=== PATIENT | male | born 1980 | race Caucasian/White ===

== ENCOUNTER 2016-10-13 19:46 | Inpatient (IN) | payer OTHER ==
[~2016-10-13] VITALS: Ht 182.9 cm; Wt 169.9 kg
[~2016-10-13 19:46] MED LIST: ACET1TAB40 PO; ASPI325T4 PO; COLC0.6T6 PO; DABI150C PO; DIGO125T PO; DILT240C79 PO; HYDR-3498 PO; HYDR-906 PO; IBUP800T25 PO; METF-405 PO; METO-448 PO; PANT40TA3 PO; TRAM50TA2 PO
[2016-10-13] MEDS ORDERED: INSULIN REGULAR 10 ML INJ SC ONE (22:30)
[2016-10-13 22:47] LABS: ADD SCAN DIFF NO
[2016-10-13 22:49] LABS: BASOPHILS % 0.5 % (0.0-2.0); EOSINOPHILS # 0.1 10^3/ul (0.0-0.5); EOSINOPHILS % 1.1 % (0.0-7.0); HEMATOCRIT 46.4 % (42.0-52.0); HEMOGLOBIN 15.9 g/dl (14.0-18.0); LYMPHOCYTES # 1.2 10^3/ul (0.8-2.9); MEAN CORPUSCULAR HEMOGLOBIN 28.6 pg (29.0-33.0); MEAN CORPUSCULAR HGB CONC 34.3 g/dl (32.0-37.0); MEAN CORPUSCULAR VOLUME 83.6 fl (82.0-101.0); MEAN PLATELET VOLUME 11.7 fl (7.4-10.4); MONOCYTE # 0.5 10^3/ul (0.3-0.9); MONOCYTES % 8.5 % (0.0-11.0); NEUTROPHIL # 3.8 10^3/ul (1.6-7.5); NEUTROPHILS % 68.5 % (39.0-77.0); PLATELET COUNT 200 10^3/UL (140-415); RED BLOOD COUNT 5.55 10^6/ul (4.70-6.10); RED CELL DISTRIBUTION WIDTH 14.6 % (11.5-14.5); WHITE BLOOD COUNT 5.5 10^3/ul (4.8-10.8)
[2016-10-13 23:04] LABS: INR 1.03; PROTIME 13.5 Sec (12.2-14.2); PT RATIO 1.1
[2016-10-13 23:07] LABS: ALANINE AMINOTRANSFERASE 80 IU/L (13-69); ALBUMIN 4.3 g/dl (3.3-4.9); ALBUMIN/GLOBULIN RATIO 1.16; ALKALINE PHOSPHATASE 215 IU/L (42-121); ANION GAP 13 (8-16); ASPARTATE AMINO TRANSFERASE 50 IU/L (15-46); BILIRUBIN,INDIRECT 0.8 mg/dl (0-1.1); BILIRUBIN,TOTAL 0.8 mg/dl (0.2-1.3); BLOOD UREA NITROGEN 9 mg/dl (7-20); CALCIUM 9.4 mg/dl (8.4-10.2); CARBON DIOXIDE 27 mmol/L (21-31); CHLORIDE 92 mmol/L (97-110); CREATININE 0.84 mg/dl (0.61-1.24); POTASSIUM 4.2 mmol/L (3.5-5.1); SODIUM 128 mmol/L (135-144)
--- NOTE | 2016-10-13 23:10 | RADRPT ---
PROCEDURE: XR Chest. CLINICAL INDICATION: chest pain TECHNIQUE: Single frontal view of the chest was obtained COMPARISON: 03/29/2016 FINDINGS: The heart and mediastinum are within normal limits. The lungs are clear. There is no pleural effusion or pneumothorax. RPTAT: AA IMPRESSION: No acute disease. .Ruel De La Fuente MD, MD Date Time Electronically viewed and signed by .Ruel De La Fuente MD, on 10/13/2016 23:10 .S/
[2016-10-13 23:15] LABS: B-TYPE NATRIURETIC PEPTIDE 39 PG/ML (0-125)
[2016-10-13 23:16] LABS: GLUCOSE 590 mg/dl (70-220)
[2016-10-13 23:20] LABS: TROPONIN-I < 0.012 ng/ml (0.00-0.12)
[2016-10-13] MEDS ORDERED: MTF1000T PO (23:27)
[2016-10-14] VITALS (9 sets, daily range): BP systolic 117–140; BP diastolic 58–69; PULSE 73–83; RESP 20–21; Ht 182.9 cm; Wt 169.9 kg
--- NOTE | 2016-10-14 01:45 | ERD ---
ER Documentation Chief Complaint Date/Time DATE: 10/14/16 TIME: 01:44 Chief Complaint sob/cp worsened last 2 days. hx chf dm HPI This a 36-year-old male comes in with shortness of breath dizziness, thirst, nausea for the past 2 days. Patient does have history of CHF and does not feel short of breath secondary to CHF. Denies any leg swelling. Denies any other no chest pain. No other current problems ROS All systems reviewed and are negative except as per history of present illness. Medications Home Meds Active Scripts Diltiazem Hcl* (Cardizem CD*) 240 Mg Cap.sr.24h, 60 MG PO QID for 30 Days, #90 CAP Prov:SHARON DEWITT MD 03/29/16 Pantoprazole* (Protonix*) 40 Mg Tablet.dr, 40 MG PO BID for 30 Days, TAB Prov:MEHUL KIRAN MD 03/09/16 Metoprolol Tartrate* (Lopressor*) 25 Mg Tab, 25 MG PO BID for 30 Days, TAB Prov:MEHUL KIRAN MD 03/09/16 Colchicine* (Colcrys*) 0.6 Mg Tablet, 0.6 MG PO DAILY for 28 Days, TAB Prov:MEHUL KIRAN MD 03/09/16 Reported Medications Metformin* (Glucophage*) 1,000 Mg Tablet, 1000 MG PO WITH BREAKFAST DINNE, #30 TAB 10/13/16 Dabigatran Etexilate Mesylate* (Pradaxa*) 150 Mg Capsule, 150 MG PO DAILY, CAP 03/29/16 Digoxin* (Digoxin*) 0.125 Mg Tab, 0.125 MG PO DAILY, #30 TAB 11/12/15 Discontinued Scripts Hydrocodone/Acetaminophen ([place] 5-325 Tablet) 1 Each Tablet, 1 TAB PO Q6H Y for PAIN, #7 TAB Prov:MOMO GAXIOLA NP 05/11/16 Ibuprofen* (Motrin*) 800 Mg Tab, 800 MG PO Q6, #15 TAB Prov:MOMO GAXIOLA NP 05/11/16 Acetaminophen with Codeine (Acetaminophen-Cod #3 Tablet) 1 Each Tablet, 1 TAB PO Q6H Y for PAIN, #14 TAB Prov:MIGEL PETTIT MD 04/14/16 Hydrocodone/Acetaminophen ([place] 5-325 Tablet) 1 Each Tablet, 1 TAB PO Q6H Y for PAIN for 7 Days, #7 TAB Prov:SHARON DEWITT MD 03/29/16 Tramadol HCl (Tramadol HCl) 50 Mg Tablet, 50 MG PO Q6, #15 TAB Prov:GARRY CAMPOS DO 03/16/16 Hydrocodone Bit-Acetaminophen (Hydrocodone Bit-APAP) 5-325MG Tablet, 1 TAB PO Q4H Y for PAIN for 28 Days, TAB Prov:MEHUL KIRAN MD 03/09/16 Metformin Hcl (Metformin Hcl ER) 500 Mg Tab.er.24, 500 MG PO DAILY, #30 TAB.SA Prov:MEHUL KIRAN MD 11/15/15 Aspirin (Coated Aspirin) 325 Mg Tablet, 325 MG PO DAILY, #30 TAB Prov:ELENO BRADFORD 10/04/15 Allergies Allergies: Coded Allergies: No Known Drug Allergies (Verified Allergy, Unknown, 10/13/16) PMhx/Soc History of Surgery: Yes (repair a fractured pelvis ) Anesthesia Reaction: No Hx Neurological Disorder: No Hx Respiratory Disorders: Yes (sleep apnea) Hx Cardiac Disorders: Yes (a fib and CHF ) Hx Psychiatric Problems: No Hx Miscellaneous Medical Probl: Yes (GERD, ULCERS, DM) Hx Alcohol Use: No Hx Substance Use: No Hx Tobacco Use: No Smoking Status: Never smoker Physical Exam Vitals Vital Signs Date Time Temp Pulse Resp B/P Pulse Ox O2 Delivery O2 Flow Rate FiO2 10/14/16 00:34 88 18 134/84 97 Nasal Cannula 2.0 10/13/16 19:48 97.9 99 32 131/85 90 Physical Exam Const: [] Head: Atraumatic Eyes: Normal Conjunctiva ENT: Normal External Ears, Nose and Mouth. Neck: Full range of motion..~ No meningismus. Resp: Clear to auscultation bilaterally Cardio: Regular rate and rhythm, no murmurs Abd: Soft, non tender, non distended. Normal bowel sounds Skin: No petechiae or rashes Back: No midline or flank tenderness Ext: No cyanosis, or edema Neur: Awake and alert Psych: Normal Mood and Affect Result Diagram: 10/13/162 10/13/162 Results 24 hrs Laboratory Tests Test 10/13/16 22:16 10/13/16 22:42 Bedside Glucose 581mg/dL White Blood Count 5.510^3/ul Red Blood Count 5.5510^6/ul Hemoglobin 15.9g/dl Hematocrit 46.4% Mean Corpuscular Volume 83.6fl Mean Corpuscular Hemoglobin 28.6pg Mean Corpuscular Hemoglobin Concent 34.3g/dl Red Cell Distribution Width 14.6% Platelet Count 03961^3/UL Mean Platelet Volume 11.7fl Neutrophils % 68.5% Lymphocytes % 21.0% Monocytes % 8.5% Eosinophils % 1.1% Basophils % 0.5% Nucleated Red Blood Cells % 0.0/100WBC Neutrophils # 3.810^3/ul Lymphocytes # 1.210^3/ul Monocytes # 0.510^3/ul Eosinophils # 0.110^3/ul Basophils # 0.010^3/ul Nucleated Red Blood Cells # 0.010^3/ul Prothrombin Time 13.5Sec Prothrombin Time Ratio 1.1 INR International Normalized Ratio 1.03 Activated Partial Thromboplast Time 28.0Sec Sodium Level 128mmol/L Potassium Level 4.2mmol/L Chloride Level 92mmol/L Carbon Dioxide Level 27mmol/L Anion Gap 13 Blood Urea Nitrogen 9mg/dl Creatinine 0.84mg/dl Glucose Level 590mg/dl Calcium Level 9.4mg/dl Total Bilirubin 0.8mg/dl Direct Bilirubin 0.00mg/dl Indirect Bilirubin 0.8mg/dl Aspartate Amino Transf (AST/SGOT) 50IU/L Alanine Aminotransferase (ALT/SGPT) 80IU/L Alkaline Phosphatase 215IU/L Troponin I < 0.012ng/ml B-Type Natriuretic Peptide 39PG/ML Total Protein 8.0g/dl Albumin 4.3g/dl Globulin 3.70g/dl Albumin/Globulin Ratio 1.16 Current Medications Medications (Trade) Dose Ordered Sig/Mera Route PRN Reason Start Time Stop Time Status Last Admin Dose Admin Insulin Human Regular (Novolin-R) 8 unit ONCE ONCE SC 10/13/16 22:30 10/13/16 22:31 DC 10/13/16 22:59 Procedures/MDM EKG: Rate/Rhythm: Normal Sinus Rhythm QRS, ST, T-waves: No changes consistent w/ acute ischemia Impression: No evidence of ischemia or arrhythmia Chest X-ray 1V Interpreted by me: Soft Tissue: No acute abnormalities Bones: No acute abnormalities Mediastinum/Cardiac Silhouette/Lungs: No acute abnormalities Medical decision: 36-year-old male as well as to be severe diabetes. He has no evidence of diabetic ketoacidosis. Patient will be admitted for further evaluation and management. Departure Diagnosis: Primary Impression: Shortness of breath Additional Impression: Hyperglycemia Condition: Serious MARIO KNIGHT October 14, 2016 01:45
[2016-10-14] MEDS ORDERED: GLUCAGON 1 MG INJ IM PRN (10:30)
[2016-10-14] MEDS ORDERED: GLUCOSE GEL 15 GRAM TUBE PO PRN ×2 (10:30)
[2016-10-14] MEDS ORDERED: DEXTROSE 50% 50 ML SYRINGE IV PRN ×2 (10:30)
[2016-10-14] MEDS ORDERED: GLUCOSE GEL 15 GRAM TUBE BUCCAL PRN (10:30)
[2016-10-14] MEDS ORDERED: SOD CHLORIDE 0.9% 1,000 ML IV SCH (10:30)
[2016-10-14] MEDS: SOD CHLORIDE 0.9% 1,000 ML IV SCH ×2 (11:00→11:50)
[2016-10-14] MEDS: INSULIN ASPART [NOVOLOG] 3 ML PEN SC SCH ×4 (11:51→20:48)
[2016-10-14] MEDS ORDERED: INSULIN GLARGINE [LANtus] 3 ML PEN SC SCH (12:30)
[2016-10-14] MEDS: DILTIAZEM 60 MG TAB PO SCH ×3 (12:32→20:49)
[2016-10-14] MEDS: DIGOXIN 0.125 MG TAB PO SCH (12:32)
[2016-10-14] MEDS: metFORMIN 500 MG TAB PO SCH (17:42)
[2016-10-14] MEDS: PANTOPRAZOLE (EC) 40 MG TAB PO SCH (17:42)
[2016-10-14] MEDS: morphine 2 MG INJ IV PRN ×2 (19:33→23:44)
[2016-10-14] MEDS: INSULIN DETEMIR [LEVEMIR] 3ML CART SC SCH (20:47)
[2016-10-14] MEDS: METOPROLOL 25 MG TAB PO SCH (20:48)
--- NOTE | 2016-10-14 20:58 | QN ---
Documentation Comment [id number] MEHLU KIRAN MD October 14, 2016 20:57
[2016-10-15] VITALS (10 sets, daily range): BP systolic 110–133; BP diastolic 50–80; PULSE 64–81; RESP 19–20
--- NOTE | 2016-10-15 02:43 | HP ---
DATE OF ADMISSION: 10/14/2016 HISTORY OF PRESENT ILLNESS: Lyndon Justin is 36-year-old male who has a history of GI bleed, gastrit is, esophagitis, hiatus hernia, history of EGD, history of AFib, history of diabetes mellitus, histo ry of osteoarthritis, gout, metabolic syndrome, obesity, dyslipidemia. As mentioned above, patient now presents to this hospital with blood pressure 134/84 in the ER. Patient comes in with shortness of breath, dizziness plus nausea for the past 2 days. Patient, in the ER, noted to have ALLERGY NE GATIVE. The patient's blood pressure 134/84, and patient's WBC 5.5, hematocrit 46.4, sodium 128, po tassium 4.2, glucose 590 and patient is being admitted for further management. Received insulin in the ER, and patient is admitted with diagnosis of short of breath, hyperglycemia. PAST MEDICAL HISTORY: AFib, GI bleed, esophagitis, gastritis, GERD, obesity, dyslipidemia, metaboli c syndrome, history of gout. ALLERGY HISTORY: NEGATIVE. FAMILY HISTORY: Noncontributory. SOCIAL HISTORY: Negative. MEDICATION HISTORY: Listed as, patient is on, currently, at home: 1. Colchicine. 2. Pradaxa 150 mg daily. 3. Digoxin 0.125 daily. 4. Cardizem. 5. Metformin. 6. Metoprolol. 7. Protonix. REVIEW OF SYSTEMS: HEENT: Unremarkable. RESPIRATORY: Unremarkable. CARDIOVASCULAR: Unremarkable. ABDOMEN: As mentioned above. No hematemesis or melena. EXTREMITIES: Unremarkable. PHYSICAL EXAMINATION: GENERAL: The patient is obese, overweight male, awake, alert. VITAL SIGNS: Pulse 73, blood pressure 117/58. HEAD: Atraumatic, normocephalic. Pupils equal, reactive to light. NECK: Large. LUNGS: Clear. CARDIOVASCULAR: S1, S2 normal. ABDOMEN: Soft, nontender. Bowel sounds present. No palpable mass or hepatosplenomegaly. No guard ing, rebound tenderness. EXTREMITIES: There is no cyanosis, clubbing or edema. CENTRAL NERVOUS SYSTEM: The patient is awake, alert with no focal deficit. LABORATORY DATA: Shows hematocrit 46.4, platelet count 200. The patient's sodium 120, potassium 4. 2. The patient had chest x-ray done, shows no active disease. IMPRESSION: 1. Diabetes mellitus, uncontrolled. 2. Type 2 diabetes mellitus. 3. Obesity. 4. Hyponatremia. 5. Clinical dehydration. 6. Obesity. 7. History of atrial fibrillation. 8. History of gastroesophageal reflux disease. 9. History of gastritis. 10. History of esophagitis. 11. History of gout. PLAN: The patient will have hemoglobin A1c. Continue home medications, gentle IV fluids, insulin s liding scale. Patient's home medications will be reviewed and continued. Laboratory data will be o btained. Dictated By: MEHUL KIRAN MD BS/ANNA Conf#: [id number] DID#: [id number]
[2016-10-15] MEDS: ACCU-CHEK XX SCH (02:48)
[2016-10-15] MEDS: PANTOPRAZOLE (EC) 40 MG TAB PO SCH ×2 (05:40→17:39)
[2016-10-15] MEDS: morphine 2 MG INJ IV PRN ×3 (05:40→20:24)
[2016-10-15] MEDS: SOD CHLORIDE 0.9% 1,000 ML IV SCH (07:18)
[2016-10-15 07:36] LABS: ADD SCAN DIFF NO
[2016-10-15 07:53] LABS: BASOPHILS % 0.7 % (0.0-2.0); EOSINOPHILS # 0.1 10^3/ul (0.0-0.5); EOSINOPHILS % 1.7 % (0.0-7.0); HEMATOCRIT 44.3 % (42.0-52.0); HEMOGLOBIN 14.6 g/dl (14.0-18.0); LYMPHOCYTES # 1.6 10^3/ul (0.8-2.9); LYMPHOCYTES % 26.7 % (15.0-51.0); MEAN CORPUSCULAR HEMOGLOBIN 28.3 pg (29.0-33.0); MEAN PLATELET VOLUME 11.6 fl (7.4-10.4); MONOCYTE # 0.5 10^3/ul (0.3-0.9); MONOCYTES % 8.9 % (0.0-11.0); NEUTROPHIL # 3.7 10^3/ul (1.6-7.5); NEUTROPHILS % 61.7 % (39.0-77.0); PLATELET COUNT 185 10^3/UL (140-415); RED BLOOD COUNT 5.15 10^6/ul (4.70-6.10)
[2016-10-15 08:11] LABS: ALBUMIN 3.4 g/dl (3.3-4.9); POTASSIUM 3.4 mmol/L (3.5-5.1)
[2016-10-15 08:13] LABS: CREATININE 0.73 mg/dl (0.61-1.24)
[2016-10-15 08:14] LABS: ALBUMIN/GLOBULIN RATIO 0.97; BILIRUBIN,INDIRECT 0.6 mg/dl (0-1.1); BILIRUBIN,TOTAL 0.6 mg/dl (0.2-1.3); TOTAL PROTEIN 6.9 g/dl (6.1-8.1)
[2016-10-15 08:15] LABS: CALCIUM 8.5 mg/dl (8.4-10.2)
[2016-10-15] MEDS: DILTIAZEM 60 MG TAB PO SCH ×4 (08:40→20:25)
[2016-10-15] MEDS: COLCHICINE 0.6 MG TAB PO SCH (08:40)
[2016-10-15] MEDS: METOPROLOL 25 MG TAB PO SCH ×2 (08:40→20:25)
[2016-10-15] MEDS: DABIGATRAN 150 MG CAP PO SCH (08:41)
[2016-10-15] MEDS: INSULIN DETEMIR [LEVEMIR] 3ML CART SC SCH ×2 (08:47→19:21)
[2016-10-15] MEDS: INSULIN ASPART [NOVOLOG] 3 ML PEN SC SCH ×7 (08:47→20:33)
[2016-10-15] MEDS: metFORMIN 500 MG TAB PO SCH ×2 (08:57→17:41)
[2016-10-15] MEDS: DIGOXIN 0.125 MG TAB PO SCH (12:14)
[2016-10-15] MEDS ORDERED: POTASSIUM CHLORIDE (SR) 10 MEQ TAB PO ONE (19:00)
--- NOTE | 2016-10-15 23:44 | PN ---
Date/Time of Note Date/Time of Note DATE: 10/15/16 TIME: 23:43 Assessment/Plan VTE Prophylaxis VTE Prophylaxis Intervention: other Lines/Catheters IV C[facility]ter Type (from [facility]): Peripheral IV Assessment/Plan Chief Complaint/Hosp Course IMPRESSION: 1. Diabetes mellitus, uncontrolled. 2. Type 2 diabetes mellitus. 3. Obesity. 4. Hyponatremia. 5. Clinical dehydration. 6. Obesity. 7. History of atrial fibrillation. 8. History of gastroesophageal reflux disease. 9. History of gastritis. 10. History of esophagitis. 11. History of gout. plan insulin Problems: Subjective 24 Hr Interval Summary Cardiovascular: no complaints Gastrointestinal: no complaints Exam/Review of Systems Vital Signs Vitals Vital Signs Date Time Temp Pulse Resp B/P Pulse Ox O2 Delivery O2 Flow Rate FiO2 10/15/16 20:07 Nasal Cannula 2.0 10/15/16 20:00 80 10/15/16 20:00 98.0 19 124/61 94 Intake and Output 10/14/16 10/14/16 10/15/16 15:00 23:00 07:00 Intake Total 1700 ml 900 ml Output Total 1300 ml 650 ml Balance 400 ml 250 ml Exam Neck: supple Respiratory: clear to auscultation Cardiovascular: regular rate and rhythm Results Result Diagram: 10/15/1620 10/15/1620 Results 24 hrs Laboratory Tests Test 10/15/16 02:33 10/15/16 06:20 10/15/16 08:35 10/15/16 11:58 Bedside Glucose 312 H 360 H 333 H White Blood Count 6.0 Red Blood Count 5.15 Hemoglobin 14.6 Hematocrit 44.3 Mean Corpuscular Volume 86.0 Mean Corpuscular Hemoglobin 28.3 L Mean Corpuscular Hemoglobin Concent 33.0 Red Cell Distribution Width 15.0 H Platelet Count 185 Mean Platelet Volume 11.6 H Neutrophils % 61.7 Lymphocytes % 26.7 Monocytes % 8.9 Eosinophils % 1.7 Basophils % 0.7 Nucleated Red Blood Cells % 0.0 Neutrophils # 3.7 Lymphocytes # 1.6 Monocytes # 0.5 Eosinophils # 0.1 Basophils # 0.0 Nucleated Red Blood Cells # 0.0 Sodium Level 134 L Potassium Level 3.4 L Chloride Level 93 L Carbon Dioxide Level 28 Anion Gap 16 Blood Urea Nitrogen 10 Creatinine 0.73 Glucose Level 321 #H Hemoglobin A1c 11.9 H Calcium Level 8.5 Total Bilirubin 0.6 Direct Bilirubin 0.00 Indirect Bilirubin 0.6 Aspartate Amino Transf (AST/SGOT) 54 H Alanine Aminotransferase (ALT/SGPT) 75 H Alkaline Phosphatase 128 H Total Protein 6.9 # Albumin 3.4 Globulin 3.50 H Albumin/Globulin Ratio 0.97 Test 10/15/16 17:04 10/15/16 19:08 10/15/16 20:29 Bedside Glucose 264 H 337 H 262 H Medications Medications Current Medications Diagnostic Test (Pha) (Accu-Chek) 1 ea 02 XX Last administered on 10/15/16 02: 48; Admin Dose 1 EA; Start 10/15/16 at 02:00 Miscellaneous Information 1 ea NOTE XX ; Start 10/14/16 at 10:30 Glucose (Glutose) 15 gm Q15M PRN PO DECREASED GLUCOSE; Start 10/14/16 at 10:30 Glucose (Glutose) 22.5 gm Q15M PRN PO DECREASED GLUCOSE; Start 10/14/16 at 10:30 Dextrose (D50w Syringe) 25 ml Q15M PRN IV DECREASED GLUCOSE; Start 10/14/16 at 10:30 Dextrose (D50w Syringe) 50 ml Q15M PRN IV DECREASED GLUCOSE; Start 10/14/16 at 10:30 Glucagon (Glucagen) 1 mg Q15M PRN IM DECREASED GLUCOSE; Start 10/14/16 at 10:30 Glucose (Glutose) 15 gm Q15M PRN BUCCAL DECREASED GLUCOSE; Start 10/14/16 at 10: 30 Colchicine (Colchicine) 0.6 mg DAILY PO Last administered on 10/15/16 08:40; Admin Dose 0.6 MG; Start 10/15/16 at 09:00 Dabigatran (PRADaxa) 150 mg DAILY PO Last administered on 10/15/16 08:41; Admin Dose 150 MG; Start 10/15/16 at 09:00 Digoxin (Digoxin) 0.125 mg DAILY@13 PO Last administered on 10/15/16 12:14; Admin Dose 0.125 MG; Start 10/14/16 at 13:00 Diltiazem HCl (Cardizem) 60 mg QID PO Last administered on 10/15/16 20:25; Admin Dose 60 MG; Start 10/14/16 at 13:00 Metoprolol Tartrate (Lopressor) 25 mg BID PO Last administered on 10/15/16 20: 25; Admin Dose 25 MG; Start 10/14/16 at 21:00 Pantoprazole 40 mg 40 mg BID@06,18 PO Last administered on 10/15/16 17:39; Admin Dose 40 MG; Start 10/14/16 at 18:00 Sodium Chloride (NS) 1,000 ml @ 50 mls/hr Q20H IV Last administered on 07:18; Admin Dose 50 MLS/HR; Start 10/14/16 at 11:00 Morphine Sulfate (morphine) 2 mg Q4H PRN IV PAIN Last administered on 20:24; Admin Dose 2 MG; Start 10/14/16 at 11:30 Insulin Detemir (Levemir) 15 unit BID@08,20 SC Last administered on 10/15/16 19:21; Admin Dose 15 UNIT; Start 10/15/16 at 20:00 MEHUL KIRAN MD October 15, 2016 23:44
[2016-10-16] VITALS (11 sets, daily range): BP systolic 109–143; BP diastolic 56–77; PULSE 61–77; RESP 19–20
[2016-10-16] MEDS: morphine 2 MG INJ IV PRN ×3 (00:11→20:04)
[2016-10-16] MEDS ORDERED: ZOLPIDEM 5 MG TAB PO PRN (00:30)
[2016-10-16] MEDS: ACCU-CHEK XX SCH (02:18)
[2016-10-16] MEDS: SOD CHLORIDE 0.9% 1,000 ML IV SCH ×2 (02:20→23:00)
[2016-10-16] MEDS: PANTOPRAZOLE (EC) 40 MG TAB PO SCH ×2 (06:06→17:27)
[2016-10-16] MEDS: METOPROLOL 25 MG TAB PO SCH ×2 (08:21→20:44)
[2016-10-16] MEDS: COLCHICINE 0.6 MG TAB PO SCH (08:21)
[2016-10-16] MEDS: DILTIAZEM 60 MG TAB PO SCH ×4 (08:21→20:44)
[2016-10-16] MEDS: DABIGATRAN 150 MG CAP PO SCH (08:21)
[2016-10-16] MEDS: metFORMIN 500 MG TAB PO SCH ×2 (08:21→17:28)
[2016-10-16] MEDS: INSULIN ASPART [NOVOLOG] 3 ML PEN SC SCH ×7 (08:28→20:48)
[2016-10-16] MEDS: INSULIN DETEMIR [LEVEMIR] 3ML CART SC SCH ×2 (08:28→19:56)
[2016-10-16 08:38] LABS: ADD SCAN DIFF NO
[2016-10-16 08:52] LABS: BASOPHIL # 0.1 10^3/ul (0.0-0.1); BASOPHILS % 0.9 % (0.0-2.0); EOSINOPHILS # 0.1 10^3/ul (0.0-0.5); EOSINOPHILS % 1.6 % (0.0-7.0); HEMATOCRIT 44.5 % (42.0-52.0); HEMOGLOBIN 14.8 g/dl (14.0-18.0); LYMPHOCYTES # 1.4 10^3/ul (0.8-2.9); LYMPHOCYTES % 23.6 % (15.0-51.0); MEAN CORPUSCULAR HEMOGLOBIN 28.6 pg (29.0-33.0); MEAN CORPUSCULAR HGB CONC 33.3 g/dl (32.0-37.0); MEAN CORPUSCULAR VOLUME 85.9 fl (82.0-101.0); MEAN PLATELET VOLUME 11.4 fl (7.4-10.4); MONOCYTE # 0.6 10^3/ul (0.3-0.9); MONOCYTES % 9.9 % (0.0-11.0); NEUTROPHIL # 3.7 10^3/ul (1.6-7.5); NEUTROPHILS % 63.7 % (39.0-77.0); PLATELET COUNT 181 10^3/UL (140-415); RED BLOOD COUNT 5.18 10^6/ul (4.70-6.10); WHITE BLOOD COUNT 5.7 10^3/ul (4.8-10.8)
[2016-10-16 09:22] LABS: ALBUMIN 3.4 g/dl (3.3-4.9)
[2016-10-16 09:23] LABS: POTASSIUM 3.7 mmol/L (3.5-5.1)
[2016-10-16 09:24] LABS: BILIRUBIN,INDIRECT 0.6 mg/dl (0-1.1); BILIRUBIN,TOTAL 0.6 mg/dl (0.2-1.3); CREATININE 0.69 mg/dl (0.61-1.24)
[2016-10-16 09:25] LABS: ALBUMIN/GLOBULIN RATIO 1.03; TOTAL PROTEIN 6.7 g/dl (6.1-8.1)
[2016-10-16 09:26] LABS: CALCIUM 8.2 mg/dl (8.4-10.2)
[2016-10-16] MEDS: DIGOXIN 0.125 MG TAB PO SCH (12:03)
--- NOTE | 2016-10-16 16:28 | PN ---
Date/Time of Note Date/Time of Note DATE: 10/16/16 TIME: 16:27 Assessment/Plan VTE Prophylaxis VTE Prophylaxis Intervention: other Lines/Catheters IV [facility] Type (from [facility] Peripheral IV Urinary Cath still in place: No Assessment/Plan Chief Complaint/Hosp Course IMPRESSION: 1. Diabetes mellitus, uncontrolled. 2. Type 2 diabetes mellitus. 3. Obesity. 4. Hyponatremia. 5. Clinical dehydration. 6. Obesity. 7. History of atrial fibrillation. 8. History of gastroesophageal reflux disease. 9. History of gastritis. 10. History of esophagitis. 11. History of gout. plan insulin PRE MEAL Problems: Subjective 24 Hr Interval Summary Cardiovascular: no complaints Gastrointestinal: no complaints Exam/Review of Systems Vital Signs Vitals Vital Signs Date Time Temp Pulse Resp B/P Pulse Ox O2 Delivery O2 Flow Rate FiO2 10/16/16 16:01 77 10/16/16 15:44 98.2 20 111/56 95 10/15/16 20:07 Nasal Cannula 2.0 Intake and Output 10/15/16 10/15/16 10/16/16 15:00 23:00 07:00 Intake Total 1700 ml 800 ml Output Total 1100 ml 950 ml Balance 600 ml -150 ml Exam Neck: supple Respiratory: clear to auscultation Cardiovascular: regular rate and rhythm Gastrointestinal: soft Musculoskeletal: nl extremities to inspection Extremities: normal pulses Results Result Diagram: 10/16/16 0741 10/16/16 0741 Results 24 hrs Laboratory Tests Test 10/15/16 17:04 10/15/16 19:08 10/15/16 20:29 10/16/16 02:17 Bedside Glucose 264 H 337 H 262 H 242 H Test 10/16/16 07:41 10/16/16 08:10 10/16/16 11:52 White Blood Count 5.7 Red Blood Count 5.18 Hemoglobin 14.8 Hematocrit 44.5 Mean Corpuscular Volume 85.9 Mean Corpuscular Hemoglobin 28.6 L Mean Corpuscular Hemoglobin Concent 33.3 Red Cell Distribution Width 15.0 H Platelet Count 181 Mean Platelet Volume 11.4 H Neutrophils % 63.7 Lymphocytes % 23.6 Monocytes % 9.9 Eosinophils % 1.6 Basophils % 0.9 Nucleated Red Blood Cells % 0.0 Neutrophils # 3.7 Lymphocytes # 1.4 Monocytes # 0.6 Eosinophils # 0.1 Basophils # 0.1 Nucleated Red Blood Cells # 0.0 Sodium Level 133 L Potassium Level 3.7 Chloride Level 96 L Carbon Dioxide Level 26 Anion Gap 15 Blood Urea Nitrogen 10 Creatinine 0.69 Glucose Level 315 H Calcium Level 8.2 L Total Bilirubin 0.6 Direct Bilirubin 0.00 Indirect Bilirubin 0.6 Aspartate Amino Transf (AST/SGOT) 64 H Alanine Aminotransferase (ALT/SGPT) 79 H Alkaline Phosphatase 117 Total Protein 6.7 Albumin 3.4 Globulin 3.30 H Albumin/Globulin Ratio 1.03 Bedside Glucose 304 H 277 H Medications Medications Current Medications Diagnostic Test (Pha) (Accu-Chek) 1 ea 02 XX Last administered on 10/16/16 02: 18; Admin Dose 1 EA; Start 10/15/16 at 02:00 Miscellaneous Information 1 ea NOTE XX ; Start 10/14/16 at 10:30 Glucose (Glutose) 15 gm Q15M PRN PO DECREASED GLUCOSE; Start 10/14/16 at 10:30 Glucose (Glutose) 22.5 gm Q15M PRN PO DECREASED GLUCOSE; Start 10/14/16 at 10:30 Dextrose (D50w Syringe) 25 ml Q15M PRN IV DECREASED GLUCOSE; Start 10/14/16 at 10:30 Dextrose (D50w Syringe) 50 ml Q15M PRN IV DECREASED GLUCOSE; Start 10/14/16 at 10:30 Glucagon (Glucagen) 1 mg Q15M PRN IM DECREASED GLUCOSE; Start 10/14/16 at 10:30 Glucose (Glutose) 15 gm Q15M PRN BUCCAL DECREASED GLUCOSE; Start 10/14/16 at 10: 30 Colchicine (Colchicine) 0.6 mg DAILY PO Last administered on 10/16/16 08:21; Admin Dose 0.6 MG; Start 10/15/16 at 09:00 Dabigatran (PRADaxa) 150 mg DAILY PO Last administered on 10/16/16 08:21; Admin Dose 150 MG; Start 10/15/16 at 09:00 Digoxin (Digoxin) 0.125 mg DAILY@13 PO Last administered on 10/16/16 12:03; Admin Dose 0.125 MG; Start 10/14/16 at 13:00 Diltiazem HCl (Cardizem) 60 mg QID PO Last administered on 10/16/16 12:04; Admin Dose 60 MG; Start 10/14/16 at 13:00 Metoprolol Tartrate (Lopressor) 25 mg BID PO Last administered on 10/16/16 08: 21; Admin Dose 25 MG; Start 10/14/16 at 21:00 Pantoprazole 40 mg 40 mg BID@06,18 PO Last administered on 10/16/16 06:06; Admin Dose 40 MG; Start 10/14/16 at 18:00 Sodium Chloride (NS) 1,000 ml @ 50 mls/hr Q20H IV Last administered on 02:20; Admin Dose 50 MLS/HR; Start 10/14/16 at 11:00 Morphine Sulfate (morphine) 2 mg Q4H PRN IV PAIN Last administered on 10:48; Admin Dose 2 MG; Start 10/14/16 at 11:30 Zolpidem Tartrate (Ambien) 5 mg HS PRN PO INSOMNIA Last administered on 02:19; Admin Dose 5 MG; Start 10/16/16 at 00:30 Insulin Detemir (Levemir) 20 unit BID@08,20 SC ; Start 10/16/16 at 20:00 MEHUL KIRAN MD October 16, 2016 16:27
[2016-10-17] VITALS (11 sets, daily range): BP systolic 110–138; BP diastolic 55–72; PULSE 47–72; RESP 15–20
[2016-10-17] MEDS: morphine 2 MG INJ IV PRN ×3 (01:54→16:51)
[2016-10-17] MEDS ORDERED: ACCU-CHEK XX SCH (02:00)
[2016-10-17] MEDS: ACCU-CHEK XX SCH (02:22)
[2016-10-17] MEDS: SOD CHLORIDE 0.9% 1,000 ML IV SCH (03:55)
[2016-10-17] MEDS: PANTOPRAZOLE (EC) 40 MG TAB PO SCH ×2 (06:03→17:20)
[2016-10-17] MEDS: metFORMIN 500 MG TAB PO SCH ×2 (08:43→17:21)
[2016-10-17] MEDS: DILTIAZEM 60 MG TAB PO SCH ×3 (08:44→17:20)
[2016-10-17] MEDS: METOPROLOL 25 MG TAB PO SCH (08:44)
[2016-10-17] MEDS: DABIGATRAN 150 MG CAP PO SCH (08:44)
[2016-10-17] MEDS: COLCHICINE 0.6 MG TAB PO SCH (08:44)
[2016-10-17] MEDS: INSULIN ASPART [NOVOLOG] 3 ML PEN SC SCH ×5 (08:52→17:24)
[2016-10-17] MEDS: INSULIN DETEMIR [LEVEMIR] 3ML CART SC SCH (08:52)
[2016-10-17] MEDS: DIGOXIN 0.125 MG TAB PO SCH (12:12)
--- NOTE | 2016-10-17 16:12 | PN ---
Date/Time of Note Date/Time of Note DATE: 10/17/16 TIME: 16:09 Assessment/Plan VTE Prophylaxis VTE Prophylaxis Intervention: ambulation Lines/Catheters IV [facility] (from [facility] Peripheral IV Urinary Cath still in place: No Assessment/Plan Chief Complaint/Hosp Course 1. Diabetes mellitus, uncontrolled. 2. Type 2 diabetes mellitus. 3. Obesity. 4. Hyponatremia. 5. Clinical dehydration. 6. Obesity. 7. History of atrial fibrillation. 8. History of gastroesophageal reflux disease. 9. History of gastritis. 10. History of esophagitis. 11. History of gout. Problems: Assessment/Plan 1.Control BS tighter. 2. Dc tomorrow Subjective 24 Hr Interval Summary Subjective hx not possible: pt non-verbal Constitutional: no complaints Eyes: no complaints ENT: no complaints Respiratory: no complaints Exam/Review of Systems Vital Signs Vitals Vital Signs Date Time Temp Pulse Resp B/P Pulse Ox O2 Delivery O2 Flow Rate FiO2 10/17/16 16:01 98.3 76 19 122/65 97 10/17/16 02:01 2.0 10/15/16 20:07 Nasal Cannula Intake and Output 10/16/16 10/16/16 10/17/16 15:00 23:00 07:00 Intake Total 1580 ml 1000 ml Output Total 320 ml 900 ml 750 ml Balance -320 ml 680 ml 250 ml Exam Constitutional: alert, oriented Psych: nl mood/affect, no complaints Head: normocephalic Eyes: nl conjunctiva ENMT: nl external ears & nose Neck: supple Respiratory: clear to auscultation Cardiovascular: regular rate and rhythm Gastrointestinal: soft Genitourinary - Male: nl penis Results Result Diagram: 10/16/16 0741 10/16/16 0741 Results 24 hrs Laboratory Tests Test 10/16/16 17:25 10/16/16 20:43 10/17/16 01:50 10/17/16 07:52 Bedside Glucose 267 H 248 H 198 239 H Test 10/17/16 11:49 Bedside Glucose 270 H Medications Medications Current Medications Diagnostic Test (Pha) (Accu-Chek) 1 ea 02 XX Last administered on 10/17/16t 02: 22; Admin Dose 1 EA; Start 10/15/16 at 02:00 Miscellaneous Information 1 ea NOTE XX ; Start 10/14/16 at 10:30 Glucose (Glutose) 15 gm Q15M PRN PO DECREASED GLUCOSE; Start 10/14/16 at 10:30 Glucose (Glutose) 22.5 gm Q15M PRN PO DECREASED GLUCOSE; Start 10/14/16 at 10:30 Dextrose (D50w Syringe) 25 ml Q15M PRN IV DECREASED GLUCOSE; Start 10/14/16 at 10:30 Dextrose (D50w Syringe) 50 ml Q15M PRN IV DECREASED GLUCOSE; Start 10/14/16 at 10:30 Glucagon (Glucagen) 1 mg Q15M PRN IM DECREASED GLUCOSE; Start 10/14/16 at 10:30 Glucose (Glutose) 15 gm Q15M PRN BUCCAL DECREASED GLUCOSE; Start 10/14/16 at 10: 30 Colchicine (Colchicine) 0.6 mg DAILY PO Last administered on 10/17/16 08:44; Admin Dose 0.6 MG; Start 10/15/16 at 09:00 Dabigatran (PRADaxa) 150 mg DAILY PO Last administered on 10/17/16 08:44; Admin Dose 150 MG; Start 10/15/16 at 09:00 Digoxin (Digoxin) 0.125 mg DAILY@13 PO Last administered on 10/17/16 12:12; Admin Dose 0.125 MG; Start 10/14/16 at 13:00 Diltiazem HCl (Cardizem) 60 mg QID PO Last administered on 10/17/16 12:12; Admin Dose 60 MG; Start 10/14/16 at 13:00 Metoprolol Tartrate (Lopressor) 25 mg BID PO Last administered on 10/17/16 08: 44; Admin Dose 25 MG; Start 10/14/16 at 21:00 Pantoprazole 40 mg 40 mg BID@06,18 PO Last administered on 10/17/16 06:03; Admin Dose 40 MG; Start 10/14/16 at 18:00 Sodium Chloride (NS) 1,000 ml @ 50 mls/hr Q20H IV Last administered on 03:55; Admin Dose 50 MLS/HR; Start 10/14/16 at 11:00 Morphine Sulfate (morphine) 2 mg Q4H PRN IV PAIN Last administered on 10:04; Admin Dose 2 MG; Start 10/14/16 at 11:30 Zolpidem Tartrate (Ambien) 5 mg HS PRN PO INSOMNIA Last administered on t 02:19; Admin Dose 5 MG; Start 10/16/16 at 00:30 Insulin Detemir (Levemir) 25 unit BID@08,20 SC ; Start 10/17/16 at 20:00 NII MADRID October 17, 2016 16:12
[2016-10-17] MEDS ORDERED: INSULIN ASPART [NOVOLOG] 3 ML PEN SC SCH (18:05)
--- NOTE | 2016-10-17 19:01 | PDOCDIS ---
Discharge Instructions CONDITION Patient Condition: Stable HOME CARE INSTRUCTIONS: Special Diet: 1800 fish 2gNa ACTIVITY: Activity Restrictions: Slowly Increase Activity FOLLOW UP/APPOINTMENTS Appointments f/u own pcp 1 wk MEHUL KIRAN MD October 17, 2016 19:01
[2016-10-17] MEDS ORDERED: INSU100I27 SC (19:04)
[2016-10-17] MEDS ORDERED: NOVO3I SC (19:04)
[2016-10-17] MEDS ORDERED: INSULIN DETEMIR [LEVEMIR] 3ML CART SC SCH (20:00)
[2016-10-18 04:00] VITALS: BP 133/62
== END 2016-10-17 20:53 | disposition home or self-care (01) | DRG 638 ==
LOC: E/R 19:46 → MS4 10-14 09:14 → TEL 10-14 12:47 → MS4 10-14 12:47
PROVIDERS: ADMIT Internal Medicine Nephrology; ATTEND Internal Medicine Nephrology
DX: E11.65 Type 2 diabetes mellitus with hyperglycemia (principal); Z68.43 Body mass index [BMI] 50.0-59.9, adult; E87.1 Hypo-osmolality and hyponatremia; E66.9 Obesity, unspecified; E86.0 Dehydration; Z79.84 Long term (current) use of oral hypoglycemic drugs
CPT/HCPCS: 36415; 71010; 80053; 82962; 83036; 83880; 84484; 85025; 85610; 85730; 93005; 96372; J1815; J2270; J7030

== ENCOUNTER 2016-11-13 16:14 | Inpatient (IN) | payer MEDICAID, OTHER ==
[~2016-11-13] VITALS: Ht 182.9 cm; Wt 172.0 kg
[~2016-11-13 16:14] MED LIST changes: -ACET1TAB40 PO; -ASPI325T4 PO; -HYDR-3498 PO; -HYDR-906 PO; -IBUP800T25 PO; +INSU100I27 SC; -METF-405 PO; +MTF1000T PO; +NOVO3I SC; -TRAM50TA2 PO
[2016-11-13] MEDS ORDERED: ONDANSETRON 4 MG INJ IV STA (16:49)
[2016-11-13] MEDS ORDERED: NITROGLYCERIN (SL) 0.4 MG TAB SL PRN ×2 (17:00→23:00)
[2016-11-13 17:30] LABS: ADD SCAN DIFF NO
[2016-11-13 17:33] LABS: BASOPHIL # 0.1 10^3/ul (0.0-0.1); BASOPHILS % 0.6 % (0.0-2.0); EOSINOPHILS # 0.1 10^3/ul (0.0-0.5); HEMATOCRIT 38.9 % (42.0-52.0); HEMOGLOBIN 13.5 g/dl (14.0-18.0); LYMPHOCYTES # 2.2 10^3/ul (0.8-2.9); LYMPHOCYTES % 24.4 % (15.0-51.0); MEAN CORPUSCULAR HEMOGLOBIN 29.5 pg (29.0-33.0); MEAN CORPUSCULAR HGB CONC 34.7 g/dl (32.0-37.0); MEAN CORPUSCULAR VOLUME 85.1 fl (82.0-101.0); MONOCYTE # 0.5 10^3/ul (0.3-0.9); NEUTROPHILS % 67.7 % (39.0-77.0); PLATELET COUNT 191 10^3/UL (140-415); RED BLOOD COUNT 4.57 10^6/ul (4.70-6.10); RED CELL DISTRIBUTION WIDTH 13.7 % (11.5-14.5); WHITE BLOOD COUNT 8.8 10^3/ul (4.8-10.8)
--- NOTE | 2016-11-13 17:41 | RADRPT ---
PROCEDURE: Chest x-ray CLINICAL INDICATION: Chest pain TECHNIQUE: Chest single view COMPARISON: 10/13/2016 FINDINGS: The heart is normal in size. The pulmonary vessels are normal in caliber. The lungs are clear. Th e costophrenic angles are sharp. The visualized bony thorax is unremarkable. IMPRESSION: No acute cardiopulmonary disease. RPTAT: HH .Ayush Arndt MD, Date Time Electronically viewed and signed by .Ayush Arndt MD, on 11/13/2016 17:41 .W/
[2016-11-13 17:48] LABS: INR 1.06; PARTIAL THROMBOPLASTIN TIME 29.9 Sec (25.0-35.0); PROTIME 13.8 Sec (12.2-14.2); PT RATIO 1.1
[2016-11-13 17:50] LABS: ANION GAP 11 (8-16); BLOOD UREA NITROGEN 8 mg/dl (7-20); CALCIUM 8.3 mg/dl (8.4-10.2); CARBON DIOXIDE 25 mmol/L (21-31); CHLORIDE 103 mmol/L (97-110); CREATININE 0.63 mg/dl (0.61-1.24); GLUCOSE 276 mg/dl (70-220); SODIUM 135 mmol/L (135-144)
[2016-11-13] MEDS ORDERED: COLC0.6T6 PO (17:51)
[2016-11-13] MEDS ORDERED: DIGO125T PO (17:52)
[2016-11-13] MEDS ORDERED: DABI150C PO (17:52)
[2016-11-13] MEDS ORDERED: DILT240C62 PO (17:53)
[2016-11-13] MEDS ORDERED: NOVO3I SC (17:54)
[2016-11-13] MEDS ORDERED: METF1000 PO (17:55)
[2016-11-13] MEDS ORDERED: INSU100I27 SQ (17:55)
[2016-11-13] MEDS ORDERED: METO-448 PO (17:55)
[2016-11-13] MEDS ORDERED: PANT40TA4 PO (17:56)
[2016-11-13 18:02] LABS: B-TYPE NATRIURETIC PEPTIDE 78 PG/ML (0-125)
[2016-11-13 18:03] LABS: TROPONIN-I < 0.012 ng/ml (0.00-0.12)
--- NOTE | 2016-11-13 18:03 | ERA ---
ER Documentation Chief Complaint Date/Time DATE: 11/13/16 TIME: 17:58 Chief Complaint BILATERAL CHEST PAIN RADIATING TO LEFT ARM, LEFT ARM NUMB, DIZZY FROM PCP HPI 36-year-old male presenting with 30 minutes of chest pressure. He states that he has a history of A. fib, CHF, type 2 diabetes, pulmonary embolism on Pradaxa , obstructive sleep apnea, hypertension presenting with ambulance from his PCPs office. He complains of central chest pressure, 8 out of 10, radiating to his left shoulder with some tingling in the left arm. He also complains of room spinning dizziness that is constant, not improved with closing his eyes or not moving. Worse with walking. He denies any associated headache or vision disturbance. No focal weakness or numbness. He denies any worsening shortness of breath from his baseline. No fevers, chills, abdominal pain. Yesterday he had some nausea and vomiting with bloody emesis that was dark. However today he has not been vomiting. He denies any hematochezia or melena. Per the patient's records, he has a history of erosive esophagitis with hematemesis. ROS All systems reviewed and are negative except as per history of present illness. Medications Home Meds Reported Medications Pantoprazole* (Pantoprazole*) 40 Mg Tablet.dr, 40 MG PO BID, TAB 11/13/16 Metoprolol Tartrate* (Lopressor*) 25 Mg Tab, 25 MG PO BID, #60 TAB 11/13/16 Metformin Hcl* (Metformin Hcl*) 1,000 Mg Tablet, 1000 MG PO WITH BREAKFAST DINNE , #60 TAB 11/13/16 Insulin Detemir (Levemir Flextouch) 100 Unit/1 Ml Insuln.pen, 25 UNIT SQ BID 11/13/16 Insulin Aspart* (Novolog Insulin Pen*) 100 Unit/Ml Soln, 18 UNIT SC WITH MEALS, EA 11/13/16 Diltiazem Hcl* (Cartia XT*) 240 Mg Cap.sr.24h, 240 MG PO QID, #30 CAP 11/13/16 Digoxin* (Digitek*) 125 Mcg Tablet, 0.125 MG PO DAILY, TAB 11/13/16 Dabigatran Etexilate Mesylate* (Pradaxa*) 150 Mg Capsule, 150 MG PO DAILY, CAP 11/13/16 Colchicine* (Colcrys*) 0.6 Mg Tablet, 0.6 MG PO DAILY, TAB 11/13/16 Discontinued Reported Medications Metformin* (Glucophage*) 1,000 Mg Tablet, 1000 MG PO WITH BREAKFAST DINNE, #30 TAB 10/13/16 Dabigatran Etexilate Mesylate* (Pradaxa*) 150 Mg Capsule, 150 MG PO DAILY, CAP 03/29/16 Digoxin* (Digoxin*) 0.125 Mg Tab, 0.125 MG PO DAILY, #30 TAB 11/12/15 Discontinued Scripts Insulin Detemir (Levemir Flextouch) 100 Unit/1 Ml Insuln.pen, 25 UNIT SC BID@08, 20 for 28 Days Prov:MEHUL KIRAN MD 10/17/16 Insulin Aspart* (Novolog Insulin Pen*) 100 Unit/Ml Soln, 18 UNIT SC WITH MEALS for 28 Days, #30 Prov:MEHUL KIRAN MD 10/17/16 Diltiazem Hcl* (Cardizem CD*) 240 Mg Cap.sr.24h, 60 MG PO QID for 30 Days, #90 CAP Prov:SHARON DEWITT MD 03/29/16 Pantoprazole* (Protonix*) 40 Mg Tablet.dr, 40 MG PO BID for 30 Days, TAB Prov:MEHUL KIRAN MD 03/09/16 Metoprolol Tartrate* (Lopressor*) 25 Mg Tab, 25 MG PO BID for 30 Days, TAB Prov:MEHUL KIRAN MD 03/09/16 Colchicine* (Colcrys*) 0.6 Mg Tablet, 0.6 MG PO DAILY for 28 Days, TAB Prov:MEHUL KIRAN MD 03/09/16 Allergies Allergies: Coded Allergies: No Known Allergy (Unverified , 11/13/16) PMhx/Soc History of Surgery: Yes (PELVIS SURGERY) Anesthesia Reaction: No Hx Neurological Disorder: No Hx Respiratory Disorders: Yes (SLEEP APNEA) Hx Cardiac Disorders: Yes (HTN, A-FIB, CHF) Hx Psychiatric Problems: No Hx Miscellaneous Medical Probl: Yes (DM, PULMONARY EMBOLISM, GOUT, JULIAN) Hx Alcohol Use: No Hx Substance Use: No Hx Tobacco Use: No Smoking Status: Unknown if ever smoked FmHx Family History: coronary disease (Grandfather), diabetes Physical Exam Vitals Vital Signs Date Time Temp Pulse Resp B/P Pulse Ox O2 Delivery O2 Flow Rate FiO2 11/13/16 21:05 62 12 142/86 100 Nasal Cannula 2.0 11/13/16 18:44 64 11 136/77 99 Nasal Cannula 2.0 11/13/16 18:44 Nasal Cannula 2 11/13/16 16:30 97.3 62 18 141/75 100 Physical Exam Const: Morbidly obese, laying in bed snoring and sleeping, easily aroused, nontoxic, no distress Head: Atraumatic Eyes: Normal Conjunctiva, PERRLA, EOMI, no nystagmus ENT: Normal External Ears, Nose and Mouth. Neck: Full range of motion.. No JVD but exam limited due to body habitus. No meningismus. Resp: Clear to auscultation bilaterally Cardio: Regular rate and rhythm, distant heart sounds, no murmurs. 2+ distal pulses Abd: Obese, soft, non tender, non distended. Normal bowel sounds Skin: No petechiae or rashes Back: No midline or flank tenderness Ext: No cyanosis, or edema. No calf tenderness Neur: Awake and alert, no facial asymmetry, normal speech, strength and sensations intact in all 4 extremities Psych: Normal Mood and Affect Result Diagram: 11/13/16 1720 11/13/16 1720 Results 24 hrs Laboratory Tests Test 11/13/16 17:20 White Blood Count 8.810^3/ul Red Blood Count 4.5710^6/ul Hemoglobin 13.5g/dl Hematocrit 38.9% Mean Corpuscular Volume 85.1fl Mean Corpuscular Hemoglobin 29.5pg Mean Corpuscular Hemoglobin Concent 34.7g/dl Red Cell Distribution Width 13.7% Platelet Count 77828^3/UL Mean Platelet Volume 11.0fl Neutrophils % 67.7% Lymphocytes % 24.4% Monocytes % 6.0% Eosinophils % 1.0% Basophils % 0.6% Nucleated Red Blood Cells % 0.0/100WBC Neutrophils # 6.010^3/ul Lymphocytes # 2.210^3/ul Monocytes # 0.510^3/ul Eosinophils # 0.110^3/ul Basophils # 0.110^3/ul Nucleated Red Blood Cells # 0.010^3/ul Prothrombin Time 13.8Sec Prothrombin Time Ratio 1.1 INR International Normalized Ratio 1.06 Activated Partial Thromboplast Time 29.9Sec Sodium Level 135mmol/L Potassium Level 4.0mmol/L Chloride Level 103mmol/L Carbon Dioxide Level 25mmol/L Anion Gap 11 Blood Urea Nitrogen 8mg/dl Creatinine 0.63mg/dl Glucose Level 276mg/dl Calcium Level 8.3mg/dl Troponin I < 0.012ng/ml B-Type Natriuretic Peptide 78PG/ML Current Medications Medications (Trade) Dose Ordered Sig/Mera Route PRN Reason Start Time Stop Time Status Last Admin Dose Admin Nitroglycerin (Nitroglycerin (Sl Tab) 0.4 Mg) 1 tab Q5M UP TO 3 DOSES PRN SL CHEST PAIN 11/13/16 17:00 11/13/16 17:52 Ondansetron HCl (Zofran Inj) 4 mg ONCE STAT IV 11/13/16 16:49 11/13/16 16:51 DC 11/13/16 17:51 Ondansetron HCl (Zofran Inj) 4 mg ER BRIDGE PRN IV NAUSEA AND/OR VOMITING 11/13/16 20:00 11/14/16 19:59 Acetaminophen (Tylenol Tab) 650 mg ER BRIDGE PRN PO MILD PAIN/FEVER 11/13/16 20:00 11/14/16 19:59 Procedures/MDM EKG: Rate/Rhythm: Normal sinus rhythm at 60 bpm QRS, ST, T-waves: Right axis deviation, possible incomplete right bundle branch block, no changes consistent w/ acute ischemia Impression: No evidence of ischemia or arrhythmia Chest x-ray shows no acute abnormalities Labs: CBC, BMP, troponin, BNP unremarkable MDM Patient has a long-standing history of cardiac issues and he is high risk for a cardiac etiology of his pain given his history of CHF, diabetes, hypertension, and obesity. Initial EKG and troponin show no clear evidence of ischemia. Aspirin given prior to arrival. However, patient's symptoms are concerning for cardiac cause given his history and will require inpatient workup and continuous monitoring. Further w/u for ischemia, arrhythmia, PE or dissection will be deferred to the inpatient team. Accepting Care Team: Current data and ongoing care discussed. Time: Time of admission Primary Provider: Nancy Consulting: none Outstanding Data: none Departure Diagnosis: Primary Impression: Chest pressure Additional Impression: Vertigo Condition: Serious LIONEL WHITE MD Nov 13, 2016 18:03
[2016-11-13] MEDS ORDERED: ONDANSETRON 4 MG INJ IV PRN ×2 (20:00→23:00)
[2016-11-13] MEDS ORDERED: ACETAMINOPHEN 325 MG TAB PO PRN (20:00)
[2016-11-13 22:00] VITALS: BP 156/97; PULSE 64; RESP 20
[2016-11-13 23:00] VITALS: Ht 182.9 cm; Wt 172.0 kg
[2016-11-13] MEDS ORDERED: GLUCOSE GEL 15 GRAM TUBE BUCCAL PRN (23:00)
[2016-11-13] MEDS ORDERED: GLUCOSE GEL 15 GRAM TUBE PO PRN ×2 (23:00)
[2016-11-13] MEDS ORDERED: DEXTROSE 50% 50 ML SYRINGE IV PRN ×2 (23:00)
[2016-11-13] MEDS ORDERED: GLUCAGON 1 MG INJ IM PRN (23:00)
[2016-11-13] MEDS: morphine 4 MG/ML VIAL IV PRN (23:13)
[2016-11-13 23:24] LABS: CREATINE KINASE 139 IU/L (23-200)
[2016-11-13 23:37] LABS: CK-MB 1.09 ng/ml (0.0-2.4); TROPONIN-I < 0.012 ng/ml (0.00-0.12)
[2016-11-14] VITALS (12 sets, daily range): BP systolic 108–149; BP diastolic 59–82; PULSE 61–75; RESP 18–20
[2016-11-14] MEDS: ACCU-CHEK XX SCH (02:00)
[2016-11-14] MEDS: ACETAMINOPHEN 325 MG TAB PO PRN (02:06)
[2016-11-14] MEDS ORDERED: INSULIN GLARGINE [LANtus] 3 ML PEN SC ONE (03:00)
[2016-11-14] MEDS ORDERED: INSULIN ASPART [NOVOLOG] 3 ML PEN SC ONE (03:00)
[2016-11-14] MEDS: PANTOPRAZOLE (EC) 40 MG TAB PO SCH ×2 (06:06→17:12)
[2016-11-14] MEDS: morphine 4 MG/ML VIAL IV PRN ×4 (07:39→23:07)
[2016-11-14] MEDS ORDERED: INSULIN ASPART [NOVOLOG] 3 ML PEN SC SCH (08:00)
[2016-11-14] MEDS: COLCHICINE 0.6 MG TAB PO SCH (08:19)
[2016-11-14] MEDS: ASPIRIN 81 MG TAB PO SCH (08:19)
[2016-11-14] MEDS: INSULIN DETEMIR [LEVEMIR] 3ML CART SC SCH ×2 (08:20→20:40)
[2016-11-14] MEDS: INSULIN ASPART [NOVOLOG] 3 ML PEN SC SCH ×7 (08:21→20:40)
[2016-11-14 08:36] LABS: ALBUMIN/GLOBULIN RATIO 1.37; BILIRUBIN,INDIRECT 0.6 mg/dl (0-1.1); BILIRUBIN,TOTAL 0.6 mg/dl (0.2-1.3); CALCIUM 8.7 mg/dl (8.4-10.2); CHOL/HDL RATIO 3.5 RATIO; CREATININE 0.65 mg/dl (0.61-1.24); MAGNESIUM 1.9 mg/dl (1.7-2.5); POTASSIUM 4.4 mmol/L (3.5-5.1); TOTAL PROTEIN 6.9 g/dl (6.1-8.1)
[2016-11-14 09:08] LABS: THYROID STIMULATING HORMONE 1.04 MIU/L (0.465-4.680)
[2016-11-14 09:39] LABS: CK-MB 0.89 ng/ml (0.0-2.4); TROPONIN-I < 0.012 ng/ml (0.00-0.12)
[2016-11-14 10:01] LABS: CREATINE KINASE 124 IU/L (23-200)
[2016-11-14 10:29] LABS: ADD SCAN DIFF NO
[2016-11-14 10:39] LABS: BASOPHILS % 0.4 % (0.0-2.0); EOSINOPHILS # 0.2 10^3/ul (0.0-0.5); EOSINOPHILS % 1.9 % (0.0-7.0); HEMATOCRIT 41.6 % (42.0-52.0); HEMOGLOBIN 13.9 g/dl (14.0-18.0); LYMPHOCYTES # 1.9 10^3/ul (0.8-2.9); LYMPHOCYTES % 23.7 % (15.0-51.0); MEAN CORPUSCULAR HEMOGLOBIN 28.9 pg (29.0-33.0); MEAN CORPUSCULAR HGB CONC 33.4 g/dl (32.0-37.0); MEAN CORPUSCULAR VOLUME 86.5 fl (82.0-101.0); MEAN PLATELET VOLUME 11.1 fl (7.4-10.4); MONOCYTE # 0.4 10^3/ul (0.3-0.9); MONOCYTES % 5.5 % (0.0-11.0); NEUTROPHIL # 5.4 10^3/ul (1.6-7.5); NEUTROPHILS % 68.2 % (39.0-77.0); PLATELET COUNT 183 10^3/UL (140-415); RED BLOOD COUNT 4.81 10^6/ul (4.70-6.10); RED CELL DISTRIBUTION WIDTH 13.8 % (11.5-14.5); WHITE BLOOD COUNT 7.9 10^3/ul (4.8-10.8)
[2016-11-14] MEDS: DIGOXIN 0.125 MG TAB PO SCH (12:29)
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
[2016-11-15] VITALS (12 sets, daily range): BP systolic 109–168; BP diastolic 57–86; PULSE 59–78; RESP 17–22
[2016-11-15] MEDS ORDERED: ACCU-CHEK XX SCH (02:00)
[2016-11-15] MEDS: ACCU-CHEK XX SCH (02:00)
[2016-11-15] MEDS: morphine 4 MG/ML VIAL IV PRN ×4 (04:01→22:51)
[2016-11-15] MEDS: PANTOPRAZOLE (EC) 40 MG TAB PO SCH ×2 (06:45→17:58)
[2016-11-15] MEDS ORDERED: INSULIN GLARGINE [LANtus] 3 ML PEN SC SCH (08:00)
[2016-11-15] MEDS: INSULIN ASPART [NOVOLOG] 3 ML PEN SC SCH ×7 (08:52→20:24)
[2016-11-15] MEDS: ASPIRIN 81 MG TAB PO SCH (08:54)
[2016-11-15] MEDS: INSULIN DETEMIR [LEVEMIR] 3ML CART SC SCH (08:54)
[2016-11-15] MEDS: COLCHICINE 0.6 MG TAB PO SCH (08:54)
--- NOTE | 2016-11-15 10:29 | PN ---
Date/Time of Note Date/Time of Note DATE: 11/15/16 TIME: 10:28 Assessment/Plan VTE Prophylaxis VTE Prophylaxis Intervention: ambulation Lines/Catheters IV [facility] Peripheral IV Assessment/Plan Chief Complaint/Hosp Course 1. Chest pain. 2. Type 2 diabetes mellitus. 3. Morbid obesity. 4. Hyponatremia. 5. Clinical dehydration. 6. gout. 7. History of atrial fibrillation. 8. History of gastroesophageal reflux disease. 9. History of gastritis. 10. History of esophagitis. Problems: Assessment/Plan 1. Current regime unchanged Subjective 24 Hr Interval Summary Constitutional: other (vertigo) Eyes: no complaints ENT: no complaints Cardiovascular: no complaints Gastrointestinal: no complaints Genitourinary: no complaints Exam/Review of Systems Vital Signs Vitals Vital Signs Date Time Temp Pulse Resp B/P Pulse Ox O2 Delivery O2 Flow Rate FiO2 11/15/16 08:15 59 11/15/16 07:38 97.4 20 109/57 97 11/13/16 22:00 Room Air 11/13/16 21:05 2.0 Intake and Output 11/14/16 11/14/16 11/15/16 15:00 23:00 07:00 Intake Total 960 ml Output Total 1400 ml Balance -440 ml Exam Constitutional: alert, oriented, well developed Psych: no complaints ENMT: nl external ears & nose Neck: supple Respiratory: clear to auscultation, diminished breath sounds Cardiovascular: regular rate and rhythm Gastrointestinal: soft Results Result Diagram: 11/14/16 1016 11/14/16 0621 Results 24 hrs Laboratory Tests Test 11/14/16 12:25 11/14/16 17:10 11/14/16 20:25 11/15/16 01:40 Bedside Glucose 248 H 104 233 H 292 H Test 11/15/16 08:47 Bedside Glucose 200 Medications Medications Current Medications Colchicine (Colchicine) 0.6 mg DAILY PO Last administered on 11/15/16 08:54; Admin Dose 0.6 MG; Start 11/14/16 at 09:00 Digoxin (Digoxin) 0.125 mg DAILY@13 PO Last administered on 11/14/16 12:29; Admin Dose 0.125 MG; Start 11/14/16 at 13:00 Insulin Detemir (Levemir) 25 unit BID SC Last administered on 11/15/16 08:54; Admin Dose 25 UNIT; Start 11/14/16 at 09:00 Pantoprazole (Protonix Tab) 40 mg BID@,18 PO Last administered on 11/15/16 06:45; Admin Dose 40 MG; Start 11/14/16 at 06:00 Miscellaneous Information 1 ea NOTE XX ; Start 11/13/16 at 23:00 Glucose (Glutose) 15 gm Q15M PRN PO DECREASED GLUCOSE; Start 11/13/16 at 23:00 Glucose (Glutose) 22.5 gm Q15M PRN PO DECREASED GLUCOSE; Start 11/13/16 at 23:00 Dextrose (D50w Syringe) 25 ml Q15M PRN IV DECREASED GLUCOSE; Start 11/13/16 at 23:00 Dextrose (D50w Syringe) 50 ml Q15M PRN IV DECREASED GLUCOSE; Start 11/13/16 at 23:00 Glucagon (Glucagen) 1 mg Q15M PRN IM DECREASED GLUCOSE; Start 11/13/16 at 23:00 Glucose (Glutose) 15 gm Q15M PRN BUCCAL DECREASED GLUCOSE; Start 11/13/16 at 23: 00 Aspirin (Aspirin) 81 mg DAILY PO Last administered on 11/15/16 08:54; Admin Dose 81 MG; Start 11/14/16 at 09:00 Ondansetron HCl (Zofran Inj) 4 mg Q6H PRN IV NAUSEA AND/OR VOMITING; Start 11/13 at 23:00 Morphine Sulfate (morphine) 3 mg Q4H PRN IV PAIN Last administered on 04:01; Admin Dose 3 MG; Start 11/13/16 at 23:00 Nitroglycerin (Nitroglycerin (Sl Tab) 0.4 Mg) 1 tab Q5M PRN SL ANGINA Last administered on 11/14/16 02:07; Admin Dose 1 TAB; Start 11/13/16 at 23:00 Diagnostic Test (Pha) (Accu-Chek) 1 ea 02 XX ; Start 11/14/16 at 02:00 Acetaminophen (Tylenol Tab) 650 mg Q6H PRN PO PAIN AND OR ELEVATED TEMP Last administered on 11/14/16 02:06; Admin Dose 650 MG; Start 11/14/16 at 02:00 Insulin Glargine (Lantus) 15 unit DAILY@08 SC Last administered on 11/15/16t 08 :51; Admin Dose 15 UNIT; Start 11/15/16 at 08:00 NII MADRID Nov 15, 2016 10:29
[2016-11-15] MEDS: DIGOXIN 0.125 MG TAB PO SCH (12:24)
--- NOTE | 2016-11-15 14:30 | CONS ---
DATE OF ADMISSION: 11/14/2016 DATE OF CONSULTATION: 11/15/2016 REASON FOR CONSULTATION: 1. Chest pain. Assess for acute coronary syndrome. 2. History of paroxysmal atrial fibrillation. REQUESTING PHYSICIAN: Dr. Reilly Kiran HISTORY OF PRESENT ILLNESS: Mr. Justin is a 36-year-old male with a history of hypertension, diabet es mellitus, paroxysmal atrial fibrillation, pulmonary embolism, GI bleed, negative stress test for ischemia in January of 2016, who presented with complaints of substernal chest pain, described a pre ssure-like sensation, and associated recurrent episodes of palpitations and dyspnea on exertion. In itially upon arrival temperature was 97.3, blood pressure 141/75, pulse 60, respirations 18, saturat ing 100%. Patient's labs showed a white blood cell count of 8.8, hemoglobin 13.5, platelet count of 191. Sodium 135, potassium 4.0, creatinine 0.6, BUN 8. Troponin negative. BNP 78. INR 1.0. The patient underwent a chest x-ray, revealing no acute cardiopulmonary abnormalities. The patient's e lectrocardiogram was normal sinus rhythm, rate of 60, with right axis deviation, incomplete right bu ndle branch block, secondary repolarization abnormalities, and nonspecific ST-T wave abnormalities. The patient was subsequently admitted to the floor and since admit to the floor has been monitored on telemetry, revealing sinus rhythm. No significant arrhythmias or pauses. The patient has had so mewhat labile blood pressures as high as 160s and as low as 109. The patient has been placed on Dig oxin, aspirin, off Pradaxa since prior GI bleed. On telemetry monitoring the patient has had no jennifer ts of atrial fibrillation at this time. The patient has had a total of 3 negative troponins, ruling him out for acute myocardial infarction. PAST MEDICAL HISTORY: As above in the HPI. MEDICATIONS CURRENTLY IN THE HOSPITAL: 1. Lantus. 2. Digoxin 0.125 mg daily. 3. Colchicine 0.6 mg daily. 4. Aspirin 81 mg daily. 5. Insulin sliding scale. ALLERGIES: NO KNOWN DRUG ALLERGIES. SOCIAL HISTORY: No tobacco, ETOH or illicit drug use. FAMILY HISTORY: No history of sudden cardiac or early CAD. REVIEW OF SYSTEMS: As above in the HPI. CONSTITUTIONAL: No fevers or chills. PULMONARY: Positive for shortness of breath. CARDIOVASCULAR: Positive chest pain. GASTROINTESTINAL: History of GI bleed. GENITOURINARY: No hematuria. MUSCULOSKELETAL: Degenerative joint disease. PSYCHIATRIC: The patient denies depression. NEUROLOGIC: No documented history of CVA. PHYSICAL EXAMINATION: VITAL SIGNS: Temperature of 97.6, blood pressure most recently 139/82, pulse 75, respiratory rate 2 0, saturating 94%. GENERAL: The patient is alert, awake, complaining of intermittent chest pain. NECK: JVP approximately 9 cm of water. CHEST: Fair air movement throughout. HEART: Regular rate and rhythm. Normal S1, S2. A I/ systolic murmur, nondisplaced PMI. ABDOMEN: Positive bowel sounds, soft. EXTREMITIES: Trace edema, 1+ pulses bilaterally, posterior tibial. LABORATORIES: Most recently from today, glucose 257. From yesterday creatinine 0.6, BUN 7, 1 38, potassium 4.4. LDL 39, HDL 22. TSH of 1.0. White blood cell count 7.9, hemoglobin 30.9, plate let count of 183. IMAGING STUDIES: As above in the HPI. No further imaging studies for my review at this time. ECG: As above in the HPI. No further electrocardiograms for my review at this time. IMPRESSION: 1. Chest pain. Assess for acute coronary syndrome. 2. Hypertension. Labile. 3. History of paroxysmal atrial fibrillation. He is currently on aspirin, not on systemic anticoag ulation, given recent GI bleed. 4. Negative stress test in January 2016. 5. Shortness of breath. 6. Obesity. 7. Gastroesophageal reflux disease. 8. Diabetes mellitus, with uncontrolled blood sugars. RECOMMENDATIONS: 1. At this time would maintain the patient on telemetry monitoring to follow rhythm and rates close ly and assess for any possible recurrent bouts of tachyarrhythmia. 2. Will initiate the patient on a low-dose beta dayana in cast the patient does go into recurrent tachyarrhythmia. Continue digoxin. 3. Continue the patient's aspirin at this time for prophylaxis against thromboembolic events and ca rdiovascular events. 4. The patient is status post a normal TSH. 5. Patient is status post negative troponins x3. 6. Will additionally initiate the patient on oral nitrates and follow symptomatology. 7. Patient does have recurrent bouts of atrial fibrillation and will consider initiation of antiarr hythmic therapy with amiodarone as the at this time does not appear to be a good systemic anticoagul ation candidate. 8. Continue adjustment of the patient's insulin therapy. Thank you for allowing me to take part in the care of this patient. I will continue to follow him a long very closely with you, with further recommendations to be made as the patient progresses throug h his inpatient hospital clinical course. Dictated By: MAC LÓPEZ/ANNA Conf#: [id number] DID#: [id number] CC: REILLY KIRAN MD;*EndCC*
[2016-11-15] MEDS: ISOSORBIDE DINITRATE 10 MG TAB PO SCH ×2 (15:55→20:27)
[2016-11-15] MEDS: METOPROLOL 25 MG TAB PO SCH ×2 (15:56→22:51)
[2016-11-15] MEDS: INSULIN GLARGINE [LANtus] 3 ML PEN SC SCH (20:44)
[2016-11-15] MEDS: ACETAMINOPHEN 325 MG TAB PO PRN (21:41)
[2016-11-16] VITALS (10 sets, daily range): BP systolic 119–138; BP diastolic 66–85; PULSE 52–81; RESP 18–22
[2016-11-16] MEDS: ACCU-CHEK XX SCH (02:56)
[2016-11-16] MEDS: morphine 4 MG/ML VIAL IV PRN ×4 (02:57→16:29)
[2016-11-16] MEDS: PANTOPRAZOLE (EC) 40 MG TAB PO SCH ×2 (06:15→18:00)
[2016-11-16 07:24] LABS: ADD SCAN DIFF NO
[2016-11-16 07:32] LABS: BASOPHILS % 0.6 % (0.0-2.0); EOSINOPHILS # 0.1 10^3/ul (0.0-0.5); EOSINOPHILS % 2.1 % (0.0-7.0); HEMATOCRIT 41.8 % (42.0-52.0); HEMOGLOBIN 13.9 g/dl (14.0-18.0); LYMPHOCYTES # 2.1 10^3/ul (0.8-2.9); LYMPHOCYTES % 32.6 % (15.0-51.0); MEAN CORPUSCULAR HGB CONC 33.3 g/dl (32.0-37.0); MEAN CORPUSCULAR VOLUME 87.1 fl (82.0-101.0); MEAN PLATELET VOLUME 11.1 fl (7.4-10.4); MONOCYTE # 0.4 10^3/ul (0.3-0.9); MONOCYTES % 5.9 % (0.0-11.0); NEUTROPHIL # 3.8 10^3/ul (1.6-7.5); NEUTROPHILS % 58.5 % (39.0-77.0); PLATELET COUNT 218 10^3/UL (140-415); RED CELL DISTRIBUTION WIDTH 13.8 % (11.5-14.5); WHITE BLOOD COUNT 6.6 10^3/ul (4.8-10.8)
[2016-11-16 08:05] LABS: CALCIUM 8.9 mg/dl (8.4-10.2); CREATININE 0.71 mg/dl (0.61-1.24); POTASSIUM 3.8 mmol/L (3.5-5.1)
[2016-11-16] MEDS: COLCHICINE 0.6 MG TAB PO SCH (08:13)
[2016-11-16] MEDS: ASPIRIN 81 MG TAB PO SCH (08:13)
[2016-11-16] MEDS: ISOSORBIDE DINITRATE 10 MG TAB PO SCH ×2 (08:13→12:38)
[2016-11-16] MEDS: METOPROLOL 25 MG TAB PO SCH (08:14)
[2016-11-16] MEDS: INSULIN GLARGINE [LANtus] 3 ML PEN SC SCH (08:15)
[2016-11-16] MEDS: INSULIN ASPART [NOVOLOG] 3 ML PEN SC SCH ×6 (08:16→17:09)
[2016-11-16] MEDS: DIGOXIN 0.125 MG TAB PO SCH (12:38)
--- NOTE | 2016-11-16 13:46 | CONS ---
Date/Time of Note Date/Time of Note DATE: 11/16/16 TIME: 13:42 Assessment/Plan Assessment/Plan Chief Complaint/Hosp Course IMPRESSION: 1. Chest pain. Assess for acute coronary syndrome.-negative troponin x 3/NO ischemia by stress 01/21 2. Hypertension. Labile.-reasonable control 3. History of paroxysmal atrial fibrillation. He is currently on aspirin, not on systemic anticoagulation, given recent GI bleed. 4. Negative stress test in January 2016. 5. Shortness of breath. 6. Obesity. 7. Gastroesophageal reflux disease. 8. Diabetes mellitus, with uncontrolled blood sugars. 9. Headache-possibly due to oral nitrates Recc: -Tele -serial ecg's -will f/u echo -Continue BB as tolerated -Continue asa -Will d/c nitrates given headache and start ranexa -Ongoing adjutstment of insulin regimen Problems: Consultation Date/Type/Reason Admit Date/Time Nov 14, 2016 at 16:40 Initial Consult Date 11/15/2016 Type of Consultation: cardiology Reason for Consultation CHest pain Referring Provider: MEHUL KIRAN MD Exam/Review of Systems Vital Signs Vitals Vital Signs Date Time Temp Pulse Resp B/P Pulse Ox O2 Delivery O2 Flow Rate FiO2 11/16/16 12:17 64 11/16/16 11:57 97.6 18 138/85 96 11/13/16 22:00 Room Air 11/13/16 21:05 2.0 Intake and Output 11/15/16 11/15/16 11/16/16 15:00 23:00 07:00 Intake Total 1200 ml Output Total 2200 ml Balance -1000 ml Exam Review of Systems: CONSTITUTIONAL: No fevers, chills. PULMONARY: No sob CARDIOVASCULAR: No chest numbness GASTROINTESTINAL: No nausea/vomiting. GENITOURINARY: No hematuria/dysuria. MUSCULOSKELETAL: No myagias/arthalgias. PSYCHIATRIC: The patient denies depression. NEUROLOGIC: No weakness Constitutional: alert Psych: no complaints Head: normocephalic ENMT: mucosa pink and moist Neck: jvd (8-9 cm water), supple Respiratory: diminished breath sounds (at bases/B) Cardiovascular: regular rate and rhythm Gastrointestinal: non-tender, soft Musculoskeletal: muscle tone (normal) Extremities: edema (none) Neurological: other (No focal deficits) Results Result Diagram: 11/16/16 0545 11/16/16 0541 Results 24 hrs Laboratory Tests Test 11/15/16 17:30 11/15/16 20:23 11/16/16 02:32 11/16/16 05:41 Bedside Glucose 98 105 190 Sodium Level 137 Potassium Level 3.8 Chloride Level 99 Carbon Dioxide Level 28 Anion Gap 14 Blood Urea Nitrogen 8 Creatinine 0.71 Glucose Level 277 H Calcium Level 8.9 Test 11/16/16 05:45 11/16/16 07:54 11/16/16 12:26 White Blood Count 6.6 Red Blood Count 4.80 Hemoglobin 13.9 L Hematocrit 41.8 L Mean Corpuscular Volume 87.1 Mean Corpuscular Hemoglobin 29.0 Mean Corpuscular Hemoglobin Concent 33.3 Red Cell Distribution Width 13.8 Platelet Count 218 Mean Platelet Volume 11.1 H Neutrophils % 58.5 Lymphocytes % 32.6 Monocytes % 5.9 Eosinophils % 2.1 Basophils % 0.6 Nucleated Red Blood Cells % 0.0 Neutrophils # 3.8 Lymphocytes # 2.1 Monocytes # 0.4 Eosinophils # 0.1 Basophils # 0.0 Nucleated Red Blood Cells # 0.0 Bedside Glucose 235 H 102 Medications Medications Current Medications Colchicine (Colchicine) 0.6 mg DAILY PO Last administered on 11/16/16 08:13; Admin Dose 0.6 MG; Start 11/14/16 at 09:00 Digoxin (Digoxin) 0.125 mg DAILY@13 PO Last administered on 11/16/16 12:38; Admin Dose 0.125 MG; Start 11/14/16 at 13:00 Pantoprazole (Protonix Tab) 40 mg BID@06,18 PO Last administered on 11/16/16 06:15; Admin Dose 40 MG; Start 11/14/16 at 06:00 Miscellaneous Information 1 ea NOTE XX ; Start 11/13/16 at 23:00 Glucose (Glutose) 15 gm Q15M PRN PO DECREASED GLUCOSE; Start 11/13/16 at 23:00 Glucose (Glutose) 22.5 gm Q15M PRN PO DECREASED GLUCOSE; Start 11/13/16 at 23:00 Dextrose (D50w Syringe) 25 ml Q15M PRN IV DECREASED GLUCOSE; Start 11/13/16 at 23:00 Dextrose (D50w Syringe) 50 ml Q15M PRN IV DECREASED GLUCOSE; Start 11/13/16 at 23:00 Glucagon (Glucagen) 1 mg Q15M PRN IM DECREASED GLUCOSE; Start 11/13/16 at 23:00 Glucose (Glutose) 15 gm Q15M PRN BUCCAL DECREASED GLUCOSE; Start 11/13/16 at 23: 00 Aspirin (Aspirin) 81 mg DAILY PO Last administered on 11/16/16 08:13; Admin Dose 81 MG; Start 11/14/16 at 09:00 Ondansetron HCl (Zofran Inj) 4 mg Q6H PRN IV NAUSEA AND/OR VOMITING Last administered on 11/15/16 21:54; Admin Dose 4 MG; Start 11/13/16 at 23:00 Morphine Sulfate (morphine) 3 mg Q4H PRN IV PAIN Last administered on 06:15; Admin Dose 3 MG; Start 11/13/16 at 23:00 Nitroglycerin (Nitroglycerin (Sl Tab) 0.4 Mg) 1 tab Q5M PRN SL ANGINA Last administered on 11/14/16 02:07; Admin Dose 1 TAB; Start 11/13/16 at 23:00 Diagnostic Test (Pha) (Accu-Chek) 1 ea 02 XX Last administered on 11/16/16 02: 56; Admin Dose 1 EA; Start 11/14/16 at 02:00 Acetaminophen (Tylenol Tab) 650 mg Q6H PRN PO PAIN AND OR ELEVATED TEMP Last administered on 11/15/16 21:41; Admin Dose 650 MG; Start 11/14/16 at 02:00 Insulin Glargine (Lantus) 30 unit BID SC Last administered on 11/16/16 08:15; Admin Dose 30 UNIT; Start 11/15/16 at 21:00 Metoprolol Tartrate (Lopressor) 25 mg BID PO Last administered on 11/16/16 08: 14; Admin Dose 25 MG; Start 11/15/16 at 14:00 Isosorbide Dinitrate (Isordil) 10 mg TID PO Last administered on 11/16/16 12: 38; Admin Dose 10 MG; Start 11/15/16 at 15:00 MAC UQEVEDO Nov 16, 2016 13:46
--- NOTE | 2016-11-16 14:45 | RADRPT ---
Vent Rate: 55 bpm RR Interval: 0 msec RI Interval: 148 msec QRS Duration: 112 msec QT Interval: 442 msec QTC Interval: 422 msec P-R-T [place]: 1 - 91 - 41 degrees Sinus bradycardia RAD Left posterior Hemiblock Bifascicular Block Right bundle branch block Abnormal ECG No previous tracing available for comparison Electronically Signed By: Wali Courtney [id number]
--- NOTE | 2016-11-16 14:46 | PDOCDIS ---
Discharge Instructions CONDITION Patient Condition: Stable HOME CARE INSTRUCTIONS: Diet Instructions: Low Fat /Cholesterol ACTIVITY: Activity Restrictions: Slowly Increase Activity FOLLOW UP/APPOINTMENTS Appointments f/u own pcp [address] brice 1 wk MEHUL KIRAN MD Nov 16, 2016 14:46
[2016-11-16] MEDS ORDERED: RANO500T2 PO (14:50)
[2016-11-16] MEDS ORDERED: INSU100I27 SQ (14:50)
[2016-11-16] MEDS ORDERED: NIT4 SL (14:50)
[2016-11-16] MEDS ORDERED: ASPI81TA3 PO (14:50)
[2016-11-16] MEDS ORDERED: NOVO3I SC (14:50)
--- NOTE | 2016-11-16 15:40 | QN ---
Documentation Comment [id number] MEHUL KIRAN MD Nov 16, 2016 15:40
--- NOTE | 2016-11-16 19:47 | DS ---
DATE OF ADMISSION: 11/14/2016 DATE OF DISCHARGE: 11/16/2016 HISTORY OF PRESENT ILLNESS: Lyndon Justin is a 36-year-old male who was admitted with a diagnosis of uncontrolled diabetes mellitus and atypical chest pain. PR ruled out. Dr. Mosher saw this patien t in consultation. The patient was instructed to be on a diabetic diet and weight losing diet. Pat ient's insulin was readjusted. The patient's home medications were continued. The patient's blood sugars are acceptable and he will be seeing Dr. Mosher and his PCP as an outpatient. DISCHARGE DIAGNOSES: 1. Chest pain. Myocardial infarction ruled out. 2. Diabetes mellitus. 3. Obesity. 4. Hyponatremia. 5. Gout history. 6. History of atrial fibrillation. 7. History of gastroesophageal reflux disease. 8. History of gastritis. 9. Esophagitis history. 10. Morbid obesity. DISCHARGE MEDICATIONS: Patient to continue aspirin, insulin, nitroglycerin, Ranexa. The patient to continue on 23 units of NovoLog before meals, and continue Ranexa 500 twice a day. Continue colchi cine, Pradaxa 150 daily, digoxin, diltiazem, metformin, metoprolol and Protonix. Patient to follow up with PCP and Dr. Mosher as an outpatient. DIET: Weight losing cardiac diet. Dictated By: MEHUL CASTAÑEDA/NTS Conf#: [id number] DID#: [id number]
[2016-11-16] MEDS ORDERED: RANOLAZINE (SR) 500 MG TAB PO SCH (21:00)
== END 2016-11-16 18:50 | disposition home or self-care (01) | DRG 313 ==
LOC: E/R 16:14 → MS4 19:43 → OBSVTOIN 11-14 16:40
PROVIDERS: ADMIT Internal Medicine Nephrology; ATTEND Internal Medicine Nephrology
DX: R07.9 Chest pain, unspecified (principal); I25.10 Atherosclerotic heart disease of native coronary artery without angina pectoris; I11.0 Hypertensive heart disease with heart failure; I50.9 Heart failure, unspecified; I48.2 Chronic atrial fibrillation; E87.1 Hypo-osmolality and hyponatremia; E86.0 Dehydration; Z68.43 Body mass index [BMI] 50.0-59.9, adult; E11.9 Type 2 diabetes mellitus without complications; G47.33 Obstructive sleep apnea (adult) (pediatric); R42 Dizziness and giddiness; K21.9 Gastro-esophageal reflux disease without esophagitis; M1A.9XX0 Chronic gout, unspecified, without tophus (tophi); E66.01 Morbid (severe) obesity due to excess calories; Z79.01 Long term (current) use of anticoagulants; Z79.4 Long term (current) use of insulin; Z86.711 Personal history of pulmonary embolism
CPT/HCPCS: 36415; 71010; 80048; 80053; 80061; 82550; 82553; 82962; 83036; 83735; 83880; 84100; 84443; 84484; 85025; 85610; 85730; 87081; 93005; 96374; G0378; J1815; J2270; J2405

== ENCOUNTER 2016-12-03 21:33 | Emergency (ER) | payer OTHER ==
[~2016-12-03] VITALS: Ht 182.9 cm; Wt 174.0 kg
[~2016-12-03 21:33] MED LIST changes: +ASPI81TA3 PO; +DILT240C62 PO; -DILT240C79 PO; -INSU100I27 SC; +INSU100I27 SQ; +METF1000 PO; -MTF1000T PO; +NIT4 SL; -PANT40TA3 PO; +PANT40TA4 PO; +RANO500T2 PO
[2016-12-03 21:49] VITALS: Ht 182.9 cm; Wt 174.0 kg
[2016-12-04] MEDS ORDERED: HYDROmorphONE 1 MG/ML SYG IV STA (01:05)
[2016-12-04] MEDS ORDERED: SOD CHLORIDE 0.9% 1,000 ML IV STA (01:05)
[2016-12-04] MEDS ORDERED: ONDANSETRON 4 MG INJ IV STA (01:05)
[2016-12-04] MEDS ORDERED: MECLIZINE 12.5 MG TAB PO ONE (01:30)
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
[2016-12-04 02:51] LABS: ADD SCAN DIFF NO
[2016-12-04 02:54] LABS: BASOPHIL # 0.1 10^3/ul (0.0-0.1); BASOPHILS % 0.6 % (0.0-2.0); EOSINOPHILS # 0.2 10^3/ul (0.0-0.5); EOSINOPHILS % 1.8 % (0.0-7.0); HEMATOCRIT 39.6 % (42.0-52.0); HEMOGLOBIN 13.9 g/dl (14.0-18.0); LYMPHOCYTES # 2.8 10^3/ul (0.8-2.9); LYMPHOCYTES % 29.4 % (15.0-51.0); MEAN CORPUSCULAR HEMOGLOBIN 29.8 pg (29.0-33.0); MEAN CORPUSCULAR HGB CONC 35.1 g/dl (32.0-37.0); MEAN PLATELET VOLUME 10.8 fl (7.4-10.4); MONOCYTE # 0.6 10^3/ul (0.3-0.9); MONOCYTES % 6.3 % (0.0-11.0); NEUTROPHIL # 5.8 10^3/ul (1.6-7.5); NEUTROPHILS % 61.7 % (39.0-77.0); PLATELET COUNT 257 10^3/UL (140-415); RED BLOOD COUNT 4.66 10^6/ul (4.70-6.10); RED CELL DISTRIBUTION WIDTH 13.6 % (11.5-14.5); WHITE BLOOD COUNT 9.5 10^3/ul (4.8-10.8)
[2016-12-04] MEDS ORDERED: INSU100C SQ (02:57)
[2016-12-04 03:14] LABS: ALBUMIN 4.4 g/dl (3.3-4.9); ALBUMIN/GLOBULIN RATIO 1.37; BILIRUBIN,INDIRECT 0.3 mg/dl (0-1.1); BILIRUBIN,TOTAL 0.3 mg/dl (0.2-1.3); CALCIUM 9.4 mg/dl (8.4-10.2); CREATININE 0.74 mg/dl (0.61-1.24); POTASSIUM 4.1 mmol/L (3.5-5.1); TOTAL PROTEIN 7.6 g/dl (6.1-8.1)
[2016-12-04] MEDS ORDERED: VALS80TA2 PO (03:23)
[2016-12-04] MEDS ORDERED: IOHEXOL 300MG/ML 150 ML BTL ONE (03:30)
[2016-12-04] MEDS ORDERED: SOD CHLORIDE 0.9% 100 ML ONE (03:30)
--- NOTE | 2016-12-04 03:52 | RADRPT ---
PROCEDURE: Noncontrast CT Head. CLINICAL INDICATION: Headache TECHNIQUE: Noncontrast CT of the head was obtained. The administered radiation dose was CTDI vol = 44 mGy, DLP = 810 mGy-cm. COMPARISON: 04/21/2015 FINDINGS: The ventricles and sulci are within normal limits. There is no acute intracranial hemorrhage or ext ra-axial fluid collection. There is no mass effect. No midline shift is identified. There is no loss of romo-white differentiation to suggest acute infarction. The orbits are within normal limits. Some mild mucosal thickening is scattered throughout the parana everardo sinuses. No destructive osseous lesion is identified. IMPRESSION: No acute findings. RPTAT: HIKT .Miguel A Bridges MD, MD Date Time Electronically viewed and signed by .Miguel A Bridges MD, MD on 12/04/2016 03:52 .T/
--- NOTE | 2016-12-04 03:59 | RADRPT ---
PROCEDURE: CT Abdomen and pelvis with contrast. CLINICAL INDICATION: Abdominal pain. TECHNIQUE: CT scan of the abdomen and pelvis with contrast was performed on a multi-detector high -resolution CT scanner. The patient was scanned following the uncomplicated administration of 100 c c of Omnipaque 300 intravenous contrast. Coronal and sagittal reformatted images were obtained from the axial source images. Images were reviewed on a high-resolution PACS workstation. One or more of the following dose reduction techniques were used: - Automated exposure control. - Adjustment of the mA and/or kV according to patient size. - Use of iterative reconstruction technique. Exam CTD/vol = 23.86 mGy. Total exam DLP = 1810.21 mGy-cm. COMPARISON: 05/10/2016. FINDINGS: Evaluation of the lung bases demonstrates minimal bibasilar atelectasis. Abdomen: The liver is normal in size and diffusely low in attenuation consistent with fatty infiltr ation. There is no focal mass or dilatation of the biliary tree. The gallbladder is not distended. The spleen, pancreas and bilateral adrenal glands are within normal limits. Bilateral kidneys are normal in size with symmetric enhancement. There are left parapelvic cysts. There is no hydroneph rosis. There is mild left-sided hydroureter. There is no retroperitoneal adenopathy. The abdomina l aorta is of normal caliber. There is no abnormal bowel wall thickening or distension. There is no bowel obstruction or free air . A normal appendix is identified. There is no diverticulosis or diverticulitis. There is no asci june. Pelvis: The bladder is unremarkable. There is a small right inguinal hernia containing fat. The p rostate and seminal vesicles are within normal limits. There is no significant pelvic adenopathy or free fluid. Evaluation of the osseous structures demonstrates no suspicious lytic or blastic lesion. IMPRESSION: Mild left-sided hydroureter. Fatty infiltration of the liver. Small right inguinal hernia containing fat. Otherwise no acute abnormality identified within the abdomen and pelvis. .Byron Jett MD, MD Date Time Electronically viewed and signed by .Byron Jett MD, on 12/04/2016 03:58 .T/
[2016-12-04] MEDS ORDERED: MECL12.574 PO (04:33)
[2016-12-04] MEDS ORDERED: DIPH1TAB PO (04:33)
[2016-12-04] MEDS ORDERED: HYDR-902 PO (04:33)
[2016-12-04 05:22] VITALS: BP 122/65; PULSE 65; RESP 17
== END 2016-12-04 05:25 | disposition home or self-care (01) ==
LOC: E/R 21:33
DX: R42 Dizziness and giddiness (principal); R19.7 Diarrhea, unspecified; R10.32 Left lower quadrant pain; E11.9 Type 2 diabetes mellitus without complications; I50.9 Heart failure, unspecified; Z79.4 Long term (current) use of insulin; Z79.82 Long term (current) use of aspirin
CPT/HCPCS: 36415; 70450; 74177; 80053; 82962; 83690; 85025; 96374; 96375; J1170; J2405; J7030; Q9967; Z7502; Z7610

== ENCOUNTER 2016-12-10 23:23 | Emergency (ER) | payer OTHER ==
[~2016-12-10] VITALS: Ht 182.9 cm; Wt 173.5 kg
[~2016-12-10 23:23] MED LIST changes: +DIPH1TAB PO; +HYDR-902 PO; +INSU100C SQ; +MECL12.574 PO; -METF1000 PO; -RANO500T2 PO; +VALS80TA2 PO
[2016-12-10 23:29] VITALS: Ht 182.9 cm; Wt 173.5 kg
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
[2016-12-10] MEDS ORDERED: SOD CHLORIDE 0.9% 500 ML IV STA (23:58)
[2016-12-11] MEDS ORDERED: DILTIAZEM 25 MG INJ IV ONE
--- NOTE | 2016-12-11 00:57 | RADRPT ---
PROCEDURE: XR Chest. CLINICAL INDICATION: Dyspnea. TECHNIQUE: Single frontal view of the chest. COMPARISON: 03/29/2016. FINDINGS: The cardiomediastinal silhouette is within normal limits. New mild pulmonary vascular ingestion. Pu lmonary vascular markings lung bases are accentuated by hypoinflated lungs and patient body habitus. The lungs are otherwise clear. No signs of pleural fluid or pneumothorax are seen. The osseous str uctures and soft tissues are unremarkable. IMPRESSION: New mild pulmonary vascular congestion. RPTAT: [facility]U Physician Elena Date Time Electronically viewed and signed by Physician Elena on 12/11/2016 00:56 RS/
[2016-12-11 01:03] LABS: ADD SCAN DIFF NO
[2016-12-11 01:05] LABS: BASOPHILS % 0.4 % (0.0-2.0); EOSINOPHILS # 0.1 10^3/ul (0.0-0.5); EOSINOPHILS % 1.2 % (0.0-7.0); HEMATOCRIT 40.6 % (42.0-52.0); HEMOGLOBIN 13.7 g/dl (14.0-18.0); LYMPHOCYTES # 2.3 10^3/ul (0.8-2.9); LYMPHOCYTES % 23.9 % (15.0-51.0); MEAN CORPUSCULAR HGB CONC 33.7 g/dl (32.0-37.0); MEAN CORPUSCULAR VOLUME 85.8 fl (82.0-101.0); MEAN PLATELET VOLUME 10.8 fl (7.4-10.4); MONOCYTE # 0.6 10^3/ul (0.3-0.9); NEUTROPHIL # 6.6 10^3/ul (1.6-7.5); NEUTROPHILS % 68.2 % (39.0-77.0); PLATELET COUNT 230 10^3/UL (140-415); RED BLOOD COUNT 4.73 10^6/ul (4.70-6.10); RED CELL DISTRIBUTION WIDTH 13.3 % (11.5-14.5); WHITE BLOOD COUNT 9.7 10^3/ul (4.8-10.8)
[2016-12-11 01:19] LABS: INR 0.98
[2016-12-11 01:20] LABS: PARTIAL THROMBOPLASTIN TIME 22.4 Sec (25.0-35.0)
[2016-12-11 01:24] LABS: ANION GAP 19 (8-16); BLOOD UREA NITROGEN 8 mg/dl (7-20); CALCIUM 9.3 mg/dl (8.4-10.2); CARBON DIOXIDE 27 mmol/L (21-31); CHLORIDE 94 mmol/L (97-110); CREATININE 0.84 mg/dl (0.61-1.24); GLUCOSE 271 mg/dl (70-220); SODIUM 136 mmol/L (135-144)
[2016-12-11 01:44] LABS: TROPONIN-I < 0.012 ng/ml (0.00-0.12)
--- NOTE | 2016-12-11 01:55 | RADRPT ---
PROCEDURE: US DVT. CLINICAL INDICATION: Pain, shortness of breath. TECHNIQUE: Multiple longitudinal and transverse images of the right lower extremity veins were obt ained with romo scale and color Doppler imaging. 2D grayscale measurements with compression, color Doppler flow, and augmentation was performed. The calf veins were interrogated as well. COMPARISON: No prior studies are available for comparison. FINDINGS: The right common femoral, femoral and popliteal veins are normally compressible throughout. Color f low demonstrates normal filling of the vessels. Normal waveforms are visualized and there is normal response to augmentation. The calf veins are visualized and are equally unremarkable. IMPRESSION: 1. No right lower extremity DVT. RPTAT: HTAR .Mark Weber MD, MD Date Time Electronically viewed and signed by .Mark Weber MD, on 12/11/2016 01:54 .R/
[2016-12-11 02:42] VITALS: BP 137/83; PULSE 88; RESP 20
== END 2016-12-11 02:55 | disposition home or self-care (01) ==
LOC: E/R 23:23
DX: R42 Dizziness and giddiness (principal); I48.0 Paroxysmal atrial fibrillation; I50.9 Heart failure, unspecified; E11.9 Type 2 diabetes mellitus without complications; I10 Essential (primary) hypertension; Z77.22 Contact with and (suspected) exposure to environmental tobacco smoke (acute) (chronic); Z79.4 Long term (current) use of insulin; Z79.82 Long term (current) use of aspirin; Z79.84 Long term (current) use of oral hypoglycemic drugs
CPT/HCPCS: 71010; 80048; 84484; 85025; 85610; 85730; 93005; 93971; J7040; 36415

== ENCOUNTER 2016-12-29 11:31 | Inpatient (IN) | payer OTHER ==
[~2016-12-29] VITALS: Ht 182.9 cm; Wt 174.2 kg
[2016-12-29] MEDS ORDERED: SOD CHLORIDE 0.9% 1,000 ML IV STA (13:01)
[2016-12-29] MEDS ORDERED: ASPIRIN 325 MG TAB PO STA (13:01)
--- NOTE | 2016-12-29 13:31 | RADRPT ---
PROCEDURE: XR Chest. CLINICAL INDICATION: Chest Pain. TECHNIQUE: Single frontal view of the chest was obtained COMPARISON: Chest x-ray 12/11/2016 FINDINGS: The cardiomediastinal silhouette is within normal limits. There are low lung volumes which accentuates lung markings. Interval decrease in pulmonary vascular congestion. No pneumothorax, significant pleural effusion, or parenchymal consolidation is identified. There are degenerative changes of the visualized spine. IMPRESSION: 1. No evidence of an acute cardiopulmonary process. 2. Interval decrease in pulmonary vascular congestion. RPTAT: PP Physician Sanjeev Date Time Electronically viewed and signed by Physician Sanjeev on 12/29/2016 13:31 RC/
[2016-12-29 13:32] LABS: BASOPHIL # 0.1 10^3/ul (0.0-0.1); BASOPHILS % 0.6 % (0.0-2.0); EOSINOPHILS # 0.1 10^3/ul (0.0-0.5); EOSINOPHILS % 1.5 % (0.0-7.0); HEMATOCRIT 40.8 % (42.0-52.0); LYMPHOCYTES # 1.9 10^3/ul (0.8-2.9); LYMPHOCYTES % 23.5 % (15.0-51.0); MEAN CORPUSCULAR HEMOGLOBIN 28.9 pg (29.0-33.0); MEAN CORPUSCULAR HGB CONC 34.3 g/dl (32.0-37.0); MEAN CORPUSCULAR VOLUME 84.3 fl (82.0-101.0); MEAN PLATELET VOLUME 10.5 fl (7.4-10.4); MONOCYTE # 0.6 10^3/ul (0.3-0.9); MONOCYTES % 7.1 % (0.0-11.0); NEUTROPHIL # 5.5 10^3/ul (1.6-7.5); NEUTROPHILS % 66.8 % (39.0-77.0); PLATELET COUNT 212 10^3/UL (140-415); RED BLOOD COUNT 4.84 10^6/ul (4.70-6.10); RED CELL DISTRIBUTION WIDTH 13.8 % (11.5-14.5); WHITE BLOOD COUNT 8.3 10^3/ul (4.8-10.8)
[2016-12-29 13:48] LABS: INR 1.06; PROTIME 13.8 Sec (12.2-14.2); PT RATIO 1.1
[2016-12-29 13:49] LABS: ANION GAP 17 (8-16); BLOOD UREA NITROGEN 8 mg/dl (7-20); CALCIUM 8.9 mg/dl (8.4-10.2); CARBON DIOXIDE 29 mmol/L (21-31); CHLORIDE 96 mmol/L (97-110); CREATININE 0.76 mg/dl (0.61-1.24); GLUCOSE 348 mg/dl (70-220); PARTIAL THROMBOPLASTIN TIME 32.9 Sec (25.0-35.0); POTASSIUM 4.3 mmol/L (3.5-5.1); SODIUM 138 mmol/L (135-144)
[2016-12-29 14:00] LABS: B-TYPE NATRIURETIC PEPTIDE 65 PG/ML (0-125)
[2016-12-29 14:03] LABS: TROPONIN-I < 0.012 ng/ml (0.00-0.12)
[2016-12-29] MEDS ORDERED: ONDANSETRON 4 MG INJ IV STA (14:54)
[2016-12-29] MEDS ORDERED: ONDANSETRON 4 MG INJ IV PRN (17:00)
[2016-12-29] MEDS ORDERED: NITROGLYCERIN (SL) 0.4 MG TAB SL ONE (17:00)
[2016-12-29] MEDS ORDERED: ACETAMINOPHEN 325 MG TAB PO PRN (17:00)
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
[2016-12-29] MEDS ORDERED: SOD CHLORIDE 0.9% 1,000 ML IV ONE ×2 (17:30)
[2016-12-29 18:00] VITALS: TEMP 98
[2016-12-29] MEDS ORDERED: MECLIZINE 12.5 MG TAB PO PRN (18:00)
[2016-12-29] MEDS ORDERED: DIPHENOXYLATE/ATROPINE TAB PO PRN (18:00)
[2016-12-29] MEDS ORDERED: NITROGLYCERIN (SL) 0.4 MG TAB SL PRN ×2 (18:00)
[2016-12-29] MEDS ORDERED: HYDROCODONE/APAP (10/325) TAB PO PRN (18:00)
[2016-12-29] MEDS ORDERED: SOD CHLORIDE 0.9% 100 ML ONE (18:50)
[2016-12-29] MEDS ORDERED: IODIXANOL LOCM 100 ML BTL ONE (18:50)
[2016-12-29] MEDS ORDERED: DEXTROSE 50% 50 ML SYRINGE IV PRN ×2 (19:00)
[2016-12-29] MEDS ORDERED: GLUCOSE GEL 15 GRAM TUBE PO PRN ×2 (19:00)
[2016-12-29] MEDS ORDERED: GLUCOSE GEL 15 GRAM TUBE BUCCAL PRN (19:00)
[2016-12-29] MEDS ORDERED: GLUCAGON 1 MG INJ IM PRN (19:00)
--- NOTE | 2016-12-29 19:23 | RADRPT ---
PROCEDURE: CTA Chest with contrast and with 3-D reconstructions CLINICAL INDICATION: sob, tachy, cp TECHNIQUE: The study was performed utilizing multidetector CT scanner. Direct spiral axial section s were obtained from the thoracic inlet to the upper abdomen with the use of intravenous contrast ma terial. Sagittal, coronal and 3-D reformations were obtained. The images were reviewed on a PACS wor kstation. DLP 931.67 mGycm CTDIvol 77.46, 24.14 mGy One or more of the following dose reduction techniques were used: - Automated exposure control. - Adjustment of the mA and/or kV according to patient size. - Use of iterative reconstruction technique. COMPARISON: No prior studies are available for comparison. FINDINGS: There are no pulmonary emboli. The lungs are clear. There is no pleural fluid. There is no pneumothorax. Heart size is within normal limits. There is no pericardial fluid. The aorta is within normal limi ts. There are no enlarged axillary or mediastinal lymph nodes. The liver demonstrates decreased density consistent with fatty infiltration. Osseous and soft tissue structures are within normal limits. IMPRESSION: No CT evidence for pulmonary embolus. Clear lungs. Fatty infiltration of the liver. RPTAT: EE Physician Glen Date Time Electronically viewed and signed by Physician Glen on 12/29/2016 19:23 /
[2016-12-29 19:57] LABS: BARBITURATES Negative (NEGATIVE); BENZODIAZEPINES Negative (NEGATIVE); CANNABINOIDS Negative (NEGATIVE); COCAINE Negative (NEGATIVE); OPIATES Negative (NEGATIVE)
[2016-12-29 20:00] VITALS: BP 135/87; RESP 20
[2016-12-29 20:07] LABS: CREATINE KINASE 88 IU/L (23-200)
[2016-12-29 20:20] LABS: CK-MB 1.06 ng/ml (0.0-2.4); TROPONIN-I < 0.012 ng/ml (0.00-0.12)
[2016-12-29 20:30] VITALS: Ht 182.9 cm; Wt 174.2 kg
[2016-12-29] MEDS: INSULIN DETEMIR [LEVEMIR] 3ML CART SC SCH (21:00)
[2016-12-29] MEDS: METOPROLOL 25 MG TAB PO SCH (22:26)
[2016-12-29] MEDS: PANTOPRAZOLE (EC) 40 MG TAB PO SCH (22:26)
[2016-12-29] MEDS: morphine 2 MG INJ IV PRN (22:26)
[2016-12-29] MEDS: DILTIAZEM (CD) 240 MG CAP PO SCH (22:26)
[2016-12-30] VITALS (10 sets, daily range): BP systolic 115–174; BP diastolic 57–89; PULSE 67–79; RESP 18–20
[2016-12-30 01:26] LABS: CREATINE KINASE 85 IU/L (23-200)
[2016-12-30 01:38] LABS: CK-MB 1.03 ng/ml (0.0-2.4); TROPONIN-I < 0.012 ng/ml (0.00-0.12)
[2016-12-30] MEDS: morphine 2 MG INJ IV PRN ×5 (05:43→21:32)
--- NOTE | 2016-12-30 06:43 | HP ---
DATE OF ADMISSION: 12/29/2016 HISTORY OF PRESENT ILLNESS: This is a young male with a history of diabetes mellitus, history of atrial fibrillation/atrial flutter, history of GI bleed in the past, no anticoagulation. He was recently discharged from [facility] with diagnosis of GI bleed, but patient could not tolerate EGD and patient's hematocrit was stable. He was seen by Dr shultz and consultation by Dr carlos. Patient was cleared to be discharged and presented here with palpitations and chest pain, has sinus tachycardia and is being admitted for further management. PAST MEDICAL HISTORY: 1. Atrial fibrillation/atrial flutter. 2. History of diabetes mellitus. 3. History of GI bleed. 4. History of obesity. 5. Dyslipidemia. ALLERGY HISTORY, FAMILY AND SOCIAL HISTORIES: Are unchanged. MEDICATION HISTORY: 1. Pradaxa. 2. Protonix. 3. Insulin. Other medicines are unavailable. REVIEW OF SYSTEMS: HEENT: Unremarkable. RESPIRATORY: Unremarkable. CVS: As mentioned above. ABDOMEN: neg_. EXTREMITIES: On and off edema. PHYSICAL EXAMINATION: GENERAL: An obese, overweight male. Awake. VITALS: Stable. HEENT: Head is atraumatic, normocephalic. Pupils are reactive to light. NECK: Supple. No JVD. LUNGS: Clear. CVS: S1, S2 normal. ABDOMEN: Soft, obese, bowel sounds. There are no palpable masses. EXTREMITIES: No cyanosis or clubbing. Edema trace. NEUROLOGIC: Patient is awake, alert. No focal deficits. LABORATORY DATA: As mentioned above. IMPRESSION: Patient has: 1. Arrhythmia, history of atrial fibrillation/atrial flutter 2. Diabetes mellitus. 3. History of gastrointestinal bleed. 4. Obesity. 5. Dyslipidemia. PLAN: At this point the plan is to have cardiology consultation and troponin will be sent. Continue home medication. Sliding scale, continue insulin. Other recommendations deferred to Dr Mosher. Dictated By: Reilly Velazquez MD /michael/ariella /Document#: [id number] CABRINI MEDICAL CENTERFacundo
[2016-12-30] MEDS ORDERED: DABIGATRAN 150 MG CAP PO SCH ×2 (09:00→21:00)
[2016-12-30] MEDS ORDERED: ASPIRIN 81 MG TAB PO SCH (09:00)
[2016-12-30] MEDS: VALSARTAN 80 MG TAB PO SCH (09:40)
[2016-12-30] MEDS: METOPROLOL 25 MG TAB PO SCH ×2 (09:40→21:28)
[2016-12-30] MEDS: PANTOPRAZOLE (EC) 40 MG TAB PO SCH ×2 (09:40→21:28)
[2016-12-30] MEDS: COLCHICINE 0.6 MG TAB PO SCH (09:41)
[2016-12-30] MEDS: DILTIAZEM (CD) 240 MG CAP PO SCH (09:41)
[2016-12-30] MEDS: INSULIN DETEMIR [LEVEMIR] 3ML CART SC SCH ×2 (09:42→21:42)
[2016-12-30] MEDS: DIGOXIN 0.125 MG TAB PO SCH (12:43)
[2016-12-30] MEDS: INSULIN ASPART [NOVOLOG] 3 ML PEN SC SCH ×2 (17:26→21:00)
--- NOTE | 2016-12-30 18:22 | PN ---
Date/Time of Note Date/Time of Note DATE: 12/30/16 TIME: 18:22 Assessment/Plan VTE Prophylaxis VTE Prophylaxis Intervention: other Lines/Catheters IV Catheter Type (from Nrsg): Saline Lock Assessment/Plan Chief Complaint/Hosp Course 1. Arrhythmia, history of atrial fibrillation/atrial flutter 2. Diabetes mellitus. 3. History of gastrointestinal bleed. 4. Obesity. 5. Dyslipidemia. PLAN PER DR QUEVEDO Problems: Subjective 24 Hr Interval Summary Respiratory: shortness of breath (+) Cardiovascular: chest pain (NEG) Exam/Review of Systems Vital Signs Vitals Vital Signs Date Time Temp Pulse Resp B/P Pulse Ox O2 Delivery O2 Flow Rate FiO2 12/30/16 16:31 70 12/30/16 15:40 98.6 18 129/60 96 12/29/16 19:28 Room Air 12/29/16 18:00 2.0 Intake and Output 12/29/16 12/29/16 12/30/16 15:00 23:00 07:00 Intake Total 500 ml Output Total 1000 ml Balance -500 ml Exam Neck: supple Respiratory: clear to auscultation Cardiovascular: regular rate and rhythm Gastrointestinal: soft Musculoskeletal: nl extremities to inspection Extremities: normal pulses Results Result Diagram: 12/29/16 1320 12/29/16 1320 Results 24 hrs Laboratory Tests Test 12/29/16 19:00 12/29/16 19:20 12/30/16 00:48 12/30/16 07:06 Urine Opiates Screen Negative Urine Barbiturates Negative Urine Amphetamines Screen Negative Urine Benzodiazepines Screen Negative Urine Cocaine Screen Negative Urine Cannabinoids Negative Creatine Kinase 88 85 Creatine Kinase Index 1.2 1.2 Creatinine Kinase MB (Mass) 1.06 1.03 Troponin I < 0.012 < 0.012 Lab Scanned Report LAB Test 12/30/16 09:03 12/30/16 17:02 Bedside Glucose 163 155 Medications Medications Current Medications Colchicine (Colchicine) 0.6 mg DAILY PO Last administered on 12/30/16 09:41; Admin Dose 0.6 MG; Start 12/30/16 at 09:00 Dabigatran (PRADaxa) 150 mg DAILY PO Last administered on 12/30/16 09:41; Admin Dose 150 MG; Start 12/30/16 at 09:00 Digoxin (Digoxin) 0.125 mg DAILY@13 PO Last administered on 12/30/16 12:43; Admin Dose 0.125 MG; Start 12/30/16 at 13:00 Diltiazem HCl (Cardizem Cd) 240 mg DAILY PO Last administered on 12/30/16 09: 41; Admin Dose 240 MG; Start 12/29/16 at 21:00 Diphenoxylate HCl/ Atropine (Lomotil) 1 tab QID PRN PO DIARRHEA; Start at 18:00 Acetaminophen/ Hydrocodone Bitart ([place] (10/325)) 1 tab Q6H PRN PO PAIN; Start 12/29/16 at 18:00 Insulin Detemir (Levemir) 30 unit BID SC Last administered on 12/30/16 09:42; Admin Dose 30 UNIT; Start 12/29/16 at 21:00 Meclizine HCl (Antivert) 25 mg Q6H PRN PO DIZZINESS; Start 12/29/16 at 18:00 Metoprolol Tartrate (Lopressor) 25 mg BID PO Last administered on 12/30/16 09: 40; Admin Dose 25 MG; Start 12/29/16 at 21:00 Pantoprazole (Protonix Tab) 40 mg BID PO Last administered on 12/30/16 09:40; Admin Dose 40 MG; Start 12/29/16 at 21:00 Valsartan (Diovan) 80 mg DAILY PO Last administered on 12/30/16 09:40; Admin Dose 80 MG; Start 12/30/16 at 09:00 Aspirin (Aspirin) 81 mg DAILY PO ; Start 12/31/16 at 09:00 Nitroglycerin (Nitroglycerin (Sl Tab) 0.4 Mg) 1 tab Q5M PRN SL CHEST PAIN; Start 12/29/16 at 18:00 Morphine Sulfate (morphine) 2 mg Q2H PRN IV PAIN LEVEL 4-6 Last administered on 12/30/16 17:21; Admin Dose 2 MG; Start 12/29/16 at 18:00 Miscellaneous Information 1 ea NOTE XX ; Start 12/29/16 at 19:00 Glucose (Glutose) 15 gm Q15M PRN PO DECREASED GLUCOSE; Start 12/29/16 at 19:00 Glucose (Glutose) 22.5 gm Q15M PRN PO DECREASED GLUCOSE; Start 12/29/16 at 19: 00 Dextrose (D50w Syringe) 25 ml Q15M PRN IV DECREASED GLUCOSE; Start 12/29/16 at 19:00 Dextrose (D50w Syringe) 50 ml Q15M PRN IV DECREASED GLUCOSE; Start 12/29/16 at 19:00 Glucagon (Glucagen) 1 mg Q15M PRN IM DECREASED GLUCOSE; Start 12/29/16 at 19:00 Glucose (Glutose) 15 gm Q15M PRN BUCCAL DECREASED GLUCOSE; Start 12/29/16 at 19 :00 Diagnostic Test (Pha) (Accu-Chek) 1 02 XX ; Start 12/31/16 at 02:00 MEHUL KIRAN MD Dec 30, 2016 18:22
--- NOTE | 2016-12-30 20:50 | RADRPT ---
Echocardiogram Report Patient Name: CHAYA MENDOZA Gender: Male Date: 1980 Study Date: 30-Dec-2016 [employer] Assistant: [employer] [facility] Location: 5552 Ref. Physician: MEHUL KIRAN Quality: Adequate Procedures: Transthoracic echocardiogram with complete 2D, M-Mode, and doppler examination. Indications: Coronary Artery Disease. 2D/M Mode Doppler Measurement Value Normal Ranges Measurement Value Normal Ranges LVIDd 2D 5.4 3.5 - 5.6 cm AV Peak Jason 1.2 m/sec LVIDs 2D 3.5 2.1 - 4.1 cm AV Peak PG 5.6 mmHg LVPWd 2D 1.3 0.6 - 1.1 cm LVOT Peak Jason 1.0 m/sec IVSd 2D 1.3 0.6 - 1.1 cm LVOT Peak PG 4.2 mmHg AoR Diam 2D 2.6 2.0 - 3.7 cm MV E Peak Jason 0.7 m/sec EDV 2D 141.0 cm3 MV A Peak Jason 0.6 m/sec ESV 2D 44.6 cm3 MV E/A 1.2 MV Decel Time 225 msec MV Decel [place] 3 MV E/A 1.2 Findings Left Ventricle: Normal left ventricular systolic function. Normal left ventricular cavity size. Mild concentric left ventricular hypertrophy. Ejection fraction is visually estimated at 60 %. Tissue Doppler/Mitral Doppler indices are consistent with impaired relaxation (Stage I diastolic dysfunction). Right Ventricle: Normal right ventricular size. Normal right ventricular systolic function. Left Atrium: The left atrium is normal in size. Right Atrium: The right atrium is normal in size. Mitral Valve: Mild mitral leaflet calcification. Mild mitral annular calcification. Trace mitral regurgitation. Aortic Valve: Normal appearance of the aortic valve. No significant aortic stenosis or insufficiency. Tricuspid Valve: Normal appearance of the tricuspid valve. Unable to obtain RVSP due to minimal presence of tricuspid regurgitation. There is trace tricuspid regurgitation. Pulmonic Valve: Pulmonic valve not well visualized. There is trace pulmonic regurgitation. Pericardium: Normal pericardium with no significant pericardial effusion. Aorta: Normal aortic root. IVC: Normal size and normal respiratory collapse consistent with normal right atrial pressure. Conclusions 1.Normal left ventricular systolic function. Normal left ventricular cavity size. Mild concentric left ventricular hypertrophy. Ejection fraction is visually estimated at 60 %. Tissue Doppler/Mitral Doppler indices are consistent with impaired relaxation (Stage I diastolic dysfunction). 2.Mild mitral leaflet calcification. Mild mitral annular calcification. Trace mitral regurgitation. 3.Normal appearance of the tricuspid valve. Unable to obtain RVSP due to minimal presence of tricuspid regurgitation. There is trace tricuspid regurgitation. 4.Pulmonic valve not well visualized. There is trace pulmonic regurgitation. Electronically Signed By: Emory Mosher 30-Dec-2016 20:49:40 -0700 Patient Name: CHAYA MENDOZA Study Date: 30-Dec-2016 [id number]
[2016-12-31] VITALS (14 sets, daily range): BP systolic 100–152; BP diastolic 44–87; PULSE 55–81; RESP 18–22
[2016-12-31] MEDS: morphine 2 MG INJ IV PRN ×5 (01:00→20:18)
[2016-12-31] MEDS ORDERED: ACCU-CHEK XX SCH (02:00)
[2016-12-31] MEDS: ACCU-CHEK XX SCH (02:00)
[2016-12-31 08:12] LABS: CHOL/HDL RATIO 4.4 RATIO; CHOLESTEROL 115 mg/dl (100-200); HDL CHOLESTEROL 26 mg/dl (28-63); TRIGLYCERIDES 114 mg/dl (0-149)
[2016-12-31 08:33] LABS: TROPONIN-I < 0.012 ng/ml (0.00-0.12)
[2016-12-31] MEDS: DILTIAZEM (CD) 240 MG CAP PO SCH (09:00)
[2016-12-31] MEDS: VALSARTAN 80 MG TAB PO SCH (09:00)
[2016-12-31] MEDS: METOPROLOL 25 MG TAB PO SCH ×2 (09:00→20:17)
--- NOTE | 2016-12-31 09:02 | RADRPT ---
Vent Rate: 56 bpm RR Interval: 0 msec ME Interval: 160 msec QRS Duration: 110 msec QT Interval: 444 msec QTC Interval: 428 msec P-R-T [place]: 5 - 82 - 53 degrees Sinus bradycardia with sinus arrhythmia Low voltage QRS Incomplete right bundle branch block Borderline ECG Electronically Signed By: Juan Miguel John [id number]
[2016-12-31] MEDS: COLCHICINE 0.6 MG TAB PO SCH (09:08)
[2016-12-31] MEDS: ASPIRIN 81 MG TAB PO SCH (09:08)
[2016-12-31] MEDS: PANTOPRAZOLE (EC) 40 MG TAB PO SCH ×2 (09:09→20:16)
[2016-12-31] MEDS: INSULIN DETEMIR [LEVEMIR] 3ML CART SC SCH ×2 (09:13→20:24)
[2016-12-31] MEDS: DABIGATRAN 75 MG CAP PO SCH ×3 (09:13→20:16)
[2016-12-31] MEDS: INSULIN ASPART [NOVOLOG] 3 ML PEN SC SCH ×4 (09:14→20:17)
[2016-12-31] MEDS: DIGOXIN 0.125 MG TAB PO SCH (13:00)
--- NOTE | 2016-12-31 13:39 | CONS ---
Date/Time of Note Date/Time of Note DATE: 12/31/16 TIME: 13:35 Assessment/Plan Assessment/Plan Chief Complaint/Hosp Course IMP: 1.Chest pain-negative trop x 3/NL EF by echo 2.HTN-with borderlinw hotn 3.PAF by history 4.DM 5.PACHECO Recc: -Tele -serial ecg's -Continue BB -decrease doses of dilt/diiovan given marginal BP -Continue pradaxa Problems: Consultation Date/Type/Reason Admit Date/Time Dec 29, 2016 at 16:58 Initial Consult Date 12/30/2016 Type of Consultation: cardiology Reason for Consultation chest pain Referring Provider: MEHUL KIRAN Exam/Review of Systems Vital Signs Vitals Vital Signs Date Time Temp Pulse Resp B/P Pulse Ox O2 Delivery O2 Flow Rate FiO2 12/31/16 13:23 81 12/31/16 11:43 97.8 18 105/65 96 12/29/16 19:28 Room Air 12/29/16 18:00 2.0 Intake and Output 12/30/16 12/30/16 12/31/16 15:00 23:00 07:00 Intake Total 1200 ml 800 ml Output Total 1000 ml 880 ml Balance 200 ml -80 ml Exam Review of Systems: CONSTITUTIONAL: No fevers, chills. PULMONARY: No sob CARDIOVASCULAR: intermittent chest pain GASTROINTESTINAL: No nausea/vomiting. GENITOURINARY: No hematuria/dysuria. MUSCULOSKELETAL: No myagias/arthalgias. PSYCHIATRIC: The patient denies depression. NEUROLOGIC: No weakness Constitutional: alert Psych: no complaints Head: normocephalic ENMT: mucosa pink and moist Neck: jvd (8 cm water), supple Respiratory: diminished breath sounds (at bases/B) Cardiovascular: regular rate and rhythm Gastrointestinal: non-tender, soft Musculoskeletal: muscle tone (normal) Extremities: edema (none) Neurological: other (No focal deficits) Results Result Diagram: 12/29/16 1320 12/29/16 1320 Results 24 hrs Laboratory Tests Test 12/30/16 17:02 12/30/16 21:26 12/31/16 07:13 12/31/16 07:41 Bedside Glucose 155 131 151 Troponin I < 0.012 Triglycerides Level 114 Cholesterol Level 115 LDL Cholesterol, Calculated 66 HDL Cholesterol 26 L Cholesterol/HDL Ratio 4.4 Test 12/31/16 11:47 Bedside Glucose 137 Medications Medications Current Medications Colchicine (Colchicine) 0.6 mg DAILY PO Last administered on 12/31/16 09:08; Admin Dose 0.6 MG; Start 12/30/16 at 09:00 Digoxin (Digoxin) 0.125 mg DAILY@13 PO Last administered on 12/30/16 12:43; Admin Dose 0.125 MG; Start 12/30/16 at 13:00 Diltiazem HCl (Cardizem Cd) 240 mg DAILY PO Last administered on 12/30/16 09: 41; Admin Dose 240 MG; Start 12/29/16 at 21:00 Diphenoxylate HCl/ Atropine (Lomotil) 1 tab QID PRN PO DIARRHEA; Start at 18:00 Acetaminophen/ Hydrocodone Bitart ([place] (10/325)) 1 tab Q6H PRN PO PAIN; Start 12/29/16 at 18:00 Insulin Detemir (Levemir) 30 unit BID SC Last administered on 12/31/16 09:13; Admin Dose 30 UNIT; Start 12/29/16 at 21:00 Meclizine HCl (Antivert) 25 mg Q6H PRN PO DIZZINESS; Start 12/29/16 at 18:00 Metoprolol Tartrate (Lopressor) 25 mg BID PO Last administered on 12/30/16 21: 28; Admin Dose 25 MG; Start 12/29/16 at 21:00 Pantoprazole (Protonix Tab) 40 mg BID PO Last administered on 12/31/16 09:09; Admin Dose 40 MG; Start 12/29/16 at 21:00 Valsartan (Diovan) 80 mg DAILY PO Last administered on 12/30/16 09:40; Admin Dose 80 MG; Start 12/30/16 at 09:00 Aspirin (Aspirin) 81 mg DAILY PO Last administered on 12/31/16 09:08; Admin Dose 81 MG; Start 12/31/16 at 09:00 Nitroglycerin (Nitroglycerin (Sl Tab) 0.4 Mg) 1 tab Q5M PRN SL CHEST PAIN; Start 12/29/16 at 18:00 Morphine Sulfate (morphine) 2 mg Q2H PRN IV PAIN LEVEL 4-6 Last administered on 12/31/16 09:15; Admin Dose 2 MG; Start 12/29/16 at 18:00 Miscellaneous Information 1 ea NOTE XX ; Start 12/29/16 at 19:00 Glucose (Glutose) 15 gm Q15M PRN PO DECREASED GLUCOSE; Start 12/29/16 at 19:00 Glucose (Glutose) 22.5 gm Q15M PRN PO DECREASED GLUCOSE; Start 12/29/16 at 19: 00 Dextrose (D50w Syringe) 25 ml Q15M PRN IV DECREASED GLUCOSE; Start 12/29/16 at 19:00 Dextrose (D50w Syringe) 50 ml Q15M PRN IV DECREASED GLUCOSE; Start 12/29/16 at 19:00 Glucagon (Glucagen) 1 mg Q15M PRN IM DECREASED GLUCOSE; Start 12/29/16 at 19:00 Glucose (Glutose) 15 gm Q15M PRN BUCCAL DECREASED GLUCOSE; Start 12/29/16 at 19 :00 Diagnostic Test (Pha) (Accu-Chek) 1 ea 02 XX ; Start 12/31/16 at 02:00 Dabigatran (PRADaxa) 75 mg BID PO ; Start 12/31/16 at 09:13 MAC QUEVEDO Dec 31, 2016 13:39
--- NOTE | 2016-12-31 15:12 | RADRPT ---
PROCEDURE: Nuclear medicine myocardial stress and rest scan. CLINICAL INDICATION: Chest pain. TECHNIQUE: The patient was stressed with 0.4 mg IV Lexiscan. 9.9 mCi technetium 99m Tetrofosmin ( Myoview) was administered rest. 32.8 mCi technetium 99m Tetrofosmin (Myoview) was administered dur ing stress. Images were obtained and reconstructed in the short axis, horizontal long axis, and jonel tical long axis. Gated images were obtained and ejection fraction was calculated. COMPARISON: No prior study is available for comparison. FINDINGS: The stress and rest images demonstrate normal uptake throughout. There is no fixed abnormality or r eversible abnormality. There is no evidence of transient ischemic dilatation. Wall motion is normal. There is normal wall thickening during systole. Ejection fraction at stress is 51%. IMPRESSION: 1. No evidence of stress induced myocardial ischemia. 2. Ejection fraction at stress is 51%. RPTAT: QQ .Jamin Orellana MD, MD Date Time Electronically viewed and signed by .Jamin Orellana MD, on 12/31/2016 15:12 .R/
[2016-12-31] MEDS ORDERED: REGADENOSON 0.4 MG/5 ML SYG ONE ×2 (18:03)
--- NOTE | 2016-12-31 22:39 | PN ---
Date/Time of Note Date/Time of Note DATE: 12/31/16 TIME: 22:37 Assessment/Plan VTE Prophylaxis VTE Prophylaxis Intervention: other Lines/Catheters IV Catheter Type (from Nrs): [place] Urinary Cath still in place: No Assessment/Plan Chief Complaint/Hosp Course 1. Arrhythmia, history of atrial fibrillation/atrial flutter 2. Diabetes mellitus. 3. History of gastrointestinal bleed. 4. Obesity. 5. Dyslipidemia. PLAN PER DR EMY HADDAD NEG Problems: Subjective 24 Hr Interval Summary Subjective hx not possible: other Exam/Review of Systems Vital Signs Vitals Vital Signs Date Time Temp Pulse Resp B/P Pulse Ox O2 Delivery O2 Flow Rate FiO2 12/31/16 20:00 62 12/31/16 19:35 98.0 18 152/83 94 12/29/16 19:28 Room Air 12/29/16 18:00 2.0 Intake and Output 12/30/16 12/30/16 12/31/16 15:00 23:00 07:00 Intake Total 1200 ml 800 ml Output Total 1000 ml 880 ml Balance 200 ml -80 ml Exam Respiratory: clear to auscultation Cardiovascular: regular rate and rhythm Gastrointestinal: soft Musculoskeletal: nl extremities to inspection Extremities: normal pulses Results Result Diagram: 12/29/16 1320 12/29/16 1320 Results 24 hrs Laboratory Tests Test 12/31/16 07:13 12/31/16 07:41 12/31/16 11:47 12/31/16 17:21 Troponin I < 0.012 Triglycerides Level 114 Cholesterol Level 115 LDL Cholesterol, Calculated 66 HDL Cholesterol 26 L Cholesterol/HDL Ratio 4.4 Bedside Glucose 151 137 150 Test 12/31/16 20:14 Bedside Glucose 108 Medications Medications Current Medications Colchicine (Colchicine) 0.6 mg DAILY PO Last administered on 12/31/16 09:08; Admin Dose 0.6 MG; Start 12/30/16 at 09:00 Digoxin (Digoxin) 0.125 mg DAILY@13 PO Last administered on 12/30/16 12:43; Admin Dose 0.125 MG; Start 12/30/16 at 13:00 Diphenoxylate HCl/ Atropine (Lomotil) 1 tab QID PRN PO DIARRHEA; Start at 18:00 Acetaminophen/ Hydrocodone Bitart ([place] (10/325)) 1 tab Q6H PRN PO PAIN; Start 12/29/16 at 18:00 Meclizine HCl (Antivert) 25 mg Q6H PRN PO DIZZINESS; Start 12/29/16 at 18:00 Metoprolol Tartrate (Lopressor) 25 mg BID PO Last administered on 12/31/16 20: 17; Admin Dose 25 MG; Start 12/29/16 at 21:00 Pantoprazole (Protonix Tab) 40 mg BID PO Last administered on 12/31/16 20:16; Admin Dose 40 MG; Start 12/29/16 at 21:00 Aspirin (Aspirin) 81 mg DAILY PO Last administered on 12/31/16 09:08; Admin Dose 81 MG; Start 12/31/16 at 09:00 Nitroglycerin (Nitroglycerin (Sl Tab) 0.4 Mg) 1 tab Q5M PRN SL CHEST PAIN; Start 12/29/16 at 18:00 Morphine Sulfate (morphine) 2 mg Q2H PRN IV PAIN LEVEL 4-6 Last administered on 12/31/16 20:18; Admin Dose 2 MG; Start 12/29/16 at 18:00 Miscellaneous Information 1 ea NOTE XX ; Start 12/29/16 at 19:00 Glucose (Glutose) 15 gm Q15M PRN PO DECREASED GLUCOSE; Start 12/29/16 at 19:00 Glucose (Glutose) 22.5 gm Q15M PRN PO DECREASED GLUCOSE; Start 12/29/16 at 19: 00 Dextrose (D50w Syringe) 25 ml Q15M PRN IV DECREASED GLUCOSE; Start 12/29/16 at 19:00 Dextrose (D50w Syringe) 50 ml Q15M PRN IV DECREASED GLUCOSE; Start 12/29/16 at 19:00 Glucagon (Glucagen) 1 mg Q15M PRN IM DECREASED GLUCOSE; Start 12/29/16 at 19:00 Glucose (Glutose) 15 gm Q15M PRN BUCCAL DECREASED GLUCOSE; Start 12/29/16 at 19 :00 Diagnostic Test (Pha) (Accu-Chek) 1 ea 02 XX ; Start 12/31/16 at 02:00 Dabigatran (PRADaxa) 75 mg BID PO Last administered on 12/31/16 20:16; Admin Dose 75 MG; Start 12/31/16 at 09:13 Insulin Detemir (Levemir) 30 unit BID@08,20 SC Last administered on 12/31/16t 20:24; Admin Dose 30 UNIT; Start 12/31/16 at 20:00 Diltiazem HCl (Cardizem Cd) 120 mg DAILY PO ; Start 01/01/17 at 09:00 Valsartan (Diovan) 40 mg DAILY PO ; Start 01/01/17 at 09:00 MEHUL KIRAN MD Dec 31, 2016 22:39
[2017-01-01] VITALS (8 sets, daily range): BP systolic 106–136; BP diastolic 59–89; PULSE 58–81; RESP 19
[2017-01-01] MEDS: morphine 2 MG INJ IV PRN ×2 (01:01→05:56)
[2017-01-01] MEDS: ACCU-CHEK XX SCH (02:00)
[2017-01-01] MEDS: INSULIN ASPART [NOVOLOG] 3 ML PEN SC SCH ×2 (07:45→11:56)
[2017-01-01] MEDS: INSULIN DETEMIR [LEVEMIR] 3ML CART SC SCH (07:45)
[2017-01-01] MEDS: COLCHICINE 0.6 MG TAB PO SCH (08:47)
[2017-01-01] MEDS: DABIGATRAN 75 MG CAP PO SCH (08:47)
[2017-01-01] MEDS: ASPIRIN 81 MG TAB PO SCH (08:48)
[2017-01-01] MEDS: PANTOPRAZOLE (EC) 40 MG TAB PO SCH (08:48)
[2017-01-01] MEDS: METOPROLOL 25 MG TAB PO SCH (08:49)
[2017-01-01] MEDS ORDERED: DILTIAZEM (CD) 120 MG CAP PO SCH (09:00)
[2017-01-01] MEDS ORDERED: VALSARTAN 80 MG TAB PO SCH (09:00)
--- NOTE | 2017-01-01 11:42 | CONS ---
Date/Time of Note Date/Time of Note DATE: 01/01/17 TIME: 11:39 Assessment/Plan Assessment/Plan Chief Complaint/Hosp Course IMP: 1.Chest pain-negative trop x 3/NL EF by echo. Lexiscan 12/31 with no ischemia/NL EF 2.HTN-well controlled 3.PAF by history. Currently in SR 4.DM 5.PACHECO Recc: -Tele -serial ecg's -Continue BB/DILT -Consider holding diovan and starting low dose oral nitrates -Continue pradaxa as tolerated -D/C planning if stable/asynmptomatic with outpatient f/u 2 weeks with myself and [facility] for recurrent sx on medical therapy Problems: Consultation Date/Type/Reason Admit Date/Time Dec 29, 2016 at 16:58 Initial Consult Date 12/30/2016 Type of Consultation: cardiology Reason for Consultation Chest pain Referring Provider: MEHUL KIRAN MD Exam/Review of Systems Vital Signs Vitals Vital Signs Date Time Temp Pulse Resp B/P Pulse Ox O2 Delivery O2 Flow Rate FiO2 01/01/17 11:19 98.0 68 19 130/89 92 12/29/16 19:28 Room Air 12/29/16 18:00 2.0 Intake and Output 12/31/16 12/31/16 01/01/17 15:00 23:00 07:00 Intake Total 500 ml 1000 ml Output Total 1200 ml Balance 500 ml -200 ml Exam Review of Systems: CONSTITUTIONAL: No fevers, chills. PULMONARY: No sob CARDIOVASCULAR: No chest pain/palpitations GASTROINTESTINAL: No nausea/vomiting. GENITOURINARY: No hematuria/dysuria. MUSCULOSKELETAL: No myagias/arthalgias. PSYCHIATRIC: The patient denies depression. NEUROLOGIC: No weakness Constitutional: alert, oriented Psych: no complaints Head: normocephalic ENMT: mucosa pink and moist Neck: jvd (8-9 cm water), supple Respiratory: clear to auscultation Cardiovascular: regular rate and rhythm Gastrointestinal: non-tender, soft Musculoskeletal: muscle tone (normal) Extremities: edema (none) Neurological: lethargic Results Result Diagram: 12/29/16 1320 12/29/16 1320 Results 24 hrs Laboratory Tests Test 12/31/16 11:47 12/31/16 17:21 12/31/16 20:14 01/01/17 07:32 Bedside Glucose 137 150 108 144 Medications Medications Current Medications Colchicine (Colchicine) 0.6 mg DAILY PO Last administered on 01/01/17 08:47; Admin Dose 0.6 MG; Start 12/30/16 at 09:00 Digoxin (Digoxin) 0.125 mg DAILY@13 PO Last administered on 12/30/16 12:43; Admin Dose 0.125 MG; Start 12/30/16 at 13:00 Diphenoxylate HCl/ Atropine (Lomotil) 1 tab QID PRN PO DIARRHEA; Start at 18:00 Acetaminophen/ Hydrocodone Bitart ([place] (10)) 1 tab Q6H PRN PO PAIN; Start 12/29/16 at 18:00 Meclizine HCl (Antivert) 25 mg Q6H PRN PO DIZZINESS; Start 12/29/16 at 18:00 Metoprolol Tartrate (Lopressor) 25 mg BID PO Last administered on 01/01/17 08: 49; Admin Dose 25 MG; Start 12/29/16 at 21:00 Pantoprazole (Protonix Tab) 40 mg BID PO Last administered on 01/01/17 08:48; Admin Dose 40 MG; Start 12/29/16 at 21:00 Aspirin (Aspirin) 81 mg DAILY PO Last administered on 01/01/17 08:48; Admin Dose 81 MG; Start 12/31/16 at 09:00 Nitroglycerin (Nitroglycerin (Sl Tab) 0.4 Mg) 1 tab Q5M PRN SL CHEST PAIN; Start 12/29/16 at 18:00 Morphine Sulfate (morphine) 2 mg Q2H PRN IV PAIN LEVEL 4-6 Last administered on 01/01/17 05:56; Admin Dose 2 MG; Start 12/29/16 at 18:00 Miscellaneous Information 1 ea NOTE XX ; Start 12/29/16 at 19:00 Glucose (Glutose) 15 gm Q15M PRN PO DECREASED GLUCOSE; Start 12/29/16 at 19:00 Glucose (Glutose) 22.5 gm Q15M PRN PO DECREASED GLUCOSE; Start 12/29/16 at 19: 00 Dextrose (D50w Syringe) 25 ml Q15M PRN IV DECREASED GLUCOSE; Start 12/29/16 at 19:00 Dextrose (D50w Syringe) 50 ml Q15M PRN IV DECREASED GLUCOSE; Start 12/29/16 at 19:00 Glucagon (Glucagen) 1 mg Q15M PRN IM DECREASED GLUCOSE; Start 12/29/16 at 19:00 Glucose (Glutose) 15 gm Q15M PRN BUCCAL DECREASED GLUCOSE; Start 12/29/16 at 19 :00 Diagnostic Test (Pha) (Accu-Chek) 1 ea 02 XX ; Start 12/31/16 at 02:00 Dabigatran (PRADaxa) 75 mg BID PO Last administered on 01/01/17 08:47; Admin Dose 75 MG; Start 12/31/16 at 09:13 Insulin Detemir (Levemir) 30 unit BID@08,20 SC Last administered on 01/01/17 07:45; Admin Dose 30 UNIT; Start 12/31/16 at 20:00 Diltiazem HCl (Cardizem Cd) 120 mg DAILY PO ; Start 01/01/17 at 09:00 Valsartan (Diovan) 40 mg DAILY PO Last administered on 01/01/17 08:49; Admin Dose 40 MG; Start 01/01/17 at 09:00 MAC QUEVEDO Jan 01, 2017 11:42
[2017-01-01] MEDS ORDERED: ISOSORBIDE MONONITRATE(SR)30 MG TAB PO ONE (12:00)
[2017-01-01] MEDS: DIGOXIN 0.125 MG TAB PO SCH (12:37)
--- NOTE | 2017-01-01 13:43 | PDOCDIS ---
Discharge Instructions CONDITION Patient Condition: Stable ACTIVITY: Activity Restrictions: Slowly Increase Activity FOLLOW UP/APPOINTMENTS Follow-up Plan see pcp [address] brice 1 wk MEHUL KIRAN MD Jan 01, 2017 13:43
[2017-01-01] MEDS ORDERED: DABI75CA2 PO (13:47)
[2017-01-01] MEDS ORDERED: PANT40TA4 PO (13:47)
--- NOTE | 2017-01-02 12:42 | CARRPT ---
DATE OF PROCEDURE: 12/31/2016 DATE OF PROCEDURE: December 31, 2016. ATTENDING PHYSICIAN: Emory Mosher MD. INDICATIONS: Associated ischemia. BASELINE VITAL SIGNS: Pulse 64, blood pressure 132/69. Electrocardiogram reveals normal sinus rhythm, rate of 64, normal axis, normal intervals with ST flat in lead AVL and complete right bundle branch block. PROCEDURE: The patient underwent standard Lexiscan infusion for 10 seconds, followed by a chaser. The patient's test was stopped upon completion of protocol. Max blood pressure during the test was 102/46. Max heart rate during the test was 84. ECG FINDINGS: During the Lexiscan infusion, the patient developed did not develop any new Lexiscan-induced ST changes from baseline. No documented PVCs. SYMPTOMS: The patient had no complaints of chest pain or shortness of breath. IMPRESSION: 1. [____] 2. No documented PVCs during the test. 3. No complaints of chest pain or shortness of breath during testing. 4. Report of nuclear images to follow in a separate dictation. Dictated By: Mary Kate Parkinson /fnt/grs /Document#: [id number] CC: Reilly Velazquez MD;*EndCC*
--- NOTE | 2017-01-05 12:56 | CONS ---
DATE OF ADMISSION: 12/29/2016 DATE OF CONSULTATION: 12/30/2016 REASON FOR CONSULTATION: Chest pain. Assess acute cardiac syndrome. REQUEST FOR CONSULTATION: Dr. Reilly Velazquez. HISTORY OF PRESENT ILLNESS: Mr. Justin is a 36-year-old male with a history of proximal atrial fibrillation, recent GI bleed, dyslipidemia, and morbid obesity who presents with complaints of shortness of breath, substernal chest pain. work exertion and dyspnea on exertion. Upon arrival, temperature 98.3, blood pressure 120/68, pulse 60, O2 saturation 100%. LABORATORY AND DIAGNOSTIC IMAGING: White cell count 8.3, hemoglobin 14, platelet count of 212. Sodium 138, potassium 4.3, creatinine 0.7, BUN 8. negative. BMP 65, INR 1.0. The patient underwent CT/CTA, ruling out evidence of pulmonary embolus. Clear lungs. Fatty infiltrates in the liver. The patient just had a chest x-ray. He had no evidence of acute cardiopulmonary process and no decrease pulmonary vascular ejection. The patient's electrocardiogram revealed sinus tachycardia 129, right deviation. block secondary to abnormalities. Occasional PACs. The patient was subsequently admitted to the floor and since admit to the floor has had negative troponins. The patient is not complaining of chest pain. PAST MEDICAL HISTORY: Limited to HPI. MEDICATION: Currently in the hospital aspirin 81 mg daily, , digoxin mg daily, colchicine 0.6 mg daily, Pradaxa 150 mg daily, Diovan 80 mg daily, diltiazem 240 mg , metoprolol 25 mg p.o. b.i.d. ALLERGIES: NO KNOWN ALLERGIES. SOCIAL HISTORY: No tobacco, ETOH, illicit drug use. FAMILY HISTORY: History of sudden cardiac , early CD. REVIEW OF SYSTEMS: CONSTITUTIONAL: No fevers or chills. PULMONARY: No current shortness of breath. CARDIOVASCULAR: Positive chest pain. GASTROINTESTINAL: No vomiting. GENITOURINARY: No hematuria. MUSCULOSKELETAL: No significant degenerative joint disease, but mild arthrosis. ENDOCRINE: Diabetes mellitus. PSYCHIATRIC: No documented psych history. NEUROLOGIC: No documented CVA. PHYSICAL EXAMINATION: VITAL SIGNS: Temperature 98.3, blood pressure 129/60, pulse 72, respirations 18, O2 sat 96%. GENERAL: The patient is awake, alert, no acute distress. NECK: JVP difficult to assess secondary to body habitus. HEART: Regular rate and rhythm. Normal S1, S2. 1/6 systolic murmur. Nondisplaced PMI. ABDOMEN: Soft. EXTREMITIES: No pitting edema. 1+ pulses bilaterally posterior tibia. LABORATORY: As above in the history of present illness with since admit patient has had troponin which are negative. Negative troponins. IMAGING STUDIES: As above in the history of present illness. No further imaging studies at this time. ECG, as in history of present illness, no further were reviewed at this time. IMPRESSION: 1. Chest pain, assess for acute coronary syndrome. 2. Shortness of breath with from a chest x-ray. Diastolic by most recent echo. 3. Diabetes mellitus. 4. History of proximal atrial fibrillation. RECOMMENDATIONS: 1. At this time, we would maintain patient on telemetry monitoring to followup with , myocardial infarction. 2. Continue the patient's current aspirin for prevention of cardiovascular events. The patient is on Pradaxa with a GI bleed, so we are considering holding the patient's aspirin and continue the Pradaxa for prevention of thrombotic complications. atrial fibrillation, but change to b.i.d. dosing. 3. Continue the patient's current diltiazem and Diovan and beta dayana, following heart rate and blood pressure closely. We will take a fasting lipid panel for risk stratification. Initiate lipid lowering medication as necessary. 4. Repeat the patient's 2D echo. Reassess the ejection fraction in 6 months. We will see the assessment and will consider stress testing and/or left heart cath on this patient to further coronary anatomy and assess possibility of obstructive coronary artery disease related to his symptoms. 5. Chest pain. Recurrent admits to the hospital. Thank you for allowing me to take part in the care of this patient. I will continue to follow very closely with you. Dictated By: Mary Kate Parkinson /mauriciot/ /Document#: [id number] CC: Reilly Velazquez MD;*End*
--- NOTE | 2017-01-05 22:05 | DS ---
Date/Time of Note Date/Time of Note DATE: 01/05/17 TIME: 22:01 Discharge Summary Admission/Discharge Info Admit Date/Time Dec 29, 2016 at 16:58 Discharge Date/Time Jan 01, 2017 at 15:20 Discharge Diagnosis atrial fibrillation, atrial flutter Patient Condition: Good Consults Dr Mosher Procedures Lexiscan Hx of Present Illness pt was admitted with chest pain, history of GI bleed, dyslipidemia, and obesity. Underwent Lexiscan, negative. Stabilized, medications were titrated for optimization of cardiac function. Was discharge in stable condition. Hospital Course IMP: 1.Chest pain-negative trop x 3/NL EF by echo. Lexiscan 12/31 with no ischemia/NL EF 2.HTN-well controlled 3.PAF by history. Currently in SR 4.DM 5.PACHECO Recc: -Tele -serial ecg's -Continue BB/DILT -Consider holding diovan and starting low dose oral nitrates -Continue pradaxa as tolerated -D/C planning if stable/asynmptomatic with outpatient f/u 2 weeks with myself and [facility] for recurrent sx on medical therapy Home Meds Active Scripts Pantoprazole* (Pantoprazole*) 40 Mg Tablet.dr, 40 MG PO BID for 28 Days Prov:MEHUL KIRAN MD 01/01/17 Dabigatran Etexilate Mesylate* (Pradaxa*) 75 Mg Cap, 75 MG PO BID for 28 Days, # 30 CAP Prov:MEHUL KIRAN MD 01/01/17 Diphenoxylate HCl/Atropine (Lomotil 2.5-0.025 mg Tablet) 1 Each Tablet, 1 TAB PO QID Y for DIARRHEA, #10 TAB Prov:HAILY THAO DO 12/04/16 Meclizine Hcl* (Antivert*) 12.5 Mg Tab, 25 MG PO Q6H Y for DIZZINESS, #20 TAB Prov:HAILY THAO DO 12/04/16 Aspirin (Aspirin) 81 Mg Chew, 81 MG PO DAILY for 28 Days, TAB Prov:MEHUL KIRAN MD 11/16/16 Nitroglycerin* (Nitrostat*) 0.4 Mg Tab.subl, 1 TAB SL Q5M Y for ANGINA for 28 Days Prov:MEHUL KIRAN MD 11/16/16 Insulin Detemir (Levemir Flextouch) 100 Unit/1 Ml Insuln.pen, 30 UNIT SQ BID for 30 Days Prov:MEHUL KIRAN MD 11/16/16 Reported Medications Valsartan* (Diovan*) 80 Mg Tablet, 80 MG PO DAILY, TAB 12/04/16 Insulin Lispro (Humalog) 100 Unit/1 Ml Cartridge, 18 UNIT SQ 12/04/16 Metoprolol Tartrate* (Lopressor*) 25 Mg Tab, 25 MG PO BID, #60 TAB 11/13/16 Digoxin* (Digitek*) 125 Mcg Tablet, 0.125 MG PO DAILY, TAB 11/13/16 Colchicine* (Colcrys*) 0.6 Mg Tablet, 0.6 MG PO DAILY, TAB 11/13/16 Discontinued Reported Medications Pantoprazole* (Pantoprazole*) 40 Mg Tablet.dr, 40 MG PO BID, TAB 11/13/16 Diltiazem Hcl* (Cartia XT*) 240 Mg Cap.sr.24h, 240 MG PO QID, #30 CAP 11/13/16 Dabigatran Etexilate Mesylate* (Pradaxa*) 150 Mg Capsule, 150 MG PO DAILY, CAP 11/13/16 Discontinued Scripts Hydrocodone/Acetaminophen ([place] 10-325 Tablet) 1 Each Tablet, 1 TAB PO Q6H Y for PAIN, #15 TAB Prov:HAILY THAO DO 12/04/16 Insulin Aspart* (Novolog Insulin Pen*) 100 Unit/Ml Soln, 22 UNIT SC WITH MEALS for 30 Days Prov:MEHUL KIRAN MD 11/16/16 Primary Care Provider Care Physician NII Chapin Jan 05, 2017 22:05
== END 2017-01-01 15:20 | disposition home or self-care (01) | DRG 309 ==
LOC: E/R 11:31 → MS4 16:58
PROVIDERS: ADMIT Internal Medicine Nephrology; ATTEND Internal Medicine Nephrology
PROC: 4A02XM4 Measurement of Cardiac Total Activity, External Approach (ICD-10-PCS; principal; 2016-12-31)
PROC: 3E033HZ Introduction of Radioactive Substance into Peripheral Vein, Percutaneous Approach (ICD-10-PCS; 2016-12-31)
DX: I48.91 Unspecified atrial fibrillation (principal); Z68.43 Body mass index [BMI] 50.0-59.9, adult; E11.65 Type 2 diabetes mellitus with hyperglycemia; I48.92 Unspecified atrial flutter; R07.9 Chest pain, unspecified; E66.01 Morbid (severe) obesity due to excess calories; E78.5 Hyperlipidemia, unspecified; Z71.3 Dietary counseling and surveillance; Z79.4 Long term (current) use of insulin; Z79.01 Long term (current) use of anticoagulants; Z79.82 Long term (current) use of aspirin
CPT/HCPCS: 36415; 71010; 71275; 78452; 80048; 80061; 80307; 82550; 82553; 82962; 83880; 84484; 85025; 85610; 85730; 93005; 93017; 93306; A9500; A9505; J1815; J2270; J2785; J7030; Q9967

== ENCOUNTER 2017-01-13 11:33 | Emergency (ER) | payer OTHER ==
[~2017-01-13] VITALS: Ht 175.3 cm; Wt 177.0 kg
[~2017-01-13 11:33] MED LIST changes: -DABI150C PO; +DABI75CA2 PO; -DILT240C62 PO; -HYDR-902 PO; -NOVO3I SC
[2017-01-13 11:36] VITALS: Ht 175.3 cm; Wt 177.0 kg
[2017-01-13] MEDS ORDERED: ONDANSETRON (ODT) 4 MG TAB ODT STA (12:18)
[2017-01-13] MEDS ORDERED: HYDROCODONE/APAP (5/325) TAB PO ONE (12:30)
[2017-01-13 12:51] LABS: BASOPHIL # 0.1 10^3/ul (0.0-0.1); BASOPHILS % 0.7 % (0.0-2.0); EOSINOPHILS # 0.2 10^3/ul (0.0-0.5); EOSINOPHILS % 2.1 % (0.0-7.0); HEMATOCRIT 39.5 % (42.0-52.0); LYMPHOCYTES % 20.9 % (15.0-51.0); MEAN CORPUSCULAR HEMOGLOBIN 30.7 pg (29.0-33.0); MEAN CORPUSCULAR HGB CONC 35.4 g/dl (32.0-37.0); MEAN CORPUSCULAR VOLUME 86.6 fl (82.0-101.0); MEAN PLATELET VOLUME 9.9 fl (7.4-10.4); MONOCYTE # 0.6 10^3/ul (0.3-0.9); MONOCYTES % 6.2 % (0.0-11.0); NEUTROPHIL # 6.7 10^3/ul (1.6-7.5); NEUTROPHILS % 69.9 % (39.0-77.0); PLATELET COUNT 256 10^3/UL (140-415); RED BLOOD COUNT 4.56 10^6/ul (4.70-6.10); RED CELL DISTRIBUTION WIDTH 13.9 % (11.5-14.5); WHITE BLOOD COUNT 9.6 10^3/ul (4.8-10.8)
--- NOTE | 2017-01-13 12:52 | RADRPT ---
PROCEDURE: US Lower extremity Venous. CLINICAL INDICATION: Right leg edema , pain TECHNIQUE: Multiple sonographic images of the right lower extremity deep venous system was obtaine d utilizing grayscale, color-flow, compressive sonography and doppler imaging with augmentation. Th e images were reviewed on a PACS workstation. COMPARISON: None. FINDINGS: There is normal compressibility and flow within the right common femoral, femoral, posterior tibial, peroneal and popliteal veins. RPTAT: AA IMPRESSION: No sonographic evidence for deep venous thrombosis. .Ruel De La Fuente MD, MD Date Time Electronically viewed and signed by .Ruel De La Fuente MD, on 01/13/2017 12:52 .S/
[2017-01-13 13:15] LABS: ALBUMIN 4.1 g/dl (3.3-4.9); ALBUMIN/GLOBULIN RATIO 1.2; BILIRUBIN,INDIRECT 0.4 mg/dl (0-1.1); BILIRUBIN,TOTAL 0.4 mg/dl (0.2-1.3); CALCIUM 8.8 mg/dl (8.4-10.2); CREATININE 0.7 mg/dl (0.61-1.24); POTASSIUM 4.1 mmol/L (3.5-5.1); TOTAL PROTEIN 7.5 g/dl (6.1-8.1)
--- NOTE | 2017-01-13 13:51 | RADRPT ---
PROCEDURE: XR Ankle. CLINICAL INDICATION: Right ankle pain following injury TECHNIQUE: Three views of the right ankle are available for review COMPARISON: Right ankle x-rays dated 09/10/2015 FINDINGS: Suboptimal exposure technique and suboptimal patient positioning and evaluation. The osseous struct ures demonstrate normal alignment and mineralization. No acute fracture or dislocation is seen. Th e ankle mortise is intact. No periostitis or osteochondral lesion is identified. Osteophytes are no paula along the dorsal margin of the talar neck and navicular. There is an os trigonum. There is a mo derate posterior calcaneal spur. There is mild diffuse soft tissue edema. IMPRESSION: 1. Limited evaluation secondary to suboptimal patient positioning and exposure technique. No acute fracture is seen. 2. Moderate degenerative changes of the ankle and midfoot, not significantly changed when compared to the prior examination. 3. Moderate posterior calcaneal spur. RPTAT: HH .Agustina Rudolph MD, MD Date Time Electronically viewed and signed by .Agustina Rudolph MD, on 01/13/2017 13:51 .Richard/
--- NOTE | 2017-01-13 13:55 | RADRPT ---
PROCEDURE: XR Tibia and Fibula. CLINICAL INDICATION: Right leg pain TECHNIQUE: AP and lateral views of the right tibia and fibula are available for review. COMPARISON: None available FINDINGS: The osseous structures demonstrate normal alignment and mineralization. No acute fracture or disloc ation is seen. There is no periostitis. No radiopaque foreign body is identified. The soft tissue s are unremarkable. IMPRESSION: Unremarkable right tibia and fibula x-ray series. RPTAT: HH .Agustina Rudolph MD, Date Time Electronically viewed and signed by .Agustina Rudolph MD, on 01/13/2017 13:55 .G/
--- NOTE | 2017-01-13 13:55 | RADRPT ---
PROCEDURE: XR Foot. CLINICAL INDICATION: Right foot pain following injury. TECHNIQUE: 3 views of the right foot are available for review. COMPARISON: Right foot x-rays dated 01/22/2009 FINDINGS: There is a hallux valgus deformity. Sclerosis and cystic changes are noted along the medial margin of the first metatarsal phalangeal joint. Osteophyte formation is seen along the dorsum of the talu s, navicular and cuneiforms. No acute fracture or dislocation is seen. There is no periostitis or o steochondral lesion identified. There is a moderate posterior calcaneal spur. The joint spaces are well preserved. The soft tissues are unremarkable. IMPRESSION: 1. Hallux valgus deformity, with sclerosis and questionable small erosions, new finding when compar ed to the prior examination dated 01/22/2009. Consider MRI for further evaluation, as clinically ind icated. 2. Moderate degenerative changes of the midfoot and hindfoot. RPTAT: HH .Agustina Rudolph MD, MD Date Time Electronically viewed and signed by .Agustina Rudolph MD, on 01/13/2017 13:54 .G/
[2017-01-13] MEDS ORDERED: HYDR-906 PO (14:22)
--- NOTE | 2017-01-13 15:57 | ERD ---
ER Documentation Chief Complaint Date/Time DATE: 01/13/17 TIME: 15:47 Chief Complaint 9/10 left leg pain x 1 week HPI 36-year-old male complaining of right foot pain 1 week. Patient states he had tactile fevers earlier today but has not taken medications for symptoms, currently does not present with fever. Patient has a history of DVT and gout but states this pain is different. Patient was recently discharged from hospital for chest pain. Denies chest pain at this time. Patient denies recent falls or traumatic injuries. ROS All systems reviewed and are negative except as per history of present illness. Medications Home Meds Active Scripts Hydrocodone/Acetaminophen ([place] 5-325 Tablet) 1 Each Tablet, 1 TAB PO Q6H Y for PAIN, #7 TAB Prov:MACIEL CAM PA-C 01/13/17 Pantoprazole* (Pantoprazole*) 40 Mg Tablet.dr, 40 MG PO BID for 28 Days Prov:MEHUL KIRAN MD 01/01/17 Dabigatran Etexilate Mesylate* (Pradaxa*) 75 Mg Cap, 75 MG PO BID for 28 Days, # 30 CAP Prov:MEHUL KIRAN MD 01/01/17 Diphenoxylate HCl/Atropine (Lomotil 2.5-0.025 mg Tablet) 1 Each Tablet, 1 TAB PO QID Y for DIARRHEA, #10 TAB Prov:HAILY THAO DO 12/04/16 Meclizine Hcl* (Antivert*) 12.5 Mg Tab, 25 MG PO Q6H Y for DIZZINESS, #20 TAB Prov:HAILY THAO DO 12/04/16 Aspirin (Aspirin) 81 Mg Chew, 81 MG PO DAILY for 28 Days, TAB Prov:MEHUL KIRAN MD 11/16/16 Nitroglycerin* (Nitrostat*) 0.4 Mg Tab.subl, 1 TAB SL Q5M Y for ANGINA for 28 Days Prov:MEHUL KIRAN MD 11/16/16 Insulin Detemir (Levemir Flextouch) 100 Unit/1 Ml Insuln.pen, 30 UNIT SQ BID for 30 Days Prov:MEHUL KIRAN MD 11/16/16 Reported Medications Valsartan* (Diovan*) 80 Mg Tablet, 80 MG PO DAILY, TAB 12/04/16 Insulin Lispro (Humalog) 100 Unit/1 Ml Cartridge, 18 UNIT SQ 12/04/16 Metoprolol Tartrate* (Lopressor*) 25 Mg Tab, 25 MG PO BID, #60 TAB 11/13/16 Digoxin* (Digitek*) 125 Mcg Tablet, 0.125 MG PO DAILY, TAB 11/13/16 Colchicine* (Colcrys*) 0.6 Mg Tablet, 0.6 MG PO DAILY, TAB 11/13/16 Allergies Allergies: Coded Allergies: No Known Drug Allergies (Verified Allergy, Unknown, 12/31/16) PMhx/Soc History of Surgery: Yes (left kidney sx) Anesthesia Reaction: No Hx Neurological Disorder: No Hx Respiratory Disorders: Yes (sleep apnea) Hx Cardiac Disorders: Yes (chf, afib) Hx Psychiatric Problems: No Hx Miscellaneous Medical Probl: No Hx Alcohol Use: Yes Hx Substance Use: No Hx Tobacco Use: No Smoking Status: Never smoker Physical Exam Vitals Vital Signs Date Time Temp Pulse Resp B/P Pulse Ox O2 Delivery O2 Flow Rate FiO2 01/13/17 11:36 99.1 93 20 133/90 96 Physical Exam Resp: Clear to auscultation bilaterally Cardio: Regular rate and rhythm, no murmurs Skin: No petechiae or rashes. No erythema. No open wounds. No fissures. Back: No midline or flank tenderness Ext: No cyanosis, or edema. No calf tenderness. Strength 5/5. ROM within normal limits. Result Diagram: 01/13/17 1235 01/13/17 1235 Results 24 hrs Laboratory Tests Test 01/13/17 12:35 White Blood Count 9.610^3/ul Red Blood Count 4.5610^6/ul Hemoglobin 14.0g/dl Hematocrit 39.5% Mean Corpuscular Volume 86.6fl Mean Corpuscular Hemoglobin 30.7pg Mean Corpuscular Hemoglobin Concent 35.4g/dl Red Cell Distribution Width 13.9% Platelet Count 80157^3/UL Mean Platelet Volume 9.9fl Neutrophils % 69.9% Lymphocytes % 20.9% Monocytes % 6.2% Eosinophils % 2.1% Basophils % 0.7% Nucleated Red Blood Cells % 0.0/100WBC Neutrophils # 6.710^3/ul Lymphocytes # 2.010^3/ul Monocytes # 0.610^3/ul Eosinophils # 0.210^3/ul Basophils # 0.110^3/ul Nucleated Red Blood Cells # 0.010^3/ul Sodium Level 141mmol/L Potassium Level 4.1mmol/L Chloride Level 98mmol/L Carbon Dioxide Level 27mmol/L Anion Gap 20 Blood Urea Nitrogen 10mg/dl Creatinine 0.70mg/dl Glucose Level 182mg/dl Lactic Acid Level 1.0mmol/L Calcium Level 8.8mg/dl Total Bilirubin 0.4mg/dl Direct Bilirubin 0.00mg/dl Indirect Bilirubin 0.4mg/dl Aspartate Amino Transf (AST/SGOT) 28IU/L Alanine Aminotransferase (ALT/SGPT) 43IU/L Alkaline Phosphatase 120IU/L Total Protein 7.5g/dl Albumin 4.1g/dl Globulin 3.40g/dl Albumin/Globulin Ratio 1.20 Current Medications Medications (Trade) Dose Ordered Sig/Mera Route PRN Reason Start Time Stop Time Status Last Admin Dose Admin Acetaminophen/ Hydrocodone Bitart ([place] (5/325)) 1 tab ONCE ONCE PO 01/13/17 12:30 01/13/17 12:31 DC 01/13/17 13:34 Ondansetron HCl (Zofran Odt) 4 mg ONCE STAT ODT 01/13/17 12:18 01/13/17 12:23 DC 01/13/17 13:34 Procedures/MDM DIAGNOSTIC IMAGING REPORT Patient: CHAYA MENDOZA : 1980 Age: 36 Sex: M MR #: [id number] DOS: 01/13/17 1218 Ordering MD: PEREZ CAM PA-C Location: E Room/Bed: PROCEDURE: US Lower extremity Venous. CLINICAL INDICATION: Right leg edema , pain TECHNIQUE: Multiple sonographic images of the right lower extremity deep venous system was obtained utilizing grayscale, color-flow, compressive sonography and doppler imaging with augmentation. The images were reviewed on a PACS workstation. COMPARISON: None. FINDINGS: There is normal compressibility and flow within the right common femoral, femoral, posterior tibial, peroneal and popliteal veins. RPTAT: AA IMPRESSION: No sonographic evidence for deep venous thrombosis. .Ruel De La Fuente MD, MD Date Time Electronically viewed and signed by .Ruel De La Fuente MD, MD on 01/13/2017 12: 52 DIAGNOSTIC IMAGING REPORT Patient: CHAYA MENDOZA : 1980 Age: 36 Sex: M MR #: [id number] DOS: 01/13/17 1218 Ordering MD: PEREZ CAM PA-C Location: FTE Room/Bed: PROCEDURE: XR Ankle. CLINICAL INDICATION: Right ankle pain following injury TECHNIQUE: Three views of the right ankle are available for review COMPARISON: Right ankle x-rays dated 09/10/2015 FINDINGS: Suboptimal exposure technique and suboptimal patient positioning and evaluation. The osseous structures demonstrate normal alignment and mineralization. No acute fracture or dislocation is seen. The ankle mortise is intact. No periostitis or osteochondral lesion is identified. Osteophytes are noted along the dorsal margin of the talar neck and navicular. There is an os trigonum. There is a moderate posterior calcaneal spur. There is mild diffuse soft tissue edema. IMPRESSION: 1. Limited evaluation secondary to suboptimal patient positioning and exposure technique. No acute fracture is seen. 2. Moderate degenerative changes of the ankle and midfoot, not significantly changed when compared to the prior examination. 3. Moderate posterior calcaneal spur. DIAGNOSTIC IMAGING REPORT Patient: CHAYA MENDOZA : 1980 Age: 36 Sex: M MR #: [id number] DOS: 01/13/17 1218 Ordering MD: PEREZ CAM PA-C Location: FTE Room/Bed: PROCEDURE: XR Foot. CLINICAL INDICATION: Right foot pain following injury. TECHNIQUE: 3 views of the right foot are available for review. COMPARISON: Right foot x-rays dated 01/22/2009 FINDINGS: There is a hallux valgus deformity. Sclerosis and cystic changes are noted along the medial margin of the first metatarsal phalangeal joint. Osteophyte formation is seen along the dorsum of the talus, navicular and cuneiforms. No acute fracture or dislocation is seen. There is no periostitis or osteochondral lesion identified. There is a moderate posterior calcaneal spur. The joint spaces are well preserved. The soft tissues are unremarkable. IMPRESSION: 1. Hallux valgus deformity, with sclerosis and questionable small erosions, new finding when compared to the prior examination dated 01/22/2009. Consider MRI for further evaluation, as clinically indicated. 2. Moderate degenerative changes of the midfoot and hindfoot. DIAGNOSTIC IMAGING REPORT Patient: CHAYA MENDOZA : 1980 Age: 36 Sex: M MR #: [id number] DOS: 01/13/17 1218 Ordering MD: PEREZ CAM PA-C Location: FTE Room/Bed: PROCEDURE: XR Tibia and Fibula. CLINICAL INDICATION: Right leg pain TECHNIQUE: AP and lateral views of the right tibia and fibula are available for review. COMPARISON: None available FINDINGS: The osseous structures demonstrate normal alignment and mineralization. No acute fracture or dislocation is seen. There is no periostitis. No radiopaque foreign body is identified. The soft tissues are unremarkable. IMPRESSION: Unremarkable right tibia and fibula x-ray series. RPTAT: HH .Agustina Rudolph MD, MD Date Time Electronically viewed and signed by .Agustina Rudolph MD, MD on 01/13/2017 13 :55 ER Course: Pain medication given in ED MDM: 36 yr old male complaining of right leg pain. I have low suspicion for DVT. Patient's ultrasound is within normal limits. A low suspicion for acute fracture or dislocation. Patient's x-rays are within normal limits and patient does not have complaint of acute injury. I have low suspicion for cellulitic infection as there is no erythema seen on exam, patient's lactic acid is within normal limits. Patient is afebrile patient does not have elevated white count. A low suspicion for gout flare as patient does not have pain with flexion extension of the toe or ankle. There is no erythema seen on exam and no swelling appreciated. Patient's exam is within normal limits and patient will be discharged with pain medication. I discharged patient with strict ER precautions and recommended to return to the ER symptoms change or worsen. All the questions answered at time of discharge. Departure Diagnosis: Primary Impression: Pain of right leg Condition: Stable Patient Instructions: Pain Management Referrals: REPLACED BY [facility] YOU HAVE RECEIVED A MEDICAL SCREENING EXAM AND THE RESULTS INDICATE THAT YOU DO NOT HAVE A CONDITION THAT REQUIRES URGENT TREATMENT IN THE EMERGENCY DEPARTMENT. FURTHER EVALUATION AND TREATMENT OF YOUR CONDITION CAN WAIT UNTIL YOU ARE SEEN IN YOUR DOCTORS OFFICE WITHIN THE NEXT 1-2 DAYS. IT IS YOUR RESPONSIBILITY TO MAKE AN APPOINTMENT FOR FOLOW-UP CARE. IF YOU HAVE A PRIMARY DOCTOR --you should call your primary doctor and schedule an appointment IF YOU DO NOT HAVE A PRIMARY DOCTOR YOU CAN CALL OUR PHYSICIAN REFERRAL HOTLINE AT IF YOU CAN NOT AFFORD TO SEE A PHYSICIAN YOU CAN CHOSE FROM THE FOLLOWING [facility] [address] [facility] [address] [facility] [address] [facility] [address] [facility] [address] [facility] [address] Additional Instructions: FOLLOW UP WITH YOUR PRIMARY CARE PHYSICIAN TOMORROW.Return to this facility if you are not improving as expected. MACIEL CAM PA-C Jan 13, 2017 15:56
== END 2017-01-13 14:48 | disposition home or self-care (01) ==
LOC: FTE 11:33
DX: M79.604 Pain in right leg (principal); I50.9 Heart failure, unspecified; E11.9 Type 2 diabetes mellitus without complications; Z79.4 Long term (current) use of insulin; Z79.82 Long term (current) use of aspirin
CPT/HCPCS: 73590; 73610; 73630; 80053; 83605; 85025; 93971; Z7610; 36415

== ENCOUNTER 2017-03-21 16:25 | Emergency (ER) | payer OTHER ==
[~2017-03-21] VITALS: Ht 172.7 cm; Wt 180.5 kg
[~2017-03-21 16:25] MED LIST changes: +HYDR-906 PO
[2017-03-21 16:27] VITALS: Ht 172.7 cm; Wt 180.5 kg
[2017-03-21] MEDS ORDERED: ONDANSETRON 4 MG INJ IV STA (16:38)
[2017-03-21] MEDS ORDERED: morphine 4 MG/ML VIAL IV STA (16:38)
[2017-03-21] MEDS ORDERED: SOD CHLORIDE 0.9% 1,000 ML IV STA (16:38)
[2017-03-21 17:04] LABS: BASOPHILS % 0.5 % (0.0-2.0); EOSINOPHILS # 0.1 10^3/ul (0.0-0.5); EOSINOPHILS % 1.6 % (0.0-7.0); HEMOGLOBIN 14.2 g/dl (14.0-18.0); LYMPHOCYTES # 2.2 10^3/ul (0.8-2.9); MEAN CORPUSCULAR HEMOGLOBIN 28.7 pg (29.0-33.0); MEAN CORPUSCULAR VOLUME 86.9 fl (82.0-101.0); MEAN PLATELET VOLUME 10.7 fl (7.4-10.4); MONOCYTE # 0.6 10^3/ul (0.3-0.9); MONOCYTES % 6.5 % (0.0-11.0); NEUTROPHIL # 5.9 10^3/ul (1.6-7.5); NEUTROPHILS % 66.2 % (39.0-77.0); PLATELET COUNT 253 10^3/UL (140-415); RED BLOOD COUNT 4.95 10^6/ul (4.70-6.10); WHITE BLOOD COUNT 8.9 10^3/ul (4.8-10.8)
[2017-03-21 17:24] LABS: ALBUMIN 3.6 g/dl (3.3-4.9); ALBUMIN/GLOBULIN RATIO 0.97; BILIRUBIN,INDIRECT 0.1 mg/dl (0-1.1); BILIRUBIN,TOTAL 0.1 mg/dl (0.2-1.3); CALCIUM 8.7 mg/dl (8.4-10.2); CREATININE 0.86 mg/dl (0.61-1.24); POTASSIUM 4.4 mmol/L (3.5-5.1); TOTAL PROTEIN 7.3 g/dl (6.1-8.1)
[2017-03-21 17:50] LABS: ADD UMIC NO; UR ASCORBIC ACID 40 mg/dL (NEGATIVE); UR BILIRUBIN (Dip) NEGATIVE (NEGATIVE); UR BLOOD (Dip) NEGATIVE (NEGATIVE); UR CLARITY CLEAR (CLEAR); UR COLOR YELLOW (YELLOW); UR GLUCOSE (Dip) NEGATIVE (NEGATIVE); UR KETONES (Dip) NEGATIVE (NEGATIVE); UR LEUKOCYTE ESTERASE (Dip) NEGATIVE Leu/ul (NEGATIVE); UR NITRITE (Dip) NEGATIVE (NEGATIVE); UR SPECIFIC GRAVITY (Dip) 1.017 (1.003-1.030); UR TOTAL PROTEIN (Dip) NEGATIVE (NEGATIVE); UR UROBILINOGEN (Dip) 1+ mg/dL (NEGATIVE)
[2017-03-21] MEDS ORDERED: KETOROLAC 30 MG INJ IV STA (18:01)
[2017-03-21] MEDS ORDERED: ONDA8TAB14 PO (18:02)
[2017-03-21] MEDS ORDERED: HYDR-906 PO (18:02)
--- NOTE | 2017-03-21 18:06 | ERD ---
ER Documentation Chief Complaint Date/Time DATE: 03/21/17 TIME: 18:04 Chief Complaint Complains of abdominal pain that radiates to back since this am HPI This 36-year-old male complains of lower abdominal pain since this morning. Associated with vomiting diarrhea without blood or mucus. Denies fevers. Slight lower abdomen. Denies any epigastric pain similar to patient's history of GERD. ROS All systems reviewed and are negative except as per history of present illness. Medications Home Meds Active Scripts Hydrocodone/Acetaminophen ([place] 5-325 Tablet) 1 Each Tablet, 1 TAB PO Q6H Y for PAIN, #10 TAB Prov:MIGEL PETTIT MD 03/21/17 Ondansetron (Ondansetron Odt) 8 Mg Tab.rapdis, 8 MG PO Q6H Y for NAUSEA AND/OR VOMITING, #8 TAB Prov:MIGEL PETTIT MD 03/21/17 Hydrocodone/Acetaminophen ([place] 5-325 Tablet) 1 Each Tablet, 1 TAB PO Q6H Y for PAIN, #7 TAB Prov:MACIEL CAM PA-C 01/13/17 Pantoprazole* (Pantoprazole*) 40 Mg Tablet.dr, 40 MG PO BID for 28 Days Prov:MEHUL KIRAN MD 01/01/17 Dabigatran Etexilate Mesylate* (Pradaxa*) 75 Mg Cap, 75 MG PO BID for 28 Days, # 30 CAP Prov:MEHUL KIRAN MD 01/01/17 Diphenoxylate HCl/Atropine (Lomotil 2.5-0.025 mg Tablet) 1 Each Tablet, 1 TAB PO QID Y for DIARRHEA, #10 TAB Prov:HAILY THAO DO 12/04/16 Meclizine Hcl* (Antivert*) 12.5 Mg Tab, 25 MG PO Q6H Y for DIZZINESS, #20 TAB Prov:HAILY THAO DO 12/04/16 Aspirin (Aspirin) 81 Mg Chew, 81 MG PO DAILY for 28 Days, TAB Prov:MEHUL KIRAN MD 11/16/16 Nitroglycerin* (Nitrostat*) 0.4 Mg Tab.subl, 1 TAB SL Q5M Y for ANGINA for 28 Days Prov:MEHUL KIRAN MD 11/16/16 Insulin Detemir (Levemir Flextouch) 100 Unit/1 Ml Insuln.pen, 30 UNIT SQ BID for 30 Days Prov:MEHUL KIRAN MD 11/16/16 Reported Medications Valsartan* (Diovan*) 80 Mg Tablet, 80 MG PO DAILY, TAB 12/04/16 Insulin Lispro (Humalog) 100 Unit/1 Ml Cartridge, 18 UNIT SQ 12/04/16 Metoprolol Tartrate* (Lopressor*) 25 Mg Tab, 25 MG PO BID, #60 TAB 11/13/16 Digoxin* (Digitek*) 125 Mcg Tablet, 0.125 MG PO DAILY, TAB 11/13/16 Colchicine* (Colcrys*) 0.6 Mg Tablet, 0.6 MG PO DAILY, TAB 11/13/16 Allergies Allergies: Coded Allergies: No Known Drug Allergies (Verified Allergy, Unknown, 03/21/17) PMhx/Soc History of Surgery: Yes (left kidney sx) Anesthesia Reaction: No Hx Neurological Disorder: No Hx Respiratory Disorders: Yes (sleep apnea) Hx Cardiac Disorders: Yes (chf, afib) Hx Psychiatric Problems: No Hx Miscellaneous Medical Probl: No Hx Alcohol Use: Yes Hx Substance Use: No Hx Tobacco Use: No Physical Exam Vitals Vital Signs Date Time Temp Pulse Resp B/P Pulse Ox O2 Delivery O2 Flow Rate FiO2 03/21/17 16:27 98.0 99 20 178/85 96 Physical Exam Const: [], Morbidly obese, uncomfortable. Head: Atraumatic Eyes: Normal Conjunctiva ENT: Normal External Ears, Nose and Mouth. Neck: Full range of motion..~ No meningismus. Resp: Clear to auscultation bilaterally Cardio: Regular rate and rhythm, no murmurs Abd: Soft generalized tenderness in the periumbilical or lower abdomen. No exquisite tenderness at McBurney's point no Faye sign. non distended. Normal bowel sounds Skin: No petechiae or rashes Back: No midline or flank tenderness Ext: No cyanosis, or edema Neur: Awake and alert Psych: Normal Mood and Affect Result Diagram: 03/21/17 1650 03/21/17 1650 Results 24 hrs Laboratory Tests Test 03/21/17 16:45 03/21/17 16:50 Urine Color YELLOW Urine Clarity CLEAR Urine pH 6.0 Urine Specific [place] 1.017 Urine Ketones NEGATIVEmg/dL Urine Nitrite NEGATIVEmg/dL Urine Bilirubin NEGATIVEmg/dL Urine Urobilinogen 1+mg/dL Urine Leukocyte Esterase NEGATIVELeu/ul Urine Hemoglobin NEGATIVEmg/dL Urine Glucose NEGATIVEmg/dL Urine Total Protein NEGATIVEmg/dl White Blood Count 8.910^3/ul Red Blood Count 4.9510^6/ul Hemoglobin 14.2g/dl Hematocrit 43.0% Mean Corpuscular Volume 86.9fl Mean Corpuscular Hemoglobin 28.7pg Mean Corpuscular Hemoglobin Concent 33.0g/dl Red Cell Distribution Width 14.0% Platelet Count 20275^3/UL Mean Platelet Volume 10.7fl Neutrophils % 66.2% Lymphocytes % 25.0% Monocytes % 6.5% Eosinophils % 1.6% Basophils % 0.5% Nucleated Red Blood Cells % 0.0/100WBC Neutrophils # 5.910^3/ul Lymphocytes # 2.210^3/ul Monocytes # 0.610^3/ul Eosinophils # 0.110^3/ul Basophils # 0.010^3/ul Nucleated Red Blood Cells # 0.010^3/ul Sodium Level 133mmol/L Potassium Level 4.4mmol/L Chloride Level 101mmol/L Carbon Dioxide Level 28mmol/L Anion Gap 8 Blood Urea Nitrogen 11mg/dl Creatinine 0.86mg/dl Glucose Level 212mg/dl Calcium Level 8.7mg/dl Total Bilirubin 0.1mg/dl Direct Bilirubin 0.00mg/dl Indirect Bilirubin 0.1mg/dl Aspartate Amino Transf (AST/SGOT) 29IU/L Alanine Aminotransferase (ALT/SGPT) 44IU/L Alkaline Phosphatase 107IU/L Total Protein 7.3g/dl Albumin 3.6g/dl Globulin 3.70g/dl Albumin/Globulin Ratio 0.97 Lipase 65U/L Current Medications Medications (Trade) Dose Ordered Sig/Mera Route PRN Reason Start Time Stop Time Status Last Admin Dose Admin Sodium Chloride (NS) 1,000 ml @ 1,000 mls/hr Q1H STAT IV 03/21/17 16:38 03/21/17 17:37 DC 03/21/17 16:57 Morphine Sulfate (morphine) 4 mg ONCE STAT IV 03/21/17 16:38 03/21/17 16:41 DC 03/21/17 16:57 Ondansetron HCl (Zofran Inj) 4 mg ONCE STAT IV 03/21/17 16:38 03/21/17 16:41 DC 03/21/17 16:57 Ketorolac Tromethamine (Toradol) 30 mg ONCE STAT IV 03/21/17 18:01 03/21/17 18:02 DC Procedures/MDM Insert because of pain and IV was obtained. Patient was given morphine 4 mg IV and Zofran 4 mg IV. CBC and CMP and lipase normal. Urine shows no leukocytes, hemoglobin. Patient had minimal tenderness on serial exam. Patient recently normal CT scan of the abdomen and given the patient's normal laboratory work associated symptoms of vomiting diarrhea will defer repeat CAT scan given the risk of radiation treat for pain, vomiting diarrhea and close observation, return precautions and primary care follow-up. May have an early viral illness but is advised to return for any new worsening symptoms. The patient was stable with no new complaints during the ER course. Clinically, there is no current evidence to suggest meningitis, sepsis, acute abdomen, pneumonia, acute coronary syndrome, pulmonary embolism, or any other emergent condition appearing to require further evaluation or hospitalization. The patient should certainly return for any new or worsening symptoms per the aftercare instructions. They should otherwise follow-up with her primary care doctor for reevaluation this week. Departure Diagnosis: Primary Impression: Abdominal pain Abdominal location: unspecified location Qualified Code: R10.9 - Abdominal pain, unspecified abdominal location Condition: Stable Patient Instructions: Abdominal Pain Additional Instructions: Blood and urine normal today. We will treat for vomiting and diarrhea and pain and observe at home. Recheck in 1 day for fevers, worsening pain, blood, new worsening symptoms or primary care doctor. MIGEL PETTIT MD Mar 21, 2017 18:06
[2017-03-21 18:11] VITALS: BP 133/72; PULSE 88; RESP 18; TEMP 98.9
== END 2017-03-21 18:32 | disposition home or self-care (01) ==
LOC: FTE 16:25
DX: R10.30 Lower abdominal pain, unspecified (principal); I50.9 Heart failure, unspecified; E11.9 Type 2 diabetes mellitus without complications; Z79.4 Long term (current) use of insulin; Z79.82 Long term (current) use of aspirin
CPT/HCPCS: 36415; 80053; 81003; 83690; 85025; 96361; 96374; 96375; J1885; J2270; J2405; J7030; Z7502

== ENCOUNTER 2017-04-27 13:49 | Inpatient (IN) | payer OTHER ==
[~2017-04-27] VITALS: Ht 180.3 cm; Wt 173.2 kg
[~2017-04-27 13:49] MED LIST changes: +ONDA8TAB14 PO
[2017-04-27] MEDS ORDERED: INSULIN LISPRO 100 UNIT/ML VIAL SC STA ×3 (14:09→19:31)
[2017-04-27 14:13] VITALS: Ht 180.3 cm; Wt 173.2 kg
[2017-04-27] MEDS ORDERED: SOD CHLORIDE 0.9% 500 ML IV ONE (14:30)
--- NOTE | 2017-04-27 14:30 | RADRPT ---
PROCEDURE: XR Chest. CLINICAL INDICATION: Shortness of breath TECHNIQUE: Single portable view of the chest was obtained COMPARISON: March 29, 2016 FINDINGS: The trachea is midline. The cardiac silhouette and pulmonary vascularity are within normal limits. T he lungs are clear. The costophrenic angles are sharp. IMPRESSION: 1. No evidence of acute cardiopulmonary disease. RPTAT: AAPP Physician Mikayla Date Time Electronically viewed and signed by Jyoti Her Physician on 04/27/2017 14:29 ALLA/
[2017-04-27 14:56] LABS: WHITE BLOOD COUNT 7.3 10^3/ul (4.8-10.8)
[2017-04-27 14:57] LABS: BASOPHIL # 0.1 10^3/ul (0.0-0.1); EOSINOPHILS # 0.1 10^3/ul (0.0-0.5); EOSINOPHILS % 1.5 % (0.0-7.0); HEMATOCRIT 45.7 % (42.0-52.0); HEMOGLOBIN 15.6 g/dl (14.0-18.0); LYMPHOCYTES % 27.6 % (15.0-51.0); MEAN CORPUSCULAR HEMOGLOBIN 28.8 pg (29.0-33.0); MEAN CORPUSCULAR HGB CONC 34.1 g/dl (32.0-37.0); MEAN CORPUSCULAR VOLUME 84.3 fl (82.0-101.0); MEAN PLATELET VOLUME 11.6 fl (7.4-10.4); MONOCYTE # 0.5 10^3/ul (0.3-0.9); NEUTROPHIL # 4.6 10^3/ul (1.6-7.5); NEUTROPHILS % 62.6 % (39.0-77.0); PLATELET COUNT 215 10^3/UL (140-415); RED BLOOD COUNT 5.42 10^6/ul (4.70-6.10); RED CELL DISTRIBUTION WIDTH 13.6 % (11.5-14.5)
[2017-04-27] MEDS ORDERED: DILTIAZEM 25 MG INJ IV ONE ×2 (15:00→20:00)
[2017-04-27] MEDS ORDERED: SOD CHLORIDE 0.9% 1,000 ML IV ONE (15:00)
[2017-04-27 15:16] LABS: ALANINE AMINOTRANSFERASE 50 IU/L (13-69); ALBUMIN 3.9 g/dl (3.3-4.9); ALBUMIN/GLOBULIN RATIO 1.08; ALKALINE PHOSPHATASE 134 IU/L (42-121); ANION GAP 17 (8-16); ASPARTATE AMINO TRANSFERASE 29 IU/L (15-46); BILIRUBIN,INDIRECT 0.4 mg/dl (0-1.1); BILIRUBIN,TOTAL 0.4 mg/dl (0.2-1.3); BLOOD UREA NITROGEN 11 mg/dl (7-20); CALCIUM 8.7 mg/dl (8.4-10.2); CARBON DIOXIDE 25 mmol/L (21-31); CHLORIDE 99 mmol/L (97-110); CREATININE 0.76 mg/dl (0.61-1.24); INR 1.11; POTASSIUM 4.3 mmol/L (3.5-5.1); PROTIME 14.3 Sec (12.2-14.2); PT RATIO 1.1; SODIUM 137 mmol/L (135-144); TOTAL PROTEIN 7.5 g/dl (6.1-8.1)
[2017-04-27 15:21] LABS: GLUCOSE 581 mg/dl (70-220)
[2017-04-27 15:27] LABS: B-TYPE NATRIURETIC PEPTIDE 30 PG/ML (0-125)
[2017-04-27 15:28] LABS: TROPONIN-I < 0.012 ng/ml (0.00-0.12)
[2017-04-27] MEDS ORDERED: DIGOXIN 500 MCG INJ IV ONE ×2 (16:00→17:00)
[2017-04-27] MEDS ORDERED: KETOROLAC 15 MG INJ IV STA (16:55)
--- NOTE | 2017-04-27 16:58 | ERD ---
ER Documentation Chief Complaint Chief Complaint pt pio english for left sided cp 01/15 radiating to back HPI 36-year-old man complains of palpitations while at home, he does have a history of hypertension and atrial fibrillation and states he uses digoxin and diltiazem daily as prescribed. He states the chest pain is sharp, nonexertional nonradiating and began today at rest. He also complains of palpitations despite using his medications. Patient also has a history of diabetes mellitus and denies any recent changes in his insulin regimen and denies dietary indiscretion. He denies fevers or chills, no cough, no calf or leg swelling, no headache or blurry vision. Patient was transported here by EMS without further complications. ROS All systems reviewed and are negative except as per history of present illness. Medications Home Meds Active Scripts Hydrocodone/Acetaminophen ([place] 5-325 Tablet) 1 Each Tablet, 1 TAB PO Q6H Y for PAIN, #10 TAB Prov:MIGEL PETTIT MD 03/21/17 Ondansetron (Ondansetron Odt) 8 Mg Tab.rapdis, 8 MG PO Q6H Y for NAUSEA AND/OR VOMITING, #8 TAB Prov:MIGEL PETTIT MD 03/21/17 Hydrocodone/Acetaminophen ([place] 5-325 Tablet) 1 Each Tablet, 1 TAB PO Q6H Y for PAIN, #7 TAB Prov:MACIEL CAM PA-C 01/13/17 Pantoprazole* (Pantoprazole*) 40 Mg Tablet.dr, 40 MG PO BID for 28 Days Prov:MEHUL KIRAN MD 01/01/17 Dabigatran Etexilate Mesylate* (Pradaxa*) 75 Mg Cap, 75 MG PO BID for 28 Days, # 30 CAP Prov:MEHUL KIRAN MD 01/01/17 Diphenoxylate HCl/Atropine (Lomotil 2.5-0.025 mg Tablet) 1 Each Tablet, 1 TAB PO QID Y for DIARRHEA, #10 TAB Prov:HAILY THAO DO 12/04/16 Meclizine Hcl* (Antivert*) 12.5 Mg Tab, 25 MG PO Q6H Y for DIZZINESS, #20 TAB Prov:HAILY THAO DO 12/04/16 Aspirin (Aspirin) 81 Mg Chew, 81 MG PO DAILY for 28 Days, TAB Prov:MEHUL KIRAN MD 11/16/16 Nitroglycerin* (Nitrostat*) 0.4 Mg Tab.subl, 1 TAB SL Q5M Y for ANGINA for 28 Days Prov:MEHUL KIRAN MD 11/16/16 Insulin Detemir (Levemir Flextouch) 100 Unit/1 Ml Insuln.pen, 30 UNIT SQ BID for 30 Days Prov:MEHUL KIRAN MD 11/16/16 Reported Medications Valsartan* (Diovan*) 80 Mg Tablet, 80 MG PO DAILY, TAB 12/04/16 Insulin Lispro (Humalog) 100 Unit/1 Ml Cartridge, 18 UNIT SQ 12/04/16 Metoprolol Tartrate* (Lopressor*) 25 Mg Tab, 25 MG PO BID, #60 TAB 11/13/16 Digoxin* (Digitek*) 125 Mcg Tablet, 0.125 MG PO DAILY, TAB 11/13/16 Colchicine* (Colcrys*) 0.6 Mg Tablet, 0.6 MG PO DAILY, TAB 11/13/16 Allergies Allergies: Coded Allergies: No Known Drug Allergies (Verified Allergy, Unknown, 03/21/17) PMhx/Soc Obesity, diabetes mellitus, A. fib, hypertension History of Surgery: Yes (left kidney sx) Anesthesia Reaction: No Hx Neurological Disorder: No Hx Respiratory Disorders: Yes (sleep apnea) Hx Cardiac Disorders: Yes (chf, afib) Hx Psychiatric Problems: No Hx Miscellaneous Medical Probl: No Hx Alcohol Use: Yes Hx Substance Use: No Hx Tobacco Use: No FmHx Family History: No diabetes Physical Exam Vitals Vital Signs Date Time Temp Pulse Resp B/P Pulse Ox O2 Delivery O2 Flow Rate FiO2 04/27/17 16:24 105 17 132/78 100 Nasal Cannula 2.0 04/27/17 15:44 103 17 112/91 100 Nasal Cannula 2.0 04/27/17 14:50 89 17 109/89 100 Nasal Cannula 2.0 04/27/17 14:18 Nasal Cannula 2 04/27/17 14:13 98.6 130 16 94/72 94 04/27/17 13:59 98.6 110 15 98/51 94 Physical Exam GENERAL: Well-developed, well-nourished, well-hydrated, in no apparent distress , looks nontoxic in appearance, afebrile HEENT: Moist mucous membranes, pink conjunctiva, no cervical spine tenderness or step-off deformities, no goiter, no jaundice or icterus, extraocular movements intact without pain. No submandibular induration, and no pharyngeal erythema NEURO: Alert and oriented 3, cranial nerves II through XII intact bilaterally, pupils equal round reactive to light, no focal deficits or facial asymmetry, sensation intact distally Strength 5/5 in upper and lower extremities bilaterally CARDIAC: Tachycardic no murmurs rubs or gallops LUNGS: Clear bilaterally no wheezing crackles or stridor ABDOMEN: Soft nontender, no guarding, no rigidity, no rebound, no psoas sign no obturator sign. Normoactive bowel sounds SKIN: Warm and dry to touch, no abrasions, contusions, or hematomas, no lacerations, no ecchymosis, no target lesions, and without ulcers EXTREMITIES: No clubbing cyanosis or edema, calves are bilaterally symmetrical, no Homans sign, no popliteal cord sign. Distal pulses equal and bilateral PSYCH: Normal affect without agitation or irritability Result Diagram: 04/27/17 1420 04/27/17 1420 Results 24 hrs Laboratory Tests Test 04/27/17 14:20 04/27/17 14:43 04/27/17 15:23 04/27/17 16:02 White Blood Count 7.310^3/ul Red Blood Count 5.4210^6/ul Hemoglobin 15.6g/dl Hematocrit 45.7% Mean Corpuscular Volume 84.3fl Mean Corpuscular Hemoglobin 28.8pg Mean Corpuscular Hemoglobin Concent 34.1g/dl Red Cell Distribution Width 13.6% Platelet Count 60106^3/UL Mean Platelet Volume 11.6fl Neutrophils % 62.6% Lymphocytes % 27.6% Monocytes % 7.0% Eosinophils % 1.5% Basophils % 1.0% Nucleated Red Blood Cells % 0.0/100WBC Neutrophils # 4.610^3/ul Lymphocytes # 2.010^3/ul Monocytes # 0.510^3/ul Eosinophils # 0.110^3/ul Basophils # 0.110^3/ul Nucleated Red Blood Cells # 0.010^3/ul Prothrombin Time 14.3Sec Prothrombin Time Ratio 1.1 INR International Normalized Ratio 1.11 Sodium Level 137mmol/L Potassium Level 4.3mmol/L Chloride Level 99mmol/L Carbon Dioxide Level 25mmol/L Anion Gap 17 Blood Urea Nitrogen 11mg/dl Creatinine 0.76mg/dl Glucose Level 581mg/dl Calcium Level 8.7mg/dl Total Bilirubin 0.4mg/dl Direct Bilirubin 0.00mg/dl Indirect Bilirubin 0.4mg/dl Aspartate Amino Transf (AST/SGOT) 29IU/L Alanine Aminotransferase (ALT/SGPT) 50IU/L Alkaline Phosphatase 134IU/L Troponin I < 0.012ng/ml B-Type Natriuretic Peptide 30PG/ML Total Protein 7.5g/dl Albumin 3.9g/dl Globulin 3.60g/dl Albumin/Globulin Ratio 1.08 Lipase 61U/L Digoxin Level < 0.4ng/ml Bedside Glucose 502mg/dL 488mg/dL 481mg/dL Current Medications Medications (Trade) Dose Ordered Sig/Mera Route PRN Reason Start Time Stop Time Status Last Admin Dose Admin Insulin Human Lispro 10 unit 10 unit ONCE STAT SC 04/27/17 14:09 04/27/17 14:12 DC 04/27/17 14:45 Sodium Chloride 500 ml @ 500 mls/hr Q1H ONCE IV 04/27/17 14:30 04/27/17 15:29 DC 04/27/17 14:26 Sodium Chloride (NS) 1,000 ml @ 1,000 mls/hr Q1H ONCE IV 04/27/17 15:00 04/27/17 15:59 DC 04/27/17 15:28 Diltiazem HCl (Cardizem Iv) 20 mg ONCE ONCE IV 04/27/17 15:00 04/27/17 15:01 DC 04/27/17 15:02 Insulin Human Lispro (Humalog) 12 unit ONCE STAT SC 04/27/17 15:43 04/27/17 16:05 DC 04/27/17 16:11 Digoxin (Digoxin) 125 mcg ONCE ONCE IV 04/27/17 16:00 04/27/17 16:01 DC 04/27/17 16:08 [facility] Patient was placed on right of way appraiser rhythm strip revealed a narrow complex tachycardia at about 150 bpm. Patient was afebrile. Blood sugar, initially the patient's systolic blood pressure was about 95 mmHg. EKG performed, read by me revealed an atrial fibrillation with rapid ventricular rate at 115 bpm, normal axis, right ventricular conduction delay with incarceration of 100 ms, no concerning ST elevations or depressions noted. I initially treated the patient with lispro insulin 10 units subcutaneous injection 1 and 500 cc of normal saline IV 1. One view chest x-ray performed, read by me there is cardiomegaly, no acute infiltrates, no pneumothorax. Patient had continued hyperglycemia so I treated him here with another liter normal saline intravenously and another dose of lispro insulin 10 units subcutaneous. He also received diltiazem 20 mg IV 1 for continued tachycardia followed by digoxin to 125 mcg IV 1 later followed by another dose at 250 mcg IV 1 EKG #2 was performed, read by me revealed an atrial fibrillation a rapid ventricular rate at 117 bpm, normal axis, right ventricular conduction delay with incarceration of 98 ms, no concerning ST elevations or depressions noted. Critical Care: Time: 55 minutes, this was time separate from other billable procedures. Treatments/Evaluations: Close monitoring and treatment of unstable vital signs, cardiorespiratory, and neurologic status, while maintaining tight balance of fluid, respiratory, and cardiac interventions. CBC and electrolytes were unremarkable, BNP was negative, troponin was negative , blood sugar was continuously high, liver function tests were normal. Digoxin level was negative I also administered aspirin 324 for cardioprotective measures, he also received Toradol 15 mg IV 1 for complaints of pain. Patient remains hyperglycemic, tachycardic despite above medications he will be admitted to telemetry setting for continued medical management, cardiology, and endocrine consultations. Departure Diagnosis: Primary Impression: Chest pain Chest pain type: unspecified Qualified Code: R07.9 - Chest pain, unspecified type Additional Impressions: Acute hyperglycemia Atrial fibrillation with RVR Morbid obesity Condition: JANI Wilkins MD Apr 27, 2017 16:58
[2017-04-27] MEDS ORDERED: ASPIRIN 81 MG TAB PO ONE (17:00)
[2017-04-27 18:15] VITALS: PULSE 103
[2017-04-27] MEDS ORDERED: NACL 0.9% 3 ML SYG IV SCH (19:30)
[2017-04-27] MEDS ORDERED: ACETAMINOPHEN 325 MG TAB PO PRN (19:30)
[2017-04-27] MEDS ORDERED: NITROGLYCERIN (SL) 0.4 MG TAB SL PRN (19:30)
[2017-04-27] MEDS ORDERED: ONDANSETRON 4 MG INJ IV PRN (19:30)
[2017-04-27] MEDS ORDERED: DIPHENOXYLATE/ATROPINE TAB PO PRN (19:30)
[2017-04-27] MEDS ORDERED: HYDROCODONE/APAP (5/325) TAB PO PRN (19:30)
[2017-04-27 20:00] VITALS: PULSE 132
[2017-04-27] MEDS ORDERED: GLUCAGON 1 MG INJ IM PRN (20:00)
[2017-04-27] MEDS ORDERED: GLUCOSE GEL 15 GRAM TUBE PO PRN ×2 (20:00)
[2017-04-27] MEDS ORDERED: DEXTROSE 50% 50 ML SYRINGE IV PRN ×2 (20:00)
[2017-04-27] MEDS ORDERED: GLUCOSE GEL 15 GRAM TUBE BUCCAL PRN (20:00)
[2017-04-27 20:38] VITALS: BP 99/66; RESP 18
[2017-04-27 21:05] VITALS: BP 113/67; PULSE 123
[2017-04-27] MEDS: INSULIN ASPART [NOVOLOG] 3 ML PEN SC SCH (21:12)
[2017-04-27 21:18] LABS: CREATINE KINASE 91 IU/L (23-200)
[2017-04-27] MEDS: INSULIN DETEMIR [LEVEMIR] 3ML CART SC SCH (21:18)
[2017-04-27 21:23] VITALS: PULSE 82
[2017-04-27] MEDS: PANTOPRAZOLE (EC) 40 MG TAB PO SCH (21:27)
[2017-04-27] MEDS: FAMOTIDINE 20 MG INJ IV SCH (21:27)
[2017-04-27 21:29] LABS: CK-MB 1.99 ng/ml (0.0-2.4); TROPONIN-I < 0.012 ng/ml (0.00-0.12)
[2017-04-27 21:35] VITALS: BP 123/84; PULSE 73
--- NOTE | 2017-04-27 21:38 | HP ---
DATE OF ADMISSION: 04/27/2017 REASON FOR ADMISSION: Chest pain. HISTORY OF PRESENT ILLNESS: This is a 36-year-old morbidly obese male with a past medical history o f uncontrolled diabetes, hypertension, hypercholesterolemia, a history of AFib for the last 6 years, presented to the emergency department after having chest pain this morning. The patient said that he had been doing fine until he was sitting in the chair this morning, all of a sudden he started mcgrath ving left-sided, pressure-like pain in the chest radiating to the back. This episode lasted the day and made him worried and he came to the emergency department. He was also feeling weak, dizz y, tired, and also was having some palpitations. The patient said that he consumes a lot of water. He has been gaining weight. He gained about 40 pounds in the last few months. The patient denies any orthopnea, PND, uses 1 pillow to sleep at night. The patient denies any cough, any fevers and c hills. According to the patient, he has been compliant with all the medications. On arrival to ED, vital signs were blood pressure 132/78, heart rate of 105, saturating 100% on 2 li ters. Had urine output that was 500. Had first troponin that was negative. Had a chest x-ray that showed no evidence of acute cardiopulmonary disease. The patient had AFib with RVR and sugars were over 500, was given lispro 10, NS 500, diltiazem 20, lispro 12 units again, digoxin 125, ketorolac, aspirin, digoxin again and was admitted for further management. PAST MEDICAL HISTORY: 1. AFib, PAF on chronic Pradaxa. 2. Hypertension. 3. Diabetes. 4. Obesity. ALLERGIES: NONE. PAST SURGICAL HISTORY: None. MEDICATIONS: Taking at home are: 1. Pradaxa 75 b.i.d. 2. Digoxin 0.125. 3. Metoprolol 25 b.i.d. 4. Valsartan 80. 5. Aspirin 81. 6. Mcfarland. 7. Lomotil. 8. Meclizine. 9. Zofran. 10. Protonix. 11. Detemir 30 b.i.d. 12. Lispro 18 daily. SOCIAL HISTORY: Denies any history of smoking, alcohol, any drug use. Denies any recreational hist ory. FAMILY HISTORY: Noncontributory. REVIEW OF SYSTEMS: Patient also had 2 episodes of diarrhea the day before. Denies any nausea, vomi ting, any headache, any blurry vision. Also complained of chest pain, blurry vision. PHYSICAL EXAMINATION: VITAL SIGNS: Heart rate 83, respirations 17, blood pressure 132/79, saturating 100% on 4 liters. GENERAL: Moderately obese, awake, alert male, appears to be in mild distress secondary to pain. HEENT: Thick neck. HEART: Irregularly irregular, distant sounds. LUNGS: Decreased breath sounds bilaterally. ABDOMEN: Distended, obesity. Patient has some tenderness present in the right upper quadrant. EXTREMITIES: 2 to 3+ pitting edema. DIAGNOSTIC DATA: Shows a sodium of 137, potassium of 4.4, bicarbonate of 25, BUN of 11 and a creati nine of 0.76, glucose was 450. Currently, troponin less than 0.02. White count of 7.3, hemoglobin 15.3, platelet count 215. INR 1.1. No UA. Chest x-ray showed no evidence of cardiopulmonary disea se. ASSESSMENT AND PLAN: This is a 36-year-old male presenting with: 1. Chest pain. The patient has all the risk factors, diabetes, hypertension, hyperlipidemia and ob esity, need to rule out for acute coronary syndrome. 2. Atrial fibrillation with RVR, uncontrolled. The patient is compliant with the medication. Acco rding to the patient, he has been drinking a lot of fluid. Need to rule out congestive heart failur e given the pedal edema. 3. Hyperglycemia. The patient has uncontrolled diabetes. No evidence of diabetic ketoacidosis ___ __. The patient said that he has been compliant with the insulin. 4. Hypertension. 5. Diabetes. 6. Obesity. 7. Pedal edema. 8. Rule out obstructive sleep apnea. PLAN: At this period of time, patient will be admitted to telemetry. We will give the patient digo ivania and diltiazem. The patient will be on aspirin, beta dayana, statin and JESSICA. We will get seria l troponins and CK-MB. We will get an echo. We will also check for HbA1C. Last HbA1c was 13. The patient will get extra dose of insulin. We will call endocrine consultation. Rest of the treatmen t will depend on the patient's hospitalization course. Dictated By: TATY ENNIS Conf#: [id number] DID#: [id number]
[2017-04-27] MEDS: METOPROLOL 25 MG TAB PO SCH (21:44)
[2017-04-28] VITALS (14 sets, daily range): BP systolic 102–133; BP diastolic 57–73; PULSE 63–72; RESP 17–20
[2017-04-28] MEDS: FUROSEMIDE 40 MG INJ IV SCH ×3 (00:16→17:18)
[2017-04-28] MEDS: HYDROCODONE/APAP (5/325) TAB PO PRN ×2 (00:16→06:53)
[2017-04-28 01:43] LABS: CREATINE KINASE 92 IU/L (23-200)
[2017-04-28 02:31] LABS: CK-MB 1.65 ng/ml (0.0-2.4); TROPONIN-I < 0.012 ng/ml (0.00-0.12)
[2017-04-28] MEDS: PANTOPRAZOLE (EC) 40 MG TAB PO SCH ×2 (06:53→17:35)
[2017-04-28 09:25] LABS: BASOPHIL # 0.1 10^3/ul (0.0-0.1); BASOPHILS % 0.7 % (0.0-2.0); EOSINOPHILS # 0.1 10^3/ul (0.0-0.5); EOSINOPHILS % 1.9 % (0.0-7.0); HEMATOCRIT 46.9 % (42.0-52.0); HEMOGLOBIN 16.1 g/dl (14.0-18.0); LYMPHOCYTES # 2.4 10^3/ul (0.8-2.9); LYMPHOCYTES % 32.5 % (15.0-51.0); MEAN CORPUSCULAR HEMOGLOBIN 28.9 pg (29.0-33.0); MEAN CORPUSCULAR HGB CONC 34.3 g/dl (32.0-37.0); MEAN CORPUSCULAR VOLUME 84.2 fl (82.0-101.0); MEAN PLATELET VOLUME 11.3 fl (7.4-10.4); MONOCYTE # 0.5 10^3/ul (0.3-0.9); MONOCYTES % 6.2 % (0.0-11.0); NEUTROPHIL # 4.4 10^3/ul (1.6-7.5); NEUTROPHILS % 58.4 % (39.0-77.0); PLATELET COUNT 229 10^3/UL (140-415); RED BLOOD COUNT 5.57 10^6/ul (4.70-6.10); RED CELL DISTRIBUTION WIDTH 13.6 % (11.5-14.5); WHITE BLOOD COUNT 7.5 10^3/ul (4.8-10.8)
[2017-04-28] MEDS: INSULIN ASPART [NOVOLOG] 3 ML PEN SC SCH ×7 (09:27→20:24)
[2017-04-28 09:29] LABS: CALCIUM 9.2 mg/dl (8.4-10.2); CHOL/HDL RATIO 4.3 RATIO; CREATININE 0.8 mg/dl (0.61-1.24); MAGNESIUM 1.3 mg/dl (1.7-2.5); PHOSPHORUS 4.3 mg/dl (2.5-4.9); POTASSIUM 3.8 mmol/L (3.5-5.1)
[2017-04-28] MEDS: VALSARTAN 80 MG TAB PO SCH (09:38)
[2017-04-28] MEDS: METOPROLOL 25 MG TAB PO SCH ×2 (09:38→20:33)
[2017-04-28] MEDS: ASPIRIN 81 MG TAB PO SCH (09:38)
[2017-04-28] MEDS: INSULIN DETEMIR [LEVEMIR] 3ML CART SC SCH ×2 (09:44→20:19)
[2017-04-28 09:45] LABS: T3 UPTAKE 38.7 % (23.5-40.5)
[2017-04-28] MEDS: FAMOTIDINE 20 MG INJ IV SCH (09:45)
[2017-04-28] MEDS: DIGOXIN 0.125 MG TAB PO SCH (12:49)
--- NOTE | 2017-04-28 14:13 | CONS ---
DATE OF ADMISSION: 04/27/2017 DATE OF CONSULTATION: 04/28/2017 TYPE OF CONSULTATION: Cardiology REFERRING PHYSICIAN: ____ REASON FOR EVALUATION: Supraventricular tachycardia, shortness of breath. HISTORY OF PRESENT ILLNESS: Mr. Justin is a 36-year-old gentleman with history of morbid obesity, h istory of diabetes, hypertension, hyperlipidemia, prior history of paroxysmal AFib reported prior. He comes to the hospital now for evaluation of tachycardia and chest discomfort. I reviewed his EKG carefully. The patient had a fast rhythm at the rate of 160s, most consistent with sinus tachycard ia with APCs. However, the rate is fast and pure determination of the rhythm is difficult. The pat ient has had similar episodes before. The patient is morbidly obese. He said he tried to lose weig ht, but he was not able to do so because he says "I get short of breath when I exercise." The patie nt's CHADS score is less than 1. I do not recommend global anticoagulation and I am not convinced t hat his rhythm is atrial fibrillation. For now, conservative therapy is expected. The patient will probably benefit from an EP study as well as significant weight loss as well as apnea therapy. I w ill defer the rest of this to pulmonary team. From a cardiac standpoint, we will continue rate opti mization strategy. I think metoprolol is a good strategy for now. PAST MEDICAL HISTORY: History of paroxysmal atrial fibrillation. His CHADS score is less than 1. The patient is on Pradaxa, which I think is reasonable, but not necessarily indicated. ALLERGIES: NO KNOWN DRUG ALLERGIES. SOCIAL HISTORY: The patient does not smoke, does not drink, does not use drugs. FAMILY HISTORY: Positive for diabetes and hypertension. MEDICATIONS: 1. Pradaxa 75 mg b.i.d. 2. Digoxin 0.125 mg. 3. Metoprolol 25 mg p.o. b.i.d. 4. Losartan 80 mg. 5. Aspirin. 6. ____. 7. Protonix. 8. Detemir. 9. Lispro 18 units once a day. REVIEW OF SYSTEMS CONSTITUTIONAL: No fevers, no chills. Episode of diarrhea for the last few days. No recent weight changes. CARDIAC: No chest pain. RESPIRATORY: Reported cardiac arrest, shortness of breath. GASTROINTESTINAL: No nausea, vomiting, diarrhea, constipation. GENITOURINARY: No dysuria, hematuria. NEUROLOGIC: No focal neurologic deficits. PSYCHIATRIC: History of depression. PHYSICAL EXAMINATION: VITAL SIGNS: Currently, the patient is in sinus rhythm. His temperature is 98.6, heart rate 67, bl ood pressure 106/57. GENERAL: He is an obese gentleman in no acute distress, alert and oriented x3, aware of his conditi on. HEAD: Normocephalic, atraumatic. Eyes anicteric. NECK: Supple. JVD 6-7 cm. There is no lymphadenopathy. HEART: Regular with soft holosystolic murmur at the apex. PMI is nondisplaced. I do not hear an S 3. LUNGS: Coarse at bases. ABDOMEN: Distended, bowel sounds present. ____. GENITOURINARY: ____. EXTREMITIES: Show no clubbing, cyanosis, or edema. LABORATORY DATA: White blood cell count 7.5, hemoglobin 16.1, platelets 229. INR is 1.1. Sodium 1 30, potassium 3.8. His creatinine 0.8, magnesium 1.3. Troponin is negative at 0.012. ASSESSMENT AND PLAN: 1. Supraventricular tachycardia. Patient with supraventricular tachycardia. Differential diagnosi s prior to ____ is most likely. For now, conservative therapy is expected. The patient is in sinus rhythm now. 2. History of paroxysmal atrial fibrillation. The patient on digoxin, beta dayana and Pradaxa. W e will continue to follow. 3. ____. The patient's CHADS2 score is 1. I think that Pradaxa is a reasonable choice versus aspi rin 325 would be reasonable as well. Will defer to a primary outreach and education social worker who initiated the Pradaxa now. 4. Morbid obesity, significant weight loss advised. 5. Hypertension. Continue hypertension care. I would like to thank ____ for referring this patient for my evaluation. Dictated By: LORRAINE LOVING MD ML/ANNA Conf#: [id number] DID#: [id number]
[2017-04-28] MEDS ORDERED: MAGNESIUM SULFATE 2 GM/50 ML 50 ML IVPB ONE (15:30)
[2017-04-28] MEDS ORDERED: ZOLPIDEM 5 MG TAB PO PRN (20:00)
--- NOTE | 2017-04-28 20:05 | PN ---
Date/Time of Note Date/Time of Note DATE: 04/28/17 TIME: 20:02 Assessment/Plan VTE Prophylaxis VTE Prophylaxis Intervention: other (praDAXA) Lines/Catheters IV Catheter Type (from [facility]): [place] [facility] Urinary Cath still in place: No Assessment/Plan Chief Complaint/Hosp Course 1. History of AFib, PAF on chronic Pradaxa, now SR, converted 04/27/2017. 2. Hypertension, controlled. 3. Diabetes mellitus uncontrolled. 4. Obesity. 5. Sleep apnea 6. Hyperlipidemia Problems: Assessment/Plan 1. Diabetic consult 2. Start Tradjenta 3. Sleep apnea 4. Start Artorvastatin 5. Supplemental oxygen Subjective 24 Hr Interval Summary Free Text/Dictation PER NURSING PT IS SNORING. Respiratory: shortness of breath Gastrointestinal: no complaints Musculoskeletal: back pain, bone/joint pain, neck pain, no complaints, other, restricted range of motion, swelling Neurologic: confusion, dizziness, focal-weakness, syncope, No headache, No no complaints, No other, No seizure Exam/Review of Systems Vital Signs Vitals Vital Signs Date Time Temp Pulse Resp B/P Pulse Ox O2 Delivery O2 Flow Rate FiO2 04/28/17 19:54 98.1 68 20 105/73 94 04/28/17 16:00 Nasal Cannula 2.0 Intake and Output 04/27/17 04/27/17 04/28/17 15:00 23:00 07:00 Intake Total 500 ml 550 ml Output Total 430 ml 1500 ml Balance 70 ml -950 ml Exam Constitutional: alert, oriented Respiratory: diminished breath sounds Cardiovascular: regular rate and rhythm Results Result Diagram: 04/28/17 0830 04/28/17 0830 Results 24 hrs Laboratory Tests Test 04/27/17 20:32 04/27/17 21:06 04/28/17 01:12 04/28/17 01:51 Creatine Kinase 91 92 Creatine Kinase Index 2.2 1.8 Creatinine Kinase MB (Mass) 1.99 1.65 Troponin I < 0.012 < 0.012 Bedside Glucose 332 H 310 H Test 04/28/17 08:30 04/28/17 09:21 04/28/17 12:51 04/28/17 17:32 White Blood Count 7.5 Red Blood Count 5.57 Hemoglobin 16.1 Hematocrit 46.9 Mean Corpuscular Volume 84.2 Mean Corpuscular Hemoglobin 28.9 L Mean Corpuscular Hemoglobin Concent 34.3 Red Cell Distribution Width 13.6 Platelet Count 229 Mean Platelet Volume 11.3 H Neutrophils % 58.4 Lymphocytes % 32.5 Monocytes % 6.2 Eosinophils % 1.9 Basophils % 0.7 Nucleated Red Blood Cells % 0.0 Neutrophils # 4.4 Lymphocytes # 2.4 Monocytes # 0.5 Eosinophils # 0.1 Basophils # 0.1 Nucleated Red Blood Cells # 0.0 Sodium Level 138 Potassium Level 3.8 Chloride Level 98 Carbon Dioxide Level 29 Anion Gap 15 Blood Urea Nitrogen 11 Creatinine 0.80 Glucose Level 308 #H Hemoglobin A1c 11.1 H Calcium Level 9.2 Phosphorus Level 4.3 Magnesium Level 1.3 L Triglycerides Level 144 Cholesterol Level 113 LDL Cholesterol, Calculated 58 HDL Cholesterol 26 L Cholesterol/HDL Ratio 4.3 Free Thyroxine Index 3.17 Thyroxine (T4) 8.2 Triiodothyronine (T3) Uptake 38.7 Digoxin Level 0.5 L Bedside Glucose 316 H 303 H 222 H Medications Medications Current Medications Ondansetron HCl (Zofran Inj) 4 mg Q6H PRN IV NAUSEA AND/OR VOMITING; Start at 19:30 Acetaminophen (Tylenol Tab) 650 mg Q6H PRN PO PAIN LEVEL 1-3 OR FEVER; Start 04/27/17 at 19:30 Acetaminophen/ Hydrocodone Bitart ([place] (5/325)) 1 tab Q6H PRN PO MODERATE PAIN LEVEL 4-6 Last administered on 04/28/17 06:53; Admin Dose 1 TAB; Start 04/27/17 at 19:30 Aspirin (Aspirin) 81 mg DAILY PO Last administered on 04/28/17 09:38; Admin Dose 81 MG; Start 04/28/17 at 09:00 Digoxin (Digoxin) 0.125 mg DAILY@13 PO Last administered on 04/28/17 12:49; Admin Dose 0.125 MG; Start 04/28/17 at 13:00 Diphenoxylate HCl/ Atropine (Lomotil) 1 tab QID PRN PO DIARRHEA; Start at 19:30 Acetaminophen/ Hydrocodone Bitart ([place] (5/325)) 1 tab Q6H PRN PO PAIN; Start 04/27/17 at 19:30 Insulin Detemir (Levemir) 30 unit BID SC Last administered on 04/28/17 09:44 ; Admin Dose 30 UNIT; Start 04/27/17 at 21:00 Metoprolol Tartrate (Lopressor) 25 mg BID PO Last administered on 04/28/17 09 :38; Admin Dose 25 MG; Start 04/27/17 at 21:00 Nitroglycerin (Nitroglycerin (Sl Tab) 0.4 Mg) 1 tab Q5M PRN SL ANGINA; Start 04/27/17 at 19:30 Pantoprazole (Protonix Tab) 40 mg BID@,18 PO Last administered on 04/28/17 17:35; Admin Dose 40 MG; Start 04/27/17 at 20:00 Valsartan (Diovan) 80 mg DAILY PO Last administered on 04/28/17 09:38; Admin Dose 80 MG; Start 04/28/17 at 09:00 Miscellaneous Information 1 ea NOTE XX ; Start 04/27/17 at 20:00 Glucose (Glutose) 15 gm Q15M PRN PO DECREASED GLUCOSE; Start 04/27/17 at 20:00 Glucose (Glutose) 22.5 gm Q15M PRN PO DECREASED GLUCOSE; Start 04/27/17 at 20: 00 Dextrose (D50w Syringe) 25 ml Q15M PRN IV DECREASED GLUCOSE; Start 04/27/17 at 20:00 Dextrose (D50w Syringe) 50 ml Q15M PRN IV DECREASED GLUCOSE; Start 04/27/17 at 20:00 Glucagon (Glucagen) 1 mg Q15M PRN IM DECREASED GLUCOSE; Start 04/27/17 at 20: 00 Glucose (Glutose) 15 gm Q15M PRN BUCCAL DECREASED GLUCOSE; Start 04/27/17 at 20:00 Famotidine (Pepcid) 20 mg Q12 PO ; Start 04/28/17 at 21:00 NII MADRID Apr 28, 2017 20:05
[2017-04-28] MEDS: FAMOTIDINE 20 MG TAB PO SCH (20:32)
[2017-04-28] MEDS: LINAGLIPTIN 5 MG TABLET PO SCH (20:32)
[2017-04-28] MEDS ORDERED: ATORVASTATIN 20 MG TAB PO SCH (21:00)
[2017-04-29] VITALS (8 sets, daily range): BP systolic 107–126; BP diastolic 60–74; PULSE 69–90; RESP 17–20
[2017-04-29] MEDS: PANTOPRAZOLE (EC) 40 MG TAB PO SCH (05:07)
[2017-04-29] MEDS: FUROSEMIDE 40 MG INJ IV SCH (05:08)
[2017-04-29] MEDS: ASPIRIN 81 MG TAB PO SCH (08:34)
[2017-04-29] MEDS: VALSARTAN 80 MG TAB PO SCH (08:34)
[2017-04-29] MEDS: LINAGLIPTIN 5 MG TABLET PO SCH (08:34)
[2017-04-29] MEDS: METOPROLOL 25 MG TAB PO SCH (08:35)
[2017-04-29] MEDS: FAMOTIDINE 20 MG TAB PO SCH (08:35)
[2017-04-29] MEDS: INSULIN ASPART [NOVOLOG] 3 ML PEN SC SCH ×4 (08:40→12:38)
[2017-04-29] MEDS: INSULIN DETEMIR [LEVEMIR] 3ML CART SC SCH (08:41)
[2017-04-29 09:31] LABS: CREATININE 1.02 mg/dl (0.61-1.24); POTASSIUM 3.8 mmol/L (3.5-5.1)
[2017-04-29] MEDS: DIGOXIN 0.125 MG TAB PO SCH (12:34)
--- NOTE | 2017-04-29 12:58 | PN ---
Date/Time of Note Date/Time of Note DATE: 04/29/17 TIME: 12:57 Assessment/Plan VTE Prophylaxis VTE Prophylaxis Intervention: ambulation Lines/Catheters IV [facility] [facility] Urinary Cath still in place: No Assessment/Plan Chief Complaint/Hosp Course 1. History of AFib, PAF on chronic Pradaxa, now SR, converted 04/27/2017. 2. Hypertension, controlled. 3. Diabetes mellitus uncontrolled. 4. Obesity. 5. Sleep apnea 6. Hyperlipidemia Problems: Assessment/Plan 1. transfer to [facility] 2. discontinue cpap 3. Pt is noncompliant Subjective 24 Hr Interval Summary Respiratory: no complaints, other (pt did not like cpap) Exam/Review of Systems Vital Signs Vitals Vital Signs Date Time Temp Pulse Resp B/P Pulse Ox O2 Delivery O2 Flow Rate FiO2 04/29/17 12:33 69 04/29/17 12:03 97.7 19 107/60 96 04/29/17 08:30 Nasal Cannula 2.0 Intake and Output 04/28/17 04/28/17 04/29/17 15:00 23:00 07:00 Intake Total 1150 ml Output Total 1850 ml 200 ml Balance -700 ml -200 ml Exam Constitutional: alert, oriented Respiratory: clear to auscultation Cardiovascular: regular rate and rhythm Gastrointestinal: soft Results Result Diagram: 04/28/17 0830 04/29/17 0832 Results 24 hrs Laboratory Tests Test 04/28/17 17:32 04/28/17 20:15 04/29/17 05:13 04/29/17 08:16 Bedside Glucose 222 H 212 223 H 292 H Test 04/29/17 08:32 04/29/17 12:31 Sodium Level 136 Potassium Level 3.8 Chloride Level 97 Carbon Dioxide Level 28 Anion Gap 15 Blood Urea Nitrogen 18 Creatinine 1.02 Glucose Level 304 H Calcium Level 9.0 Bedside Glucose 311 H Medications Medications Current Medications Ondansetron HCl (Zofran Inj) 4 mg Q6H PRN IV NAUSEA AND/OR VOMITING; Start at 19:30 Acetaminophen (Tylenol Tab) 650 mg Q6H PRN PO PAIN LEVEL 1-3 OR FEVER; Start 04/27/17 at 19:30 Acetaminophen/ Hydrocodone Bitart ([place] (5/325)) 1 tab Q6H PRN PO MODERATE PAIN LEVEL 4-6 Last administered on 04/28/17 06:53; Admin Dose 1 TAB; Start 04/27/17 at 19:30 Aspirin (Aspirin) 81 mg DAILY PO Last administered on 04/29/17 08:34; Admin Dose 81 MG; Start 04/28/17 at 09:00 Digoxin (Digoxin) 0.125 mg DAILY@13 PO Last administered on 04/29/17 12:34; Admin Dose 0.125 MG; Start 04/28/17 at 13:00 Diphenoxylate HCl/ Atropine (Lomotil) 1 tab QID PRN PO DIARRHEA; Start at 19:30 Acetaminophen/ Hydrocodone Bitart ([place] (5/325)) 1 tab Q6H PRN PO PAIN; Start 04/27/17 at 19:30 Insulin Detemir (Levemir) 30 unit BID SC Last administered on 04/29/17 08:41 ; Admin Dose 30 UNIT; Start 04/27/17 at 21:00 Metoprolol Tartrate (Lopressor) 25 mg BID PO Last administered on 04/29/17 08 :35; Admin Dose 25 MG; Start 04/27/17 at 21:00 Nitroglycerin (Nitroglycerin (Sl Tab) 0.4 Mg) 1 tab Q5M PRN SL ANGINA; Start 04/27/17 at 19:30 Pantoprazole (Protonix Tab) 40 mg BID@06,18 PO Last administered on 04/29/17 05:07; Admin Dose 40 MG; Start 04/27/17 at 20:00 Valsartan (Diovan) 80 mg DAILY PO Last administered on 04/29/17 08:34; Admin Dose 80 MG; Start 04/28/17 at 09:00 Miscellaneous Information 1 ea NOTE XX ; Start 04/27/17 at 20:00 Glucose (Glutose) 15 gm Q15M PRN PO DECREASED GLUCOSE; Start 04/27/17 at 20:00 Glucose (Glutose) 22.5 gm Q15M PRN PO DECREASED GLUCOSE; Start 04/27/17 at 20: 00 Dextrose (D50w Syringe) 25 ml Q15M PRN IV DECREASED GLUCOSE; Start 04/27/17 at 20:00 Dextrose (D50w Syringe) 50 ml Q15M PRN IV DECREASED GLUCOSE; Start 04/27/17 at 20:00 Glucagon (Glucagen) 1 mg Q15M PRN IM DECREASED GLUCOSE; Start 04/27/17 at 20: 00 Glucose (Glutose) 15 gm Q15M PRN BUCCAL DECREASED GLUCOSE; Start 04/27/17 at 20:00 Famotidine (Pepcid) 20 mg Q12 PO Last administered on 04/29/17 08:35; Admin Dose 20 MG; Start 04/28/17 at 21:00 Linagliptin (Tradjenta) 5 mg DAILY PO Last administered on 04/29/17 08:34; Admin Dose 5 MG; Start 04/28/17 at 20:00 Zolpidem Tartrate (Ambien) 10 mg HS PRN PO INSOMNIA Last administered on 20:32; Admin Dose 10 MG; Start 04/28/17 at 20:00 Atorvastatin Calcium (Lipitor) 20 mg HS PO Last administered on 04/28/17 20: 32; Admin Dose 20 MG; Start 04/28/17 at 21:00 NII MADRID Apr 29, 2017 12:58
--- NOTE | 2017-04-29 17:02 | CONS ---
Date/Time of Note Date/Time of Note DATE: 04/29/17 TIME: 16:53 Assessment/Plan Assessment/Plan Chief Complaint/Hosp Course IMP: 1.PAFL/AF-now SR 2.sob 3.HTN 4.obesity 5. Dyslipidemia 6.DM Recc: -Tele -Continue statin -Contiue BB/diovan -BIPAP PRN/at night -Contineu lasix for now -would resume pradaxa given elevated CHADS/vasc Problems: Consultation Date/Type/Reason Admit Date/Time Apr 27, 2017 at 15:47 Initial Consult Date 04/28/2017 Type of Consultation: cardiology Reason for Consultation SVT/CHF Referring Provider: TATY GOODEN MD Exam/Review of Systems Vital Signs Vitals Vital Signs Date Time Temp Pulse Resp B/P Pulse Ox O2 Delivery O2 Flow Rate FiO2 04/29/17 16:28 98.3 80 17 107/60 96 04/29/17 08:30 Nasal Cannula 2.0 Intake and Output 04/28/17 04/28/17 04/29/17 15:00 23:00 07:00 Intake Total 1150 ml Output Total 1850 ml 200 ml Balance -700 ml -200 ml Exam Review of Systems: CONSTITUTIONAL: No fevers, chills. PULMONARY: No sob CARDIOVASCULAR: No chest pain/palpitations GASTROINTESTINAL: No nausea/vomiting. GENITOURINARY: No hematuria/dysuria. MUSCULOSKELETAL: No myagias/arthalgias. PSYCHIATRIC: The patient denies depression. NEUROLOGIC: No weakness Constitutional: alert, oriented Psych: no complaints Head: normocephalic ENMT: mucosa pink and moist Neck: jvd, supple Respiratory: diminished breath sounds Cardiovascular: regular rate and rhythm Gastrointestinal: non-tender, soft Musculoskeletal: muscle tone Extremities: edema (normal), normal pulses Neurological: other (No focal deficits) Results Result Diagram: 04/28/17 0830 04/29/17 0832 Results 24 hrs Laboratory Tests Test 04/28/17 17:32 04/28/17 20:15 04/29/17 05:13 04/29/17 08:16 Bedside Glucose 222 H 212 223 H 292 H Test 04/29/17 08:32 04/29/17 12:31 Sodium Level 136 Potassium Level 3.8 Chloride Level 97 Carbon Dioxide Level 28 Anion Gap 15 Blood Urea Nitrogen 18 Creatinine 1.02 Glucose Level 304 H Calcium Level 9.0 Bedside Glucose 311 H Medications Medications Current Medications Ondansetron HCl (Zofran Inj) 4 mg Q6H PRN IV NAUSEA AND/OR VOMITING; Start at 19:30 Acetaminophen (Tylenol Tab) 650 mg Q6H PRN PO PAIN LEVEL 1-3 OR FEVER; Start 04/27/17 at 19:30 Acetaminophen/ Hydrocodone Bitart ([place] (5/325)) 1 tab Q6H PRN PO MODERATE PAIN LEVEL 4-6 Last administered on 04/28/17 06:53; Admin Dose 1 TAB; Start 04/27/17 at 19:30 Aspirin (Aspirin) 81 mg DAILY PO Last administered on 04/29/17 08:34; Admin Dose 81 MG; Start 04/28/17 at 09:00 Digoxin (Digoxin) 0.125 mg DAILY@13 PO Last administered on 04/29/17 12:34; Admin Dose 0.125 MG; Start 04/28/17 at 13:00 Diphenoxylate HCl/ Atropine (Lomotil) 1 tab QID PRN PO DIARRHEA; Start at 19:30 Acetaminophen/ Hydrocodone Bitart ([place] (5/325)) 1 tab Q6H PRN PO PAIN; Start 04/27/17 at 19:30 Insulin Detemir (Levemir) 30 unit BID SC Last administered on 04/29/17 08:41 ; Admin Dose 30 UNIT; Start 04/27/17 at 21:00 Metoprolol Tartrate (Lopressor) 25 mg BID PO Last administered on 04/29/17 08 :35; Admin Dose 25 MG; Start 04/27/17 at 21:00 Nitroglycerin (Nitroglycerin (Sl Tab) 0.4 Mg) 1 tab Q5M PRN SL ANGINA; Start 04/27/17 at 19:30 Pantoprazole (Protonix Tab) 40 mg BID@06,18 PO Last administered on 04/29/17 05:07; Admin Dose 40 MG; Start 04/27/17 at 20:00 Valsartan (Diovan) 80 mg DAILY PO Last administered on 04/29/17 08:34; Admin Dose 80 MG; Start 04/28/17 at 09:00 Miscellaneous Information 1 ea NOTE XX ; Start 04/27/17 at 20:00 Glucose (Glutose) 15 gm Q15M PRN PO DECREASED GLUCOSE; Start 04/27/17 at 20:00 Glucose (Glutose) 22.5 gm Q15M PRN PO DECREASED GLUCOSE; Start 04/27/17 at 20: 00 Dextrose (D50w Syringe) 25 ml Q15M PRN IV DECREASED GLUCOSE; Start 04/27/17 at 20:00 Dextrose (D50w Syringe) 50 ml Q15M PRN IV DECREASED GLUCOSE; Start 04/27/17 at 20:00 Glucagon (Glucagen) 1 mg Q15M PRN IM DECREASED GLUCOSE; Start 04/27/17 at 20: 00 Glucose (Glutose) 15 gm Q15M PRN BUCCAL DECREASED GLUCOSE; Start 04/27/17 at 20:00 Famotidine (Pepcid) 20 mg Q12 PO Last administered on 04/29/17 08:35; Admin Dose 20 MG; Start 04/28/17 at 21:00 Linagliptin (Tradjenta) 5 mg DAILY PO Last administered on 04/29/17 08:34; Admin Dose 5 MG; Start 04/28/17 at 20:00 Zolpidem Tartrate (Ambien) 10 mg HS PRN PO INSOMNIA Last administered on 20:32; Admin Dose 10 MG; Start 04/28/17 at 20:00 Atorvastatin Calcium (Lipitor) 20 mg HS PO Last administered on 04/28/17 20: 32; Admin Dose 20 MG; Start 04/28/17 at 21:00 MAC QUEVEDO 22, 2017 17:02
--- NOTE | 2017-04-29 18:28 | RADRPT ---
Echocardiogram Report Patient Name: CHAYA MENDOZA Gender: Male Date: 1980 Study Date: 28-Apr-2017 Vending Machine Operator: Carlos Mao [facility] Location: [id number] Ref. Physician: TATY GOODEN Quality: Technically Difficult Study Procedures: Transthoracic echocardiogram with complete 2D, M-Mode, and doppler examination. Indications: Atrial Fibrillation. Congestive Heart Failure. 2D/M Mode Doppler Measurement Value Normal Ranges Measurement Value Normal Ranges LVIDd 2D 4.3 3.5 - 5.6 cm AV Peak Jason 0.9 m/sec LVIDs 2D 2.7 2.1 - 4.1 cm AV Peak PG 3.1 mmHg LVPWd 2D 1.3 0.6 - 1.1 cm LVOT Peak Jason 0.7 m/sec IVSd 2D 1.4 0.6 - 1.1 cm LVOT Peak PG 2.1 mmHg AoR Diam 2D 3.6 2.0 - 3.7 cm MV E Peak Jason 0.6 m/sec EDV 2D 83.1 cm3 MV A Peak Jason 0.5 m/sec ESV 2D 19.2 cm3 MV E/A 1.2 LA Dimen 2D 3.1 2.3 - 4.0 cm MV Decel Time 126 msec MV Decel Atkinson 5 MV E/A 1.2 TR Peak Jason 2.3 m/sec TR Peak PG 21.0 mmHg RVSP 24.0 mmHg Findings Left Ventricle: Normal left ventricular systolic function. Normal left ventricular cavity size. Mild concentric left ventricular hypertrophy. Ejection fraction is visually estimated at 55 %. Tissue Doppler/Mitral Doppler indices are within normal limits. Right Ventricle: Normal right ventricular size. Normal right ventricular systolic function. Left Atrium: The left atrium is normal in size. Right Atrium: The right atrium is normal in size. Mitral Valve: Normal appearance and function of the mitral valve with trace physiologic regurgitation. Aortic Valve: Normal appearance of the aortic valve. No significant aortic stenosis or insufficiency. Tricuspid Valve: Normal appearance of the tricuspid valve. Estimated peak PA systolic pressure 24 mmHg. There is trace tricuspid regurgitation. Pulmonic Valve: Normal pulmonic valve appearance. Pericardium: Normal pericardium with no significant pericardial effusion. Aorta: Normal aortic root. IVC: Normal size and normal respiratory collapse consistent with normal right atrial pressure. Conclusions 1.Normal left ventricular systolic function. Normal left ventricular cavity size. Mild concentric left ventricular hypertrophy. Ejection fraction is visually estimated at 55 %. Tissue Doppler/Mitral Doppler indices are within normal limits. 2.Normal appearance and function of the mitral valve with trace physiologic regurgitation. 3.Normal appearance of the tricuspid valve. Estimated peak PA systolic pressure 24 mmHg. There is trace tricuspid regurgitation. Electronically Signed By: Emory Mosher 29-Apr-2017 18:27:24 -0800 Patient Name: CHAYA MENDOZA Study Date: 28-Apr-2017 [id number]
--- NOTE | 2017-04-29 20:44 | DS ---
DATE OF ADMISSION: 04/27/2017 DATE OF DISCHARGE: 04/29/2017 Patient left AMA. HOSPITAL COURSE: A 36-year-old male with a past medical history of uncontrolled diabetes, hypertens ion, hypercholesterolemia, AFib for last 6 years, presented to the emergency department having chest pain. Patient said that he started having all of a sudden left-sided, pressure-like, pain. The felipe chowdhury's episode lasted a whole day, made him worried and he came to the ER. He was also feeling wea k, dizzy, tired. The patient consumes a lot of water. He has been gaining weight again, about 40 p ounds in last few months. On admission, vital signs were blood pressure 132/58, heart rate 105, sat urating 100% on 2 liters. Urine output over 500. Troponin was negative. Had AFib with RVR with olguin gars over 500, given lispro 10 and then 500 Diltiazem, Lispro 12, digoxin and was admitted for furth er management. Patient was admitted to the ____unit, had serial troponins that were negative. Jaz ent was seen by Dr. Greco, Dr. Mosher for cardiology consultation. The patient converted into PAF EF AFib converted into normal sinus rhythm. The patient was continued on beta dayana, Diovan and BiPAP p.r.n. was also started on Lasix and also started Pradaxa given elevated UCHE score. Rate was controlled; however, patient left AMA without being taking any medications. DIAGNOSES: 1. PAF EF now sinus rhythm. 2. Shortness of breath. 3. Hypertension. 4. Obesity. 5. Dyslipidemia. 6. Diabetes, uncontrolled. Dictated By: TATY GOODEN RB/ANNA Conf#: [id number] DID#: [id number] CC: TATY GOODEN;*EndCC*
[2017-04-29] MEDS ORDERED: DABIGATRAN 75 MG CAP PO SCH (21:00)
--- NOTE | 2017-04-30 11:57 | DS ---
Date/Time of Note Date/Time of Note DATE: 04/30/17 TIME: 11:57 Discharge Summary Admission/Discharge Info Admit Date/Time Apr 27, 2017 at 15:47 Discharge Date/Time Apr 29, 2017 at 19:36 Patient Condition: Stable Consults dr Mosher Hospital Course see d/c summary done by dr Man [place] [facility] Active Scripts Hydrocodone/Acetaminophen ([place] 5-325 Tablet) 1 Each Tablet, 1 TAB PO Q6H Y for PAIN, #10 TAB Prov:MIGEL PETTIT MD 03/21/17 Ondansetron (Ondansetron Odt) 8 Mg Tab.rapdis, 8 MG PO Q6H Y for NAUSEA AND/OR VOMITING, #8 TAB Prov:MIGEL PETTIT MD 03/21/17 Hydrocodone/Acetaminophen ([place] 5-325 Tablet) 1 Each Tablet, 1 TAB PO Q6H Y for PAIN, #7 TAB Prov:MACIEL CAM PA-C 01/13/17 Pantoprazole* (Pantoprazole*) 40 Mg Tablet.dr, 40 MG PO BID for 28 Days Prov:MEHUL KIRAN MD 01/01/17 Dabigatran Etexilate Mesylate* (Pradaxa*) 75 Mg Cap, 75 MG PO BID for 28 Days, # 30 CAP Prov:MEHUL KIRAN MD 01/01/17 Diphenoxylate HCl/Atropine (Lomotil 2.5-0.025 mg Tablet) 1 Each Tablet, 1 TAB PO QID Y for DIARRHEA, #10 TAB Prov:HAILY THAO DO 12/04/16 Meclizine Hcl* (Antivert*) 12.5 Mg Tab, 25 MG PO Q6H Y for DIZZINESS, #20 TAB Prov:GUS THAOSTELVIRA ALeland DO 12/04/16 Aspirin (Aspirin) 81 Mg Chew, 81 MG PO DAILY for 28 Days, TAB Prov:MEHUL KIRAN MD 11/16/16 Nitroglycerin* (Nitrostat*) 0.4 Mg Tab.subl, 1 TAB SL Q5M Y for ANGINA for 28 Days Prov:MEHUL KIRAN MD 11/16/16 Insulin Detemir (Levemir Flextouch) 100 Unit/1 Ml Insuln.pen, 30 UNIT SQ BID for 30 Days Prov:MEHUL KIRAN MD 11/16/16 Reported Medications Valsartan* (Diovan*) 80 Mg Tablet, 80 MG PO DAILY, TAB 12/04/16 Insulin Lispro (Humalog) 100 Unit/1 Ml Cartridge, 18 UNIT SQ 12/04/16 Metoprolol Tartrate* (Lopressor*) 25 Mg Tab, 25 MG PO BID, #60 TAB 11/13/16 Digoxin* (Digitek*) 125 Mcg Tablet, 0.125 MG PO DAILY, TAB 11/13/16 Colchicine* (Colcrys*) 0.6 Mg Tablet, 0.6 MG PO DAILY, TAB 11/13/16 Primary Care Provider Hilton Crain MD Pending Labs Laboratory Tests Test 04/29/17 12:31 Bedside Glucose 311mg/dL (70-220) NII MADRID Apr 30, 2017 11:57 Reported Medications Valsartan* (Diovan*) 80 Mg Tablet, 80 MG PO DAILY, TAB 12/04/16 Insulin Lispro (Humalog) 100 Unit/1 Ml Cartridge, 18 UNIT SQ 12/04/16 Metoprolol Tartrate* (Lopressor*) 25 Mg Tab, 25 MG PO BID, #60 TAB 11/13/16 Digoxin* (Digitek*) 125 Mcg Tablet, 0.125 MG PO DAILY, TAB 11/13/16 Colchicine* (Colcrys*) 0.6 Mg Tablet, 0.6 MG PO DAILY, TAB 11/13/16 Primary Care Provider Hilton Crain MD Pending Labs Laboratory Tests Test 04/29/17 12:31 Bedside Glucose 311mg/dL (70-220) NII MADRID Apr 30, 2017 11:57
== END 2017-04-29 19:36 | disposition left against medical advice (07) | DRG 313 ==
LOC: E/R 13:49 → MS4 15:47
PROVIDERS: ADMIT Internal Medicine; ATTEND Internal Medicine
DX: R07.9 Chest pain, unspecified (principal); E11.65 Type 2 diabetes mellitus with hyperglycemia; Z68.43 Body mass index [BMI] 50.0-59.9, adult; I47.1 Supraventricular tachycardia; E66.01 Morbid (severe) obesity due to excess calories; Z71.3 Dietary counseling and surveillance; I48.91 Unspecified atrial fibrillation; G47.30 Sleep apnea, unspecified
CPT/HCPCS: 36415; 71010; 80048; 80053; 80061; 80162; 82550; 82553; 82962; 83036; 83690; 83735; 83880; 84100; 84436; 84479; 84484; 85025; 85610; 93005; 93306; 96361; 96372; 96374; 96375; 96376; J1815; J1885; J1940; J3475; J7040

== ENCOUNTER 2017-05-01 14:21 | Emergency (ER) | payer OTHER ==
[~2017-05-01] VITALS: Wt 159.0 kg
[2017-05-01] MEDS ORDERED: KETOROLAC 15 MG INJ IV STA (14:33)
[2017-05-01] MEDS ORDERED: FUROSEMIDE 40 MG INJ IV ONE (15:00)
--- NOTE | 2017-05-01 15:14 | RADRPT ---
PROCEDURE: XR Chest. CLINICAL INDICATION: Abdominal pain TECHNIQUE: Single frontal view of the chest was obtained COMPARISON: CR CHEST 03/29/2016 FINDINGS: The heart and mediastinum are within normal limits. The lungs are clear. There is no pleural effusion or pneumothorax. RPTAT: AA IMPRESSION: No acute disease. .Ruel De La Fuente MD, MD Date Time Electronically viewed and signed by .Ruel De La Fuente MD, MD on 05/01/2017 15:14 .S/
[2017-05-01 15:16] LABS: BASOPHILS % 0.4 % (0.0-2.0); EOSINOPHILS # 0.1 10^3/ul (0.0-0.5); EOSINOPHILS % 0.6 % (0.0-7.0); HEMATOCRIT 43.2 % (42.0-52.0); HEMOGLOBIN 14.7 g/dl (14.0-18.0); LYMPHOCYTES # 1.8 10^3/ul (0.8-2.9); LYMPHOCYTES % 18.9 % (15.0-51.0); MEAN CORPUSCULAR VOLUME 85.2 fl (82.0-101.0); MEAN PLATELET VOLUME 11.2 fl (7.4-10.4); MONOCYTE # 0.7 10^3/ul (0.3-0.9); MONOCYTES % 7.8 % (0.0-11.0); NEUTROPHIL # 6.8 10^3/ul (1.6-7.5); NEUTROPHILS % 72.1 % (39.0-77.0); PLATELET COUNT 195 10^3/UL (140-415); RED BLOOD COUNT 5.07 10^6/ul (4.70-6.10); RED CELL DISTRIBUTION WIDTH 13.7 % (11.5-14.5); WHITE BLOOD COUNT 9.4 10^3/ul (4.8-10.8)
[2017-05-01 15:38] LABS: ALANINE AMINOTRANSFERASE 52 IU/L (13-69); ALBUMIN 3.8 g/dl (3.3-4.9); ALBUMIN/GLOBULIN RATIO 1.11; ALKALINE PHOSPHATASE 118 IU/L (42-121); ANION GAP 17 (8-16); ASPARTATE AMINO TRANSFERASE 27 IU/L (15-46); BILIRUBIN,INDIRECT 0.6 mg/dl (0-1.1); BILIRUBIN,TOTAL 0.6 mg/dl (0.2-1.3); BLOOD UREA NITROGEN 19 mg/dl (7-20); CALCIUM 8.5 mg/dl (8.4-10.2); CARBON DIOXIDE 27 mmol/L (21-31); CHLORIDE 97 mmol/L (97-110); CREATININE 0.94 mg/dl (0.61-1.24); GLUCOSE 377 mg/dl (70-220); POTASSIUM 4.3 mmol/L (3.5-5.1); SODIUM 137 mmol/L (135-144); TOTAL PROTEIN 7.2 g/dl (6.1-8.1)
--- NOTE | 2017-05-01 15:38 | ERD ---
ER Documentation Chief Complaint Chief Complaint LOWER LEG SWELLING WITH NO TRAUMA. HPI 36-year-old man brought in by EMS from home for complaints of left heel pain with ambulation. Patient was recently admitted to this hospital for A. fib with RVR and decompensated heart failure. In route patient complained of sharp nonexertional nonradiating chest pain or shortness of breath, but initial call to 911 was for left heel pain. Patient states he has been using his medications as prescribed but obviously he ate a full Thanksgiving meal yesterday including gravy, and other salty, holiday appropriate foods. Patient denies fevers or chills, no abdominal pain, no paresis or paresthesias. ROS All systems reviewed and are negative except as per history of present illness. Medications Home Meds Active Scripts Meloxicam (Mobic) 7.5 Mg Tablet, 7.5 MG PO DAILY for PAIN AND/OR INFLAMMATION, # 30 TAB Prov:JANI MACIAS MD 05/01/17 Ondansetron (Ondansetron Odt) 8 Mg Tab.rapdis, 8 MG PO Q6H Y for NAUSEA AND/OR VOMITING, #8 TAB Prov:MIGEL PETTIT MD 03/21/17 Pantoprazole* (Pantoprazole*) 40 Mg Tablet.dr, 40 MG PO BID for 28 Days Prov:MEHUL KIRAN MD 01/01/17 Dabigatran Etexilate Mesylate* (Pradaxa*) 75 Mg Cap, 75 MG PO BID for 28 Days, # 30 CAP Prov:MEHUL KIRAN MD 01/01/17 Diphenoxylate HCl/Atropine (Lomotil 2.5-0.025 mg Tablet) 1 Each Tablet, 1 TAB PO QID Y for DIARRHEA, #10 TAB Prov:HAILY THAO DO 12/04/16 Meclizine Hcl* (Antivert*) 12.5 Mg Tab, 25 MG PO Q6H Y for DIZZINESS, #20 TAB Prov:HAILY THAO A. DO 12/04/16 Aspirin (Aspirin) 81 Mg Chew, 81 MG PO DAILY for 28 Days, TAB Prov:MEHUL KIRAN MD 11/16/16 Nitroglycerin* (Nitrostat*) 0.4 Mg Tab.subl, 1 TAB SL Q5M Y for ANGINA for 28 Days Prov:MEHUL KIRAN MD 11/16/16 Insulin Detemir (Levemir Flextouch) 100 Unit/1 Ml Insuln.pen, 30 UNIT SQ BID for 30 Days Prov:MEHUL KIRAN MD 11/16/16 Reported Medications Valsartan* (Diovan*) 80 Mg Tablet, 80 MG PO DAILY, TAB 12/04/16 Insulin Lispro (Humalog) 100 Unit/1 Ml Cartridge, 18 UNIT SQ 12/04/16 Metoprolol Tartrate* (Lopressor*) 25 Mg Tab, 25 MG PO BID, #60 TAB 11/13/16 Digoxin* (Digitek*) 125 Mcg Tablet, 0.125 MG PO DAILY, TAB 11/13/16 Colchicine* (Colcrys*) 0.6 Mg Tablet, 0.6 MG PO DAILY, TAB 11/13/16 Discontinued Scripts Hydrocodone/Acetaminophen ([place] 5-325 Tablet) 1 Each Tablet, 1 TAB PO Q6H Y for PAIN, #10 TAB Prov:MIGEL PETTIT MD 03/21/17 Hydrocodone/Acetaminophen ([place] 5-325 Tablet) 1 Each Tablet, 1 TAB PO Q6H Y for PAIN, #7 TAB Prov:MACIEL CAM PA-C 01/13/17 Allergies Allergies: Coded Allergies: No Known Drug Allergies (Verified Allergy, Unknown, 03/21/17) PMhx/Soc Super morbid obesity, hypertension, atrial fibrillation, CHF History of Surgery: No Anesthesia Reaction: No Hx Neurological Disorder: No Hx Respiratory Disorders: No Hx Cardiac Disorders: No Hx Psychiatric Problems: No Hx Miscellaneous Medical Probl: No Hx Alcohol Use: No Hx Substance Use: No Hx Tobacco Use: No Smoking Status: Never smoker FmHx Positive for diabetes Family History: diabetes Physical Exam Vitals Vital Signs Date Time Temp Pulse Resp B/P Pulse Ox O2 Delivery O2 Flow Rate FiO2 05/01/17 14:25 98.8 88 21 119/85 97 Physical Exam GENERAL: Well-developed, well-nourished, well-hydrated, in no apparent distress , looks nontoxic in appearance HEENT: Moist mucous membranes, pink conjunctiva, no cervical spine tenderness or step-off deformities, no goiter, no jaundice or icterus, extraocular movements intact without pain. No submandibular induration, and no pharyngeal erythema NEURO: Alert and oriented 3, cranial nerves II through XII intact bilaterally, pupils equal round reactive to light, no focal deficits or facial asymmetry, sensation intact distally Strength 5/5 in upper and lower extremities bilaterally CARDIAC: Regular rate and rhythm, no murmurs rubs or gallops LUNGS: Clear bilaterally no wheezing crackles or stridor ABDOMEN: Soft nontender, no guarding, no rigidity, no rebound, no psoas sign no obturator sign. Normoactive bowel sounds SKIN: Warm and dry to touch, no abrasions, contusions, or hematomas, no lacerations, no ecchymosis, no target lesions, and without ulcers EXTREMITIES: No clubbing cyanosis or edema, calves are bilaterally symmetrical, no Homans sign, no popliteal cord sign. Distal pulses equal and bilateral PSYCH: Normal affect without agitation or irritability Result Diagram: 05/01/17 1500 05/01/17 1500 Results 24 hrs Laboratory Tests Test 05/01/17 15:00 White Blood Count 9.410^3/ul Red Blood Count 5.0710^6/ul Hemoglobin 14.7g/dl Hematocrit 43.2% Mean Corpuscular Volume 85.2fl Mean Corpuscular Hemoglobin 29.0pg Mean Corpuscular Hemoglobin Concent 34.0g/dl Red Cell Distribution Width 13.7% Platelet Count 80658^3/UL Mean Platelet Volume 11.2fl Neutrophils % 72.1% Lymphocytes % 18.9% Monocytes % 7.8% Eosinophils % 0.6% Basophils % 0.4% Nucleated Red Blood Cells % 0.0/100WBC Neutrophils # 6.810^3/ul Lymphocytes # 1.810^3/ul Monocytes # 0.710^3/ul Eosinophils # 0.110^3/ul Basophils # 0.010^3/ul Nucleated Red Blood Cells # 0.010^3/ul Sodium Level 137mmol/L Potassium Level 4.3mmol/L Chloride Level 97mmol/L Carbon Dioxide Level 27mmol/L Anion Gap 17 Blood Urea Nitrogen 19mg/dl Creatinine 0.94mg/dl Glucose Level 377mg/dl Calcium Level 8.5mg/dl Total Bilirubin 0.6mg/dl Direct Bilirubin 0.00mg/dl Indirect Bilirubin 0.6mg/dl Aspartate Amino Transf (AST/SGOT) 27IU/L Alanine Aminotransferase (ALT/SGPT) 52IU/L Alkaline Phosphatase 118IU/L Troponin I < 0.012ng/ml B-Type Natriuretic Peptide 65PG/ML Total Protein 7.2g/dl Albumin 3.8g/dl Globulin 3.40g/dl Albumin/Globulin Ratio 1.11 Lipase 57U/L Current Medications Medications (Trade) Dose Ordered Sig/Mera Route PRN Reason Start Time Stop Time Status Last Admin Dose Admin Ketorolac Tromethamine (Toradol) 15 mg ONCE STAT IV 05/01/17 14:33 05/01/17 14:38 DC 05/01/17 15:10 Furosemide (Lasix) 60 mg ONCE ONCE IV 05/01/17 15:00 05/01/17 15:01 DC 05/01/17 15:13 Procedures/[facility] IV line was established 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 Patient was afebrile EKG performed, read by me reveals a normal sinus rhythm at 85 bpm, normal axis, right ventricular conduction delay with incarceration of 160 ms, no concerning ST elevations or depressions noted. Chest X-ray 1V Interpreted by me: Soft Tissue: No acute abnormalities Bones: No acute abnormalities Mediastinum/Cardiac Silhouette/Lungs: No acute abnormalities X-ray left foot 3V Interpreted by me: Bones: Positive arthritic changes and bony heel spurs to the calcaneus Joints: No dislocation Foreign body: None X-ray left ankle 3V Interpreted by me: Bones: Arthritic changes noted although no acute fracture Joints: No dislocation CBC and electrolytes were normal, liver function tests were normal, troponin was negative, BNP was low. For his initial complaints I administered furosemide 60 mg IV 1 as well as Toradol 15 mg IV 1 with good pain control. Foot and ankle were splinted using a soft splint and Markus last bandage for comfort and supportive measures. Patient is fully weightbearing and does not require ambulating crutches or other assistive devices. Patient has no signs and and is without complaints of chest pain, he looks well and will otherwise be managed as an outpatient. Differential diagnoses considered, included but not limited to acute coronary syndrome, pulmonary embolism, aortic dissection, abdominal aortic aneurysm, sepsis, stroke, meningitis, encephalitis, pneumonia, appendicitis, cholecystitis , bowel obstruction, pyelonephritis, nephrolithiasis, cystitis, as well as metabolic, hematologic, and electrolyte abnormalities. As well as abscess, cellulitis, fractures, and dislocations. Patient feels much better at this time, and vital signs are normal, symptoms have improved. I did give strict instructions to return to the ED if symptoms continue or worsen, patient will otherwise follow-up with primary care physician. Patient understood instructions and agreed to plan. Disclaimer: Inadvertent spelling and grammatical errors are likely due to EHR/ dictation software use and do not reflect on the overall quality of patient care. Also, please note that the electronic time recorded on this note does not necessarily reflect the actual time of the patient encounter. Departure Diagnosis: Primary Impression: Morbid obesity Additional Impressions: Osteoarthritis Osteoarthritis location: ankle Osteoarthritis type: primary Laterality: left Qualified Code: M19.072 - Primary osteoarthritis of left ankle Heel spur Laterality: left Qualified Code: M77.32 - Calcaneal spur of left foot JANI MACIAS MD May 01, 2017 15:38
--- NOTE | 2017-05-01 15:44 | RADRPT ---
PROCEDURE: XR Foot. CLINICAL INDICATION: Pain TECHNIQUE: AP, lateral and oblique views of the left foot was obtained. The images were reviewed on a PACS workstation. COMPARISON: None. FINDINGS: Three views of the left foot demonstrate no displaced fracture. No gross malalignment is seen. The re is no significant degenerative change. There are posterior inferior calcaneal spurs. Talar beakin g is seen which may suggest tarsal coalition. Bones are normally mineralized. Soft tissues are unre markable. IMPRESSION: No acute fracture dislocation. 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
--- NOTE | 2017-05-01 15:49 | RADRPT ---
PROCEDURE: XR Ankle. CLINICAL INDICATION: Pain. TECHNIQUE: AP, lateral, and oblique views of the left ankle were performed. COMPARISON: None. FINDINGS: Moderate to severe osteoarthritic changes of the mortise joint with sclerosis and osteophytes is not ed. . There is diffuse soft tissue swelling. No acute fracture, dislocation osteolytic lesion. There is a benign appearing lucent lesion seen in the anterior calcaneus. IMPRESSION: 1. Moderate to severe osteoarthritis of the mortise joint with diffuse soft tissue swelling. 2. No acute fracture or dislocation. 3. Benign appearing 1.7 cm lucent lesion in the anterior calcaneus.. RPTAT: GG .Wali Valadez MD, MD Date Time Electronically viewed and signed by .Wali Valadez MD, on 05/01/2017 15:49 .L/
[2017-05-01 15:57] LABS: TROPONIN-I < 0.012 ng/ml (0.00-0.12)
[2017-05-01] MEDS ORDERED: MELO-216 PO (16:40)
== END 2017-05-01 17:07 | disposition home or self-care (01) ==
LOC: E/R 14:21
DX: E66.01 Morbid (severe) obesity due to excess calories (principal); M19.072 Primary osteoarthritis, left ankle and foot; M77.32 Calcaneal spur, left foot; I10 Essential (primary) hypertension; I50.9 Heart failure, unspecified; Z79.4 Long term (current) use of insulin; Z79.82 Long term (current) use of aspirin
CPT/HCPCS: 36415; 71010; 73610; 73630; 80053; 83690; 83880; 84484; 85025; 96374; 96375; J1885; J1940; Z7502; 93005

== ENCOUNTER 2017-05-25 20:25 | Inpatient (IN) | payer OTHER ==
[~2017-05-25] VITALS: Ht 180.3 cm; Wt 165.7 kg
[~2017-05-25 20:25] MED LIST changes: -HYDR-906 PO; +MELO-216 PO; -NIT4 SL; +NITR0.4T39 SL
[2017-05-25] MEDS ORDERED: SOD CHLORIDE 0.9% 1,000 ML IV STA ×2 (20:37→22:43)
[2017-05-25] MEDS ORDERED: LACTATED RINGER'S 1,000 ML IV STA (20:37)
[2017-05-25] MEDS ORDERED: INSU100I27 SQ (21:24)
[2017-05-25 21:35] LABS: ADD UMIC NO; UR ASCORBIC ACID NEGATIVE (NEGATIVE); UR BILIRUBIN (Dip) NEGATIVE (NEGATIVE); UR BLOOD (Dip) NEGATIVE (NEGATIVE); UR CLARITY CLEAR (CLEAR); UR COLOR COLORLESS (YELLOW); UR GLUCOSE (Dip) 3+ mg/dL (NEGATIVE); UR KETONES (Dip) NEGATIVE (NEGATIVE); UR LEUKOCYTE ESTERASE (Dip) NEGATIVE Leu/ul (NEGATIVE); UR NITRITE (Dip) NEGATIVE (NEGATIVE); UR SPECIFIC GRAVITY (Dip) 1.023 (1.003-1.030); UR TOTAL PROTEIN (Dip) NEGATIVE (NEGATIVE); UR UROBILINOGEN (Dip) NEGATIVE (NEGATIVE)
[2017-05-25 21:47] LABS: BASOPHIL # 0.1 10^3/ul (0.0-0.1); BASOPHILS % 0.7 % (0.0-2.0); EOSINOPHILS # 0.1 10^3/ul (0.0-0.5); EOSINOPHILS % 1.1 % (0.0-7.0); HEMATOCRIT 41.5 % (42.0-52.0); HEMOGLOBIN 14.3 g/dl (14.0-18.0); LYMPHOCYTES # 2.1 10^3/ul (0.8-2.9); LYMPHOCYTES % 29.2 % (15.0-51.0); MEAN CORPUSCULAR HEMOGLOBIN 29.4 pg (29.0-33.0); MEAN CORPUSCULAR HGB CONC 34.5 g/dl (32.0-37.0); MEAN CORPUSCULAR VOLUME 85.2 fl (82.0-101.0); MEAN PLATELET VOLUME 11.7 fl (7.4-10.4); MONOCYTE # 0.4 10^3/ul (0.3-0.9); MONOCYTES % 5.8 % (0.0-11.0); NEUTROPHIL # 4.5 10^3/ul (1.6-7.5); NEUTROPHILS % 63.1 % (39.0-77.0); PLATELET COUNT 197 10^3/UL (140-415); RED BLOOD COUNT 4.87 10^6/ul (4.70-6.10); RED CELL DISTRIBUTION WIDTH 13.4 % (11.5-14.5); WHITE BLOOD COUNT 7.2 10^3/ul (4.8-10.8)
[2017-05-25 22:01] LABS: CALCIUM 8.9 mg/dl (8.4-10.2); CREATININE 0.89 mg/dl (0.61-1.24); POTASSIUM 4.7 mmol/L (3.5-5.1)
[2017-05-25] MEDS ORDERED: INSULIN HUMAN REGULAR 100 UNIT in SOD CHLORIDE 0.9% 99 ML IV STA (22:43)
--- NOTE | 2017-05-25 23:14 | RADRPT ---
PROCEDURE: XR Chest. CLINICAL INDICATION: Vomiting. TECHNIQUE: Single frontal view of the chest was obtained COMPARISON: Chest radiograph dated April 03, 2016. FINDINGS: The heart and mediastinum are within normal limits. The lungs are clear. There is no pleural effusion or pneumothorax. The osseous structures are unremarkable. IMPRESSION: 1. No acute cardiopulmonary disease. RPTAT:AAJJ Physician Cynthia Date Time Electronically viewed and signed by Physician Cnythia on 05/25/2017 23:13 QL/
--- NOTE | 2017-05-25 23:19 | ERD ---
ER Documentation Chief Complaint Chief Complaint hyperglycemia, polyuria, headache, dizziness accu check-"hi" HPI 36-year-old male with a history of CHF, hypertension, diabetes on insulin presenting to the ER with 3 days of high blood sugars, polyuria, polydipsia, nausea, abdominal pain, and vomiting. He denies any associated fevers or chills. No associated dysuria. He has been using his insulin as prescribed. He is not sure why his blood sugar has been so high. ROS All systems reviewed and are negative except as per history of present illness. Medications Home Meds Active Scripts Ondansetron (Ondansetron Odt) 8 Mg Tab.rapdis, 8 MG PO Q6H Y for NAUSEA AND/OR VOMITING, #8 TAB Prov:MIGEL PETTIT MD 03/21/17 Pantoprazole* (Pantoprazole*) 40 Mg Tablet.dr, 40 MG PO BID for 28 Days Prov:REILLY KIRAN MD 01/01/17 Dabigatran Etexilate Mesylate* (Pradaxa*) 75 Mg Cap, 75 MG PO BID for 28 Days, # 30 CAP Prov:REILLY KIRAN MD 01/01/17 Meclizine Hcl* (Antivert*) 12.5 Mg Tab, 25 MG PO Q6H Y for DIZZINESS, #20 TAB Prov:HAILY THAO DO 12/04/16 Aspirin (Aspirin) 81 Mg Chew, 81 MG PO DAILY for 28 Days, TAB Prov:REILLY KIRAN MD 11/16/16 Nitroglycerin* (Nitrostat*) 0.4 Mg Tab.subl, 1 TAB SL Q5M Y for ANGINA for 28 Days Prov:REILLY KIRAN MD 11/16/16 Reported Medications Insulin Detemir (Levemir Flextouch) 100 Unit/1 Ml Insuln.pen, 24 UNIT SQ BID 05/25/17 Valsartan* (Diovan*) 80 Mg Tablet, 80 MG PO DAILY, TAB 12/04/16 Insulin Lispro (Humalog) 100 Unit/1 Ml Cartridge, 18 UNIT SQ 12/04/16 Metoprolol Tartrate* (Lopressor*) 25 Mg Tab, 25 MG PO BID, #60 TAB 11/13/16 Digoxin* (Digitek*) 125 Mcg Tablet, 0.125 MG PO DAILY, TAB 11/13/16 Colchicine* (Colcrys*) 0.6 Mg Tablet, 0.6 MG PO DAILY, TAB 11/13/16 Discontinued Scripts Meloxicam (Mobic) 7.5 Mg Tablet, 7.5 MG PO DAILY for PAIN AND/OR INFLAMMATION, # 30 TAB Prov:JANI MACIAS MD 05/01/17 Diphenoxylate HCl/Atropine (Lomotil 2.5-0.025 mg Tablet) 1 Each Tablet, 1 TAB PO QID Y for DIARRHEA, #10 TAB Prov:HAILY THAO DO 12/04/16 Insulin Detemir (Levemir Flextouch) 100 Unit/1 Ml Insuln.pen, 30 UNIT SQ BID for 30 Days Prov:REILLY KIRAN MD 11/16/16 Allergies Allergies: Coded Allergies: No Known Drug Allergies (Verified Allergy, Unknown, 05/25/17) PMhx/Soc History of Surgery: No Anesthesia Reaction: No Hx Neurological Disorder: No Hx Respiratory Disorders: No Hx Cardiac Disorders: Yes (Hypertension, CHF, pulmonary embolism) Hx Psychiatric Problems: No Hx Miscellaneous Medical Probl: Yes (DM) Hx Alcohol Use: No Hx Substance Use: No Hx Tobacco Use: No Smoking Status: Never smoker FmHx Family History: diabetes Physical Exam Vitals Vital Signs Date Time Temp Pulse Resp B/P Pulse Ox O2 Delivery O2 Flow Rate FiO2 05/25/17 22:16 82 16 137/82 99 Room Air 05/25/17 20:27 98.4 86 20 169/93 98 Physical Exam Const: Obese, nontoxic, no distress Head: Atraumatic Eyes: Normal Conjunctiva ENT: Dry mucous membranes Neck: Full range of motion..~ No meningismus. Resp: Clear to auscultation bilaterally Cardio: Regular rate and rhythm, no murmurs Abd: Soft, non tender, non distended. Normal bowel sounds Skin: No petechiae or rashes Back: No midline or flank tenderness Ext: No cyanosis, or edema Neur: Awake and alert, oriented 3, cranial nerves intact. Strength grossly intact Psych: Normal Mood and Affect Result Diagram: 05/25/17213505/25/172135 Results 24 hrs Laboratory Tests Test 05/25/17 21:20 05/25/17 21:36 Urine Color COLORLESS Urine Clarity CLEAR Urine pH 7.0 Urine Specific [place] 1.023 Urine Ketones NEGATIVEmg/dL Urine Nitrite NEGATIVEmg/dL Urine Bilirubin NEGATIVEmg/dL Urine Urobilinogen NEGATIVEmg/dL Urine Leukocyte Esterase NEGATIVELeu/ul Urine Hemoglobin NEGATIVEmg/dL Urine Glucose 3+mg/dL Urine Total Protein NEGATIVEmg/dl White Blood Count 7.210^3/ul Red Blood Count 4.8710^6/ul Hemoglobin 14.3g/dl Hematocrit 41.5% Mean Corpuscular Volume 85.2fl Mean Corpuscular Hemoglobin 29.4pg Mean Corpuscular Hemoglobin Concent 34.5g/dl Red Cell Distribution Width 13.4% Platelet Count 12039^3/UL Mean Platelet Volume 11.7fl Neutrophils % 63.1% Lymphocytes % 29.2% Monocytes % 5.8% Eosinophils % 1.1% Basophils % 0.7% Nucleated Red Blood Cells % 0.0/100WBC Neutrophils # 4.510^3/ul Lymphocytes # 2.110^3/ul Monocytes # 0.410^3/ul Eosinophils # 0.110^3/ul Basophils # 0.110^3/ul Nucleated Red Blood Cells # 0.010^3/ul Sodium Level 129mmol/L Potassium Level 4.7mmol/L Chloride Level 92mmol/L Carbon Dioxide Level 26mmol/L Anion Gap 16 Blood Urea Nitrogen 15mg/dl Creatinine 0.89mg/dl Glucose Level 807mg/dl Calcium Level 8.9mg/dl Current Medications Medications (Trade) Dose Ordered Sig/Mera Route PRN Reason Start Time Stop Time Status Last Admin Dose Admin Sodium Chloride 1,000 ml @ 1,000 mls/hr Q1H STAT IV 05/25/17 20:37 05/25/17 21:36 DC 05/25/17 20:56 Lactated Ringer's 1,000 ml @ 1,000 mls/hr Q1H STAT IV 05/25/17 20:37 05/25/17 21:36 DC 05/25/17 22:18 Sodium Chloride 1,000 ml @ 1,000 mls/hr Q1H STAT IV 05/25/17 22:43 05/25/17 23:42 Insulin Human Regular/Sodium Chloride (Novolin-R/NS) 100 ml @ 0 mls/hr TITRATE STAT IV 05/25/17 22:43 05/25/17 22:46 DC Procedures/[facility] EMERGENT LABS AND DIAGNOSTIC STUDIES: Lab Results above were reviewed and interpreted by me. CBC unremarkable BMP shows pseudohyponatremia and hyperglycemia with a blood sugar of 800 UA shows no ketones, 3+ glucose Radiology Results as interpreted by Radiology below were reviewed by Janet Huynh MD: Chest x-ray shows no acute abnormalities Initial Nursing notes reviewed. Previous Medical Records requested via the Electronic Health Record. EMERGENCY DEPARTMENT COURSE / MEDICAL DECISION MAKING: Patient is presenting with hyperglycemia and the blood sugar in the 800s. Vitals are stable and there is no evidence of severe sepsis or septic shock on my workup. There is no evidence of ketoacidosis. Patient is neurologically intact without any alteration in his mental status. 3 L of IV fluids were given and he was started on insulin drip. I spoke with Dr. Kiran for admission to the ICU. He states that he would like to wait to see if the blood sugar improves within the next hour. He thinks that the patient may be able to go to telemetry. Patient was signed out to , follow-up on the patient's blood sugar. If it is not appropriately improving, he will need admission to the ICU. Otherwise he may go to telemetry with subcu dosing of insulin. Critical Care Time: 35 minutes Treatments/Evaluations: Close monitoring and treatment of unstable vital signs, cardiorespiratory, and neurologic status, while maintaining tight balance of fluid, respiratory, and cardiac interventions. This time includes discussing the case with the patient and the patients family. This time does not include all procedures stated elsewhere in this record. This time also includes reviewing old records, labs and radiological studies. This time includes examining and re-examining the patient. Additionally, this time also includes arranging care with admitting and consulting physicians. Accepting Care Team: Current data and ongoing care discussed. Time: Time of admission Primary Provider: Dr. Reilly Kiran Consulting: none Outstanding Data: none Departure Diagnosis: Primary Impression: Uncontrolled type 2 DM with hyperosmolar nonketotic hyperglycemia Condition: Critical LIONEL HUYNH MD May 25, 2017 23:19
[2017-05-25 23:24] LABS: MAGNESIUM 1.9 mg/dl (1.7-2.5)
[2017-05-26] VITALS (8 sets, daily range): BP systolic 117–134; BP diastolic 58–78; PULSE 69–81; RESP 18–20; TEMP 98.4; Ht 180.3 cm; Wt 165.7 kg
[2017-05-26] MEDS ORDERED: ACETAMINOPHEN 650 MG SUPP PR PRN (05:00)
[2017-05-26] MEDS ORDERED: NITROGLYCERIN (SL) 0.4 MG TAB SL PRN (05:00)
[2017-05-26] MEDS ORDERED: MAGNESIUM HYDROXIDE 30ML CUP PO PRN (05:00)
[2017-05-26] MEDS ORDERED: BISACODYL (EC) 5 MG TAB PO PRN (05:00)
[2017-05-26] MEDS ORDERED: NACL 0.9% 3 ML SYG IV SCH (05:00)
[2017-05-26] MEDS ORDERED: MECLIZINE 25 MG TAB PO PRN (05:00)
[2017-05-26] MEDS ORDERED: DOCUSATE SODIUM 100 MG CAP PO PRN (05:00)
[2017-05-26] MEDS ORDERED: GLUCOSE GEL 15 GRAM TUBE PO PRN ×2 (06:00)
[2017-05-26] MEDS ORDERED: GLUCAGON 1 MG INJ IM PRN (06:00)
[2017-05-26] MEDS ORDERED: GLUCOSE GEL 15 GRAM TUBE BUCCAL PRN (06:00)
[2017-05-26] MEDS ORDERED: DEXTROSE 50% 50 ML SYRINGE IV PRN ×2 (06:00)
[2017-05-26] MEDS: SOD CHLORIDE 0.9% 1,000 ML IV SCH (07:10)
[2017-05-26] MEDS: INSULIN ASPART [NOVOLOG] 3 ML PEN SC SCH ×5 (08:52→20:52)
[2017-05-26] MEDS: PANTOPRAZOLE (EC) 40 MG TAB PO SCH ×2 (08:56→20:48)
[2017-05-26] MEDS: COLCHICINE 0.6 MG TAB PO SCH (08:58)
[2017-05-26] MEDS: VALSARTAN 80 MG TAB PO SCH (08:58)
[2017-05-26] MEDS: DABIGATRAN 75 MG CAP PO SCH ×2 (08:58→20:48)
[2017-05-26] MEDS: ASPIRIN 81 MG TAB PO SCH (08:58)
[2017-05-26] MEDS: METOPROLOL 25 MG TAB PO SCH ×2 (08:59→20:49)
[2017-05-26] MEDS: DIGOXIN 0.125 MG TAB PO SCH (09:00)
[2017-05-26] MEDS ORDERED: INSULIN DETEMIR [LEVEMIR] 3ML CART SC SCH ×3 (09:00→20:00)
[2017-05-26] MEDS ORDERED: INSULIN ASPART [NOVOLOG] 3 ML PEN SC ONE (14:30)
[2017-05-26] MEDS: morphine 2 MG INJ IV PRN ×3 (14:52→22:39)
[2017-05-26] MEDS: ACCU-CHEK XX SCH ×2 (15:00→20:48)
[2017-05-26] MEDS ORDERED: NPH, HUMAN INSULIN ISOPHANE 3ML VIAL SC ONE (15:30)
[2017-05-26 15:46] LABS: CALCIUM 9.1 mg/dl (8.4-10.2); CREATININE 0.76 mg/dl (0.61-1.24); POTASSIUM 4.2 mmol/L (3.5-5.1)
--- NOTE | 2017-05-26 16:05 | HP ---
DATE OF ADMISSION: 05/26/2017 REASON FOR ADMISSION: Elevated blood sugars. HISTORY OF PRESENT ILLNESS: This is a 36-year-old male with a past medical history of diabetes unco ntrolled, morbid obesity, hypertension, hypercholesterolemia, history of AFib for the last 6 years, who was recently admitted on April 2017 secondary to congestive heart failure and at that time angela WATSON, presented to the emergency department after complaining of some nausea, vomiting at home. A ccording to the patient, he was also having some increased thirst, some polyuria and polydipsia. Ac cording to the patient, he had been taking insulin and it was prescribed at home, he says, 30 units Lantus b.i.d. and 18 units t.i.d. with meals Humalog. However, on further questioning, patient said that he has been taking his insulin sometimes and sometimes he does not take it at home. He does n ot take it every day. Then patient said that his last refill he ran out of his medications, he fini shed his medications days ago and is currently not taking any medication for the last 3 to 4 d ays. Patient denied any chest pain, shortness of breath, any hematemesis, any melena, any bright re d per rectum. On arrival to ED, vital signs were blood pressure 136/81, respirations 16, pulse 79, pulse oximetry 99%. Patient had a blood sugar of 595. Patient was given and initially started on insulin drip. However, the insulin had improved to 300 and was transferred to [facility] unit. [facility], the patient denies any nausea or vomiting. A fingerstick is 356. PAST MEDICAL HISTORY: 1. Diabetes, uncontrolled. 2. Hypertension. 3. Atrial fibrillation on chronic Pradaxa. 4. Obesity. ALLERGIES: NONE. PAST SURGICAL HISTORY: NONE. MEDICATIONS: Taking at home: 1. Pradaxa 75 b.i.d. 2. Digoxin 0.125. 3. Metoprolol 25 b.i.d. 4. Valsartan 80. 5. Aspirin 81. 6. [place]. 7. Lomotil. 8. Meclizine. 9. Zofran. 10. Protonix. 11. Levemir 30 b.i.d. 12. Lispro 18 t.i.d. with meals. SOCIAL HISTORY: Denies any history of smoking, alcohol or any drug use. Currently lives with his f ather. Denies any recreational drugs. FAMILY HISTORY: Noncontributory. REVIEW OF SYSTEMS: The patient had some episode of nausea, vomiting. Denied any diarrhea. Denied any headache and the blurry vision. Denied any chest pain. Denied any hematemesis or any melena, a ny bright red per rectum. Denies any focal neurological deficits. PHYSICAL EXAMINATION: VITAL SIGNS: Temperature 97.5, heart rate 72, respirations 20, blood pressure 134/78. GENERAL: The patient is awake, alert, oriented x3, does not appear to be in any acute distress. HEENT: Pupils equal, round, and react to light. NECK: Supple, no JVD. HEART: Regular rate and rhythm. No murmur, rub or gallop. ABDOMEN: Soft, nontender, nondistended. Some pain in the epigastric region. EXTREMITIES: No clubbing, cyanosis or edema. NEUROLOGIC: Nonfocal. DIAGNOSTIC DATA: Shows white count of 7.2, hemoglobin 14.2, platelet count of 197. Sodium of 129, potassium of 4.7, chloride of 92, bicarbonate was 26, BUN of 15 and creatinine of 0.89, glucose was initial 581 and currently is 356, alkaline phosphatase is 4.0. UA was 3+ glucose. ASSESSMENT AND PLAN: This is a 36-year-old male presenting with 1. Diabetes, uncontrolled, likely secondary to noncompliance. The patient initially said that he h as been taking insulin and then he said he only takes insulin once in a while as had been told by [facility] friends not to do so and also he ran out of medications 2 days ago. 2. Morbid obesity. 3. Hyponatremia, likely secondary to #1. 4. Hypertension. 5. Obesity. 6. Dyslipidemia. 7. History of atrial fibrillation, on Pradaxa. PLAN: At this period of time, patient is admitted to [facility]. Patient is already started on Levemir 33 units b.i.d., also started with NovoLog t.i.d. with meals. The patient will also be on insulin sli ding scale, moderate. The patient was explained about the compliance. Patient will be on a diabeti c diet carb-controlled. The rest of the treatment will depend on the patient hospitalization course . Dictated By: TATY ENNIS Conf#: [id number] DID#: [id number]
[2017-05-26] MEDS: ACETAMINOPHEN 325 MG TAB PO PRN (17:38)
[2017-05-26] MEDS ORDERED: INSULIN ASPART [NOVOLOG] 3 ML PEN SC SCH (18:05)
[2017-05-26] MEDS: INSULIN DETEMIR [LEVEMIR] 3ML CART SC SCH (20:52)
[2017-05-27] VITALS (14 sets, daily range): BP systolic 101–133; BP diastolic 49–67; PULSE 58–77; RESP 16–20
[2017-05-27] MEDS: ACETAMINOPHEN 325 MG TAB PO PRN (01:44)
[2017-05-27] MEDS: ACCU-CHEK XX SCH ×4 (01:56→20:15)
[2017-05-27] MEDS ORDERED: ACCU-CHEK XX SCH (02:00)
[2017-05-27] MEDS: morphine 2 MG INJ IV PRN ×5 (02:39→22:32)
[2017-05-27] MEDS: SOD CHLORIDE 0.9% 1,000 ML IV SCH (04:39)
[2017-05-27] MEDS: INSULIN ASPART [NOVOLOG] 3 ML PEN SC SCH ×8 (08:00→20:25)
[2017-05-27] MEDS ORDERED: INSULIN DETEMIR [LEVEMIR] 3ML CART SC SCH (08:00)
[2017-05-27] MEDS: COLCHICINE 0.6 MG TAB PO SCH (08:17)
[2017-05-27] MEDS: PANTOPRAZOLE (EC) 40 MG TAB PO SCH ×2 (08:17→20:18)
[2017-05-27] MEDS: DABIGATRAN 75 MG CAP PO SCH ×2 (08:17→20:18)
[2017-05-27] MEDS: VALSARTAN 80 MG TAB PO SCH (08:18)
[2017-05-27] MEDS: METOPROLOL 25 MG TAB PO SCH ×2 (08:18→20:19)
[2017-05-27] MEDS: DIGOXIN 0.125 MG TAB PO SCH (08:19)
[2017-05-27] MEDS: ASPIRIN 81 MG TAB PO SCH (08:19)
[2017-05-27] MEDS: INSULIN DETEMIR [LEVEMIR] 3ML CART SC SCH ×2 (08:22→20:18)
[2017-05-27] MEDS ORDERED: INSULIN DETEMIR [LEVEMIR] 3ML CART SC ONE (09:00)
[2017-05-27 10:12] LABS: BASOPHIL # 0.1 10^3/ul (0.0-0.1); BASOPHILS % 0.9 % (0.0-2.0); EOSINOPHILS # 0.1 10^3/ul (0.0-0.5); EOSINOPHILS % 1.9 % (0.0-7.0); HEMATOCRIT 41.8 % (42.0-52.0); HEMOGLOBIN 14.7 g/dl (14.0-18.0); LYMPHOCYTES # 2.7 10^3/ul (0.8-2.9); LYMPHOCYTES % 36.8 % (15.0-51.0); MEAN CORPUSCULAR HEMOGLOBIN 29.6 pg (29.0-33.0); MEAN CORPUSCULAR HGB CONC 35.2 g/dl (32.0-37.0); MEAN CORPUSCULAR VOLUME 84.1 fl (82.0-101.0); MEAN PLATELET VOLUME 11.4 fl (7.4-10.4); MONOCYTE # 0.4 10^3/ul (0.3-0.9); MONOCYTES % 5.4 % (0.0-11.0); NEUTROPHILS % 54.7 % (39.0-77.0); PLATELET COUNT 214 10^3/UL (140-415); RED BLOOD COUNT 4.97 10^6/ul (4.70-6.10); WHITE BLOOD COUNT 7.4 10^3/ul (4.8-10.8)
[2017-05-27 10:50] LABS: ALBUMIN 3.5 g/dl (3.3-4.9); BILIRUBIN,INDIRECT 0.4 mg/dl (0-1.1); BILIRUBIN,TOTAL 0.4 mg/dl (0.2-1.3); CALCIUM 8.4 mg/dl (8.4-10.2); CHOL/HDL RATIO 4.1 RATIO; CREATININE 0.72 mg/dl (0.61-1.24); POTASSIUM 3.6 mmol/L (3.5-5.1)
--- NOTE | 2017-05-27 17:50 | PN ---
Date/Time of Note Date/Time of Note DATE: 05/27/17 TIME: 17:46 Assessment/Plan VTE Prophylaxis VTE Prophylaxis Intervention: other Lines/Catheters IV [facility]ter [facility]from [facility]): Saline Lock Urinary Cath still in place: No Assessment/Plan Chief Complaint/Hosp Course raman is a 36-year-old male presenting with 1. Diabetes, uncontrolled, likely secondary to noncompliance. The patient initially said that he has been taking insulin and then he said he only takes insulin once in a while as had been told by the friends not to do so and also he ran out of medications 2 days ago. 2. Morbid obesity. 3. Hyponatremia, likely secondary to #1. 4. Hypertension. 5. Obesity. 6. Dyslipidemia. 7. History of atrial fibrillation, on Pradaxa. Recs - Leivimir increased to 46 bid - Asparate was increased to 20 with ISS - Moderate ISS - DM education - DM diet - c/w MTP - C/W Pradaxa - Appreciate Dr Mac consult Problems: Subjective 24 Hr Interval Summary Free Text/Dictation FS still persistently high FS checked after 2 hrs and insulin increased per Dr Mac Exam/Review of Systems Vital Signs Vitals Vital Signs Date Time Temp Pulse Resp B/P Pulse Ox O2 Delivery O2 Flow Rate FiO2 05/27/17 16:22 77 05/27/17 15:51 98.6 18 133/67 92 05/26/17 03:26 Room Air Intake and Output 05/26/17 05/26/17 05/27/17 15:00 23:00 07:00 Intake Total 300 ml 1480 ml Output Total 550 ml 1500 ml Balance -250 ml -20 ml Exam GENERAL: The patient is awake, alert, oriented x3, does not appear to be in any acute distress.morbidly obese HEENT: Pupils equal, round, and react to light. NECK: Supple, no JVD. HEART: Regular rate and rhythm. No murmur, rub or gallop. ABDOMEN: Soft, nontender, nondistended. Some pain in the epigastric region. EXTREMITIES: No clubbing, cyanosis or edema. NEUROLOGIC: Nonfocal. Results Result Diagram: 05/27/17 0922 05/27/17 0922 Results 24 hrs Laboratory Tests Test 05/26/17 20:46 05/27/17 01:43 05/27/17 08:08 05/27/17 09:22 Bedside Glucose 239 H 286 H 245 H White Blood Count 7.4 Red Blood Count 4.97 Hemoglobin 14.7 Hematocrit 41.8 L Mean Corpuscular Volume 84.1 Mean Corpuscular Hemoglobin 29.6 Mean Corpuscular Hemoglobin Concent 35.2 Red Cell Distribution Width 14.0 Platelet Count 214 Mean Platelet Volume 11.4 H Neutrophils % 54.7 Lymphocytes % 36.8 Monocytes % 5.4 Eosinophils % 1.9 Basophils % 0.9 Nucleated Red Blood Cells % 0.0 Neutrophils # 4.0 Lymphocytes # 2.7 Monocytes # 0.4 Eosinophils # 0.1 Basophils # 0.1 Nucleated Red Blood Cells # 0.0 Sodium Level 137 Potassium Level 3.6 Chloride Level 98 Carbon Dioxide Level 26 Anion Gap 17 H Blood Urea Nitrogen 10 Creatinine 0.72 Glucose Level 292 H Hemoglobin A1c 12.5 H Calcium Level 8.4 Total Bilirubin 0.4 Direct Bilirubin 0.00 Indirect Bilirubin 0.4 Aspartate Amino Transf (AST/SGOT) 42 Alanine Aminotransferase (ALT/SGPT) 53 Alkaline Phosphatase 99 Total Protein 7.0 Albumin 3.5 Globulin 3.50 H Albumin/Globulin Ratio 1.00 Triglycerides Level 119 Cholesterol Level 96 L LDL Cholesterol, Calculated 49 HDL Cholesterol 23 L Cholesterol/HDL Ratio 4.1 Test 05/27/17 10:05 05/27/17 12:35 05/27/17 13:59 05/27/17 16:59 Bedside Glucose 305 H 336 H 298 H 271 H Medications Medications Current Medications Aspirin (Aspirin) 81 mg DAILY PO Last administered on 05/27/17 08:19; Admin Dose 81 MG; Start 05/26/17 at 09:00 Colchicine (Colchicine) 0.6 mg DAILY PO Last administered on 05/27/17 08:17; Admin Dose 0.6 MG; Start 05/26/17 at 09:00 Dabigatran (PRADaxa) 75 mg BID PO Last administered on 05/27/17 08:17; Admin Dose 75 MG; Start 05/26/17 at 09:00 Digoxin (Digoxin) 0.125 mg DAILY PO Last administered on 05/27/17 08:19; Admin Dose 0.125 MG; Start 05/26/17 at 09:00 Meclizine HCl (Antivert) 25 mg Q6H PRN PO DIZZINESS; Start 05/26/17 at 05:00 Metoprolol Tartrate (Lopressor) 25 mg BID PO Last administered on 05/27/17 08 :18; Admin Dose 25 MG; Start 05/26/17 at 09:00 Nitroglycerin (Nitroglycerin (Sl Tab) 0.4 Mg) 1 tab Q5M PRN SL ANGINA; Start 05/26/17 at 05:00 Pantoprazole (Protonix Tab) 40 mg BID PO Last administered on 05/27/17 08:17 ; Admin Dose 40 MG; Start 05/26/17 at 09:00 Valsartan (Diovan) 80 mg DAILY PO Last administered on 05/27/17 08:18; Admin Dose 80 MG; Start 05/26/17 at 09:00 Ondansetron HCl (Zofran Inj) 4 mg Q6H PRN IV NAUSEA AND/OR VOMITING; Start at 05:00 Acetaminophen (Tylenol Tab) 650 mg Q6H PRN PO PAIN LEVEL 1-3 OR FEVER Last administered on 05/27/17 01:44; Admin Dose 650 MG; Start 05/26/17 at 05:00 Acetaminophen (Tylenol Supp) 650 mg Q6H PRN RI PAIN LEVEL 1-3 OR FEVER; Start 05/26/17 at 05:00 Morphine Sulfate (morphine) 2 mg Q4H PRN IV SEVERE PAIN LEVEL 7-10 Last administered on 05/27/17 14:33; Admin Dose 2 MG; Start 05/26/17 at 05:00 Docusate Sodium (Colace) 100 mg Q12H PRN PO CONSTIPATION; Start 05/26/17 at 05 :00 Magnesium Hydroxide (Milk Of Mag) 30 ml DAILY PRN PO CONSTIPATION; Start 05/26 at 05:00 Bisacodyl (Dulcolax) 5 mg DAILY PRN PO CONSTIPATION; Start 05/26/17 at 05:00 Diagnostic Test (Pha) (Accu-Chek) 1 ea 02 XX Last administered on 05/27/17 01 :56; Admin Dose 1 EA; Start 05/27/17 at 02:00 Miscellaneous Information 1 ea NOTE XX ; Start 05/26/17 at 06:00 Glucose (Glutose) 15 gm Q15M PRN PO DECREASED GLUCOSE; Start 05/26/17 at 06:00 Glucose (Glutose) 22.5 gm Q15M PRN PO DECREASED GLUCOSE; Start 05/26/17 at 06: 00 Dextrose (D50w Syringe) 25 ml Q15M PRN IV DECREASED GLUCOSE; Start 05/26/17 at 06:00 Dextrose (D50w Syringe) 50 ml Q15M PRN IV DECREASED GLUCOSE; Start 05/26/17 at 06:00 Glucagon (Glucagen) 1 mg Q15M PRN IM DECREASED GLUCOSE; Start 05/26/17 at 06: 00 Glucose (Glutose) 15 gm Q15M PRN BUCCAL DECREASED GLUCOSE; Start 05/26/17 at 06:00 Insulin Detemir (Levemir) 46 unit BID@08,20 SC ; Start 05/27/17 at 20:00 TATY GOODEN MD May 27, 2017 17:50
[2017-05-27] MEDS: ONDANSETRON 4 MG INJ IV PRN (22:33)
[2017-05-28] VITALS (11 sets, daily range): BP systolic 91–118; BP diastolic 52–72; PULSE 54–72; RESP 18–20
[2017-05-28] MEDS: ACCU-CHEK XX SCH ×4 (02:00→21:04)
[2017-05-28] MEDS: morphine 2 MG INJ IV PRN ×5 (03:00→21:11)
[2017-05-28 08:08] LABS: CALCIUM 8.8 mg/dl (8.4-10.2); CREATININE 0.71 mg/dl (0.61-1.24); POTASSIUM 3.7 mmol/L (3.5-5.1)
[2017-05-28] MEDS: METOPROLOL 25 MG TAB PO SCH ×2 (08:20→21:08)
[2017-05-28] MEDS: DIGOXIN 0.125 MG TAB PO SCH (08:20)
[2017-05-28] MEDS: ASPIRIN 81 MG TAB PO SCH (08:21)
[2017-05-28] MEDS: PANTOPRAZOLE (EC) 40 MG TAB PO SCH ×2 (08:21→21:06)
[2017-05-28] MEDS: COLCHICINE 0.6 MG TAB PO SCH (08:21)
[2017-05-28] MEDS: VALSARTAN 80 MG TAB PO SCH (08:21)
[2017-05-28] MEDS: DABIGATRAN 75 MG CAP PO SCH ×2 (08:21→21:11)
[2017-05-28] MEDS: INSULIN ASPART [NOVOLOG] 3 ML PEN SC SCH ×7 (08:22→21:00)
[2017-05-28] MEDS: INSULIN DETEMIR [LEVEMIR] 3ML CART SC SCH ×2 (08:23→21:06)
[2017-05-28] MEDS ORDERED: INSULIN DETEMIR [LEVEMIR] 3ML CART SC ONE (13:30)
--- NOTE | 2017-05-28 17:23 | PN ---
Date/Time of Note Date/Time of Note DATE: 05/28/17 TIME: 17:21 Assessment/Plan VTE Prophylaxis VTE Prophylaxis Intervention: other Lines/Catheters IV [facility]from [facility]): Saline Lock Urinary Cath still in place: No Assessment/Plan Chief Complaint/Hosp Course is a 36-year-old male presenting with 1. Diabetes, uncontrolled, likely secondary to noncompliance. The patient initially said that he has been taking insulin and then he said he only takes insulin once in a while as had been told by the friends not to do so and also he ran out of medications 2 days ago. Improving but still high 2. Morbid obesity. 3. Hyponatremia, likely secondary to #1. 4. Hypertension. 5. Obesity. 6. Dyslipidemia. 7. History of atrial fibrillation, on Pradaxa. Recs - Leivimir increased to [address] Mac - Asparate was increased to 26 with ISS - Moderate ISS - DM education - DM diet - c/w MTP - C/W Pradaxa - Appreciate Dr aMc consult Problems: Subjective 24 Hr Interval Summary Free Text/Dictation Sugars still persistently high Exam/Review of Systems Vital Signs Vitals Vital Signs Date Time Temp Pulse Resp B/P Pulse Ox O2 Delivery O2 Flow Rate FiO2 05/28/17 16:40 66 05/28/17 16:12 98.1 19 91/56 96 05/26/17 03:26 Room Air Intake and Output 05/27/17 05/27/17 05/28/17 15:00 23:00 07:00 Intake Total 800 ml 700 ml Output Total 600 ml 800 ml Balance 200 ml -100 ml Exam GENERAL: The patient is awake, alert, oriented x3, does not appear to be in any acute distress.morbidly obese HEENT: Pupils equal, round, and react to light. NECK: Supple, no JVD. HEART: Regular rate and rhythm. No murmur, rub or gallop. ABDOMEN: Soft, nontender, nondistended. Some pain in the epigastric region. EXTREMITIES: No clubbing, cyanosis or edema. NEUROLOGIC: Nonfocal Results Result Diagram: 05/27/17 0922 05/28/17 0653 Results 24 hrs Laboratory Tests Test 05/27/17 18:46 05/27/17 20:15 05/27/17 21:42 05/28/17 06:53 Bedside Glucose 167 172 150 Sodium Level 138 Potassium Level 3.7 Chloride Level 100 Carbon Dioxide Level 28 Anion Gap 14 Blood Urea Nitrogen 10 Creatinine 0.71 Glucose Level 222 H Calcium Level 8.8 Test 05/28/17 08:19 05/28/17 10:00 05/28/17 10:47 05/28/17 11:59 Bedside Glucose 215 308 H 324 H 271 H Test 05/28/17 14:13 05/28/17 17:04 Bedside Glucose 267 H 136 Medications Medications Current Medications Aspirin (Aspirin) 81 mg DAILY PO Last administered on 05/28/17 08:21; Admin Dose 81 MG; Start 05/26/17 at 09:00 Colchicine (Colchicine) 0.6 mg DAILY PO Last administered on 05/28/17 08:21; Admin Dose 0.6 MG; Start 05/26/17 at 09:00 Dabigatran (PRADaxa) 75 mg BID PO Last administered on 05/28/17 08:21; Admin Dose 75 MG; Start 05/26/17 at 09:00 Digoxin (Digoxin) 0.125 mg DAILY PO Last administered on 05/28/17 08:20; Admin Dose 0.125 MG; Start 05/26/17 at 09:00 Meclizine HCl (Antivert) 25 mg Q6H PRN PO DIZZINESS; Start 05/26/17 at 05:00 Metoprolol Tartrate (Lopressor) 25 mg BID PO Last administered on 05/28/17 08 :20; Admin Dose 25 MG; Start 05/26/17 at 09:00 Nitroglycerin (Nitroglycerin (Sl Tab) 0.4 Mg) 1 tab Q5M PRN SL ANGINA; Start 05/26/17 at 05:00 Pantoprazole (Protonix Tab) 40 mg BID PO Last administered on 05/28/17 08:21 ; Admin Dose 40 MG; Start 05/26/17 at 09:00 Valsartan (Diovan) 80 mg DAILY PO Last administered on 05/28/17 08:21; Admin Dose 80 MG; Start 05/26/17 at 09:00 Ondansetron HCl (Zofran Inj) 4 mg Q6H PRN IV NAUSEA AND/OR VOMITING Last administered on 05/27/17 22:33; Admin Dose 4 MG; Start 05/26/17 at 05:00 Acetaminophen (Tylenol Tab) 650 mg Q6H PRN PO PAIN LEVEL 1-3 OR FEVER Last administered on 05/27/17 01:44; Admin Dose 650 MG; Start 05/26/17 at 05:00 Acetaminophen (Tylenol Supp) 650 mg Q6H PRN AL PAIN LEVEL 1-3 OR FEVER; Start 05/26/17 at 05:00 Morphine Sulfate (morphine) 2 mg Q4H PRN IV SEVERE PAIN LEVEL 7-10 Last administered on 05/28/17 16:43; Admin Dose 2 MG; Start 05/26/17 at 05:00 Docusate Sodium (Colace) 100 mg Q12H PRN PO CONSTIPATION; Start 05/26/17 at 05 :00 Magnesium Hydroxide (Milk Of Mag) 30 ml DAILY PRN PO CONSTIPATION; Start 05/26 at 05:00 Bisacodyl (Dulcolax) 5 mg DAILY PRN PO CONSTIPATION; Start 05/26/17 at 05:00 Diagnostic Test (Pha) (Accu-Chek) 1 ea 02 XX Last administered on 05/27/17 01 :56; Admin Dose 1 EA; Start 05/27/17 at 02:00 Miscellaneous Information 1 ea NOTE XX ; Start 05/26/17 at 06:00 Glucose (Glutose) 15 gm Q15M PRN PO DECREASED GLUCOSE; Start 05/26/17 at 06:00 Glucose (Glutose) 22.5 gm Q15M PRN PO DECREASED GLUCOSE; Start 05/26/17 at 06: 00 Dextrose (D50w Syringe) 25 ml Q15M PRN IV DECREASED GLUCOSE; Start 05/26/17 at 06:00 Dextrose (D50w Syringe) 50 ml Q15M PRN IV DECREASED GLUCOSE; Start 05/26/17 at 06:00 Glucagon (Glucagen) 1 mg Q15M PRN IM DECREASED GLUCOSE; Start 05/26/17 at 06: 00 Glucose (Glutose) 15 gm Q15M PRN BUCCAL DECREASED GLUCOSE; Start 05/26/17 at 06:00 Insulin Detemir (Levemir) 56 unit BID@08,20 SC ; Start 05/28/17 at 20:00 TATY GOODEN MD May 28, 2017 17:23
[2017-05-29] VITALS (10 sets, daily range): BP systolic 96–117; BP diastolic 51–68; PULSE 55–64; RESP 18–19
[2017-05-29] MEDS: morphine 2 MG INJ IV PRN ×3 (01:39→12:08)
[2017-05-29] MEDS: ACCU-CHEK XX SCH ×3 (01:47→14:00)
[2017-05-29] MEDS: ASPIRIN 81 MG TAB PO SCH (08:20)
[2017-05-29] MEDS: DIGOXIN 0.125 MG TAB PO SCH (08:21)
[2017-05-29] MEDS: COLCHICINE 0.6 MG TAB PO SCH (08:21)
[2017-05-29] MEDS: VALSARTAN 80 MG TAB PO SCH (08:21)
[2017-05-29] MEDS: PANTOPRAZOLE (EC) 40 MG TAB PO SCH (08:22)
[2017-05-29] MEDS: METOPROLOL 25 MG TAB PO SCH (08:22)
[2017-05-29] MEDS: DABIGATRAN 75 MG CAP PO SCH (08:22)
[2017-05-29] MEDS: INSULIN ASPART [NOVOLOG] 3 ML PEN SC SCH ×4 (08:24→12:14)
[2017-05-29] MEDS: INSULIN DETEMIR [LEVEMIR] 3ML CART SC SCH (08:26)
[2017-05-29] MEDS: ONDANSETRON 4 MG INJ IV PRN (09:54)
--- NOTE | 2017-05-29 14:54 | DS ---
Date/Time of Note Date/Time of Note DATE: 05/29/17 TIME: 14:49 Discharge Summary Admission/Discharge Info Admit Date/Time May 26, 2017 at 03:36 Discharge Date/Time Discharge Diagnosis Diabetic ketoacidosis Patient Condition: Stable Consults Dr Schneider, endocrinology Procedures none Hospital Course This is a 36-year-old male with a past medical history of diabetes uncontrolled, morbid obesity, hypertension, hypercholesterolemia, history of AFib for the last 6 years, who was recently admitted on April 2017 secondary to congestive heart failure and at that time left AMA, presented to the emergency department after complaining of some nausea, vomiting at home. According to the patient, he was also having some increased thirst, some polyuria and polydipsia. According to the patient, he had been taking insulin and it was prescribed at home, he says, 30 units Lantus b.i.d. and 18 units t.i.d. with meals Humalog. However, on further questioning, patient said that he has been taking his insulin sometimes and sometimes he does not take it at home. He does not take it every day. Then patient said that his last refill he ran out of his medications, he finished his medications days ago and is currently not taking any medication for the last 3 to 4 days. Patient denied any chest pain, shortness of breath, any hematemesis, any melena, any bright red per rectum. On arrival to ED, vital signs were blood pressure 136/81 , respirations 16, pulse 79, pulse oximetry 99%. Patient had a blood sugar of 595. Patient was initially started on insulin drip. However, the insulin had improved to 300 and was transferred to ERON unit. PAST MEDICAL HISTORY: 1. Diabetes, uncontrolled. Multiple admissions 2. Hypertension. 3. Atrial fibrillation on chronic Pradaxa. 4. Obesity. 5. Noncompliance Dr Schneider was managing patient and adjusted his insulin injections. During hospitalization pt was requesting pain medications over the clock, he was constantly eating, and did not follow the diet. During the hospitalization pt was stabilized, his anion gap was closed, he did not experience any nausea or vomiting. Pt reported before discharge that he does not have any available insulin at home and requested new prescriptions. he also reported that he does not have any PCP, that he tried but they have future appointment in month. Pt had SCD as a DVT prophylaxis, he walked without difficulties went to bathroom and tolerated diet well. Home Meds Active Scripts Metoprolol Tartrate* (Lopressor*) 25 Mg Tab, 25 MG PO BID for 30 Days, TAB Prov:NII MADRID 05/29/17 Pantoprazole* (Pantoprazole*) 40 Mg Tablet.dr, 40 MG PO BID for 30 Days Prov:NII MADRID 05/29/17 Aspirin (Aspirin) 81 Mg Chew, 81 MG PO DAILY for 30 Days, TAB Prov:NII MADRID 05/29/17 [Colchicine] 0.6 MG TAB No Conflict Check, 0.6 MG PO DAILY for 30 Days Prov:NII MADRID 05/29/17 Dabigatran Etexilate Mesylate* (Pradaxa*) 75 Mg Cap, 75 MG PO BID for 30 Days, CAP Prov:NII MADRID 05/29/17 Valsartan* (Diovan*) 80 Mg Tablet, 80 MG PO DAILY for 30 Days, #30 TAB Prov:NII MADRID 05/29/17 Nitroglycerin* (Nitroglycerin* SL) 0.4 Mg Tab.subl, 1 TAB SL Q5M Y for ANGINA for 30 Days Prov:NII MADRID 05/29/17 Meclizine Hcl* (Meclizine Hcl*) 25 Mg Tablet, 25 MG PO Q6H Y for DIZZINESS for 14 Days, TAB Prov:NII MADRID 05/29/17 Digoxin* (Digitek*) 125 Mcg Tablet, 0.125 MG PO DAILY for 30 Days, TAB Prov:NII MADRID 05/29/17 Insulin Aspart* (Novolog Insulin Pen*) 100 Unit/Ml Soln, 26 UNIT SC WITH MEALS for 30 Days Prov:NII MADRID 05/29/17 Insulin Detemir (Levemir Flextouch) 100 Unit/1 Ml Insuln.pen, 56 UNIT SC BID@08, 20 for 30 Days Prov:NII MADRID 05/29/17 Discontinued Reported Medications Insulin Detemir (Levemir Flextouch) 100 Unit/1 Ml Insuln.pen, 24 UNIT SQ BID 05/25/17 Valsartan* (Diovan*) 80 Mg Tablet, 80 MG PO DAILY, TAB 12/04/16 Insulin Lispro (Humalog) 100 Unit/1 Ml Cartridge, 18 UNIT SQ 12/04/16 Metoprolol Tartrate* (Lopressor*) 25 Mg Tab, 25 MG PO BID, #60 TAB 11/13/16 Digoxin* (Digitek*) 125 Mcg Tablet, 0.125 MG PO DAILY, TAB 11/13/16 Colchicine* (Colcrys*) 0.6 Mg Tablet, 0.6 MG PO DAILY, TAB 11/13/16 Discontinued Scripts Ondansetron (Ondansetron Odt) 8 Mg Tab.rapdis, 8 MG PO Q6H Y for NAUSEA AND/OR VOMITING, #8 TAB Prov:MIGEL PETTIT MD 03/21/17 Pantoprazole* (Pantoprazole*) 40 Mg Tablet.dr, 40 MG PO BID for 28 Days Prov:MEHUL KIRAN MD 01/01/17 Dabigatran Etexilate Mesylate* (Pradaxa*) 75 Mg Cap, 75 MG PO BID for 28 Days, # 30 CAP Prov:MEHUL KIRAN MD 01/01/17 Meclizine Hcl* (Antivert*) 12.5 Mg Tab, 25 MG PO Q6H Y for DIZZINESS, #20 TAB Prov:HAILY THAO DO 12/04/16 Aspirin (Aspirin) 81 Mg Chew, 81 MG PO DAILY for 28 Days, TAB Prov:MEHUL KIRAN MD 11/16/16 Nitroglycerin* (Nitrostat*) 0.4 Mg Tab.subl, 1 TAB SL Q5M Y for ANGINA for 28 Days Prov:MEHUL KIRAN MD 11/16/16 Meloxicam (Mobic) 7.5 Mg Tablet, 7.5 MG PO DAILY for PAIN AND/OR INFLAMMATION, # 30 TAB Prov:JANI MACIAS MD 05/01/17 Diphenoxylate HCl/Atropine (Lomotil 2.5-0.025 mg Tablet) 1 Each Tablet, 1 TAB PO QID Y for DIARRHEA, #10 TAB Prov:HAILY THAO DO 12/04/16 Insulin Detemir (Levemir Flextouch) 100 Unit/1 Ml Insuln.pen, 30 UNIT SQ BID for 30 Days Prov:MEHUL KIRAN MD 11/16/16 Follow-up Plan PCP 1 week Primary Care Provider Care Physician No Primary Time spent on discharge: < 30 minutes Pending Labs Laboratory Tests Test 05/28/17 17:04 05/28/17 19:56 05/29/17 08:16 05/29/17 09:49 Bedside Glucose 136mg/dL (70-220) 116mg/dL (70-220) 186mg/dL (70-220) 153mg/dL (70-220) Test 05/29/17 12:06 05/29/17 14:28 Bedside Glucose 257mg/dL (70-220) 168mg/dL (70-220) NII MADRID May 29, 2017 14:54
--- NOTE | 2017-05-29 14:56 | PDOCDIS ---
Discharge Instructions DIAGNOSIS Discharge Diagnosis Diabetic ketoacidosis CONDITION Patient Condition: Stable HOME CARE INSTRUCTIONS: Special Diet: cardiac diet ACTIVITY: Activity Restrictions: Slowly Increase Activity Bathing Restrictions: Shower FOLLOW UP/APPOINTMENTS Follow-up Plan PCP 1 week SCHOOL/WORK RELEASE May return to School/Work with: No Restrictions NII MADRID May 29, 2017 14:55
[2017-05-29] MEDS ORDERED: DABI75CA2 PO (15:03)
[2017-05-29] MEDS ORDERED: METO-448 PO (15:03)
[2017-05-29] MEDS ORDERED: VALS80TA2 PO (15:03)
[2017-05-29] MEDS ORDERED: MECL-77 PO (15:03)
[2017-05-29] MEDS ORDERED: DIGO125T PO (15:03)
[2017-05-29] MEDS ORDERED: PANT40TA4 PO (15:03)
[2017-05-29] MEDS ORDERED: Colchicine PO (15:03)
[2017-05-29] MEDS ORDERED: INSU100I27 SC (15:03)
[2017-05-29] MEDS ORDERED: ASPI81TA3 PO (15:03)
[2017-05-29] MEDS ORDERED: NOVO3I SC (15:03)
[2017-05-29] MEDS ORDERED: NITR0.4T32 SL (15:03)
[2017-05-29] MEDS ORDERED: INSULIN ASPART [NOVOLOG] 3 ML PEN SC SCH (18:05)
[2017-05-29] MEDS ORDERED: INSULIN DETEMIR [LEVEMIR] 3ML CART SC SCH (20:00)
== END 2017-05-29 17:06 | disposition home or self-care (01) | DRG 638 ==
LOC: E/R 20:25 → MS4 05-26 03:36
PROVIDERS: ADMIT Internal Medicine Nephrology; ATTEND Internal Medicine Nephrology
DX: E11.10 Type 2 diabetes mellitus with ketoacidosis without coma (principal); Z68.43 Body mass index [BMI] 50.0-59.9, adult; I11.0 Hypertensive heart disease with heart failure; I50.9 Heart failure, unspecified; E87.1 Hypo-osmolality and hyponatremia; E66.01 Morbid (severe) obesity due to excess calories; Z71.3 Dietary counseling and surveillance; E78.00 Pure hypercholesterolemia, unspecified; I48.91 Unspecified atrial fibrillation; E11.9 Type 2 diabetes mellitus without complications; Z79.01 Long term (current) use of anticoagulants; E78.5 Hyperlipidemia, unspecified; Z91.14 Patient's other noncompliance with medication regimen
CPT/HCPCS: 71010; 80048; 80053; 80061; 81003; 82962; 83036; 83735; 84100; 85025; 96374; J1815; J2270; J2405; J7030; J7120

== ENCOUNTER 2017-06-08 22:10 | Inpatient (IN) | END 2017-06-11 17:35 | disposition home or self-care (01) | DRG 309 ==

== ENCOUNTER 2017-06-25 21:57 | Emergency (ER) | END 2017-06-26 03:37 | disposition home or self-care (01) ==

== ENCOUNTER 2017-07-01 21:48 | Inpatient (IN) | END 2017-07-03 18:35 | disposition home or self-care (01) | DRG 309 ==

== ENCOUNTER 2017-07-22 19:43 | Inpatient (IN) | END 2017-07-24 17:51 | disposition left against medical advice (07) | DRG 309 ==

== ENCOUNTER 2017-07-31 18:17 | Observation (INO) | END 2017-08-01 07:23 | disposition left against medical advice (07) ==

== ENCOUNTER 2017-09-05 13:42 | Inpatient (IN) | END 2017-09-12 15:00 | disposition left against medical advice (07) | DRG 312 ==

== ENCOUNTER 2017-09-24 02:22 | Inpatient (IN) | END 2017-09-26 18:30 | disposition home or self-care (01) | DRG 313 ==

== ENCOUNTER 2017-10-17 13:37 | Inpatient (IN) | END 2017-10-18 09:30 | disposition left against medical advice (07) | DRG 309 ==

== ENCOUNTER 2017-12-22 05:42 | Observation (INO) | END 2017-12-22 14:40 | disposition left against medical advice (07) ==

== ENCOUNTER 2018-01-17 23:24 | Emergency (ER) | END 2018-01-18 02:58 | disposition home or self-care (01) ==

== ENCOUNTER 2018-01-27 09:39 | Inpatient (IN) | END 2018-01-29 19:20 | disposition home or self-care (01) | DRG 287 ==

== ENCOUNTER 2018-02-02 17:24 | Observation (INO) | END 2018-02-03 14:05 | disposition home or self-care (01) ==

== ENCOUNTER 2018-02-10 14:35 | Emergency (ER) | END 2018-02-10 16:30 | disposition home or self-care (01) ==

== ENCOUNTER 2018-03-19 16:47 | Emergency (ER) | END 2018-03-19 17:43 | disposition home or self-care (01) ==

== ENCOUNTER 2018-03-29 15:07 | Observation (INO) | END 2018-03-30 16:30 | disposition home or self-care (01) ==

== ENCOUNTER 2018-04-05 13:35 | Emergency (ER) | END 2018-04-05 20:45 | disposition home or self-care (01) ==

== ENCOUNTER → 2018-05-25 | Emergency (ER) | END | disposition home or self-care (01) ==

== ENCOUNTER 2018-05-28 11:13 | Emergency (ER) | END 2018-05-28 14:54 | disposition home or self-care (01) ==

== ENCOUNTER 2018-06-22 22:52 | Emergency (ER) | payer SELFPAY ==
[~2018-06-22 22:52] MED LIST changes: +ACYC800T5 PO; +ALLO100T PO; +AMIO200T4 PO; +ASPI-817 PO; -ASPI81TA3 PO; +ATOR20TA38 PO; +CARSR60 PO; +CARV25TA79 PO; +CELE100C PO; -COLC0.6T6 PO; +DABI150C PO; -DABI75CA2 PO; -DIPH1TAB PO; +HYDR-4011 PO; -INSU100C SQ; +INSU100I12 SQ; -INSU100I27 SQ; +INSU100I33 SC; +ISOS10TA2 PO; +LOSA50TA14 PO; -MECL12.574 PO; -MELO-216 PO; -NITR0.4T39 SL; -ONDA8TAB14 PO; -PANT40TA4 PO; +SITA100T11 PO; +TRAM50TA2 PO; -VALS80TA2 PO
[2018-07-10] MEDS ORDERED: INSU100I33 SC (16:51)
== END 2018-06-22 23:00 | disposition left against medical advice (07) ==
LOC: FTE 22:52
DX: Z53.21 Procedure and treatment not carried out due to patient leaving prior to being seen by health care provider (principal)

== ENCOUNTER 2018-08-10 07:40 | Emergency (ER) | payer OTHER ==
[~2018-08-10] VITALS: Ht 182.9 cm; Wt 168.7 kg
[~2018-08-10 07:40] MED LIST changes: -ACYC800T5 PO; -ALLO100T PO; -CELE100C PO; -HYDR-4011 PO; -ISOS10TA2 PO; -METO-448 PO; -TRAM50TA2 PO
[2018-08-10 07:42] VITALS: Ht 182.9 cm; Wt 168.7 kg
[2018-08-10] MEDS ORDERED: PANT40TA3 PO (08:26)
[2018-08-10] MEDS ORDERED: LIDOCAINE/MYLANTA 40 ML BTL PO ONE (08:30)
[2018-08-10] MEDS ORDERED: PANTOPRAZOLE (EC) 40 MG TAB PO ONE (08:30)
[2018-08-10 09:46] VITALS: BP 139/78; PULSE 65; RESP 16
--- NOTE | 2018-08-10 09:48 | ERD ---
ER Documentation Chief Complaint Chief Complaint abd pain x 2 weeks , vomiting blood HPI Patient is a 38-year-old male with hypertension and diabetes who presents with abdominal pain. He said that he has had 2 weeks of upper abdominal pain. He was given medications by [facility] but does not know what they were. He said that he has been vomiting dark blood. He tried [place] for pain. He has not called his primary doctor today as of yet. Upon review of old medical records the patient has multiple visits to our ER. Review of the emergency department information exchange system shows 36 visits to 8 separate emergency departments over the past 12 months. The patient's primary doctor is Dr. Yisel Howard. ROS All systems reviewed and are negative except as per history of present illness. Medications Home Meds Active Scripts Pantoprazole* (Protonix*) 40 Mg Tablet., 40 MG PO DAILY, #20 TAB Prov:VAUGHN COMBS MD 08/10/18 Reported Medications Insulin Glargine,Hum.rec.anlog (Basaglar Kwikpen U-100) 100 Unit/1 Ml Insuln.pen, 90 UNIT SC QHS, EA 07/10/18 Atorvastatin Calcium* (Atorvastatin Calcium*) 20 Mg Tablet, 20 MG PO QHS, #30 TAB 02/10/18 Carvedilol* (Carvedilol*) 25 Mg Tablet, 25 MG PO BID, #60 TAB 02/10/18 Diltiazem Hcl* (Cardizem SR*) 60 Mg Capsr, 60 MG PO Q12, #60 CAP 02/10/18 Losartan Potassium* (Losartan Potassium*) 50 Mg Tablet, 50 MG PO DAILY, TAB 02/10/18 Dabigatran Etexilate Mesylate* (Pradaxa*) 150 Mg Capsule, 150 MG PO BID, CAP 10/21/17 Amiodarone Hcl* (Amiodarone Hcl*) 200 Mg Tablet, 200 MG PO DAILY, #30 TAB 10/21/17 Sitagliptin* (Januvia*) 100 Mg Tablet, 100 MG PO DAILY, #30 TAB 09/03/17 Insulin Lispro (Humalog Kwikpen U-100) 100 Unit/1 Ml Insuln.pen, 20 UNIT SQ TID, EA 07/22/17 Aspirin* (Aspirin* EC) 81 Mg Tablet., 81 MG PO DAILY, TAB 07/01/17 Digoxin* (Digitek*) 125 Mcg Tablet, 0.125 MG PO DAILY, TAB 07/01/17 Allergies Allergies: Coded Allergies: No Known Drug Allergies (Unverified Allergy, Unknown, 07/10/18) PMhx/Soc History of Surgery: No Anesthesia Reaction: No Hx Neurological Disorder: Yes (Pt states seizure 26 y/o) Hx Respiratory Disorders: Yes (Pt states PE) Hx Cardiac Disorders: Yes (HTN, A-fib, CHF, AF RVR, frequent CP) Hx Psychiatric Problems: No Hx Miscellaneous Medical Probl: Yes (DM) Hx Alcohol Use: No Hx Substance Use: No Hx Tobacco Use: No Smoking Status: Never smoker FmHx Family History: diabetes Physical Exam Vitals Vital Signs Date Temp Pulse Resp B/P (MAP) Pulse Ox O2 O2 Flow FiO2 Time Delivery Rate 08/10/18 98.4 70 18 159/101 99 07:42 (120) Physical Exam Const: No acute distress Head: Atraumatic Eyes: Normal Conjunctiva ENT: Normal External Ears, Nose and Mouth. Neck: Full range of motion. No meningismus. Resp: Clear to auscultation bilaterally Cardio: Regular rate and rhythm, no murmurs Abd: Soft, epigastric tenderness to palpation without rebound or guarding Skin: No petechiae or rashes Back: No midline or flank tenderness Ext: No cyanosis, or edema Neur: Awake and alert Psych: Normal Mood and Affect Results 24 hrs Current Medications Medications Dose Sig/Mera Start Time Status Last (Trade) Ordered Route PRN Stop Time Admin Dose Reason Admin 40 mg ONCE ONCE 08/10/18 DC 08/10/18 Pantoprazole PO 08:30 08/10/18 08:27 (Protonix 08:31 Tab) 40 ml ONCE ONCE 08/10/18 DC 08/10/18 Miscellaneous PO 08:30 08/10/18 08:26 Medication 08:31 (Gi Cocktail (2)) Procedures/MDM Patient is a 38-year-old male presents with abdominal pain and vomiting. Vital signs are normal in the emergency department. He has frequent visits for similar. The patient was given GI cocktail and Protonix. The patient will be discharged. I do not believe he requires further workup or admission in the hospital at this time. However the patient will need close follow-up with a primary doctor within 24-48 hours. Patient understands the plan and is okay for discharge at this time. Departure Diagnosis: Primary Impression: Vomiting Vomiting type: unspecified Vomiting Intractability: non-intractable Nausea presence: with nausea Qualified Codes: R11.2 - Nausea with vomiting, unspecified Additional Impression: Abdominal pain Abdominal location: epigastric Qualified Codes: R10.13 - Epigastric pain Condition: Fair Patient Instructions: Abdominal Pain, Vomiting (6Y-Adult) Referrals: Dr. Howard Additional Instructions: Call your primary care doctor TOMORROW for an appointment during the next 1-2 days.See the doctor sooner or return here if your condition worsens before your appointment time. VAUGHN COMBS MD Aug 10, 2018 09:48
== END 2018-08-10 09:46 | disposition home or self-care (01) ==
LOC: E/R 07:40
DX: R11.2 Nausea with vomiting, unspecified (principal); R10.13 Epigastric pain; I11.0 Hypertensive heart disease with heart failure; I50.9 Heart failure, unspecified; E11.9 Type 2 diabetes mellitus without complications; Z79.4 Long term (current) use of insulin; Z79.82 Long term (current) use of aspirin
CPT/HCPCS: Z7502; Z7610; 99283

== ENCOUNTER 2018-09-03 23:09 | Emergency (ER) | payer OTHER ==
[~2018-09-03] VITALS: Wt 166.9 kg
[~2018-09-03 23:09] MED LIST changes: +PANT40TA3 PO
[2018-09-04] MEDS ORDERED: ASPIRIN 81 MG TAB PO ONE (01:00)
[2018-09-04] MEDS ORDERED: OXYCODONE/ACETAMINOPHEN (5/325) TAB PO ONE (01:00)
[2018-09-04] MEDS ORDERED: INSULIN LISPRO 100 UNIT/ML VIAL SC ONE ×2 (01:00→03:00)
[2018-09-04] MEDS ORDERED: DILTIAZEM 25 MG INJ IV ONE ×2 (01:00→02:00)
--- NOTE | 2018-09-04 02:42 | ERD ---
ER Documentation Chief Complaint Chief Complaint CP, PALPITATIONS X'S [address] HPI 38-year-old man with a long history of drug abuse including methamphetamines, hypertension, obesity, CHF, and poorly controlled atrial fibrillation presents with palpitations. He is noncompliant with his medications. He denies fevers or chills, no loss of consciousness, no headache or blurry vision. Chest pain has been sharp, nonradiating and non-exertional ROS All systems reviewed and are negative except as per history of present illness. Medications Home Meds Active Scripts Pantoprazole* (Protonix*) 40 Mg Tablet., 40 MG PO DAILY, #20 TAB Prov:VAUGHN COMBS MD 08/10/18 Reported Medications Insulin Glargine,Hum.rec.anlog (Basaglar Kwikpen U-100) 100 Unit/1 Ml Insuln.pen, 90 UNIT SC QHS, EA 07/10/18 Atorvastatin Calcium* (Atorvastatin Calcium*) 20 Mg Tablet, 20 MG PO QHS, #30 TAB 02/10/18 Carvedilol* (Carvedilol*) 25 Mg Tablet, 25 MG PO BID, #60 TAB 02/10/18 Diltiazem Hcl* (Cardizem SR*) 60 Mg Capsr, 60 MG PO Q12, #60 CAP 02/10/18 Losartan Potassium* (Losartan Potassium*) 50 Mg Tablet, 50 MG PO DAILY, TAB 02/10/18 Dabigatran Etexilate Mesylate* (Pradaxa*) 150 Mg Capsule, 150 MG PO BID, CAP 10/21/17 Amiodarone Hcl* (Amiodarone Hcl*) 200 Mg Tablet, 200 MG PO DAILY, #30 TAB 10/21/17 Sitagliptin* (Januvia*) 100 Mg Tablet, 100 MG PO DAILY, #30 TAB 09/03/17 Insulin Lispro (Humalog Kwikpen U-100) 100 Unit/1 Ml Insuln.pen, 20 UNIT SQ TID, EA 07/22/17 Aspirin* (Aspirin* EC) 81 Mg Tablet.dr, 81 MG PO DAILY, TAB 07/01/17 Digoxin* (Digitek*) 125 Mcg Tablet, 0.125 MG PO DAILY, TAB 07/01/17 Allergies Allergies: Coded Allergies: No Known Drug Allergies (Unverified Allergy, Unknown, 07/10/18) PMhx/Soc Morbid obesity, hypertension, diabetes mellitus, CHF, atrial fibrillation poorly controlled, history of drug abuse and methamphetamine abuse History of Surgery: No Anesthesia Reaction: No Hx Neurological Disorder: Yes (Pt states seizure 26 y/o) Hx Respiratory Disorders: Yes (Pt states PE) Hx Cardiac Disorders: Yes (HTN, A-fib, CHF, AF RVR, frequent CP) Hx Psychiatric Problems: No Hx Miscellaneous Medical Probl: Yes (DM) Hx Alcohol Use: No Hx Substance Use: No Hx Tobacco Use: No Smoking Status: Never smoker FmHx Family History: diabetes Physical Exam Vitals Vital Signs Date Temp Pulse Resp B/P (MAP) Pulse Ox O2 O2 Flow FiO2 Time Delivery Rate 09/04/18 98.4 116 13 112/80 98 Room Air 04:15 (91) 09/04/18 98.4 119 13 153/82 96 Room Air 03:00 (105) 09/04/18 98.4 147 13 114/84 98 Room Air 01:00 (94) 09/03/18 98.4 138 18 140/86 96 Room Air 23:43 (104) 09/03/18 98.4 130 18 140/86 96 23:24 (104) Physical Exam Const: No acute distress, afebrile Head: Atraumatic Eyes: Normal Conjunctiva ENT: Normal External Ears, Nose and Mouth. Neck: Full range of motion. No meningismus. Resp: Clear to auscultation bilaterally Cardio: Tachycardic and regular, no murmurs Abd: Soft, non tender, non distended. Skin: No petechiae or rashes Back: No midline or flank tenderness Ext: No cyanosis, 2+ pitting edema in the lower extremities bilaterally with stasis dermatitis Neur: Awake and alert x3, gait normal, pupils equal round reactive to light, no focal deficits Psych: Normal Mood and Affect Result Diagram: 09/04/18 0015 09/04/18 0015 Results 24 hrs Laboratory Tests Test 09/04/18 00:15 09/04/18 00:48 09/04/18 01:35 09/04/18 02:24 White Blood 9.3 10^3/ul Count Red Blood Count 5.46 10^6/ul Hemoglobin 16.1 g/dl Hematocrit 45.7 % Mean 83.7 fl Corpuscular Volume Mean 29.5 pg Corpuscular Hemoglobin Mean 35.2 g/dl Corpuscular Hemoglobin Conc ent Red Cell 13.0 % Distribution Width Platelet Count 236 10^3/UL Mean Platelet 11.1 fl Volume Immature 0.500 % Granulocytes % Neutrophils % 55.1 % Lymphocytes % 36.4 % Monocytes % 6.3 % Eosinophils % 1.1 % Basophils % 0.6 % Nucleated Red 0.0 /100WBC Blood Cells % Immature 0.050 10^3/ul Granulocytes # Neutrophils # 5.1 10^3/ul Lymphocytes # 3.4 10^3/ul Monocytes # 0.6 10^3/ul Eosinophils # 0.1 10^3/ul Basophils # 0.1 10^3/ul Nucleated Red 0.0 10^3/ul Blood Cells # Sodium Level 130 mmol/L Potassium Level 4.1 mmol/L Chloride Level 93 mmol/L Carbon Dioxide 26 mmol/L Level Anion Gap 11 Blood Urea 17 mg/dl Nitrogen Creatinine 0.73 mg/dl Est Glomerular > 60 mL/min Filtrat Rate mL/min Glucose Level 586 mg/dl Bedside Glucose 563 mg/dL 486 mg/dL Calcium Level 9.4 mg/dl Phosphorus 4.0 mg/dl Level Magnesium Level 1.9 mg/dl Total Bilirubin 0.3 mg/dl Direct 0.00 mg/dl Bilirubin Indirect 0.3 mg/dl Bilirubin Aspartate Amino 24 IU/L Transf (AST/SGO T) Alanine 40 IU/L Aminotransferas e (ALT/SGPT) Alkaline 207 IU/L Phosphatase Troponin I < 0.012 ng/ml B-Type 278 PG/ML Natriuretic Peptide Total Protein 7.5 g/dl Albumin 4.1 g/dl Globulin 3.40 g/dl Albumin/Globuli 1.20 n Ratio Lipase 62 U/L Blood Gas Blood venous Specimen Source Arterial Blood 09/04/2018 1:20: Date Drawn 19 AM Arterial Blood VENOUS LINE Gas Puncture Site [place] Test N/A Venous Blood pH 7.445 Venous Blood 38.1 mmHG pCO2 (Temp Corrected ) Venous Blood 67.8 mmHG pO2 (Temp Corrected ) Venous Blood 25.6 mmol/L HCO3 Venous Blood 93.6 mmHG Oxygen Saturation Venous Blood 1.7 mmol/L Base Excess Venous Blood 16.8 g/dl Total Hemoglobin Venous Blood 93.1 % Oxyhemoglobin Venous Blood 0.2 % Methemoglobin Carboxyhemoglob 0.3 % in Blood Gas 37.0 C Temperature Blood Gas ROOM AIR Modality FiO2 21.0 % Blood Gas MR Notified Whom Blood Gas 09/04/2018 1:30: Notified Time 04 AM Urine Color STRAW Urine Clarity CLEAR Urine pH 6.0 Urine Specific 1.026 [place] Urine Ketones NEGATIVE mg/dL Urine Nitrite NEGATIVE mg/dL Urine Bilirubin NEGATIVE mg/dL Urine NEGATIVE mg/dL Urobilinogen Urine Leukocyte NEGATIVE Viral/ul Esterase Urine NEGATIVE mg/dL Hemoglobin Urine Glucose 3+ mg/dL Urine Total NEGATIVE mg/dl Protein Urine Opiates Negative Screen Urine Negative Barbiturates Urine Negative Amphetamines Screen Urine Negative Benzodiazepines Screen Urine Cocaine Negative Screen Urine Negative Cannabinoids Test 09/04/18 04:10 Bedside Glucose 391 mg/dL Current Medications Medications Dose Sig/Mera Start Time Status Last (Trade) Ordered Route PRN Stop Time Admin Dose Reason Admin Insulin 20 unit ONCE ONCE 09/04/18 DC 09/04/18 Human SC 01:00 01:16 Lispro 09/04/18 01:01 (Humalog) Oxycodone/ 1 tab ONCE ONCE 09/04/18 DC 09/04/18 Acetaminophen PO 01:00 01:12 (Percocet 09/04/18 01:01 (5/ 325)) Aspirin 324 mg ONCE ONCE 09/04/18 DC 09/04/18 (Aspirin) PO 01:00 01:13 09/04/18 01:01 Diltiazem 20 mg ONCE ONCE 09/04/18 DC 09/04/18 HCl IV 01:00 01:14 (Cardizem Iv) 09/04/18 01:01 Diltiazem 20 mg ONCE ONCE 09/04/18 DC 09/04/18 HCl IV 02:00 02:32 (Cardizem Iv) 09/04/18 02:01 Insulin 20 unit ONCE ONCE 09/04/18 DC 09/04/18 Human SC 03:00 03:21 Lispro 09/04/18 03:12 (Humalog) 650 mg ONCE ONCE 09/04/18 DC 09/04/18 Acetaminophen PO 03:00 03:22 (Tylenol 09/04/18 03:12 Tab) Procedures/MDM IV line was established patient was placed on desk monitor rhythm strip revealed a atrial fibrillation at 140 bpm with upright P and T waves. Patient was afebrile Chest X-ray 1V Interpreted by me: Soft Tissue: No acute abnormalities Bones: No acute abnormalities Mediastinum/Cardiac Silhouette/Lungs: No acute abnormalities EKG performed, read by me revealed an atrial fibrillation with rapid ventricular rate at 140 bpm, left axis deviation, right ventricular conduction delay QRS duration 140 ms, prolonged QT of 500 ms, no concerning ST elevations or depressions noted I administered 1 L normal saline IV for dehydration and tachycardia, Percocet 1 tablet p.o. for complaints of pain, aspirin 324 mg p.o. for cardioprotective measures, and diltiazem 20 mg IV x2 for A. fib with RVR Patient's blood sugar was elevated over 500 and I administered lispro insulin 20 units subcutaneous injection x2 CBC was normal, electrolytes revealed hyperglycemia, liver function tests normal, troponin negative, no signs of DKA. VBG revealed a pH of 7.41, PCO2 38. BNP was low. Critical Care: Time: 48 minutes, this was time separate from other billable procedures. Treatments/Evaluations: Close monitoring and treatment of unstable vital signs, cardiorespiratory, and neurologic status, while maintaining tight balance of fluid, respiratory, and cardiac interventions. Patient has no signs of diabetic ketoacidosis, he has been rehydrated and has no complaints of chest pain. His tachycardia resolved and he is asymptomatic at this time. Differential diagnoses considered, included but not limited to acute coronary syndrome, pulmonary embolism, aortic dissection, abdominal aortic aneurysm, sepsis, stroke, meningitis, encephalitis, pneumonia, appendicitis, cholecysti tis, bowel obstruction, pyelonephritis, nephrolithiasis, cystitis, as well as metabolic, hematologic, and electrolyte abnormalities. As well as abscess, cellulitis, fractures, and dislocations. Patient feels much better at this time, and vital signs are normal, symptoms have improved. I did give strict instructions to return to the ED if symptoms continue or worsen, patient will otherwise follow-up with primary care physician. Patient understood instructions and agreed to plan. Disclaimer: Inadvertent spelling and grammatical errors are likely due to EHR/dictation software use and do not reflect on the overall quality of patient care. Also, please note that the electronic time recorded on this note does not necessarily reflect the actual time of the patient encounter. Departure Diagnosis: Primary Impression: Atrial fibrillation with RVR Additional Impressions: Palpitations Acute hyperglycemia Condition: Good JANI MACIAS MD Sep 04, 2018 02:42
[2018-09-04] MEDS ORDERED: ACETAMINOPHEN 325 MG TAB PO ONE (03:00)
[2018-09-04 04:15] VITALS: BP 112/80; PULSE 116; RESP 13
== END 2018-09-04 04:43 | disposition home or self-care (01) ==
LOC: E/R 23:09
DX: I48.91 Unspecified atrial fibrillation (principal); E11.65 Type 2 diabetes mellitus with hyperglycemia; I11.0 Hypertensive heart disease with heart failure; I50.9 Heart failure, unspecified; I25.2 Old myocardial infarction; Z79.4 Long term (current) use of insulin; Z79.82 Long term (current) use of aspirin
CPT/HCPCS: 36415; 71045; 80053; 80307; 81003; 82803; 82962; 83690; 83735; 83880; 84100; 84484; 85025; 93005; J1815; Z7610; 96372; 96374; 96375

== ENCOUNTER 2018-10-25 20:34 | Emergency (ER) | payer OTHER ==
[~2018-10-25] VITALS: Ht 182.9 cm; Wt 167.0 kg
[2018-10-25 20:37] VITALS: Ht 182.9 cm; Wt 167.0 kg
[2018-10-25] MEDS ORDERED: SOD CHLORIDE 0.9% 1,000 ML IV ONE (21:30)
--- NOTE | 2018-10-26 00:27 | ERD ---
ER Documentation Chief Complaint Chief Complaint C/O HIGH BLOOD SUGAR, DIZZINESS; ACCUCHECK 523 HPI This is a 38-year-old male comes in with complaints of high blood sugar and dizziness. His blood sugars 523. Denies fevers chills nausea vomiting chest pain. Denies any other current complaints. Patient is well-known to be has be en many times for similar complaints secondary to essentially medication noncompliance. ROS All systems reviewed and are negative except as per history of present illness. Medications Home Meds Active Scripts Pantoprazole* (Protonix*) 40 Mg Tablet.dr, 40 MG PO DAILY, #20 TAB Prov:VAUGHN COMBS MD 08/10/18 Reported Medications Insulin Glargine,Hum.rec.anlog (Basaglar Kwikpen U-100) 100 Unit/1 Ml Insuln.pen, 90 UNIT SC QHS, EA 07/10/18 Atorvastatin Calcium* (Atorvastatin Calcium*) 20 Mg Tablet, 20 MG PO QHS, #30 TAB 02/10/18 Carvedilol* (Carvedilol*) 25 Mg Tablet, 25 MG PO BID, #60 TAB 02/10/18 Diltiazem Hcl* (Cardizem SR*) 60 Mg Capsr, 60 MG PO Q12, #60 CAP 02/10/18 Losartan Potassium* (Losartan Potassium*) 50 Mg Tablet, 50 MG PO DAILY, TAB 02/10/18 Dabigatran Etexilate Mesylate* (Pradaxa*) 150 Mg Capsule, 150 MG PO BID, CAP 10/21/17 Amiodarone Hcl* (Amiodarone Hcl*) 200 Mg Tablet, 200 MG PO DAILY, #30 TAB 10/21/17 Sitagliptin* (Januvia*) 100 Mg Tablet, 100 MG PO DAILY, #30 TAB 09/03/17 Insulin Lispro (Humalog Kwikpen U-100) 100 Unit/1 Ml Insuln.pen, 20 UNIT SQ TID, EA 07/22/17 Aspirin* (Aspirin* EC) 81 Mg Tablet.dr, 81 MG PO DAILY, TAB 07/01/17 Digoxin* (Digitek*) 125 Mcg Tablet, 0.125 MG PO DAILY, TAB 07/01/17 Allergies Allergies: Coded Allergies: No Known Drug Allergies (Unverified Allergy, Unknown, 07/10/18) PMhx/Soc History of Surgery: No Anesthesia Reaction: No Hx Neurological Disorder: Yes (Pt states seizure 26 y/o) Hx Respiratory Disorders: Yes (Pt states PE) Hx Cardiac Disorders: Yes (HTN, A-fib, CHF, AF RVR, frequent CP) Hx Psychiatric Problems: No Hx Miscellaneous Medical Probl: Yes (DM) Hx Alcohol Use: No Hx Substance Use: No Hx Tobacco Use: No Smoking Status: Never smoker Physical Exam Vitals Vital Signs Date Temp Pulse Resp B/P (MAP) Pulse Ox O2 O2 Flow FiO2 Time Delivery Rate 10/25/18 79 18 145/75 95 Nasal 2.0 23:40 (98) Cannula 10/25/18 97.0 77 18 132/81 94 Room Air 21:41 (98) 10/25/18 97.0 91 18 141/82 94 20:37 (101) Physical Exam Const: No acute distress Head: Atraumatic Eyes: Normal Conjunctiva ENT: Normal External Ears, Nose and Mouth. Neck: Full range of motion. No meningismus. Resp: Clear to auscultation bilaterally Cardio: Regular rate and rhythm, no murmurs Abd: Soft, non tender, non distended. Normal bowel sounds Skin: No petechiae or rashes Back: No midline or flank tenderness Ext: No cyanosis, or edema Neur: Awake and alert Psych: Normal Mood and Affect Result Diagram: 10/25/18211210/25/182112 Results 24 hrs Laboratory Tests Test 10/25/18 20:40 10/25/18 21:01 10/25/18 21:13 10/25/18 21:14 Bedside Glucose 523 mg/dL Blood Gas Blood venous Specimen Source Arterial Blood 10/25/2018 9:30: Date Drawn 21 PM Arterial Blood VENOUS LINE Gas Puncture Site [place] Test N/A Venous Blood pH 7.402 Venous Blood 45.6 mmHG pCO2 (Temp Corrected ) Venous Blood 69.4 mmHG pO2 (Temp Corrected ) Venous Blood 27.7 mmol/L HCO3 Venous Blood 93.0 mmHG Oxygen Saturation Venous Blood 2.3 mmol/L Base Excess Venous Blood 16.2 g/dl Total Hemoglobin Venous Blood 92.4 % Oxyhemoglobin Venous Blood 0.2 % Methemoglobin Carboxyhemoglob 0.4 % in Blood Gas 37.0 C Temperature Blood Gas ROOM AIR Modality FiO2 21.0 % Blood Gas MR Notified Whom Blood Gas 10/25/2018 9:39: Notified Time 57 PM White Blood 8.4 10^3/ul Count Red Blood Count 5.16 10^6/ul Hemoglobin 15.2 g/dl Hematocrit 44.3 % Mean 85.9 fl Corpuscular Volume Mean 29.5 pg Corpuscular Hemoglobin Mean 34.3 g/dl Corpuscular Hemoglobin Conc ent Red Cell 13.2 % Distribution Width Platelet Count 200 10^3/UL Mean Platelet 11.1 fl Volume Immature 0.500 % Granulocytes % Neutrophils % 61.0 % Lymphocytes % 29.3 % Monocytes % 7.5 % Eosinophils % 1.0 % Basophils % 0.7 % Nucleated Red 0.0 /100WBC Blood Cells % Immature 0.040 10^3/ul Granulocytes # Neutrophils # 5.1 10^3/ul Lymphocytes # 2.5 10^3/ul Monocytes # 0.6 10^3/ul Eosinophils # 0.1 10^3/ul Basophils # 0.1 10^3/ul Nucleated Red 0.0 10^3/ul Blood Cells # Sodium Level 131 mmol/L Potassium Level 4.6 mmol/L Chloride Level 93 mmol/L Carbon Dioxide 27 mmol/L Level Anion Gap 11 Blood Urea 19 mg/dl Nitrogen Creatinine 0.80 mg/dl Est Glomerular > 60 mL/min Filtrat Rate mL/min Glucose Level 647 mg/dl Calcium Level 8.7 mg/dl Phosphorus 4.2 mg/dl Level Magnesium Level 1.9 mg/dl Urine Color COLORLESS Urine Clarity CLEAR Urine pH 6.0 Urine Specific 1.027 [place] Urine Ketones NEGATIVE mg/dL Urine Nitrite NEGATIVE mg/dL Urine Bilirubin NEGATIVE mg/dL Urine NEGATIVE mg/dL Urobilinogen Urine Leukocyte TRACE Viral/ul Esterase Urine 3 /HPF Microscopic RBC Urine 3 /HPF Microscopic WBC Urine NEGATIVE mg/dL Hemoglobin Urine Glucose 3+ mg/dL Urine Total NEGATIVE mg/dl Protein Current Medications Medications Dose Sig/Mera Start Time Status Last (Trade) Ordered Route PRN Stop Time Admin Dose Reason Admin Sodium 1,000 ml @ ONCE ONCE 10/25/18 DC 10/25/18 Chloride 1,000 mls/hr IV 21:30 21:51 10/25/18 22:29 Insulin 8 unit ONCE ONCE 10/26/18 Human SC 00:30 Regular 10/26/18 00:31 (Humulin R) Procedures/MDM EKG: Rate/Rhythm: [Normal Sinus Rhythm] QRS, ST, T-waves: [No changes consistent w/ acute ischemia] Impression: [No evidence of ischemia or arrhythmia] Chest X-ray 1V Interpreted by me: Soft Tissue: No acute abnormalities Bones: No acute abnormalities Mediastinum/Cardiac Silhouette/Lungs: [No acute abnormalities] Medical decision makin-year-old male here with hyperglycemia. No evidence of DKA. Hydrated and given insulin. Advised to start taking his medications as prescribed. Follow-up with PCP. Departure Diagnosis: Primary Impression: Hyperglycemia Condition: Stable Patient Instructions: Hyperglycemia (High Blood Sugar) MARIO KNIGHT October 26, 2018 00:27
[2018-10-26] MEDS ORDERED: INSULIN REGULAR, HUMAN 100 UNIT/1 ML 3ML VIAL SC ONE (00:30)
[2018-10-26 01:00] VITALS: BP 143/97; PULSE 83; RESP 15
== END 2018-10-26 01:20 | disposition home or self-care (01) ==
LOC: E/R 20:34
DX: E11.65 Type 2 diabetes mellitus with hyperglycemia (principal); I50.9 Heart failure, unspecified; I11.0 Hypertensive heart disease with heart failure; Z79.4 Long term (current) use of insulin; Z79.82 Long term (current) use of aspirin
CPT/HCPCS: 36415; 80048; 81001; 82803; 82962; 83735; 84100; 85025; 96360; 96372; J1815; J7030; Z7502

== ENCOUNTER 2018-10-29 20:22 | Inpatient (IN) | payer OTHER ==
[~2018-10-29] VITALS: Ht 188 cm; Wt 165.0 kg
[2018-10-29] MEDS ORDERED: ONDANSETRON 4 MG INJ IV PRN (21:00)
[2018-10-29] MEDS ORDERED: DILTIAZEM 30 MG TAB PO ONE (21:00)
[2018-10-29] MEDS ORDERED: ACETAMINOPHEN 325 MG TAB PO PRN (21:00)
[2018-10-29] MEDS ORDERED: DILTIAZEM 25 MG INJ IV ONE (21:00)
[2018-10-29] MEDS ORDERED: morphine 4 MG/ML VIAL IV STA (21:17)
[2018-10-29] MEDS ORDERED: ONDANSETRON 4 MG INJ IV STA (21:17)
[2018-10-29] MEDS ORDERED: SOD CHLORIDE 0.9% 1,000 ML IV STA (21:34)
[2018-10-29] MEDS ORDERED: SOD CHLORIDE 0.9% 500 ML IV STA (21:37)
[2018-10-29] MEDS ORDERED: DILTIAZEM-D5W 125MG/125ML DRIP 125 ML IV SCH (22:00)
--- NOTE | 2018-10-29 23:09 | ERD ---
ER Documentation Chief Complaint Chief Complaint cp starting this morning HPI Patient is a 38-year-old male with coronary disease, hypertension, diabetes, and atrial flutter who presents with chest pain. The patient has palpitations as well. The symptoms started this morning. The symptoms have been constant. The patient is taking his medications as directed he says. Upon review of old medical records the patient has multiple visits for similar complaints. Review of the emergency department information exchange system shows visits to 9 separate hospitals for a total of 37 visits over the past 1 year. He says that his primary doctor is Dr. Yisel Howard. ROS All systems reviewed and are negative except as per history of present illness. Medications Home Meds Active Scripts Pantoprazole* (Protonix*) 40 Mg Tablet., 40 MG PO DAILY, #20 TAB Prov:VAUGHN COMBS MD 08/10/18 Reported Medications Insulin Glargine,Hum.rec.anlog (Basaglar Kwikpen U-100) 100 Unit/1 Ml Insuln.pen, 90 UNIT SC QHS, EA 07/10/18 Atorvastatin Calcium* (Atorvastatin Calcium*) 20 Mg Tablet, 20 MG PO QHS, #30 TAB 02/10/18 Carvedilol* (Carvedilol*) 25 Mg Tablet, 25 MG PO BID, #60 TAB 02/10/18 Diltiazem Hcl* (Cardizem SR*) 60 Mg Capsr, 60 MG PO Q12, #60 CAP 02/10/18 Losartan Potassium* (Losartan Potassium*) 50 Mg Tablet, 50 MG PO DAILY, TAB 02/10/18 Dabigatran Etexilate Mesylate* (Pradaxa*) 150 Mg Capsule, 150 MG PO BID, CAP 10/21/17 Amiodarone Hcl* (Amiodarone Hcl*) 200 Mg Tablet, 200 MG PO DAILY, #30 TAB 10/21/17 Sitagliptin* (Januvia*) 100 Mg Tablet, 100 MG PO DAILY, #30 TAB 09/03/17 Insulin Lispro (Humalog Kwikpen U-100) 100 Unit/1 Ml Insuln.pen, 20 UNIT SQ TID, EA 07/22/17 Aspirin* (Aspirin* EC) 81 Mg Tablet., 81 MG PO DAILY, TAB 07/01/17 Digoxin* (Digitek*) 125 Mcg Tablet, 0.125 MG PO DAILY, TAB 07/01/17 Allergies Allergies: Coded Allergies: No Known Drug Allergies (Unverified Allergy, Unknown, 10/26/18) PMhx/Soc History of Surgery: No Anesthesia Reaction: No Hx Neurological Disorder: Yes (Pt states seizure 26 y/o) Hx Respiratory Disorders: Yes (?PE) Hx Cardiac Disorders: Yes (HTN, A-fib, CHF, AF RVR, frequent CP) Hx Psychiatric Problems: No Hx Miscellaneous Medical Probl: Yes (DM) Hx Alcohol Use: No Hx Substance Use: No Hx Tobacco Use: No Smoking Status: Never smoker FmHx Family History: diabetes Physical Exam Vitals Vital Signs Date Temp Pulse Resp B/P (MAP) Pulse Ox O2 O2 Flow FiO2 Time Delivery Rate 10/29/18 96 20 141/82 98 Room Air 22:44 (101) 10/29/18 139 16 97/85 (89) 100 Room Air 21:47 10/29/18 122 20 99/68 (78) 99 Room Air 21:15 10/29/18 109 20 109/50 96 Room Air 21:01 (69) 10/29/18 153 19 107/62 99 Room Air 20:50 (77) 10/29/18 98.0 153 18 132/73 96 20:26 (92) Physical Exam Const: Moderate distress Head: Atraumatic Eyes: Normal Conjunctiva ENT: Normal External Ears, Nose and Mouth. Neck: Full range of motion. No meningismus. Resp: Clear to auscultation bilaterally Cardio: Tachycardic rate with a regular rhythm Abd: Soft, non tender, non distended. Normal bowel sounds Skin: No petechiae or rashes Back: No midline or flank tenderness Ext: No cyanosis, or edema Neur: Awake and alert Psych: Normal Mood and Affect Result Diagram: 10/29/18210810/29/182108 Results 24 hrs Laboratory Tests Test 10/29/18 21:09 White Blood Count 8.7 10^3/ul Red Blood Count 5.38 10^6/ul Hemoglobin 15.9 g/dl Hematocrit 46.5 % Mean Corpuscular Volume 86.4 fl Mean Corpuscular Hemoglobin 29.6 pg Mean Corpuscular Hemoglobin Concent 34.2 g/dl Red Cell Distribution Width 13.1 % Platelet Count 221 10^3/UL Mean Platelet Volume 10.7 fl Immature Granulocytes % 0.500 % Neutrophils % 62.1 % Lymphocytes % 28.6 % Monocytes % 6.8 % Eosinophils % 1.3 % Basophils % 0.7 % Nucleated Red Blood Cells % 0.0 /100WBC Immature Granulocytes # 0.040 10^3/ul Neutrophils # 5.4 10^3/ul Lymphocytes # 2.5 10^3/ul Monocytes # 0.6 10^3/ul Eosinophils # 0.1 10^3/ul Basophils # 0.1 10^3/ul Nucleated Red Blood Cells # 0.0 10^3/ul Sodium Level 132 mmol/L Potassium Level 4.4 mmol/L Chloride Level 96 mmol/L Carbon Dioxide Level 26 mmol/L Anion Gap 10 Blood Urea Nitrogen 15 mg/dl Creatinine 0.90 mg/dl Est Glomerular Filtrat Rate mL/min > 60 mL/min Glucose Level 539 mg/dl Calcium Level 9.1 mg/dl Troponin I < 0.012 ng/ml Digoxin Level < 0.4 ng/ml Current Medications Medications Dose Sig/Mera Start Time Status Last (Trade) Ordered Route PRN Stop Time Admin Dose Reason Admin Diltiazem 20 mg ONCE ONCE 10/29/18 DC 10/29/18 HCl IV 21:00 20:55 (Cardizem Iv) 10/29/18 21:01 Diltiazem 30 mg ONCE ONCE 10/29/18 DC 10/29/18 HCl PO 21:00 20:56 (Cardizem) 10/29/18 21:01 Ondansetron 4 mg ER BRIDGE 10/29/18 HCl (Zofran PRN IV 21:00 Inj) NAUSEA/VOMITI 10/30/18 20:59 NG 650 mg ER BRIDGE 10/29/18 Acetaminophen PRN PO 21:00 (Tylenol .MILD PAIN 10/30/18 20:59 Tab) 1-3 OR TEMP Morphine 4 mg ONCE STAT 10/29/18 DC 10/29/18 Sulfate IV 21:17 22:43 (morphine) 10/29/18 21:18 Ondansetron 4 mg ONCE STAT 10/29/18 DC 10/29/18 HCl (Zofran IV 21:17 22:43 Inj) 10/29/18 21:18 Diltiazem 125 ml @ 5 Q24H IV 10/29/18 10/29/18 HCl mls/hr 22:00 22:26 Sodium 1,000 ml @ Q1H STAT 10/29/18 DC Chloride 1,000 mls/hr IV 21:34 10/29/18 21:38 Sodium 500 ml @ Q1H STAT 10/29/18 DC 10/29/18 Chloride 500 mls/hr IV 21:37 21:59 10/29/18 22:36 Procedures/MDM EKG read by me: Rate/Rhythm: Rapid atrial flutter Intervals: Normal Impression: Rapid atrial flutter Chest x-ray read by radiology. Patient is a 38-year-old male with multiple cardiac risk factors who presents with rapid atrial flutter and chest pain. The patient was given aspirin, diltiazem IV, and diltiazem p.o. He was still tachycardic so was placed on a diltiazem drip. He will be admitted to the care of Dr. Cruz to a telemetry inpatient bed. Critical Care: Time: 35 minutes excluding all billable procedures. Treatments/Evaluations: Close monitoring and treatment of unstable vital signs, cardiorespiratory, and neurologic status, while maintaining tight balance of fluid, respiratory, and cardiac interventions. Departure Diagnosis: Primary Impression: Atrial flutter with rapid ventricular response Additional Impression: Chest pain Chest pain type: unspecified Qualified Codes: R07.9 - Chest pain, unspecified Condition: Serious VAUGHN COMBS MD October 29, 2018 23:09
[2018-10-29] MEDS ORDERED: ASPIRIN 81 MG TAB PO ONE (23:30)
--- NOTE | 2018-10-29 23:39 | HP ---
Date/Time of Note Date/Time of Note DATE: 10/29/18 TIME: 23:39 Assessment/Plan VTE Prophylaxis Pharmacological prophylaxis: heparin Lines/Catheters IV Catheter Type (from Nrsg): Saline Lock Assessment/Plan Assessment/Plan 1. Atrial flutter with RVR -Status post Cardizem, now rate controlled -Continue home medication -Check one more troponin -Patient had a 2D echo in January of last year with preserved EF -Cardiology consult 2. Insulin-dependent diabetes, with hyperglycemia: No sign of DKA -will treat with insulin and IV fluid 3. Hypertension: Adjust BP meds as needed 4. Mild hyponatremia: Likely pseudohyponatremia from hyperglycemia -See #2 Result Diagram: 10/29/18210810/29/182108 Results 24hrs Laboratory Tests Test 10/29/18 21:09 White Blood Count 8.7 Red Blood Count 5.38 Hemoglobin 15.9 Hematocrit 46.5 Mean Corpuscular Volume 86.4 Mean Corpuscular Hemoglobin 29.6 Mean Corpuscular Hemoglobin Concent 34.2 Red Cell Distribution Width 13.1 Platelet Count 221 Mean Platelet Volume 10.7 H Immature Granulocytes % 0.500 H Neutrophils % 62.1 Lymphocytes % 28.6 Monocytes % 6.8 Eosinophils % 1.3 Basophils % 0.7 Nucleated Red Blood Cells % 0.0 Immature Granulocytes # 0.040 H Neutrophils # 5.4 Lymphocytes # 2.5 Monocytes # 0.6 Eosinophils # 0.1 Basophils # 0.1 Nucleated Red Blood Cells # 0.0 Sodium Level 132 L Potassium Level 4.4 Chloride Level 96 L Carbon Dioxide Level 26 Anion Gap 10 Blood Urea Nitrogen 15 Creatinine 0.90 Est Glomerular Filtrat Rate mL/min > 60 Glucose Level 539 *H Calcium Level 9.1 Troponin I < 0.012 Digoxin Level < 0.4 L HPI/ROS Admit Date/Time Admit Date/Time Hx of Present Illness Patient is a 38-year-old male with a history of hypertension, atrial fibrillation, diabetes who presents the ER complaining of chest pain and palpitation x1 day. When he presented to ER he was found to be in a flutter with heart rate as high as in the 150s. He was treated with Cardizem and now rate controlled. EKG showed a flutter. First troponin is negative. Patient said he has been compliant with his medications. He was also found to have blood glucose greater than 500, no sign of DKA. No intervention in the ER. PMH/Family/Social Past Medical History Medical History: other (See HPI) Past Surgical History Past Surgical Hx: other (See HPI) Family History Significant Family History: no pertinent family hx Social History Alcohol Use: none Smoking Status: Never smoker Drug Use: none Exam Constitutional: no acute distress Head: normocephalic, atraumatic Eyes: EOMI, PERRL Respiratory: clear to auscultation, normal air movement Cardiovascular: regular rate and rhythm, nl pulses Gastrointestinal: soft, non-tender Extremities: normal pulses Medications Current Medications Ondansetron HCl (Zofran Inj) 4 mg ER BRIDGE PRN IV NAUSEA/VOMITING; Start 10/29 at 21:00; Stop 10/30/18 at 20:59 Acetaminophen (Tylenol Tab) 650 mg ER BRIDGE PRN PO .MILD PAIN 1-3 OR TEMP; Start 10/29/18 at 21:00; Stop 10/30/18 at 20:59 Diltiazem HCl 125 ml @ 5 mls/hr Q24H IV Last administered on 10/29/18at 22:26; Admin Dose 5 MLS/HR; Start 10/29/18 at 22:00 IV Flush (NS 3 ml) 3 ml PER PROTOCOL IV ; Start 10/30/18 at 00:00; Status UNV Ondansetron HCl (Zofran Inj) 4 mg Q6H PRN IV NAUSEA/VOMITING; Start 10/30/18 at 00:00; Status UNV Nitroglycerin (Nitroglycerin (Sl Tab) 0.4 Mg) 1 tab Q5M PRN SL .CHEST PAIN; Start 10/30/18 at 00:00; Status UNV Acetaminophen (Tylenol Tab) 650 mg Q6H PRN PO .PAIN 1-3 OR TEMP; Start 10/30/18 at 00:00; Status UNV Amiodarone HCl (Cordarone) 200 mg DAILY PO ; Start 10/30/18 at 09:00; Status UNV Aspirin (Halfprin) 81 mg DAILY PO ; Start 10/30/18 at 09:00; Status UNV Atorvastatin Calcium (Lipitor) 20 mg QHS PO ; Start 10/30/18 at 21:00; Status UNV Carvedilol (Coreg) 25 mg BID PO ; Start 10/30/18 at 00:00; Status UNV Dabigatran (PRADaxa) 150 mg BID PO ; Start 10/30/18 at 00:00; Status UNV Digoxin (Digoxin) 0.125 mg DAILY PO ; Start 10/30/18 at 09:00; Status UNV Diltiazem HCl (Cardizem Sr) 60 mg Q12 PO ; Start 10/30/18 at 09:00; Status UNV Losartan Potassium (Cozaar) 50 mg DAILY PO ; Start 10/30/18 at 09:00; Status UNV Pantoprazole (Protonix Tab) 40 mg DAILY@0600 PO ; Start 10/30/18 at 06:00 Coded Allergies: No Known Drug Allergies (Unverified Allergy, Unknown, 10/26/18) Past Surgical History Past Surgical Hx: no surgical history, other Family History Significant Family History: no pertinent family hx Social History Smoking Status: Never smoker Exam/Review of Systems Vital Signs Vitals Vital Signs Date Temp Pulse Resp B/P (MAP) Pulse Ox O2 O2 Flow FiO2 Time Delivery Rate 10/29/18 88 19 122/80 98 Room Air 23:17 (94) 10/29/18 98.0 20:26 MARIO DIANE MD October 29, 2018 23:39
[2018-10-30] VITALS (10 sets, daily range): BP systolic 91–110; BP diastolic 52–73; PULSE 57–71; RESP 17–18; Ht 188 cm; Wt 165.0 kg
[2018-10-30] MEDS ORDERED: SOD CHLORIDE 0.9% 500 ML IV ONE
[2018-10-30] MEDS ORDERED: ONDANSETRON 4 MG INJ IV PRN
[2018-10-30] MEDS ORDERED: NON-FORMULARY/PATIENT OWN MED (Insulin Lispro (Humalog Kwikpen U-100) 20 UNIT) SQ SCH
[2018-10-30] MEDS ORDERED: NITROGLYCERIN (SL) 0.4 MG TAB SL PRN
[2018-10-30] MEDS ORDERED: ACETAMINOPHEN 325 MG TAB PO PRN
[2018-10-30] MEDS ORDERED: NACL 0.9% 3 ML SYG IV SCH
[2018-10-30] MEDS: DABIGATRAN 150 MG CAP PO SCH ×3 (02:01→20:18)
[2018-10-30] MEDS: INSULIN ASPART [NOVOLOG] 3 ML PEN SC SCH ×8 (02:24→20:21)
[2018-10-30] MEDS: ACCU-CHEK XX SCH (02:50)
[2018-10-30] MEDS ORDERED: INSULIN ASPART [NOVOLOG] 3 ML PEN SC ONE (04:00)
[2018-10-30] MEDS ORDERED: morphine 4 MG/ML VIAL IV ONE (04:01)
[2018-10-30] MEDS ORDERED: ACCU-CHEK XX ONE (06:00)
[2018-10-30] MEDS: PANTOPRAZOLE (EC) 40 MG TAB PO SCH (06:56)
[2018-10-30] MEDS: ASPIRIN (EC) 81 MG TAB PO SCH (08:12)
[2018-10-30] MEDS ORDERED: DILTIAZEM (SR) 60 MG CAP PO SCH (09:00)
[2018-10-30] MEDS ORDERED: LOSARTAN 50 MG TAB PO SCH (09:00)
[2018-10-30] MEDS ORDERED: AMIODARONE 200 MG TAB PO SCH (09:00)
[2018-10-30] MEDS: morphine 2 MG INJ IV PRN ×3 (11:29→20:19)
[2018-10-30] MEDS ORDERED: DIGOXIN 0.125 MG TAB PO SCH (13:00)
--- NOTE | 2018-10-30 17:46 | PN ---
Date/Time of Note Date/Time of Note DATE: 10/30/18 TIME: 17:21 Assessment/Plan VTE Prophylaxis Risk [place] [facility] [place] risk: 1 SCD applied [place] [facility] [place] No SCD contraindicated: low risk/ambulating Pharmacological prophylaxis: NA/contraindicated Pharm contraindication: low risk/ambulating Lines/Catheters IV C[facility]ter Type (from [facility]): Saline Lock Urinary Cath still in place: No Assessment/Plan Hospital Course Assessment and plan 1. A. fib with RVR. Status post Cardizem improved. Payroll Accountant following. Continue on amiodarone, atenolol, digoxin. 2. Diabetes. Uncontrolled at present. Follow-up on A1c. Will get adaptive physical educator to follow. Will adjust insulin regimen. 3. Hypertension. Continue antinhypertensives and adjust as needed 4. Obesity. Weight reduction was advised Discussed plan of care with Dr. Simon Result Diagram: 10/30/18 0529 10/30/18 0529 Results 24hrs Laboratory Tests Test 10/29/18 21:09 10/30/18 02:20 10/30/18 03:14 10/30/18 03:54 White Blood Count 8.7 Red Blood Count 5.38 Hemoglobin 15.9 Hematocrit 46.5 Mean Corpuscular 86.4 Volume Mean Corpuscular 29.6 Hemoglobin Mean Corpuscular 34.2 Hemoglobin Concent Red Cell 13.1 Distribution Width Platelet Count 221 Mean Platelet Volume 10.7 H Immature 0.500 H Granulocytes % Neutrophils % 62.1 Lymphocytes % 28.6 Monocytes % 6.8 Eosinophils % 1.3 Basophils % 0.7 Nucleated Red Blood 0.0 Cells % Immature 0.040 H Granulocytes # Neutrophils # 5.4 Lymphocytes # 2.5 Monocytes # 0.6 Eosinophils # 0.1 Basophils # 0.1 Nucleated Red Blood 0.0 Cells # Sodium Level 132 L Potassium Level 4.4 Chloride Level 96 L Carbon Dioxide Level 26 Anion Gap 10 Blood Urea Nitrogen 15 Creatinine 0.90 Est Glomerular > 60 Filtrat Rate mL/min Glucose Level 539 *H Calcium Level 9.1 Troponin I < 0.012 < 0.012 Digoxin Level < 0.4 L Bedside Glucose 351 H 383 H Creatine Kinase 87 Creatine Kinase 1.9 Index Creatinine Kinase MB 1.61 (Mass) Test 10/30/18 05:27 5/25/19 05:29 10/30/18 06:22 10/30/18 07:47 Thyroid Stimulating 4.770 H 4.700 H Hormone (TSH) White Blood Count 7.6 Red Blood Count 5.02 Hemoglobin 15.1 Hematocrit 43.4 Mean Corpuscular 86.5 Volume Mean Corpuscular 30.1 Hemoglobin Mean Corpuscular 34.8 Hemoglobin Concent Red Cell 13.3 Distribution Width Platelet Count 201 Mean Platelet Volume 11.0 H Immature 0.400 Granulocytes % Neutrophils % 48.7 Lymphocytes % 41.7 Monocytes % 6.6 Eosinophils % 1.7 Basophils % 0.9 Nucleated Red Blood 0.0 Cells % Immature 0.030 Granulocytes # Neutrophils # 3.7 Lymphocytes # 3.2 H Monocytes # 0.5 Eosinophils # 0.1 Basophils # 0.1 Nucleated Red Blood 0.0 Cells # Sodium Level 134 L Potassium Level 3.7 Chloride Level 99 Carbon Dioxide Level 27 Anion Gap 8 Blood Urea Nitrogen 14 Creatinine 0.72 Est Glomerular > 60 Filtrat Rate mL/min Glucose Level 372 #H Hemoglobin A1c Calcium Level 8.6 Magnesium Level 1.8 Total Bilirubin 0.6 Direct Bilirubin 0.00 Indirect Bilirubin 0.6 Aspartate Amino 26 Transf (AST/SGOT) Alanine 41 Aminotransferase (AL T/SGPT) Alkaline Phosphatase 120 Total Protein 6.3 Albumin 3.5 Globulin 2.80 Albumin/Globulin 1.25 Ratio Triglycerides Level 126 Cholesterol Level 98 L LDL Cholesterol, 50 Calculated HDL Cholesterol 23 L Cholesterol/HDL 4.2 Ratio Bedside Glucose 361 H 309 H Test 10/30/18 08:29 10/30/18 11:32 Creatine Kinase 78 Creatine Kinase 2.0 Index Creatinine Kinase MB 1.59 (Mass) Troponin I < 0.012 Bedside Glucose 229 H Subjective 24 Hr Interval Summary Free Text/Dictation no s/s of distress. 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, nl mental status, nl speech Results Results 24hrs Laboratory Tests Test 10/29/18 21:09 10/30/18 02:20 10/30/18 03:14 10/30/18 03:54 White Blood Count 8.7 Red Blood Count 5.38 Hemoglobin 15.9 Hematocrit 46.5 Mean Corpuscular 86.4 Volume Mean Corpuscular 29.6 Hemoglobin Mean Corpuscular 34.2 Hemoglobin Concent Red Cell 13.1 Distribution Width Platelet Count 221 Mean Platelet Volume 10.7 H Immature 0.500 H Granulocytes % Neutrophils % 62.1 Lymphocytes % 28.6 Monocytes % 6.8 Eosinophils % 1.3 Basophils % 0.7 Nucleated Red Blood 0.0 Cells % Immature 0.040 H Granulocytes # Neutrophils # 5.4 Lymphocytes # 2.5 Monocytes # 0.6 Eosinophils # 0.1 Basophils # 0.1 Nucleated Red Blood 0.0 Cells # Sodium Level 132 L Potassium Level 4.4 Chloride Level 96 L Carbon Dioxide Level 26 Anion Gap 10 Blood Urea Nitrogen 15 Creatinine 0.90 Est Glomerular > 60 Filtrat Rate mL/min Glucose Level 539 *H Calcium Level 9.1 Troponin I < 0.012 < 0.012 Digoxin Level < 0.4 L Bedside Glucose 351 H 383 H Creatine Kinase 87 Creatine Kinase 1.9 Index Creatinine Kinase MB 1.61 (Mass) Test 10/30/18 05:27 10/30/18 05:29 10/30/18 06:22 10/30/18 07:47 Thyroid Stimulating 4.770 H 4.700 H Hormone (TSH) White Blood Count 7.6 Red Blood Count 5.02 Hemoglobin 15.1 Hematocrit 43.4 Mean Corpuscular 86.5 Volume Mean Corpuscular 30.1 Hemoglobin Mean Corpuscular 34.8 Hemoglobin Concent Red Cell 13.3 Distribution Width Platelet Count 201 Mean Platelet Volume 11.0 H Immature 0.400 Granulocytes % Neutrophils % 48.7 Lymphocytes % 41.7 Monocytes % 6.6 Eosinophils % 1.7 Basophils % 0.9 Nucleated Red Blood 0.0 Cells % Immature 0.030 Granulocytes # Neutrophils # 3.7 Lymphocytes # 3.2 H Monocytes # 0.5 Eosinophils # 0.1 Basophils # 0.1 Nucleated Red Blood 0.0 Cells # Sodium Level 134 L Potassium Level 3.7 Chloride Level 99 Carbon Dioxide Level 27 Anion Gap 8 Blood Urea Nitrogen 14 Creatinine 0.72 Est Glomerular > 60 Filtrat Rate mL/min Glucose Level 372 #H Hemoglobin A1c Calcium Level 8.6 Magnesium Level 1.8 Total Bilirubin 0.6 Direct Bilirubin 0.00 Indirect Bilirubin 0.6 Aspartate Amino 26 Transf (AST/SGOT) Alanine 41 Aminotransferase (AL T/SGPT) Alkaline Phosphatase 120 Total Protein 6.3 Albumin 3.5 Globulin 2.80 Albumin/Globulin 1.25 Ratio Triglycerides Level 126 Cholesterol Level 98 L LDL Cholesterol, 50 Calculated HDL Cholesterol 23 L Cholesterol/HDL 4.2 Ratio Bedside Glucose 361 H 309 H Test 10/30/18 08:29 10/30/18 11:32 Creatine Kinase 78 Creatine Kinase 2.0 Index Creatinine Kinase MB 1.59 (Mass) Troponin I < 0.012 Bedside Glucose 229 H Medications Medication Current Medications Ondansetron HCl (Zofran Inj) 4 mg ER BRIDGE PRN IV NAUSEA/VOMITING; Start 10/29/18 at 21:00; Stop 10/30/18 at 20:59 Acetaminophen (Tylenol Tab) 650 mg ER BRIDGE PRN PO .MILD PAIN 1-3 OR TEMP; Start 10/29/18 at 21:00; Stop 10/30/18 at 20:59 IV Flush (NS 3 ml) 3 ml PER PROTOCOL IV ; Start 10/30/18 at 00:00 Ondansetron HCl (Zofran Inj) 4 mg Q6H PRN IV NAUSEA/VOMITING; Start 10/30/18 at 00:00 Nitroglycerin (Nitroglycerin (Sl Tab) 0.4 Mg) 1 tab Q5M PRN SL .CHEST PAIN; Start 10/30/18 at 00:00 Acetaminophen (Tylenol Tab) 650 mg Q6H PRN PO .PAIN 1-3 OR TEMP; Start 10/30/18 at 00:00 Aspirin (Halfprin) 81 mg DAILY PO Last administered on 10/30/18at 08:12; Admin Dose 81 MG; Start 10/30/18 at 09:00 Atorvastatin Calcium (Lipitor) 20 mg QHS PO ; Start 10/30/18 at 21:00 Dabigatran (PRADaxa) 150 mg BID PO Last administered on 10/30/18 08:18; Admin Dose 150 MG; Start 10/30/18 at 00:00 Digoxin (Digoxin) 0.125 mg DAILY@1300 PO Last administered on 10/30/18 12:43; Admin Dose 0.125 MG; Start 10/30/18 at 13:00 Losartan Potassium (Cozaar) 50 mg DAILY PO Last administered on 10/30/18 08:13; Admin Dose 50 MG; Start 10/30/18 at 09:00; Status Hold Pantoprazole (Protonix Tab) 40 mg DAILY@0600 PO Last administered on 10/30/18 06:56; Admin Dose 40 MG; Start 10/30/18 at 06:00 Diagnostic Test (Pha) (Accu-Chek) 1 ea 02 XX Last administered on 10/30/18 02:50; Admin Dose 1 EA; Start 10/30/18 at 02:00 Insulin Glargine (Lantus) 41 units DAILY@2000 SC Last administered on 10/30/18 02:25; Admin Dose 41 UNITS; Start 10/30/18 at 00:00 Insulin Aspart (Novolog Insulin Pen) NOVOLOG *MODERATE* ALGORITHM WITH MEALS BEDTIME SC Last administered on 10/30/18 11:33; Admin Dose 6 UNIT; Start 10/30/18 at 08:00 Insulin Aspart (Novolog Insulin Pen) 20 unit WITH MEALS SC Last administered on 10/30/18 11:34; Admin Dose 20 UNIT; Start 10/30/18 at 00:00 Morphine Sulfate (morphine) 1 mg Q4H PRN IV SEVERE PAIN LEVEL 7-10 Last administered on 10/30/18 15:17; Admin Dose 1 MG; Start 10/30/18 at 11:30 Amiodarone HCl (Cordarone) 200 mg BID PO ; Start 10/30/18 at 21:00 Diltiazem HCl (Cardizem Cd) 120 mg BID PO ; Start 10/30/18 at 21:00 Atenolol (Tenormin) 50 mg BID PO ; Start 10/30/18 at 21:00 LEANN PITTS NP October 30, 2018 17:31
[2018-10-30] MEDS ORDERED: GLUCOSE GEL 15 GRAM TUBE BUCCAL PRN (18:00)
[2018-10-30] MEDS ORDERED: GLUCOSE GEL 15 GRAM TUBE PO PRN ×2 (18:00)
[2018-10-30] MEDS ORDERED: DEXTROSE 50% 50 ML SYRINGE IV PRN ×2 (18:00)
[2018-10-30] MEDS ORDERED: GLUCAGON 1 MG INJ IM PRN (18:00)
--- NOTE | 2018-10-30 18:25 | CONS ---
DATE OF ADMISSION: 10/29/2018 DATE OF CONSULTATION: 10/30/2018 REASON FOR CONSULTATION: Paroxysmal atrial fibrillation, atrial flutter, associated chest pain. REQUESTING PHYSICIAN: Dr sanchez from the hospitalist service. HISTORY OF PRESENT ILLNESS: Mr. Justin is a 38-year-old male known to myself from multiple prior hospital admissions, who carries a history of paroxysmal atrial fibrillation, atrial flutter, nonobstructive coronary artery disease by catheterization 01/2018, diabetes mellitus, who presented with complaints of chest pain, palpitations associated chest pain of onset on the day of admission. Initially upon arrival, temperature of 98, blood pressure 130/72, pulse 153, respiratory rate 18, satting 96%. The patient's labs were notable for a white count 8.7, hemoglobin 15.9, platelet count 221. A sodium 132, potassium 4.4, creatinine 0.9, BUN of 15, glucose of 539. Troponin negative. Tox screen negative. The patient underwent a chest x-ray revealing low lung volumes, otherwise no acute cardiac or pulmonary findings. The patient's electrocardiogram revealed atrial flutter likely at a rate of 153 with a variable block. A borderline right bundle branch block and secondary repolarization abnormalities. The patient subsequently was treated with initially diltiazem drip after receiving IV push diltiazem 20 and a p.o. dose 30 with a subsequent improvement in heart rate and then transferred to the floor and since on the floor, telemetry monitoring has revealed only sinus rhythm. The patient denies ongoing chest pain at this time. The patient has had 3 negative troponins. PAST MEDICAL HISTORY: As above in HPI. MEDICATIONS CURRENTLY IN HOSPITAL: 1. Lipitor. 3. Digoxin 0.125 mg daily. 4. Amiodarone 10 mg daily. 5. Morphine. 6. Diltiazem 60 mg p.o. q.12. 7. Losartan 50 mg daily. 8. Carvedilol 25 mg p.o. b.i.d. 9. Dabigatran 150 mg p.o. b.i.d. 10. Insulin. 11. Zofran. 12. Tylenol. ALLERGIES: NO KNOWN DRUG ALLERGIES. SOCIAL HISTORY: No current tobacco, EtOH or illicit drug use. FAMILY HISTORY: No sudden cardiac or early CAD. REVIEW OF SYSTEMS: As above in HPI. CONSTITUTIONAL: No fevers, chills. PULMONARY: No current shortness of breath. CARDIOVASCULAR: No current chest pain. GASTROINTESTINAL: No vomiting. GENITOURINARY: No hematuria. MUSCULOSKELETAL: Degenerative joint disease. PSYCHIATRIC: The patient has depression. NEUROLOGIC: No documented history of CVA. ENDOCRINE: Positive for diabetes mellitus. PHYSICAL EXAMINATION: VITAL SIGNS: Temperature 98.2, blood pressure 130/65, pulse is 70, respiratory rate 18, satting 93%. GENERAL: The patient is alert, awake, in no acute distress. NECK: JVP approximately 8 to 9 cm of water. CHEST: Fair air movement throughout. HEART: Regular rate and rhythm. Normal S1, S2, I/ systolic murmur, nondisplaced PMI. ABDOMEN: Positive bowel sounds, soft. EXTREMITIES: No significant pitting edema, 1+ pulses bilateral posterior tibial. LABORATORY DATA: As above in HPI. Most recent from today troponin negative times a total of 3. Glucose of 229, Sodium 134, potassium 3.7, creatinine 0.7, BUN 14. White blood cell count 7.6, hemoglobin 15.1, platelet count 201. IMAGING STUDIES: As above in HPI. No further imaging studies for my review at this time. ECG: As above in HPI. No further electrocardiograms for my review at this time. IMPRESSION: 1. Chest pain, likely due to rapid atrial fibrillation flutter, now improved status post conversion to sinus rhythm. 2. Paroxysmal atrial fibrillation and atrial flutter, multiple santiago agents. 3. History of coronary artery disease, nonobstructive by catheterization 01/2018. 4. Hypertension with borderline hypotension after receiving antihypertensive. 5. Diabetes mellitus with hyperglycemia. 6. Dyslipidemia with low HDL. RECOMMENDATIONS: 1. At this time, we would maintain patient on telemetry monitoring to follow rhythm and rate control closely. 2. We will consider change of the patient's carvedilol to alternative beta dayana such as atenolol in an attempt to improve heart rate control. The patient is going into paroxysmal atrial fibrillation and atrial flutter and continue the patient on amiodarone at this time. We will make 200 b.i.d. for the next week and then back to daily thereafter. 3. We will additionally consider change in the patient's diltiazem and hold the patient's losartan altogether in order to allow more room for heart rate control. Thank you for allowing me to take part in the care of this patient. I will continue to follow him closely with you with further recommendations to be made as the patient progresses through his inpatient hospital clinical course. Dictated By: MAC LÓPEZ/ANNA Conf#: [id number] DID#: [id number] MTDD
[2018-10-30] MEDS ORDERED: INSULIN GLARGINE [LANTus] (100 UNITS/ML) SYG SC SCH ×2 (20:00)
--- NOTE | 2018-10-30 20:13 | RADRPT ---
Echocardiogram Report Patient Name: Roberto MENDOZA ID: [id number] : 1980 (38y 5m)Study Date: 10/30/2018 3:21:45 PM Gender: Noahcession #: [id number] Tech: NOAH Location: [facility] Ref.Physician: MARIO DIANE Height(Cm): 183 BSA: 2.89Weight(Kg): 164.7 Quality: Technically Difficult StudyOrder Physician: MARIO DIANE Account #: Procedures: Echocardiographic Report: Transthoracic echocardiogram examination. Indications: Atrial Flutter. Measurements: 2D/M Mode Doppler Measurement Value Normal Range Measurement Value Normal Range LVIDd 2D 4.4 [ 4.2 - 5.8 ] cm AV Peak Jason 1.0 [ 100.0 - 170.0 ] cm/se c LVIDs 2D 3.2 [ 2.5 - 4.0 ] cm AV Peak PG 4.0 [ 2.0 - 9.0 ] mmHg LVPWd 2D 1.1 [ 0.6 - 1.0 ] cm LVOT Peak Jason 0.6 [ 70.0 - 110.0 ] cm/sec IVSd 2D 1.2 [ 0.6 - 1.0 ] cm LVOT Peak PG 2.0 [ 2.0 - 6.0 ] mmHg AoR Diam 2D 4.4 [ 2.6 - 3.4 ] cm MV E Peak Jason 0.7 [ 60.0 - 130.0 ] cm/sec EDV 2D 87.2 [ 62.0 - 150.0 ] ml MV A Peak Jason 0.3 [ 100.0 - 120.0 ] cm/se c ESV 2D 41.0 [ 21.0 - 61.0 ] ml MV E/A 2.0 [ 0.8 - 1.5 ] ratio EF 2D 53.0 [ 52.0 - 72.0 ] percent MV PHT 84.0 [ 20.0 - 100.0 ] msec LA Dimen 2D 2.8 [ 3.0 - 4.0 ] cm MV Decel Time 285 [ 104 - 258 ] msec MV Decel Brooke 2 Med E` Jason 0.1 cm/sec MV E/A 2.0 [ 0.8 - 1.5 ] ratio MV PHT 84.0 [ 20.0 - 100.0 ] msec MVA PHT 2.6 [ 2.0 - 4.0 ] cm2 Findings: Left Ventricle: Normal left ventricular cavity size. Normal left ventricular systolic function. Normal left ventricular diastolic function for age as measured by tissue Doppler/Mitral Doppler indices. Mild concentric left ventricular hypertrophy. The left ventricular ejection fraction is visually estimated at 60-65 %. Right Ventricle: Normal right ventricular size. Left Atrium: The left atrium is normal in size and appearance. Right Atrium: The right atrium is normal in size and appearance. Atrial Septum: Normal atrial septum. Mitral Valve: Normal appearance and function of the mitral valve with trace physiologic regurgitation. Aortic Valve: Normal appearance and function of the aortic valve. No significant aortic stenosis or insufficiency. Tricuspid Valve: Normal appearance and function of the tricuspid valve with trace physiologic regurgitation. Pulmonic Valve: Normal pulmonic valve appearance and function with trivial (physiologic) regurgitation. Pericardium: Normal pericardium with no significant pericardial effusion. Aorta: Sinus of Valsalva is mildly dilated. IVC: Normal inferior vena cava appearance. Pulmonary Artery: Pulmonary artery is not well visualized. Conclusions: Normal left ventricular cavity size. Normal left ventricular diastolic function for age as measured by tissue Doppler/Mitral Doppler indices. Mild concentric left ventricular hypertrophy. The left ventricular ejection fraction is visually estimated at 60-65 %. Normal appearance and function of the mitral valve with trace physiologic regurgitation. Normal appearance and function of the tricuspid valve with trace physiologic regurgitation. Normal pulmonic valve appearance and function with trivial (physiologic) regurgitation. Electronically Signed By: Emory Mosher 2018-10-30 20:12:55 PDT
[2018-10-30] MEDS: DILTIAZEM (CD) 120 MG CAP PO SCH (20:17)
[2018-10-30] MEDS: AMIODARONE 200 MG TAB PO SCH (20:18)
[2018-10-30] MEDS: ATENOLOL 50 MG TAB PO SCH (20:21)
[2018-10-30] MEDS ORDERED: ATORVASTATIN 20 MG TAB PO SCH (21:00)
[2018-10-30] MEDS ORDERED: ZOLPIDEM 5 MG TAB PO ONE (23:50)
[2018-10-31] VITALS (8 sets, daily range): BP systolic 106–112; BP diastolic 53–57; PULSE 40–71; RESP 18–20
[2018-10-31] MEDS: ACCU-CHEK XX SCH (02:28)
[2018-10-31] MEDS: PANTOPRAZOLE (EC) 40 MG TAB PO SCH (06:37)
[2018-10-31] MEDS: DABIGATRAN 150 MG CAP PO SCH (08:23)
[2018-10-31] MEDS: ASPIRIN (EC) 81 MG TAB PO SCH (08:23)
[2018-10-31] MEDS: DILTIAZEM (CD) 120 MG CAP PO SCH (08:24)
[2018-10-31] MEDS: AMIODARONE 200 MG TAB PO SCH (08:24)
[2018-10-31] MEDS: ATENOLOL 50 MG TAB PO SCH (08:24)
[2018-10-31] MEDS: INSULIN ASPART [NOVOLOG] 3 ML PEN SC SCH ×2 (08:34→08:35)
[2018-10-31] MEDS ORDERED: DILT120C77 PO (11:41)
[2018-10-31] MEDS ORDERED: ATEN50TA PO (11:41)
--- NOTE | 2018-10-31 11:43 | PDOCDIS ---
Discharge Instructions DIAGNOSIS Discharge Diagnosis 1. A. fib with RVR. 2. Diabetes. 3. Hypertension 4. Obesity CONDITION [id number] Patient Condition: [id number] Stable HOME CARE INSTRUCTIONS: [id number] Diet Instructions: [id number] Low Fat /Cholesterol FOLLOW UP/APPOINTMENTS Follow-up Plan 1. Follow up with Dr. Emory Mosher in one week Office Address [address] [place] [id number] Office LEANN PITTS NP October 31, 2018 11:43
--- NOTE | 2018-10-31 13:03 | DS ---
Date/Time of Note Date/Time of Note DATE: 10/31/18 TIME: 13:01 Discharge Summary Admission/Discharge Info Admit Date/Time October 29, 2018 at 20:59 Discharge Date/Time October 31, 2018 at 12:17 Discharge Diagnosis 1. A. fib with RVR. 2. Diabetes. 3. Hypertension 4. Obesity Patient Condition: Stable Consults 1. Dr. Emory Mosher [facility] Course This is a 38-year-old male with history of hypertension, A. fib, diabetes, came to [facility] due to reports of chest pain and palpitation for 1 day. He was found to have a heart rate in the 150s and in a flutter. He was treated with Cardizem with better control. He was seen by huller operator. Echocardiogram was done that showed him to have an EF of 60 to 65%. We did continue him on medical regimen per huller operator recommendations and he did have good response with better heart rate control. He was otherwise otherwise medically. He did have uncontrolled diabetes and we adjusted his insulin regime n. He was also continued on antihypertensives for hypertension and was advised for weight reduction for his obesity. The plan of care was discussed with the patient and patient did verbalize his understanding. On the day of discharge patient was in stable condition Discussed plan of care with Dr. [facility] Active Scripts Diltiazem Hcl* (Cardizem CD*) 120 Mg Cap.sr.24h, 120 MG PO BID, #60 Prov:LEANN PITTS ATHLETIC SHOE DESIGNER 10/31/18 Atenolol* (Atenolol*) 50 Mg Tablet, 50 MG PO BID, #60 TAB Prov:LEANN PITTS NP 10/31/18 Pantoprazole* (Protonix*) 40 Mg Tablet.dr, 40 MG PO DAILY, #20 TAB Prov:VAUGHN COMBS MD 08/10/18 Reported Medications Insulin Glargine,Hum.rec.anlog (Basaglar Kwikpen U-100) 100 Unit/1 Ml Insuln.pen, 90 UNIT SC QHS, EA 07/10/18 Atorvastatin Calcium* (Atorvastatin Calcium*) 20 Mg Tablet, 20 MG PO QHS, #30 TAB 02/10/18 Losartan Potassium* (Losartan Potassium*) 50 Mg Tablet, 50 MG PO DAILY, TAB 02/10/18 Dabigatran Etexilate Mesylate* (Pradaxa*) 150 Mg Capsule, 150 MG PO BID, CAP 10/21/17 Amiodarone Hcl* (Amiodarone Hcl*) 200 Mg Tablet, 200 MG PO DAILY, #30 TAB 10/21/17 Sitagliptin* (Januvia*) 100 Mg Tablet, 100 MG PO DAILY, #30 TAB 09/03/17 Insulin Lispro (Humalog Kwikpen U-100) 100 Unit/1 Ml Insuln.pen, 20 UNIT SQ TID, EA 07/22/17 Aspirin* (Aspirin* EC) 81 Mg Tablet.dr, 81 MG PO DAILY, TAB 07/01/17 Digoxin* (Digitek*) 125 Mcg Tablet, 0.125 MG PO DAILY, TAB 07/01/17 Discontinued Reported Medications Carvedilol* (Carvedilol*) 25 Mg Tablet, 25 MG PO BID, #60 TAB 02/10/18 Diltiazem Hcl* (Cardizem SR*) 60 Mg Capsr, 60 MG PO Q12, #60 CAP 02/10/18 Follow-up Plan 1. Follow up with Dr. Emory Mosher in one week Office Address [address] [place] [id number] Office Primary Care Provider [facility] Time spent on discharge: > 30 minutes Pending Labs Laboratory Tests Test 10/30/18 17:16 10/30/18 20:05 10/31/18 02:11 10/31/18 08:23 Bedside 196 203 251 256 Glucose mg/dL (70-220) mg/dL (70-220) mg/dL (70-220) mg/dL (70-220) LEANN PITTS NP October 31, 2018 13:03
--- NOTE | 2018-10-31 19:29 | RADRPT ---
Vent Rate: 64 bpm RR Interval: 936 msec MS Interval: 192 msec QRS Duration: 117 msec QT Interval: 411 msec QTC Interval: 425 msec P-R-T [place]: -23 - 105 - 44 degrees Sinus rhythm...normal P axis, V-rate 50- 99 IRBBB and LPFB...RAD, QRSd>120, term axis(90,270) Low voltage, precordial leads...precordial leads <1.0mV Electronically Signed By: Emory Mosher
== END 2018-10-31 12:17 | disposition home or self-care (01) | DRG 309 ==
LOC: E/R 20:22 → 6WM 20:59
PROVIDERS: ADMIT Internal Medicine; ATTEND Internal Medicine
DX: I48.0 Paroxysmal atrial fibrillation (principal); E87.1 Hypo-osmolality and hyponatremia; I48.92 Unspecified atrial flutter; I25.10 Atherosclerotic heart disease of native coronary artery without angina pectoris; I10 Essential (primary) hypertension; E11.9 Type 2 diabetes mellitus without complications; E11.65 Type 2 diabetes mellitus with hyperglycemia; E66.9 Obesity, unspecified; Z79.4 Long term (current) use of insulin; Z79.82 Long term (current) use of aspirin
CPT/HCPCS: 36415; 71045; 80048; 80053; 80061; 80162; 82550; 82553; 82962; 83036; 83735; 84439; 84443; 84481; 84484; 85025; 93005; 93306; 96374; J1815; J2270; J2405; J7030; J7040

== ENCOUNTER 2018-11-20 13:43 | Inpatient (IN) | payer OTHER ==
[~2018-11-20] VITALS: Ht 182.9 cm; Wt 164.2 kg
[~2018-11-20 13:43] MED LIST changes: +ATEN50TA PO; -CARSR60 PO; -CARV25TA79 PO; +DILT120C77 PO
[2018-11-20] MEDS ORDERED: morphine 4 MG/ML VIAL IV STA (13:46)
[2018-11-20] MEDS ORDERED: ONDANSETRON 4 MG INJ IV STA (13:46)
[2018-11-20 13:50] VITALS: Ht 182.9 cm; Wt 164.2 kg
[2018-11-20] MEDS ORDERED: DILTIAZEM 25 MG INJ IV ONE ×2 (14:00→14:30)
--- NOTE | 2018-11-20 14:02 | ERD ---
ER Documentation Chief Complaint Chief Complaint HPI This is a 38-year-old male with a known history of atrial fibrillation and conge stive heart failure. The patient presents to the emergency department stating that he developed chest pain an hour prior to arrival. The patient also indicates he is experiencing palpitations. He describes the chest pain as a pressure-like sensation. He states the pain does not radiate to the neck arm back or jaw. The patient states he had multiple previous hospitalizations for similar symptoms. The patient states he takes diltiazem Coreg Pradaxa and has been compliant with his medications. EMS administered aspirin and nitroglycerin but this did not improve his symptoms. The patient indicated 2 weeks ago he was at [facility] and required cardioversion. The patient denies any shortness of breath at rest or exertion. He denies any swelling of his lower extremities. ROS All systems reviewed and are negative except as per history of present illness. Medications Home Meds Active Scripts Diltiazem Hcl* (Cardizem CD*) 120 Mg Cap.sr.24h, 120 MG PO BID, #60 Prov:LEANN PITTS MANAGER CARDIAC CATH 10/31/18 Atenolol* (Atenolol*) 50 Mg Tablet, 50 MG PO BID, #60 TAB Prov:LEANN PITTS MANAGER CARDIAC CATH 10/31/18 Reported Medications Insulin Glargine,Hum.rec.anlog (Basaglar Kwikpen U-100) 100 Unit/1 Ml In suln.pen, 90 UNIT SC DAILY, EA 11/20/18 Discontinued Reported Medications Insulin Glargine,Hum.rec.anlog (Basaglar Kwikpen U-100) 100 Unit/1 Ml Insuln.pen, 90 UNIT SC QHS, EA 07/10/18 Atorvastatin Calcium* (Atorvastatin Calcium*) 20 Mg Tablet, 20 MG PO QHS, #30 TAB 02/10/18 Losartan Potassium* (Losartan Potassium*) 50 Mg Tablet, 50 MG PO DAILY, TAB 02/10/18 Dabigatran Etexilate Mesylate* (Pradaxa*) 150 Mg Capsule, 150 MG PO BID, CAP 10/21/17 Amiodarone Hcl* (Amiodarone Hcl*) 200 Mg Tablet, 200 MG PO DAILY, #30 TAB 10/21/17 Sitagliptin* (Januvia*) 100 Mg Tablet, 100 MG PO DAILY, #30 TAB 09/03/17 Insulin Lispro (Humalog Kwikpen U-100) 100 Unit/1 Ml Insuln.pen, 20 UNIT SQ TID, EA 07/22/17 Aspirin* (Aspirin* EC) 81 Mg Tablet.dr, 81 MG PO DAILY, TAB 07/01/17 Digoxin* (Digitek*) 125 Mcg Tablet, 0.125 MG PO DAILY, TAB 07/01/17 Discontinued Scripts Pantoprazole* (Protonix*) 40 Mg Tablet.dr, 40 MG PO DAILY, #20 TAB Prov:VAUGHN COMBS MD 08/10/18 Allergies Allergies: Coded Allergies: No Known Drug Allergies (Unverified Allergy, Unknown, 11/20/18) PMhx/Soc History of Surgery: No Anesthesia Reaction: No Hx Neurological Disorder: No Hx Respiratory Disorders: No Hx Cardiac Disorders: Yes (CHF, HTN, AFib) Hx Psychiatric Problems: No Hx Miscellaneous Medical Probl: No Hx Alcohol Use: No Hx Substance Use: No Hx Tobacco Use: No Physical Exam Vitals Vital Signs Date Temp Pulse Resp B/P (MAP) Pulse Ox O2 O2 Flow FiO2 Time Delivery Rate 11/20/18 110 18 116/96 99 Room Air 14:20 (103) 11/20/18 98.2 153 18 103/74 99 13:50 (84) Physical Exam Constitutional:Well-developed. Well-nourished. HEENT:Normocephalic. Atraumatic.Pupils were equal round reactive to light. Moist mucous membranes.No tonsillar exudates. Neck: No nuchal rigidity. No lymphadenopathy. No posterior cervical spine tenderness or step-offs. Respiratory: Not using accessory muscles of respiration.Lungs were clear to auscultation bilaterally. Bilateral rhonchi. No rales. No wheezing. Cardiovascular: Tachycardic with irregular regular rhythm.No murmurs. No rubs were appreciated.S1, S2 normal. Distal pulses are palpable 2+ bilaterally. GI: Abdomen was obese so exam is limited due to body habitus nontender. Non Distended. No pulsatile abdominal masses or bruits. No rebound. No guarding. Bowel sounds were present and normal. Muscle skeletal: Full range of motion of both the upper and lower extremities bilaterally.Normal muscle tone.No assymetrical calf tenderness or swelling. Skin: No petechia, no purpura. No lesions on the palms or the soles of the feet. No maculopapular rash. NEURO: Patient was alert, awake, orientated x3.No facial droop. Gait observed and normal with no ataxia.Speech had regular rate and rhythm. No focal neurological deficits. Result Diagram: 11/20/18 1407 Results 24 hrs Laboratory Tests Test 11/20/18 14:07 White Blood Count 8.1 10^3/ul Red Blood Count 5.12 10^6/ul Hemoglobin 15.3 g/dl Hematocrit 43.5 % Mean Corpuscular Volume 85.0 fl Mean Corpuscular Hemoglobin 29.9 pg Mean Corpuscular Hemoglobin Concent 35.2 g/dl Red Cell Distribution Width 12.9 % Platelet Count 208 10^3/UL Mean Platelet Volume 10.7 fl Immature Granulocytes % 0.200 % Neutrophils % 65.6 % Lymphocytes % 25.4 % Monocytes % 7.1 % Eosinophils % 1.2 % Basophils % 0.5 % Nucleated Red Blood Cells % 0.0 /100WBC Immature Granulocytes # 0.020 10^3/ul Neutrophils # 5.3 10^3/ul Lymphocytes # 2.1 10^3/ul Monocytes # 0.6 10^3/ul Eosinophils # 0.1 10^3/ul Basophils # 0.0 10^3/ul Nucleated Red Blood Cells # 0.0 10^3/ul Current Medications Medications Dose Sig/Mera Start Time Status Last (Trade) Ordered Route PRN Stop Time Admin Dose Reason Admin Morphine 4 mg ONCE STAT 11/20/18 Cancel Sulfate IV 13:46 (morphine) 11/20/18 13:47 Ondansetron 4 mg ONCE STAT 11/20/18 Cancel HCl (Zofran IV 13:46 Inj) 11/20/18 13:47 Diltiazem 20 mg ONCE ONCE 11/20/18 Cancel HCl IV 14:00 (Cardizem Iv) 11/20/18 14:01 Diltiazem 10 mg ONCE ONCE 11/20/18 UNV HCl IV 14:30 (Cardizem Iv) 11/20/18 14:31 Sodium 500 ml @ Q1H STAT 11/20/18 UNV Chloride 500 mls/hr IV 14:23 11/20/18 15:22 Procedures/MDM The patient presented to the emergency department with chest pain. My clinical evaluation and workup was to distinguish minor causes of chest pain from acute life threatening conditions such as myocardial infarction, pulmonary embolism, aortic dissection, esophageal rupture, cardiac tamponade. The patient was placed on a court monitor and continuous pulse oximetry. IV access established by nursing staff. The patient was tachycardic. EKG was immediately obtained. 12 Lead EKG tracing ordered and reviewed by myself showed: Tachycardic at 153 bpm bpm and no arrhythmia. SD interval not appreciated as P waves were not seen. There is right ventricular hypertrophy. Patient had an incomplete right bundle branch block. QRS duration normal. No ST segment elevation No ST segment depression. No changes consistent with acute ischemia. The EKG tracing read supraventricular tachycardia however this appeared to be more atrial fibrillation with RVR. The patient was given 10 mg of diltiazem the patient was hypotensive so did receive gentle IV fluid hydration with a 500 cc bolus of normal saline. The patient will be placed on a Cardizem drip. EKG taken after Cardizem indicate the patient was tachycardic and irregular re gular rhythm of 112 beats. The patient was in atrial fibrillation with RVR. The patient will be admitted to the panel physician. He will go to the telemetry service in serious condition. Critical Care: Time: 60 minutes Treatments/Evaluations: Close monitoring and treatment of unstable vital signs, cardiorespiratory, and neurologic status, while maintaining tight balance of fluid, respiratory, and cardiac interventions. Time does not include performing any of the above billable procedures. Departure Diagnosis: Primary Impression: Atrial fibrillation with RVR Additional Impression: Chest pain Chest pain type: unspecified Qualified Codes: R07.9 - Chest pain, u nspecified Condition: Serious LISA CASANOVA MD Nov 20, 2018 14:02
[2018-11-20] MEDS ORDERED: SOD CHLORIDE 0.9% 500 ML IV STA (14:23)
[2018-11-20] MEDS ORDERED: INSU100I33 SC (14:35)
[2018-11-20] MEDS ORDERED: INSU100I12 SQ (14:36)
[2018-11-20] MEDS ORDERED: ATOR20TA38 PO (14:36)
[2018-11-20] MEDS ORDERED: CARV25TA79 PO (14:37)
[2018-11-20] MEDS ORDERED: GABA300C16 PO (14:37)
[2018-11-20] MEDS ORDERED: LOSA50TA14 PO (14:37)
[2018-11-20] MEDS ORDERED: ASPI-817 PO (14:38)
[2018-11-20] MEDS ORDERED: AMIO200T4 PO (14:38)
[2018-11-20] MEDS ORDERED: DILTIAZEM-D5W 125MG/125ML DRIP 125 ML IV STA (14:41)
[2018-11-20] MEDS ORDERED: ACETAMINOPHEN 325 MG TAB PO PRN (15:00)
[2018-11-20] MEDS ORDERED: ONDANSETRON 4 MG INJ IV PRN ×2 (15:00→15:30)
--- NOTE | 2018-11-20 15:18 | HP ---
Date/Time of Note Date/Time of Note DATE: 11/20/18 TIME: 15:18 Assessment/Plan VTE Prophylaxis Pharmacological prophylaxis: LMWH Lines/Catheters IV [facility]from [facility] Saline Lock Assessment/Plan Hospital Course 38-year-old male with comorbidities including hypertension, dyslipidemia, atrial fibrillation, obesity, and obstructive sleep apnea who came to the emergency room with chief complaint of chest pain and palpitations with underlying atrial fibrillation with rapid ventricular response, who will be admitted to inpatient setting for further treatment and evaluation. 1. Atrial fibrillation with rapid ventricle response. Status post IV Cardizem. Resume the patient's oral Cardizem, beta-blockers, and amiodarone. Obtain cardiology consult. Ruled out for any underlying ACS. Therapeutic anticoagulation will be deferred to cardiology. 2. Hypertension. Continue antihypertensives. 3. Diabetes mellitus. Uncontrolled. Start the patient on sliding scale insulin along with pre-meal insulin and basal insulin. Obtain hemoglobin A1c to evaluate the blood glucose control over the past few months. 4. Dyslipidemia. Continue statins. Obtain fasting lipid panel. 5. Obesity hypoventilation. Continue supplemental oxygen as needed. Plan: The patient will be admitted to inpatient telemetry floor. The patient will be started on a carbohydrate controlled diet. The patient will be started on DVT prophylaxis. The patient will remain a full code. Activities will be as tolerated. The rest of the patient's management will be based on the clinical course, inputs from consultants, and the results of diagnostic studies. Based on the patient's clinical presentation, he most probably requires at least 2 midnights' stay for further management and evaluation of his clinical presentation. The patient was seen in collaboration with Dr. Jefferson. Result Diagram: 11/20/18 1407 11/20/18 1407 Results 24hrs Laboratory Tests Test 11/20/18 14:07 White Blood Count 8.1 Red Blood Count 5.12 Hemoglobin 15.3 Hematocrit 43.5 Mean Corpuscular Volume 85.0 Mean Corpuscular Hemoglobin 29.9 Mean Corpuscular Hemoglobin Concent 35.2 Red Cell Distribution Width 12.9 Platelet Count 208 Mean Platelet Volume 10.7 H Immature Granulocytes % 0.200 Neutrophils % 65.6 Lymphocytes % 25.4 Monocytes % 7.1 Eosinophils % 1.2 Basophils % 0.5 Nucleated Red Blood Cells % 0.0 Immature Granulocytes # 0.020 Neutrophils # 5.3 Lymphocytes # 2.1 Monocytes # 0.6 Eosinophils # 0.1 Basophils # 0.0 Nucleated Red Blood Cells # 0.0 Prothrombin Time 12.8 Prothrombin Time Ratio 1.0 INR International Normalized Ratio 0.95 Activated Partial Thromboplast Time 30.8 Sodium Level 136 Potassium Level 4.3 Chloride Level 99 Carbon Dioxide Level 27 Anion Gap 10 Blood Urea Nitrogen 10 Creatinine 0.70 Est Glomerular Filtrat Rate mL/min > 60 Glucose Level 484 *H Calcium Level 8.8 Total Bilirubin 0.5 Direct Bilirubin 0.00 Indirect Bilirubin 0.5 Aspartate Amino Transf (AST/SGOT) 28 Alanine Aminotransferase (ALT/SGPT) 45 Alkaline Phosphatase 129 H Creatine Kinase 193 Creatine Kinase Index 1.4 Creatinine Kinase MB (Mass) 2.68 H Troponin I < 0.012 B-Type Natriuretic Peptide 24 Total Protein 6.6 Albumin 3.7 Globulin 2.90 Albumin/Globulin Ratio 1.27 Ethyl Alcohol Level < 10.0 H HPI/ROS Admit Date/Time Admit Date/Time Hx of Present Illness Reason for admission: Chest pain, palpitations, A. fib with RVR. Consultants 1. Heber Blackwell MD, Cardiology. This is a 38-year-old male with comorbidities including hypertension, morbid obesity, atrial fibrillation, diabetes mellitus type 2, dyslipidemia, and obstructive sleep apnea who came to the emergency room with chief complaint of palpitations and chest pain. The patient verbalized the chest pain as substernal with radiation to the left arm. The patient denied any nausea or vomiting. He verbalized associated diaphoresis. The patient also verbalized palpitations. He denied any dizziness. He denied any presyncope or syncope. He denied any fevers or chills. He verbalized that he has been compliant with all his medications. In the emergency room, the patient was noticed to be in atrial fibrillation with rapid ventricular response. The patient was given Cardizem 10 mg IV push with improvement the heart rate. The patient's troponins were negative. ROS Constitutional: no complaints Eyes: no complaints ENT: no complaints Respiratory: no complaints Cardiovascular: chest pain, palpitations Gastrointestinal: no complaints Genitourinary: no complaints Musculoskeletal: no complaints Skin: no complaints Neurologic: no complaints Endocrine: no complaints Lymphatic: no complaints Psychological: no complaints Immunologic: no complaints PMH/Family/Social Past Medical History 1. A. fib with RVR. 2. Diabetes. 3. Hypertension 4. Obesity. 5. JULIAN. Medications Current Medications Sodium Chloride 500 ml @ 500 mls/hr Q1H STAT IV Last administered on 11/20/18at 14:51; Admin Dose 500 MLS/HR; Start 11/20/18 at 14:23; Stop 11/20/18 at 15:22 Diltiazem HCl 125 ml @ 5 mls/hr ONCE STAT IV ; Start 11/20/18 at 14:41; Stop 11/21/18 at 15:40 Ondansetron HCl (Zofran Inj) 4 mg ER BRIDGE PRN IV NAUSEA/VOMITING; Start 11/20/18 at 15:00; Stop 11/21/18 at 14:59 Acetaminophen (Tylenol Tab) 650 mg ER BRIDGE PRN PO .MILD PAIN 1-3 OR TEMP; Start 11/20/18 at 15:00; Stop 11/21/18 at 14:59 Coded Allergies: No Known Drug Allergies (Unverified Allergy, Unknown, 11/20/18) Past Surgical History Past Surgical Hx: no surgical history, other Family History Significant Family History: no pertinent family hx Social History 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 Alcohol Use: none Smoking Status: Never smoker Drug Use: none Exam/Review of Systems Vital Signs Vitals Vital Signs Date Temp Pulse Resp B/P (MAP) Pulse Ox O2 O2 Flow FiO2 Time Delivery Rate 11/20/18 104 20 124/77 99 Room Air 15:02 (93) 11/20/18 98.2 13:50 Exam Exam General: Morbidly obese, 38 year-old male lying in bed in no apparent distress. HEENT: Normocephalic, atraumatic. Eyes: Anicteric sclerae, conjunctivae clear. ENT: Nasal septum midline, oral mucosa moist. Neck: Short with increased neck circumference. Respiratory: Bilaterally diminished breath sounds. No use of accessory muscles of respiration. No adventitious breath sounds. Cardiovascular: S1, S2 heard. Irregularly irregular rhythm. Abdomen: Soft, nontender, and nondistended. Bowel sounds positive in all 4 quadrants. Genitourinary: Deferred. Extremities: No cyanosis, no clubbing. Bilateral lower extremity edema. Peripheral pulses palpable. Neurologic: Cranial nerves II through XII grossly intact. The patient is awake, alert, and oriented. Additional Comments CXR IMPRESSION: Low lung volumes with compressive changes. Lung aeration is improved when com pared to the prior examination. RUBINA KHAN NP Nov 20, 2018 15:18
[2018-11-20] MEDS ORDERED: NACL 0.9% 3 ML SYG IV SCH (15:30)
[2018-11-20] MEDS ORDERED: GLUCAGON 1 MG INJ IM PRN (16:00)
[2018-11-20] MEDS ORDERED: GLUCOSE GEL 15 GRAM TUBE BUCCAL PRN (16:00)
[2018-11-20] MEDS ORDERED: GLUCOSE GEL 15 GRAM TUBE PO PRN ×2 (16:00)
[2018-11-20] MEDS ORDERED: DEXTROSE 50% 50 ML SYRINGE IV PRN ×2 (16:00)
[2018-11-20] MEDS ORDERED: FUROSEMIDE 40 MG INJ IV ONE (18:00)
[2018-11-20] MEDS: INSULIN ASPART [NOVOLOG] 3 ML PEN SC SCH ×3 (18:45→21:04)
[2018-11-20 19:50] VITALS: BP 132/75; PULSE 79; RESP 18
[2018-11-20] MEDS ORDERED: INSULIN GLARGINE [LANTus] (100 UNITS/ML) SYG SC SCH (20:00)
[2018-11-20 20:08] VITALS: PULSE 70
[2018-11-20] MEDS: ATORVASTATIN 20 MG TAB PO SCH (20:23)
[2018-11-20] MEDS: DILTIAZEM (CD) 120 MG CAP PO SCH (20:24)
[2018-11-20] MEDS: GABAPENTIN 300 MG CAP PO SCH (20:25)
[2018-11-20] MEDS ORDERED: NITROGLYCERIN (SL) 0.4 MG TAB SL PRN (20:30)
[2018-11-20] MEDS: morphine 2 MG INJ IV PRN (20:44)
[2018-11-20] MEDS: APIXABAN 5 MG TABLET PO SCH (20:47)
[2018-11-20] MEDS: FUROSEMIDE 40 MG INJ IV SCH (22:21)
[2018-11-21] VITALS (10 sets, daily range): BP systolic 86–112; BP diastolic 46–59; PULSE 57–71; RESP 18–21
--- NOTE | 2018-11-21 04:58 | CONS ---
DATE OF ADMISSION: 11/20/2018 DATE OF CONSULTATION: 11/20/2018 REASON FOR CONSULTATION: Atrial fibrillation with RVR. HISTORY OF PRESENT ILLNESS: The patient is a 38-year-old gentleman complains of substernal chest maria elena n radiating to the left shoulder associated with shortness of breath, orthopnea, dizziness, palpitati on, no syncope, no nausea, vomiting, no fever, chills or rigors. No headache or blurry vision. He a lso complains of lower extremity edema. PAST MEDICAL HISTORY: Congestive heart failure, hypertension, dyslipidemia, diabetes mellitus, atria l fibrillation, morbid obesity. SOCIAL HISTORY: Denies smoking, alcohol, or recreational drugs. ALLERGIES: None. CURRENT MEDICATIONS: Include: 1. Coreg. 2. Diltiazem. 3. Amiodarone. 4. Aspirin. 5. Losartan. 6. Lovenox. 7. Insulin. 8. Lipitor. REVIEW OF SYSTEMS: Unremarkable except that mentioned in the HPI. PHYSICAL EXAMINATION: VITAL SIGNS: Temperature is 98.2, heart rate of 83, blood pressure 129/89 mmHg, breathing at 20, sat urating 99% on room air. GENERAL: Patient awake, alert, oriented, no apparent distress. NECK: No JVD or carotid bruit. CARDIOVASCULAR: Irregularly irregular rhythm. No murmur, rub or gallop. CHEST: Diminished breath sounds bilaterally. ABDOMEN: Soft, distant bowel sounds. EXTREMITIES: Bilateral pedal edema. DIAGNOSTIC DATA: A 12-lead EKG shows atrial fibrillation with a ventricular rate of 95 beats per min [place] with normal QRS and normal QT intervals with incomplete right bundle branch block with RVH and no nspecific ST-T wave changes. Chest x-ray shows congestion. LABORATORY DATA: WBC 8.1, hemoglobin 15.3, hematocrit 43.5 with a platelet of 208. Sodium 136, pota ssium 4.3, chloride 99, CO2 27, BUN 10, creatinine 0.70. Hemoglobin A1c 12.8. BNP 24. Troponin first set is negative. WBC 8.1. alcohol . ASSESSMENT AND PLAN: 1. A 38-year-old gentleman with atrial fibrillation with rapid ventricular rate. 2. Acute exacerbation of congestive heart failure. 3. Hypertension. 4. Dyslipidemia. 5. Diabetes mellitus. 6. Morbid obesity. 7. Possible sleep apnea. RECOMMENDATIONS: 1. Continue Coreg. 2. Continue diltiazem. 3. Increase amiodarone to 400 mg b.i.d. 4. Continue aspirin. 5. Started on Eliquis. 6. Continue losartan. 7. Continue insulin sliding scale. 8. Continue Lipitor. 9. Started on Lasix 40 mg t.i.d. 10. Trend troponin q.8 x3, lipid panel. 11. Echocardiogram to assess for systolic function, pulmonary hypertension and pericardial disease. Dictated By: DANIEL MCCRACKEN MD SR/NTS Conf#: [id number] DID#: [id number] CC: CYRUS FANG MD;*EndCC*
[2018-11-21] MEDS: FUROSEMIDE 40 MG INJ IV SCH ×3 (08:46→20:45)
[2018-11-21] MEDS: DILTIAZEM (CD) 120 MG CAP PO SCH ×2 (08:47→20:44)
[2018-11-21] MEDS: AMIODARONE 200 MG TAB PO SCH ×2 (08:47→20:44)
[2018-11-21] MEDS: GABAPENTIN 300 MG CAP PO SCH ×3 (08:47→20:45)
[2018-11-21] MEDS: ASPIRIN (EC) 81 MG TAB PO SCH (08:47)
[2018-11-21] MEDS: APIXABAN 5 MG TABLET PO SCH ×2 (08:48→20:45)
[2018-11-21] MEDS: INSULIN ASPART [NOVOLOG] 3 ML PEN SC SCH ×6 (08:52→20:55)
[2018-11-21] MEDS: morphine 2 MG INJ IV PRN ×3 (08:53→19:46)
[2018-11-21] MEDS ORDERED: AMIODARONE 200 MG TAB PO SCH (09:00)
[2018-11-21] MEDS ORDERED: POTASSIUM CHLORIDE (SR) 10 MEQ TAB PO ONE (09:00)
[2018-11-21] MEDS ORDERED: LOSARTAN 50 MG TAB PO SCH (09:00)
[2018-11-21] MEDS ORDERED: ENOXAPARIN 40 MG/0.4 ML SYG SC SCH ×2 (09:00)
[2018-11-21] MEDS ORDERED: MAGNESIUM SULFATE 2 GM/50 ML 50 ML IVPB ONE (09:00)
--- NOTE | 2018-11-21 12:17 | PN ---
Date/Time of Note Date/Time of Note DATE: 11/21/18 TIME: 11:59 Assessment/Plan VTE Prophylaxis Risk score (from Ns)>0 risk: 4 SCD applied (from Ns): Yes Pharmacological prophylaxis: apixaban Lines/Catheters IV Catheter Type (from Nrs): Saline Lock Urinary Cath still in place: No Assessment/Plan Assessment/Plan 1. Atrial fibrillation with rapid ventricle response- improving - Cardiology on board and appreciate recommendations. HR better controlled and BP running low. Will decrease losartan dose to 25 mg and continue rate control medications at current dose. Will await further input from cardiology if need to adjust BB,CC, or amiodarone dosages - started on Eliquis and will need to touch base with CM regarding medication coverage prior to discharge 2. Hypertension. - adjusted Losartan 25mg give BP low today 3. Diabetes mellitus, uncontrolled - A1c noted - ISS and accucheck - will adjust for better glucose control 4. Dyslipidemia. - continue statin - lipid panel noted 5. Obesity - lifestyle modifications 6. electrolyte derangement - replacing K and Mg 7. Disposition - Adjusting medications for better BP control as well as glucose control. Once HR remains stable and no further symptoms, will d/c home Result Diagram: 11/21/18 0549 11/21/18 0549 Results 24hrs Laboratory Tests Test 11/20/18 14:07 11/20/18 18:34 11/20/18 19:28 11/20/18 20:28 White Blood Count 8.1 Red Blood Count 5.12 Hemoglobin 15.3 Hematocrit 43.5 Mean Corpuscular 85.0 Volume Mean Corpuscular 29.9 Hemoglobin Mean Corpuscular 35.2 Hemoglobin Concent Red Cell 12.9 Distribution Width Platelet Count 208 Mean Platelet Volume 10.7 H Immature 0.200 Granulocytes % Neutrophils % 65.6 Lymphocytes % 25.4 Monocytes % 7.1 Eosinophils % 1.2 Basophils % 0.5 Nucleated Red Blood 0.0 Cells % Immature 0.020 Granulocytes # Neutrophils # 5.3 Lymphocytes # 2.1 Monocytes # 0.6 Eosinophils # 0.1 Basophils # 0.0 Nucleated Red Blood 0.0 Cells # Prothrombin Time 12.8 Prothrombin Time 1.0 Ratio INR International 0.95 Normalized Ratio Activated 30.8 Partial Thromboplast Time Sodium Level 136 Potassium Level 4.3 Chloride Level 99 Carbon Dioxide Level 27 Anion Gap 10 Blood Urea Nitrogen 10 Creatinine 0.70 Est Glomerular > 60 Filtrat Rate mL/min Glucose Level 484 *H Hemoglobin A1c 12.8 H Calcium Level 8.8 Total Bilirubin 0.5 Direct Bilirubin 0.00 Indirect Bilirubin 0.5 Aspartate Amino 28 Transf (AST/SGOT) Alanine 45 Aminotransferase (AL T/SGPT) Alkaline Phosphatase 129 H Creatine Kinase 193 162 Creatine Kinase 1.4 1.1 Index Creatinine Kinase MB 2.68 H 1.72 (Mass) Troponin I < 0.012 < 0.012 B-Type Natriuretic 24 Peptide Total Protein 6.6 Albumin 3.7 Globulin 2.90 Albumin/Globulin 1.27 Ratio Thyroid Stimulating 1.570 Hormone (TSH) Free Thyroxine 1.11 Digoxin Level < 0.4 L Ethyl Alcohol Level < 10.0 H Bedside Glucose 298 H 377 H Urine Opiates Screen Negative Urine Barbiturates Negative Urine Amphetamines Negative Screen Urine Negative Benzodiazepines Screen Urine Cocaine Screen Negative Urine Cannabinoids Negative Test 11/20/18 22:22 11/21/18 00:49 11/21/18 05:49 11/21/18 11:47 Bedside Glucose 341 H 312 H Troponin I < 0.012 < 0.012 White Blood Count 8.0 Red Blood Count 5.26 Hemoglobin 15.8 Hematocrit 45.2 Mean Corpuscular 85.9 Volume Mean Corpuscular 30.0 Hemoglobin Mean Corpuscular 35.0 Hemoglobin Concent Red Cell 13.3 Distribution Width Platelet Count 206 Mean Platelet Volume 10.9 H Immature 0.400 Granulocytes % Neutrophils % 60.2 Lymphocytes % 30.1 Monocytes % 7.0 Eosinophils % 1.5 Basophils % 0.8 Nucleated Red Blood 0.0 Cells % Immature 0.030 Granulocytes # Neutrophils # 4.8 Lymphocytes # 2.4 Monocytes # 0.6 Eosinophils # 0.1 Basophils # 0.1 Nucleated Red Blood 0.0 Cells # Sodium Level 136 Potassium Level 3.8 Chloride Level 99 Carbon Dioxide Level 28 Anion Gap 9 Blood Urea Nitrogen 14 Creatinine 0.78 Est Glomerular > 60 Filtrat Rate mL/min Glucose Level 311 #H Calcium Level 9.0 Phosphorus Level 4.7 Magnesium Level 1.7 Total Bilirubin 0.8 Direct Bilirubin 0.00 Indirect Bilirubin 0.8 Aspartate Amino 28 Transf (AST/SGOT) Alanine 35 Aminotransferase (AL T/SGPT) Alkaline Phosphatase 93 Creatine Kinase 119 Creatine Kinase 1.1 Index Creatinine Kinase MB 1.25 (Mass) Total Protein 7.0 Albumin 3.9 Globulin 3.10 Albumin/Globulin 1.25 Ratio Triglycerides Level 98 Cholesterol Level 114 LDL Cholesterol, 64 Calculated HDL Cholesterol 30 Cholesterol/HDL 3.8 Ratio Subjective 24 Hr Interval Summary Free Text/Dictation Patient states he;s feeling slightly better but complaining of lower extremity leg cramps. Denies any palpitations, chest pain, or shortness of breath. Exam/Review of Systems Exam Vitals Vital Signs Date Temp Pulse Resp B/P (MAP) Pulse Ox O2 O2 Flow FiO2 Time Delivery Rate 11/21/18 97.1 68 20 91/51 (64) 94 Room Air 11:04 Intake and Output 11/20/18 11/20/18 11/21/18 1515:00 23:00 07:00 IntakeIntake Total 850 ml OutputOutput Total 1000 ml BalanceBalance -150 ml Exam General: fatigued, no acute distress. answering questions appropriately. Chest: nontender Lungs: diminished bilaterally. no wheezing or rhonchi CVS: S1, S2, irregularly irregular. rate controlled. no murmurs Abdomen: Soft, nontender, and nondistended. no rebound or guarding Extremities: trace lower extremity edema. no cyanosis or clubbing Results Results 24hrs Laboratory Tests Test 11/20/18 14:07 11/20/18 18:34 11/20/18 19:28 11/20/18 20:28 White Blood Count 8.1 Red Blood Count 5.12 Hemoglobin 15.3 Hematocrit 43.5 Mean Corpuscular 85.0 Volume Mean Corpuscular 29.9 Hemoglobin Mean Corpuscular 35.2 Hemoglobin Concent Red Cell 12.9 Distribution Width Platelet Count 208 Mean Platelet Volume 10.7 H Immature 0.200 Granulocytes % Neutrophils % 65.6 Lymphocytes % 25.4 Monocytes % 7.1 Eosinophils % 1.2 Basophils % 0.5 Nucleated Red Blood 0.0 Cells % Immature 0.020 Granulocytes # Neutrophils # 5.3 Lymphocytes # 2.1 Monocytes # 0.6 Eosinophils # 0.1 Basophils # 0.0 Nucleated Red Blood 0.0 Cells # Prothrombin Time 12.8 Prothrombin Time 1.0 Ratio INR International 0.95 Normalized Ratio Activated 30.8 Partial Thromboplast Time Sodium Level 136 Potassium Level 4.3 Chloride Level 99 Carbon Dioxide Level 27 Anion Gap 10 Blood Urea Nitrogen 10 Creatinine 0.70 Est Glomerular > 60 Filtrat Rate mL/min Glucose Level 484 *H Hemoglobin A1c 12.8 H Calcium Level 8.8 Total Bilirubin 0.5 Direct Bilirubin 0.00 Indirect Bilirubin 0.5 Aspartate Amino 28 Transf (AST/SGOT) Alanine 45 Aminotransferase (AL T/SGPT) Alkaline Phosphatase 129 H Creatine Kinase 193 162 Creatine Kinase 1.4 1.1 Index Creatinine Kinase MB 2.68 H 1.72 (Mass) Troponin I < 0.012 < 0.012 B-Type Natriuretic 24 Peptide Total Protein 6.6 Albumin 3.7 Globulin 2.90 Albumin/Globulin 1.27 Ratio Thyroid Stimulating 1.570 Hormone (TSH) Free Thyroxine 1.11 Digoxin Level < 0.4 L Ethyl Alcohol Level < 10.0 H Bedside Glucose 298 H 377 H Urine Opiates Screen Negative Urine Barbiturates Negative Urine Amphetamines Negative Screen Urine Negative Benzodiazepines Screen Urine Cocaine Screen Negative Urine Cannabinoids Negative Test 11/20/18 22:22 11/21/18 00:49 11/21/18 05:49 11/21/18 11:47 Bedside Glucose 341 H 312 H Troponin I < 0.012 < 0.012 White Blood Count 8.0 Red Blood Count 5.26 Hemoglobin 15.8 Hematocrit 45.2 Mean Corpuscular 85.9 Volume Mean Corpuscular 30.0 Hemoglobin Mean Corpuscular 35.0 Hemoglobin Concent Red Cell 13.3 Distribution Width Platelet Count 206 Mean Platelet Volume 10.9 H Immature 0.400 Granulocytes % Neutrophils % 60.2 Lymphocytes % 30.1 Monocytes % 7.0 Eosinophils % 1.5 Basophils % 0.8 Nucleated Red Blood 0.0 Cells % Immature 0.030 Granulocytes # Neutrophils # 4.8 Lymphocytes # 2.4 Monocytes # 0.6 Eosinophils # 0.1 Basophils # 0.1 Nucleated Red Blood 0.0 Cells # Sodium Level 136 Potassium Level 3.8 Chloride Level 99 Carbon Dioxide Level 28 Anion Gap 9 Blood Urea Nitrogen 14 Creatinine 0.78 Est Glomerular > 60 Filtrat Rate mL/min Glucose Level 311 #H Calcium Level 9.0 Phosphorus Level 4.7 Magnesium Level 1.7 Total Bilirubin 0.8 Direct Bilirubin 0.00 Indirect Bilirubin 0.8 Aspartate Amino 28 Transf (AST/SGOT) Alanine 35 Aminotransferase (AL T/SGPT) Alkaline Phosphatase 93 Creatine Kinase 119 Creatine Kinase 1.1 Index Creatinine Kinase MB 1.25 (Mass) Total Protein 7.0 Albumin 3.9 Globulin 3.10 Albumin/Globulin 1.25 Ratio Triglycerides Level 98 Cholesterol Level 114 LDL Cholesterol, 64 Calculated HDL Cholesterol 30 Cholesterol/HDL 3.8 Ratio Medications Medication Current Medications Diltiazem HCl 125 ml @ 5 mls/hr ONCE STAT IV ; Start 11/20/18 at 14:41; Stop 11/21/18 at 15:40 Ondansetron HCl (Zofran Inj) 4 mg ER BRIDGE PRN IV NAUSEA/VOMITING; Start 11/20/18 at 15:00; Stop 11/21/18 at 14:59 Acetaminophen (Tylenol Tab) 650 mg ER BRIDGE PRN PO .MILD PAIN 1-3 OR TEMP; Start 11/20/18 at 15:00; Stop 11/21/18 at 14:59 IV Flush (NS 3 ml) 3 ml PER PROTOCOL IV ; Start 11/20/18 at 15:30 Ondansetron HCl (Zofran Inj) 4 mg Q6H PRN IV NAUSEA/VOMITING; Start 11/20/18 at 15:30 Aspirin (Halfprin) 81 mg DAILY PO Last administered on 11/21/18 08:47; Admin Dose 81 MG; Start 11/21/18 at 09:00 Atorvastatin Calcium (Lipitor) 20 mg QHS PO Last administered on 11/20/18at 20:2 3; Admin Dose 20 MG; Start 11/20/18 at 21:00 Carvedilol (Coreg) 25 mg BID PO Last administered on 11/21/18 08:48; Admin Dose 25 MG; Start 11/20/18 at 21:00 Diltiazem HCl (Cardizem Cd) 120 mg BID PO Last administered on 11/21/18 08:47; Admin Dose 120 MG; Start 11/20/18 at 21:00 Gabapentin (Neurontin) 300 mg TID PO Last administered on 11/21/18 08:47; Admin Dose 300 MG; Start 11/20/18 at 21:00 Losartan Potassium (Cozaar) 50 mg DAILY PO Last administered on 11/21/18 08:48; Admin Dose 50 MG; Start 11/21/18 at 09:00 Insulin Glargine (Lantus) 33 units DAILY@2000 SC Last administered on 11/20/18at 22:35; Admin Dose 33 UNITS; Start 11/20/18 at 20:00 Insulin Aspart (Novolog Insulin Pen) 9 unit WITH MEALS SC Last administered on 11/21/18 08:52; Admin Dose 9 UNIT; Start 11/20/18 at 18:00 Insulin Aspart (Novolog Insulin Pen) NOVOLOG *MILD* ALGORITHM WITH MEALS BEDTIME SC Last administered on 11/21/18 08:53; Admin Dose 4 UNIT; Start 11/20/18 at 18:00 Miscellaneous Information 1 ea NOTE XX ; Start 11/20/18 at 16:00 Glucose (Glutose) 15 gm Q15M PRN PO DECREASED GLUCOSE; Start 11/20/18 at 16:00 Glucose (Glutose) 22.5 gm Q15M PRN PO DECREASED GLUCOSE; Start 11/20/18 at 16:00 Dextrose (D50w Syringe) 25 ml Q15M PRN IV DECREASED GLUCOSE; Start 11/20/18 at 16:00 Dextrose (D50w Syringe) 50 ml Q15M PRN IV DECREASED GLUCOSE; Start 11/20/18 at 16:00 Glucagon (Glucagen) 1 mg Q15M PRN IM DECREASED GLUCOSE; Start 11/20/18 at 16:00 Glucose (Glutose) 15 gm Q15M PRN BUCCAL DECREASED GLUCOSE; Start 11/20/18 at 16:00 Furosemide (Lasix) 40 mg TID IV Last administered on 11/21/18 08:46; Admin Dose 40 MG; Start 11/20/18 at 21:00 Nitroglycerin (Nitroglycerin (Sl Tab) 0.4 Mg) 1 tab Q5M PRN SL ANGINA Last administered on 11/20/18 20:18; Admin Dose 1 TAB; Start 11/20/18 at 20:30 Morphine Sulfate (morphine) 2 mg Q4H PRN IV SEVERE PAIN LEVEL 7-10 Last administered on 11/21/18 08:53; Admin Dose 2 MG; Start 11/20/18 at 20:30 Amiodarone HCl (Cordarone) 200 mg BID PO Last administered on 11/21/18 08:47; Admin Dose 200 MG; Start 11/21/18 at 09:00 Apixaban (Eliquis) 5 mg BID PO Last administered on 11/21/18 08:48; Admin Dose 5 MG; Start 11/20/18 at 21:00 CYRUS FNAG MD Nov 21, 2018 12:17
--- NOTE | 2018-11-21 13:45 | CONS ---
Assessment/Plan Assessment/Plan Assessment/Plan (Daily) ASSESSMENT AND PLAN: 1. A.fib rate controlled 2. Acute exacerbation of congestive heart failure. 3. Hypertension. 4. Dyslipidemia. 5. Diabetes mellitus. 6. Morbid obesity. 7. Possible sleep apnea. RECOMMENDATIONS: 1. Continue Coreg. 2. Continue diltiazem. 3. Increased amiodarone 4. Continue aspirin. 5. Continue Eliquis. 6. Continue losartan. 7. Continue insulin sliding scale. 8. Continue Lipitor. 9. Continue Lasix Consultation Date/Type/Reason Admit Date/Time Nov 20, 2018 at 14:54 Initial Consult Date Type of Consult Cardiology Date/Time of Note DATE: 11/21/18 TIME: 13:42 Exam/Review of Systems Vital Signs Vitals Vital Signs Date Temp Pulse Resp B/P (MAP) Pulse Ox O2 O2 Flow FiO2 Time Delivery Rate 11/21/18 63 12:00 11/21/18 97.1 20 91/51 (64) 94 Room Air 11:04 Intake and Output 11/20/18 11/20/18 11/21/18 1515:00 23:00 07:00 IntakeIntake Total 850 ml OutputOutput Total 1000 ml BalanceBalance -150 ml Exam Constitutional: alert, oriented Head: normocephalic, atraumatic Neck: supple, non-tender Respiratory: diminished breath sounds Cardiovascular: irregular rhythm (no m/r/g) Gastrointestinal: soft, non-tender Extremities: pitting pedal edema Labs Result Diagram: 11/21/18 0549 11/21/18 0549 Results 24hrs Laboratory Tests Test 11/20/18 14:07 11/20/18 18:34 11/20/18 19:28 11/20/18 20:28 White Blood Count 8.1 Red Blood Count 5.12 Hemoglobin 15.3 Hematocrit 43.5 Mean Corpuscular 85.0 Volume Mean Corpuscular 29.9 Hemoglobin Mean Corpuscular 35.2 Hemoglobin Concent Red Cell 12.9 Distribution Width Platelet Count 208 Mean Platelet Volume 10.7 H Immature 0.200 Granulocytes % Neutrophils % 65.6 Lymphocytes % 25.4 Monocytes % 7.1 Eosinophils % 1.2 Basophils % 0.5 Nucleated Red Blood 0.0 Cells % Immature 0.020 Granulocytes # Neutrophils # 5.3 Lymphocytes # 2.1 Monocytes # 0.6 Eosinophils # 0.1 Basophils # 0.0 Nucleated Red Blood 0.0 Cells # Prothrombin Time 12.8 Prothrombin Time 1.0 Ratio INR International 0.95 Normalized Ratio Activated 30.8 Partial Thromboplast Time Sodium Level 136 Potassium Level 4.3 Chloride Level 99 Carbon Dioxide Level 27 Anion Gap 10 Blood Urea Nitrogen 10 Creatinine 0.70 Est Glomerular > 60 Filtrat Rate mL/min Glucose Level 484 *H Hemoglobin A1c 12.8 H Calcium Level 8.8 Total Bilirubin 0.5 Direct Bilirubin 0.00 Indirect Bilirubin 0.5 Aspartate Amino 28 Transf (AST/SGOT) Alanine 45 Aminotransferase (AL T/SGPT) Alkaline Phosphatase 129 H Creatine Kinase 193 162 Creatine Kinase 1.4 1.1 Index Creatinine Kinase MB 2.68 H 1.72 (Mass) Troponin I < 0.012 < 0.012 B-Type Natriuretic 24 Peptide Total Protein 6.6 Albumin 3.7 Globulin 2.90 Albumin/Globulin 1.27 Ratio Thyroid Stimulating 1.570 Hormone (TSH) Free Thyroxine 1.11 Digoxin Level < 0.4 L Ethyl Alcohol Level < 10.0 H Bedside Glucose 298 H 377 H Urine Opiates Screen Negative Urine Barbiturates Negative Urine Amphetamines Negative Screen Urine Negative Benzodiazepines Screen Urine Cocaine Screen Negative Urine Cannabinoids Negative Test 11/20/18 22:22 11/21/18 00:49 11/21/18 05:49 11/21/18 11:47 Bedside Glucose 341 H 312 H Troponin I < 0.012 < 0.012 White Blood Count 8.0 Red Blood Count 5.26 Hemoglobin 15.8 Hematocrit 45.2 Mean Corpuscular 85.9 Volume Mean Corpuscular 30.0 Hemoglobin Mean Corpuscular 35.0 Hemoglobin Concent Red Cell 13.3 Distribution Width Platelet Count 206 Mean Platelet Volume 10.9 H Immature 0.400 Granulocytes % Neutrophils % 60.2 Lymphocytes % 30.1 Monocytes % 7.0 Eosinophils % 1.5 Basophils % 0.8 Nucleated Red Blood 0.0 Cells % Immature 0.030 Granulocytes # Neutrophils # 4.8 Lymphocytes # 2.4 Monocytes # 0.6 Eosinophils # 0.1 Basophils # 0.1 Nucleated Red Blood 0.0 Cells # Sodium Level 136 Potassium Level 3.8 Chloride Level 99 Carbon Dioxide Level 28 Anion Gap 9 Blood Urea Nitrogen 14 Creatinine 0.78 Est Glomerular > 60 Filtrat Rate mL/min Glucose Level 311 #H Calcium Level 9.0 Phosphorus Level 4.7 Magnesium Level 1.7 Total Bilirubin 0.8 Direct Bilirubin 0.00 Indirect Bilirubin 0.8 Aspartate Amino 28 Transf (AST/SGOT) Alanine 35 Aminotransferase (AL T/SGPT) Alkaline Phosphatase 93 Creatine Kinase 119 Creatine Kinase 1.1 Index Creatinine Kinase MB 1.25 (Mass) Total Protein 7.0 Albumin 3.9 Globulin 3.10 Albumin/Globulin 1.25 Ratio Triglycerides Level 98 Cholesterol Level 114 LDL Cholesterol, 64 Calculated HDL Cholesterol 30 Cholesterol/HDL 3.8 Ratio Test 11/21/18 12:25 Troponin I < 0.012 Medications Medications Current Medications Diltiazem HCl 125 ml @ 5 mls/hr ONCE STAT IV ; Start 11/20/18 at 14:41; Stop 11/21/18 at 15:40 IV Flush (NS 3 ml) 3 ml PER PROTOCOL IV ; Start 11/20/18 at 15:30 Ondansetron HCl (Zofran Inj) 4 mg Q6H PRN IV NAUSEA/VOMITING Last administered on 11/21/18 13:23; Admin Dose 4 MG; Start 11/20/18 at 15:30 Aspirin (Halfprin) 81 mg DAILY PO Last administered on 11/21/18 08:47; Admin Dose 81 MG; Start 11/21/18 at 09:00 Atorvastatin Calcium (Lipitor) 20 mg QHS PO Last administered on 11/20/18 20:23; Admin Dose 20 MG; Start 11/20/18 at 21:00 Carvedilol (Coreg) 25 mg BID PO Last administered on 11/21/18 08:48; Admin Dose 25 MG; Start 11/20/18 at 21:00 Diltiazem HCl (Cardizem Cd) 120 mg BID PO Last administered on 11/21/18 08:47; Admin Dose 120 MG; Start 11/20/18 at 21:00 Gabapentin (Neurontin) 300 mg TID PO Last administered on 11/21/18 12:58; Admin Dose 300 MG; Start 11/20/18 at 21:00 Insulin Aspart (Novolog Insulin Pen) NOVOLOG *MILD* ALGORITHM WITH MEALS BEDTIME SC Last administered on 11/21/18 13:07; Admin Dose 5 UNIT; Start 11/20/18 at 18:00 Miscellaneous Information 1 ea NOTE XX ; Start 11/20/18 at 16:00 Glucose (Glutose) 15 gm Q15M PRN PO DECREASED GLUCOSE; Start 11/20/18 at 16:00 Glucose (Glutose) 22.5 gm Q15M PRN PO DECREASED GLUCOSE; Start 11/20/18 at 16:00 Dextrose (D50w Syringe) 25 ml Q15M PRN IV DECREASED GLUCOSE; Start 11/20/18 at 16:00 Dextrose (D50w Syringe) 50 ml Q15M PRN IV DECREASED GLUCOSE; Start 11/20/18 at 16:00 Glucagon (Glucagen) 1 mg Q15M PRN IM DECREASED GLUCOSE; Start 11/20/18 at 16:00 Glucose (Glutose) 15 gm Q15M PRN BUCCAL DECREASED GLUCOSE; Start 11/20/18 at 16:00 Furosemide (Lasix) 40 mg TID IV Last administered on 11/21/18at 12:58; Admin Dose 40 MG; Start 11/20/18 at 21:00 Nitroglycerin (Nitroglycerin (Sl Tab) 0.4 Mg) 1 tab Q5M PRN SL ANGINA Last administered on 11/20/18at 20:18; Admin Dose 1 TAB; Start 11/20/18 at 20:30 Morphine Sulfate (morphine) 2 mg Q4H PRN IV SEVERE PAIN LEVEL 7-10 Last administered on 11/21/18at 13:18; Admin Dose 2 MG; Start 11/20/18 at 20:30 Amiodarone HCl (Cordarone) 200 mg BID PO Last administered on 11/21/18at 08:47; Admin Dose 200 MG; Start 11/21/18 at 09:00 Apixaban (Eliquis) 5 mg BID PO Last administered on 11/21/18at 08:48; Admin Dose 5 MG; Start 11/20/18 at 21:00 Losartan Potassium (Cozaar) 25 mg DAILY PO ; Start 11/22/18 at 09:00 Insulin Glargine (Lantus) 40 units DAILY@2000 SC ; Start 11/21/18 at 20:00 Insulin Aspart (Novolog Insulin Pen) 11 unit WITH MEALS SC ; Start 11/21/18 at 17:55 DANIEL MCCRACKEN M.D. Nov 21, 2018 13:45
[2018-11-21] MEDS ORDERED: INSULIN GLARGINE [LANTus] (100 UNITS/ML) SYG SC SCH (20:00)
[2018-11-21] MEDS: ATORVASTATIN 20 MG TAB PO SCH (20:43)
[2018-11-22] VITALS (12 sets, daily range): BP systolic 93–109; BP diastolic 53–59; PULSE 42–65; RESP 16–20
[2018-11-22] MEDS: morphine 2 MG INJ IV PRN ×3 (01:14→20:32)
[2018-11-22] MEDS: GABAPENTIN 300 MG CAP PO SCH ×3 (08:56→20:30)
[2018-11-22] MEDS: APIXABAN 5 MG TABLET PO SCH ×2 (08:57→20:30)
[2018-11-22] MEDS: ASPIRIN (EC) 81 MG TAB PO SCH (08:57)
[2018-11-22] MEDS: AMIODARONE 200 MG TAB PO SCH ×2 (08:57→20:30)
[2018-11-22] MEDS: DILTIAZEM (CD) 120 MG CAP PO SCH ×2 (09:00→20:31)
[2018-11-22] MEDS: FUROSEMIDE 40 MG INJ IV SCH (09:00)
[2018-11-22] MEDS ORDERED: LOSARTAN 25 MG TAB PO SCH (09:00)
[2018-11-22] MEDS: INSULIN ASPART [NOVOLOG] 3 ML PEN SC SCH ×7 (09:45→20:35)
[2018-11-22] MEDS ORDERED: SOD CHLORIDE 0.9% 1,000 ML IV ONE (11:00)
--- NOTE | 2018-11-22 11:25 | PN ---
Date/Time of Note Date/Time of Note DATE: 11/22/18 TIME: 11:25 Objective Vitals Vital Signs Date Temp Pulse Resp B/P (MAP) Pulse Ox O2 O2 Flow FiO2 Time Delivery Rate 11/22/18 63 08:00 11/22/18 97.8 17 93/53 (66) 95 07:33 11/21/18 Room Air 15:10 Intake and Output 11/21/18 11/21/18 11/22/18 1515:00 23:00 07:00 IntakeIntake Total 1700 ml 800 ml OutputOutput Total 800 ml 2000 ml 2300 ml BalanceBalance -800 ml -300 ml -1500 ml Results Result Diagram: 11/22/18 0607 11/22/18 0607 Medications Medications Current Medications IV Flush (NS 3 ml) 3 ml PER PROTOCOL IV ; Start 11/20/18 at 15:30 Ondansetron HCl (Zofran Inj) 4 mg Q6H PRN IV NAUSEA/VOMITING Last administered on 11/21/18at 13:23; Admin Dose 4 MG; Start 11/20/18 at 15:30 Aspirin (Halfprin) 81 mg DAILY PO Last administered on 11/22/18 08:57; Admin Dose 81 MG; Start 11/21/18 at 09:00 Atorvastatin Calcium (Lipitor) 20 mg QHS PO Last administered on 11/21/18at 20:43; Admin Dose 20 MG; Start 11/20/18 at 21:00 Carvedilol (Coreg) 25 mg BID PO Last administered on 11/21/18at 20:44; Admin Dose 25 MG; Start 11/20/18 at 21:00 Diltiazem HCl (Cardizem Cd) 120 mg BID PO Last administered on 11/21/18at 20:44; Admin Dose 120 MG; Start 11/20/18 at 21:00 Gabapentin (Neurontin) 300 mg TID PO Last administered on 11/22/18at 08:56; Admin Dose 300 MG; Start 11/20/18 at 21:00 Insulin Aspart (Novolog Insulin Pen) NOVOLOG *MILD* ALGORITHM WITH MEALS BEDTIME SC Last administered on 11/22/18at 11:23; Admin Dose 3 UNIT; Start 11/20/18 at 18:00 Miscellaneous Information 1 ea NOTE XX ; Start 11/20/18 at 16:00 Glucose (Glutose) 15 gm Q15M PRN PO DECREASED GLUCOSE; Start 11/20/18 at 16:00 Glucose (Glutose) 22.5 gm Q15M PRN PO DECREASED GLUCOSE; Start 11/20/18 at 16:00 Dextrose (D50w Syringe) 25 ml Q15M PRN IV DECREASED GLUCOSE; Start 11/20/18 at 16:00 Dextrose (D50w Syringe) 50 ml Q15M PRN IV DECREASED GLUCOSE; Start 11/20/18 at 16:00 Glucagon (Glucagen) 1 mg Q15M PRN IM DECREASED GLUCOSE; Start 11/20/18 at 16:00 Glucose (Glutose) 15 gm Q15M PRN BUCCAL DECREASED GLUCOSE; Start 11/20/18 at 16:00 Furosemide (Lasix) 40 mg TID IV Last administered on 11/21/18at 20:45; Admin Dose 40 MG; Start 11/20/18 at 21:00; Status Hold Nitroglycerin (Nitroglycerin (Sl Tab) 0.4 Mg) 1 tab Q5M PRN SL ANGINA Last administered on 11/20/18at 20:18; Admin Dose 1 TAB; Start 11/20/18 at 20:30 Morphine Sulfate (morphine) 2 mg Q4H PRN IV SEVERE PAIN LEVEL 7-10 Last administered on 11/22/18at 05:28; Admin Dose 2 MG; Start 11/20/18 at 20:30 Amiodarone HCl (Cordarone) 200 mg BID PO Last administered on 11/22/18at 08:57; Admin Dose 200 MG; Start 11/21/18 at 09:00 Apixaban (Eliquis) 5 mg BID PO Last administered on 11/22/18at 08:57; Admin Dose 5 MG; Start 11/20/18 at 21:00 Losartan Potassium (Cozaar) 25 mg DAILY PO ; Start 11/22/18 at 09:00; Status Hold Insulin Glargine (Lantus) 40 units DAILY@2000 SC Last administered on 11/21/18at 20:54; Admin Dose 40 UNITS; Start 11/21/18 at 20:00 Insulin Aspart (Novolog Insulin Pen) 15 unit WITH MEALS SC Last administered on 11/22/18at 11:23; Admin Dose 15 UNIT; Start 11/22/18 at 11:50 Sodium Chloride 1,000 ml @ 1,000 mls/hr Q1H ONCE IV ; Start 11/22/18 at 11:00; Stop 11/22/18 at 11:59 Sodium Chloride 1,000 ml @ 50 mls/hr Q20H IV ; Start 11/22/18 at 11:30; Stop 11/23/18 at 07:29 VTE [place] [facility] [place]: 4 [place] [facility] [place] Yes Lines/Catheters IV Catheter Type: El in Place: No Assessment/Plan Hospital Course Subjective Patient does have complaints of leg pain and abdominal pain however his main complaint this morning is that he feels more dizzy and feels like his blood pressure is low. Objective Physical exam General: Patient is laying in bed and answers questions appropriately Mentation: Patient is alert and oriented 4, Head: Normocephalic atraumatic Eyes: EOMI, pupils reactive to light Neck: Supple, nontender, midline Respiratory: Clear to auscultation bilaterally Cardiovascular: regular rate, no obvious murmurs Gastrointestinal: Moderately-tender to palpation, bowel sounds heard. Neurological: Moves all extremities spontaneously Skin: No new skin lesions Assessment and plan Dizziness with hypotension -New onset today, I suspect patient was over diuresed and had too much volume loss -Holding Lasix -We will bolus 1 L NS and reevaluate -Patient does not have any altered mental status Abdominal pain -Patient had 2 days of abdominal pain, when asked if he brought this up to previous physicians, patient stated that he forgot to, will get stat CT of the abdomen and pelvis patient does have some moderate tenderness -No overt signs of infection, white count is within normal limits as well as no fever. -Follow-up with CT Atrial fibrillation with RVR -Resolving -Appreciate cardiology recommendations -We will speak to case management regarding Eliquis, will check if insurance covers -Resume medications when blood pressure is safe Hypertension -Continue other medications when blood pressure is stable -Hold losartan for now due to acute kidney injury Acute kidney injury -Likely volume depleted, hold losartan and Lasix for now -We will give NS for above hypotension -Nephrology consulted Diabetes mellitus -Patient has uncontrolled diabetes -Adjust Lantus and insulin on house, patient will need proper outpatient follow- up Dyslipidemia -Continue home meds Obesity -Lifestyle modifications Lower extremity pain and tingling -Likely secondary to lung depletion as well as diabetic neuropathy -Continue gabapentin Electrolyte derangement -Replete as needed Disposition -Monitor dizziness with hypotension closely, cardiology recommendations appreciated, hold Lasix and losartan for LILLIAM and hypotension, pending CT abdomen pelvis. JANI DELACRUZ Nov 22, 2018 11:25
[2018-11-22] MEDS: SOD CHLORIDE 0.9% 1,000 ML IV SCH (14:00)
--- NOTE | 2018-11-22 15:22 | CONS ---
DATE OF ADMISSION: 11/20/2018 DATE OF CONSULTATION: 11/21/2018 TYPE OF CONSULTATION: Nephrology. REASON FOR CONSULTATION: Acute kidney injury. PHYSICIAN REQUESTING CONSULTATION: Dr. Ruano. HISTORY OF PRESENT ILLNESS: This is a 38-year-old male with a past medical history of hypertension, dyslipidemia, AFib, history of obesity, obstructive sleep apnea, who presents to [facility] with chest pain, and palpitations. The patient on arrival denied any nausea, vomiting. Pat ient had noted diaphoresis and chills. In the Emergency Room, the patient was noted to be in atrial fibrillation with rapid rate. He was given Cardizem 10 mg IV x1, admitted to telemetry. While on te lemetry, the patient was seen by cardiology. Patient was placed on diuretic therapy for acute heart failure. The patient had urinary output but became hypotensive and has been started on IV fluids. In terms of his renal history, on admission the patient had a creatinine of 0.78 mg/dL. The patient' s creatinine has increased to 1.27 mg/dL. Patient during this time has been on diuretic therapy. Del Rosario s been on ARB. There were no reports of any hemoptysis, hematemesis or hematochezia. 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 PAST SURGICAL HISTORY: Reviewed. ALLERGIES: No known drug allergies. FAMILY HISTORY: No family history of kidney disease. SOCIAL HISTORY: Does not drink, smoke or do drugs. MEDICATIONS: The patient's medications have been reviewed. REVIEW OF SYSTEMS: A 14-point review of systems was conducted. Pertinent positives stated in HPI, o therwise negative. PHYSICAL EXAMINATION: VITAL SIGNS: Blood pressure is 100/55, respirations 16, pulse 62, temperature 98.1. HEENT: Head is normocephalic. NECK: Supple. HEART: Regular rate. LUNGS: Diminished breath sounds at base. ABDOMEN: Soft, nontender to palpation without rebound or guarding. EXTREMITIES: Negative for no edema. DERMATOLOGIC: No rashes. MUSCULOSKELETAL: No joint effusion. NEUROLOGIC: No focal deficits. MEDICATIONS: Reviewed. LABORATORY DATA: Has been reviewed. IMAGING STUDIES: Have been reviewed. ASSESSMENT AND PLAN: This is a 38-year-old male with: 1. Nonoliguric acute kidney injury with previously normal baseline creatinine. Etiology of acute ki dney injury is likely multifactorial secondary to hemodynamics, diuretics, ARB effect. Plan at this point is to do a full evaluation. We will check UA with microanalysis, check urine electrolytes. We will consider a renal ultrasound. Agree with holding diuretics and ARB. Agree with fluid challenge . Will continue to monitor renal function closely. Otherwise, continue supportive care, renally dos e all meds. 2. Hyponatremia. Etiology is multifactorial secondary to acute kidney injury causing decreased free water urinary excretion and hyperglycemia. Recommendation is to obtain new glycemia control. We wi ll continue to monitor sodium levels and limit free water intake. 3. Mineral bone disorder. Monitor calcium and phosphorus levels. 4. Hypotension, likely due to volume depletion due to diuretic therapy. Agree with holding Lasix. Agree with fluid challenge and monitor. 5. Abdominal pain. Will continue to monitor. Consider CT scan. 6. Atrial fibrillation, currently rate controlled. Continue medical management. 7. Diabetes. Continue current insulin regimen. 8. Dyslipidemia. 9. Obesity. Continue lifestyle modification. Thank you, Dr. Ruano, for this interesting consult. It will be a pleasure to follow patient with constantin t alvinout the hospital course. Dictated By: IRENE REVELES DO NR/NTS Conf#: [id number] DID#: [id number] CC: CYRUS FANG MD; JANI RUANO MD;*EndCC*
--- NOTE | 2018-11-22 17:47 | CONS ---
Assessment/Plan Assessment/Plan Hospital Course (Demo Recall) IMP: 1.PAF/AFL 2.Hypotension-borderline 3.Fatigue 4. DM 5. Renal failure Recc; -Tele -serial ecg's -Contineu dilt and decrase dose of coreg given bradycardia and the fact that patient has marginal BP -Continue amiodarone loading as tolerated -Contineu eliquis -Hold lasix and continue IVF hydration Consultation Date/Type/Reason Admit Date/Time Nov 20, 2018 at 14:54 Initial Consult Date 11/20/18 Type of Consult Cardiology Reason for Consultation PAF/AFL Requesting Provider: RUBINA KHAN NP Date/Time of Note DATE: 11/22/18 TIME: 17:39 Exam/Review of Systems Vital Signs Vitals Vital Signs Date Temp Pulse Resp B/P (MAP) Pulse Ox O2 O2 Flow FiO2 Time Delivery Rate 11/22/18 62 16:00 11/22/18 97.5 16 99/58 (72) 93 15:05 11/21/18 Room Air 15:10 Intake and Output 11/21/18 11/21/18 11/22/18 1515:00 23:00 07:00 IntakeIntake Total 1700 ml 800 ml OutputOutput Total 800 ml 2000 ml 2300 ml BalanceBalance -800 ml -300 ml -1500 ml Exam Exam Review of Systems: CONSTITUTIONAL: No fevers, chills. PULMONARY: No sob CARDIOVASCULAR: No chest pain/palpitations GASTROINTESTINAL: No nausea/vomiting. GENITOURINARY: No hematuria/dysuria. MUSCULOSKELETAL: No myagias/arthalgias. PSYCHIATRIC: The patient denies depression. NEUROLOGIC: No weakness Constitutional: other (sleeping, arousable but lethargic) Psych: no complaints Head: normocephalic ENMT: mucosa pink and moist Neck: supple, jvd (8 cm water) Respiratory: diminished breath sounds Cardiovascular: other (bradycardic, regulat rhythm) Gastrointestinal: soft, non-tender Musculoskeletal: muscle tone (normal) Extremities: edema (none) Neurological: lethargic Labs Result Diagram: 11/22/18 0607 11/22/18 0607 Results 24hrs Laboratory Tests Test 11/21/18 18:07 11/21/18 20:42 11/22/18 06:07 11/22/18 08:35 Bedside Glucose 265 H 213 296 H White Blood Count 9.4 Red Blood Count 5.12 Hemoglobin 15.2 Hematocrit 44.2 Mean Corpuscular 86.3 Volume Mean Corpuscular 29.7 Hemoglobin Mean Corpuscular 34.4 Hemoglobin Concent Red Cell 12.9 Distribution Width Platelet Count 214 Mean Platelet Volume 10.6 H Immature 0.200 Granulocytes % Neutrophils % 61.7 Lymphocytes % 29.7 Monocytes % 6.3 Eosinophils % 1.6 Basophils % 0.5 Nucleated Red Blood 0.0 Cells % Immature 0.020 Granulocytes # Neutrophils # 5.8 Lymphocytes # 2.8 Monocytes # 0.6 Eosinophils # 0.2 Basophils # 0.1 Nucleated Red Blood 0.0 Cells # Sodium Level 133 L Potassium Level 3.9 Chloride Level 95 L Carbon Dioxide Level 29 Anion Gap 9 Blood Urea Nitrogen 28 #H Creatinine 1.27 H Glucose Level 325 H Calcium Level 8.5 Phosphorus Level 5.0 H Magnesium Level 1.8 Albumin 3.7 Test 11/22/18 11:13 Bedside Glucose 255 H Medications Medications Current Medications IV Flush (NS 3 ml) 3 ml PER PROTOCOL IV ; Start 11/20/18 at 15:30 Ondansetron HCl (Zofran Inj) 4 mg Q6H PRN IV NAUSEA/VOMITING Last administered on 11/21/18 13:23; Admin Dose 4 MG; Start 11/20/18 at 15:30 Aspirin (Halfprin) 81 mg DAILY PO Last administered on 11/22/18at 08:57; Admin Dose 81 MG; Start 11/21/18 at 09:00 Atorvastatin Calcium (Lipitor) 20 mg QHS PO Last administered on 11/21/18 20:43; Admin Dose 20 MG; Start 11/20/18 at 21:00 Carvedilol (Coreg) 25 mg BID PO Last administered on 11/21/18 20:44; Admin Dose 25 MG; Start 11/20/18 at 21:00 Diltiazem HCl (Cardizem Cd) 120 mg BID PO Last administered on 11/21/18 20:44; Admin Dose 120 MG; Start 11/20/18 at 21:00 Gabapentin (Neurontin) 300 mg TID PO Last administered on 11/22/18 08:56; Admin Dose 300 MG; Start 11/20/18 at 21:00 Insulin Aspart (Novolog Insulin Pen) NOVOLOG *MILD* ALGORITHM WITH MEALS BEDTIME SC Last administered on 11/22/18 11:23; Admin Dose 3 UNIT; Start 11/20/18 at 18:00 Miscellaneous Information 1 ea NOTE XX ; Start 11/20/18 at 16:00 Glucose (Glutose) 15 gm Q15M PRN PO DECREASED GLUCOSE; Start 11/20/18 at 16:00 Glucose (Glutose) 22.5 gm Q15M PRN PO DECREASED GLUCOSE; Start 11/20/18 at 16:00 Dextrose (D50w Syringe) 25 ml Q15M PRN IV DECREASED GLUCOSE; Start 11/20/18 at 16:00 Dextrose (D50w Syringe) 50 ml Q15M PRN IV DECREASED GLUCOSE; Start 11/20/18 at 16:00 Glucagon (Glucagen) 1 mg Q15M PRN IM DECREASED GLUCOSE; Start 11/20/18 at 16:00 Glucose (Glutose) 15 gm Q15M PRN BUCCAL DECREASED GLUCOSE; Start 11/20/18 at 16:00 Furosemide (Lasix) 40 mg TID IV Last administered on 11/21/18at 20:45; Admin Dose 40 MG; Start 11/20/18 at 21:00; Status Hold Nitroglycerin (Nitroglycerin (Sl Tab) 0.4 Mg) 1 tab Q5M PRN SL ANGINA Last administered on 11/20/18at 20:18; Admin Dose 1 TAB; Start 11/20/18 at 20:30 Morphine Sulfate (morphine) 2 mg Q4H PRN IV SEVERE PAIN LEVEL 7-10 Last administered on 11/22/18at 05:28; Admin Dose 2 MG; Start 11/20/18 at 20:30 Amiodarone HCl (Cordarone) 200 mg BID PO Last administered on 11/22/18at 08:57; Admin Dose 200 MG; Start 11/21/18 at 09:00 Apixaban (Eliquis) 5 mg BID PO Last administered on 11/22/18at 08:57; Admin Dose 5 MG; Start 11/20/18 at 21:00 Losartan Potassium (Cozaar) 25 mg DAILY PO ; Start 11/22/18 at 09:00; Status Hold Insulin Aspart (Novolog Insulin Pen) 15 unit WITH MEALS SC Last administered on 11/22/18at 11:23; Admin Dose 15 UNIT; Start 6/17/19 at 11:50 Sodium Chloride 1,000 ml @ 50 mls/hr Q20H IV ; Start 11/22/18 at 11:30; Stop 11/23/18 at 07:29 Insulin Glargine (Lantus) 25 units BID SC ; Start 11/22/18 at 21:00 Linagliptin (Tradjenta) 5 mg DAILY PO ; Start 11/22/18 at 15:30 MAC QUEVEDO Nov 22, 2018 17:47
[2018-11-22] MEDS: LINAGLIPTIN 5 MG TABLET PO SCH (18:20)
[2018-11-22] MEDS: ATORVASTATIN 20 MG TAB PO SCH (20:30)
[2018-11-22] MEDS: INSULIN GLARGINE [LANTus] (100 UNITS/ML) SYG SC SCH (20:51)
[2018-11-23] VITALS (11 sets, daily range): BP systolic 100–126; BP diastolic 61–78; PULSE 54–95; RESP 16–20
[2018-11-23] MEDS: morphine 2 MG INJ IV PRN ×3 (01:29→13:11)
[2018-11-23] MEDS: LINAGLIPTIN 5 MG TABLET PO SCH (08:09)
[2018-11-23] MEDS: GABAPENTIN 300 MG CAP PO SCH ×3 (08:09→20:17)
[2018-11-23] MEDS: ASPIRIN (EC) 81 MG TAB PO SCH (08:10)
[2018-11-23] MEDS: APIXABAN 5 MG TABLET PO SCH ×2 (08:10→20:18)
[2018-11-23] MEDS: INSULIN GLARGINE [LANTus] (100 UNITS/ML) SYG SC SCH ×2 (08:20→20:24)
[2018-11-23] MEDS: INSULIN ASPART [NOVOLOG] 3 ML PEN SC SCH ×7 (08:20→20:21)
--- NOTE | 2018-11-23 08:30 | CONS ---
Consult Date/Type/Reason Admit Date/Time Nov 20, 2018 at 14:54 Initial Consult Date Requesting Provider: RUBINA KHAN NP Date/Time of Note DATE: 11/23/18 TIME: 08:27 Subjective NO acute events - pt feels better - in sinus now, rate controlled. ROS: No fever, no chills, no nausea, no vomiting, no diarrhea/constipation No recent weight changes No chest pain, no PND, no orthopnea + chronic SOB, improved orthopnea No dizziness, blurred vision No thirst, no heat or cold intolerance Objective Vitals Vital Signs Date Temp Pulse Resp B/P (MAP) Pulse Ox O2 O2 Flow FiO2 Time Delivery Rate 11/23/18 58 08:07 11/23/18 97.4 17 101/66 95 07:33 (78) 11/21/18 Room Air 15:10 Intake and Output 11/22/18 11/22/18 11/23/18 1515:00 23:00 07:00 IntakeIntake Total 1000 ml 1125 ml 450 ml OutputOutput Total 1100 ml 1100 ml BalanceBalance 1000 ml 25 ml -650 ml Exam General: WN/obese/NAD, AOx 3 HEENT: Unicetric/atraumatic/EOMI (does not follow commands) NECK: JVD elevated, no thyromegaly Lymph: no lymphadenopathy HEART: regular with no S3, II/ systolic murmur at apex, PMI L LUNGS: Coarse sounds ABD: soft, NT, ND, +BS : Intact Neuro: non focal SKIN: chronic changes EXT: ++ edema Results/Medications Result Diagram: 11/23/18 0546 11/23/18 0546 Results 24 hrs Laboratory Tests Test 11/22/18 08:35 11/22/18 11:13 11/22/18 18:06 11/22/18 20:20 Bedside Glucose 296 H 255 H 204 Urine Color YELLOW Urine Clarity CLEAR Urine pH 6.0 Urine Specific 1.014 [place] Urine Ketones NEGATIVE Urine Nitrite NEGATIVE Urine Bilirubin NEGATIVE Urine Urobilinogen NEGATIVE Urine Leukocyte NEGATIVE Esterase Urine Hemoglobin NEGATIVE Urine Random 92.16 Creatinine Urine Random Sodium 21 L Urine Glucose NEGATIVE Urine Total Protein 7.0 Test 11/22/18 20:23 11/23/18 02:55 11/23/18 05:46 11/23/18 07:50 Bedside Glucose 201 185 157 White Blood Count 9.3 Red Blood Count 5.21 Hemoglobin 15.4 Hematocrit 45.4 Mean Corpuscular 87.1 Volume Mean Corpuscular 29.6 Hemoglobin Mean Corpuscular 33.9 Hemoglobin Concent Red Cell 13.2 Distribution Width Platelet Count 196 Mean Platelet Volume 10.6 H Immature 0.400 Granulocytes % Neutrophils % 61.1 Lymphocytes % 30.7 Monocytes % 5.9 Eosinophils % 1.4 Basophils % 0.5 Nucleated Red Blood 0.0 Cells % Immature 0.040 H Granulocytes # Neutrophils # 5.7 Lymphocytes # 2.9 Monocytes # 0.6 Eosinophils # 0.1 Basophils # 0.1 Nucleated Red Blood 0.0 Cells # Sodium Level 138 Potassium Level 4.0 Chloride Level 101 Carbon Dioxide Level 29 Anion Gap 8 Blood Urea Nitrogen 16 # Creatinine 0.78 Glucose Level 190 # Calcium Level 8.1 L Phosphorus Level 3.5 Magnesium Level 2.1 Albumin 3.4 Home Meds Active Scripts Diltiazem Hcl* (Cardizem CD*) 120 Mg Cap.sr.24h, 120 MG PO BID, #60 Prov:LEANN PITTS FORMULA TECHNICIAN 10/31/18 Atenolol* (Atenolol*) 50 Mg Tablet, 50 MG PO BID, #60 TAB Prov:LEANN PITTS FORMULA TECHNICIAN 10/31/18 Reported Medications Amiodarone Hcl* (Amiodarone Hcl*) 200 Mg Tablet, 200 MG PO DAILY, #30 TAB 11/20/18 Aspirin* (Aspirin* EC) 81 Mg Tablet.dr, 81 MG PO DAILY, TAB 11/20/18 Carvedilol* (Carvedilol*) 25 Mg Tablet, 25 MG PO BID, #60 TAB 11/20/18 Gabapentin* (Gabapentin*) 300 Mg Capsule, 300 MG PO TID, #90 CAP 11/20/18 Losartan Potassium* (Losartan Potassium*) 50 Mg Tablet, 50 MG PO DAILY, TAB 11/20/18 Atorvastatin Calcium* (Atorvastatin Calcium*) 20 Mg Tablet, 20 MG PO QHS, #30 TAB 11/20/18 Insulin Lispro (Humalog Kwikpen U-100) 100 Unit/1 Ml Insuln.pen, 25 UNIT SQ WITH MEALS, EA 11/20/18 Insulin Glargine,Hum.rec.anlog (Basaglar Kwikpen U-100) 100 Unit/1 Ml Insuln.pen, 90 UNIT SC DAILY, EA 11/20/18 Discontinued Reported Medications Insulin Glargine,Hum.rec.anlog (Basaglar Kwikpen U-100) 100 Unit/1 Ml Insuln.pen, 90 UNIT SC QHS, EA 07/10/18 Atorvastatin Calcium* (Atorvastatin Calcium*) 20 Mg Tablet, 20 MG PO QHS, #30 TAB 02/10/18 Losartan Potassium* (Losartan Potassium*) 50 Mg Tablet, 50 MG PO DAILY, TAB 02/10/18 Dabigatran Etexilate Mesylate* (Pradaxa*) 150 Mg Capsule, 150 MG PO BID, CAP 10/21/17 Amiodarone Hcl* (Amiodarone Hcl*) 200 Mg Tablet, 200 MG PO DAILY, #30 TAB 10/21/17 Sitagliptin* (Januvia*) 100 Mg Tablet, 100 MG PO DAILY, #30 TAB 09/03/17 Insulin Lispro (Humalog Kwikpen U-100) 100 Unit/1 Ml Insuln.pen, 20 UNIT SQ TID, EA 07/22/17 Aspirin* (Aspirin* EC) 81 Mg Tablet.dr, 81 MG PO DAILY, TAB 07/01/17 Digoxin* (Digitek*) 125 Mcg Tablet, 0.125 MG PO DAILY, TAB 07/01/17 Discontinued Scripts Pantoprazole* (Protonix*) 40 Mg Tablet.dr, 40 MG PO DAILY, #20 TAB Prov:VAUGHN COMBS MD 08/10/18 Medications Current Medications IV Flush (NS 3 ml) 3 ml PER PROTOCOL IV ; Start 11/20/18 at 15:30 Ondansetron HCl (Zofran Inj) 4 mg Q6H PRN IV NAUSEA/VOMITING Last administered on 11/21/18at 13:23; Admin Dose 4 MG; Start 11/20/18 at 15:30 Aspirin (Halfprin) 81 mg DAILY PO Last administered on 11/23/18at 08:10; Admin Dose 81 MG; Start 11/21/18 at 09:00 Atorvastatin Calcium (Lipitor) 20 mg QHS PO Last administered on 11/22/18at 20:30; Admin Dose 20 MG; Start 11/20/18 at 21:00 Diltiazem HCl (Cardizem Cd) 120 mg BID PO Last administered on 11/22/18at 20:31; Admin Dose 120 MG; Start 11/20/18 at 21:00 Gabapentin (Neurontin) 300 mg TID PO Last administered on 11/23/18 08:09; Admin Dose 300 MG; Start 11/20/18 at 21:00 Insulin Aspart (Novolog Insulin Pen) NOVOLOG *MILD* ALGORITHM WITH MEALS BEDTIME SC Last administered on 11/23/18 08:20; Admin Dose 1 UNIT; Start 11/20/18 at 18:00 Miscellaneous Information 1 ea NOTE XX ; Start 11/20/18 at 16:00 Glucose (Glutose) 15 gm Q15M PRN PO DECREASED GLUCOSE; Start 11/20/18 at 16:00 Glucose (Glutose) 22.5 gm Q15M PRN PO DECREASED GLUCOSE; Start 11/20/18 at 16 :00 Dextrose (D50w Syringe) 25 ml Q15M PRN IV DECREASED GLUCOSE; Start 11/20/18 at 16:00 Dextrose (D50w Syringe) 50 ml Q15M PRN IV DECREASED GLUCOSE; Start 11/20/18 at 16:00 Glucagon (Glucagen) 1 mg Q15M PRN IM DECREASED GLUCOSE; Start 11/20/18 at 16:00 Glucose (Glutose) 15 gm Q15M PRN BUCCAL DECREASED GLUCOSE; Start 11/20/18 at 16:00 Furosemide (Lasix) 40 mg TID IV Last administered on 11/21/18at 20:45; Admin Dose 40 MG; Start 11/20/18 at 21:00; Status Hold Nitroglycerin (Nitroglycerin (Sl Tab) 0.4 Mg) 1 tab Q5M PRN SL ANGINA Last administered on 11/20/18at 20:18; Admin Dose 1 TAB; Start 11/20/18 at 20:30 Morphine Sulfate (morphine) 2 mg Q4H PRN IV SEVERE PAIN LEVEL 7-10 Last administered on 11/23/18at 06:06; Admin Dose 2 MG; Start 11/20/18 at 20:30 Amiodarone HCl (Cordarone) 200 mg BID PO Last administered on 11/22/18at 20:30; Admin Dose 200 MG; Start 11/21/18 at 09:00 Apixaban (Eliquis) 5 mg BID PO Last administered on 11/23/18at 08:10; Admin Dose 5 MG; Start 11/20/18 at 21:00 Losartan Potassium (Cozaar) 25 mg DAILY PO ; Start 11/22/18 at 09:00; Status Hold Insulin Aspart (Novolog Insulin Pen) 15 unit WITH MEALS SC Last administered on 11/23/18at 08:20; Admin Dose 15 UNIT; Start 11/22/18 at 11:50 Insulin Glargine (Lantus) 25 units BID SC Last administered on 11/23/18 08:20; Admin Dose 25 UNITS; Start 11/22/18 at 21:00 Linagliptin (Tradjenta) 5 mg DAILY PO Last administered on 11/23/18 08:09; Admin Dose 5 MG; Start 11/22/18 at 15:30 Carvedilol (Coreg) 6.25 mg BID PO Last administered on 11/22/18at 20:37; Admin Dose 6.25 MG; Start 11/22/18 at 21:00 Assessment/Plan Hospital Course (Demo Recall) 1.PAF/AFL - last episode on - sinus now - con't diuresis and med rx - on amio now 2.Hypotension-borderline - BP better, responds to diuresis 3.Fatigue -CMY likely 4. DM - on meds, keep euvolemic 5. Renal failure - Cr normalized now at 0.78 LORRAINE LOVING MD Nov 23, 2018 08:30
[2018-11-23] MEDS: AMIODARONE 200 MG TAB PO SCH ×2 (09:00→20:18)
[2018-11-23] MEDS: DILTIAZEM (CD) 120 MG CAP PO SCH ×2 (09:00→20:18)
[2018-11-23] MEDS ORDERED: POLYETHYLENE GLYCOL 17 GM PACKET PO PRN (12:30)
[2018-11-23] MEDS ORDERED: MAGNESIUM CITRATE 300 ML BTL PO ONE (13:30)
--- NOTE | 2018-11-23 14:08 | PN ---
Date/Time of Note Date/Time of Note DATE: 11/23/18 TIME: 14:06 Objective Vitals Vital Signs Date Temp Pulse Resp B/P (MAP) Pulse Ox O2 O2 Flow FiO2 Time Delivery Rate 11/23/18 56 12:11 11/23/18 98.9 16 117/78 98 11:32 (91) 11/21/18 Room Air 15:10 Intake and Output 11/22/18 11/22/18 11/23/18 1515:00 23:00 07:00 IntakeIntake Total 1000 ml 1125 ml 450 ml OutputOutput Total 1100 ml 1100 ml BalanceBalance 1000 ml 25 ml -650 ml Results Result Diagram: 11/23/18 0546 11/23/18 0546 Medications Medications Current Medications IV Flush (NS 3 ml) 3 ml PER PROTOCOL IV ; Start 11/20/18 at 15:30 Ondansetron HCl (Zofran Inj) 4 mg Q6H PRN IV NAUSEA/VOMITING Last administered on 11/21/18at 13:23; Admin Dose 4 MG; Start 11/20/18 at 15:30 Aspirin (Halfprin) 81 mg DAILY PO Last administered on 11/23/18at 08:10; Admin Dose 81 MG; Start 11/21/18 at 09:00 Atorvastatin Calcium (Lipitor) 20 mg QHS PO Last administered on 11/22/18at 20:30; Admin Dose 20 MG; Start 11/20/18 at 21:00 Diltiazem HCl (Cardizem Cd) 120 mg BID PO Last administered on 11/22/18at 20:31; Admin Dose 120 MG; Start 11/20/18 at 21:00 Gabapentin (Neurontin) 300 mg TID PO Last administered on 11/23/18at 13:07; Admin Dose 300 MG; Start 11/20/18 at 21:00 Insulin Aspart (Novolog Insulin Pen) NOVOLOG *MILD* ALGORITHM WITH MEALS BEDT TERRENCE SC Last administered on 11/23/18at 12:03; Admin Dose 2 UNIT; Start 11/20/18 at 18:00 Miscellaneous Information 1 ea NOTE XX ; Start 11/20/18 at 16:00 Glucose (Glutose) 15 gm Q15M PRN PO DECREASED GLUCOSE; Start 11/20/18 at 16:00 Glucose (Glutose) 22.5 gm Q15M PRN PO DECREASED GLUCOSE; Start 11/20/18 at 16:00 Dextrose (D50w Syringe) 25 ml Q15M PRN IV DECREASED GLUCOSE; Start 11/20/18 at 16:00 Dextrose (D50w Syringe) 50 ml Q15M PRN IV DECREASED GLUCOSE; Start 11/20/18 at 16:00 Glucagon (Glucagen) 1 mg Q15M PRN IM DECREASED GLUCOSE; Start 11/20/18 at 16:00 Glucose (Glutose) 15 gm Q15M PRN BUCCAL DECREASED GLUCOSE; Start 11/20/18 at 16:00 Furosemide (Lasix) 40 mg TID IV Last administered on 11/21/18at 20:45; Admin Dose 40 MG; Start 11/20/18 at 21:00; Status Hold Nitroglycerin (Nitroglycerin (Sl Tab) 0.4 Mg) 1 tab Q5M PRN SL ANGINA Last administered on 11/20/18at 20:18; Admin Dose 1 TAB; Start 11/20/18 at 20:30 Morphine Sulfate (morphine) 2 mg Q4H PRN IV SEVERE PAIN LEVEL 7-10 Last administered on 11/23/18at 13:11; Admin Dose 2 MG; Start 11/20/18 at 20:30 Amiodarone HCl (Cordarone) 200 mg BID PO Last administered on 11/22/18at 20:30; Admin Dose 200 MG; Start 11/21/18 at 09:00 Apixaban (Eliquis) 5 mg BID PO Last administered on 11/23/18at 08:10; Admin Dose 5 MG; Start 11/20/18 at 21:00 Losartan Potassium (Cozaar) 25 mg DAILY PO ; Start 11/22/18 at 09:00; Status Hold Insulin Aspart (Novolog Insulin Pen) 15 unit WITH MEALS SC Last administered on 11/23/18at 12:02; Admin Dose 15 UNIT; Start 11/22/18 at 11:50 Insulin Glargine (Lantus) 25 units BID SC Last administered on 11/23/18at 08:20; Admin Dose 25 UNITS; Start 11/22/18 at 21:00 Linagliptin (Tradjenta) 5 mg DAILY PO Last administered on 11/23/18at 08:09; Admin Dose 5 MG; Start 11/22/18 at 15:30 Carvedilol (Coreg) 6.25 mg BID PO Last administered on 11/22/18at 20:37; Admin Dose 6.25 MG; Start 11/22/18 at 21:00 Polyethylene Glycol (Miralax) 17 gm DAILY PRN PO CONSTIPATION; Start 11/23/18 at 12:30 VTE Prophylaxis Risk score (from [facility])>0 risk: 4 SCD applied (from [facility]): Yes Lines/Catheters IV Catheter Type: El in Place: No Assessment/Plan Hospital Course Subjective Patient feeling much better than yesterday however still has generalized fatigue, questions if some of his medications is causing him to have fatigue. Objective Physical exam General: Patient is laying in bed and answers questions appropriately Mentation: Patient is alert and oriented 4, Head: Normocephalic atraumatic Eyes: EOMI, pupils reactive to light Neck: Supple, nontender, midline Respiratory: Clear to auscultation bilaterally Cardiovascular: regular rate, no obvious murmurs Gastrointestinal: Moderately-tender to palpation, bowel sounds heard. Neurological: Moves all extremities spontaneously Skin: No new skin lesions Assessment and plan Dizziness with hypotension, resolved -I suspect patient was over diuresed and had too much volume loss -Holding Lasix -doing well after fluids given -Patient does not have any altered mental status Generalized fatigue -May be medication mediated however will need to monitor and get physical therapy involved Abdominal pain -Nonsevere, CT abdomen pelvis negative for acute issues, patient states that he has not had a bowel movement over 3 days, likely constipation, will give laxatives -Monitor- Atrial fibrillation with RVR -Resolving -Appreciate cardiology recommendations -We will speak to case management regarding Eliquis, will check if insurance co vers -Resume medications when blood pressure is safe Hypertension -Continue other medications when blood pressure is stable -Hold losartan for now due to blood pressure, LILLIAM has resolved Acute kidney injury, resolved -Likely volume depleted, hold losartan and Lasix for now, will reinitiate losartan tomorrow if safe blood pressure -We will give NS for above hypotension as needed -Nephrology consulted Diabetes mellitus -Patient has uncontrolled diabetes -Adjust Lantus and insulin on house, patient will need proper outpatient follow- up Dyslipidemia -Continue home meds Obesity -Lifestyle modifications Lower extremity pain and tingling -Likely secondary to lung depletion as well as diabetic neuropathy -Continue gabapentin Electrolyte derangement -Replete as needed Disposition -Per patient cardiology plans stress test JANI DELACRUZ Nov 23, 2018 14:08
[2018-11-23] MEDS: ATORVASTATIN 20 MG TAB PO SCH (20:17)
--- NOTE | 2018-11-23 20:41 | PN ---
DATE: 11/23/2018 SUBJECTIVE: The patient is stable. No events overnight. OBJECTIVE: VITAL SIGNS: Blood pressure is 117/78, pulse 86, temperature 98.9. HEENT: Head is normocephalic. NECK: Supple. HEART: Regular rate. LUNGS: Show diminished breath sounds at the base. ABDOMEN: Soft, nontender to palpation without rebound or guarding. EXTREMITIES: Negative for clubbing, cyanosis, no edema. DERMATOLOGIC: No rashes. MUSCULOSKELETAL: No joint effusion. NEUROLOGIC: No change in exam. MEDICATIONS: Have been reviewed. LABORATORY DATA: Has been reviewed. IMAGING STUDIES: Have been reviewed. ASSESSMENT AND PLAN: 1. Non-oliguric acute kidney injury. Previous unknown baseline creatinine. Etiology of acute kidne y injury is secondary to hemodynamics, volume depletion, diuretics, ARB effect. Renal function has i mproved with IV hydration. Recommendation is to discontinue IV fluids. Continue current treatment p lans, supportive care, renally dose all medication. 2. Hyponatremia, improved. 3. Mineral bone disorder. Monitor calcium and phosphorus levels. 4. Hypotension, resolved. The patient is currently euvolemic after fluid challenge. Continue to mo nitor. 5. Abdominal pain, improving. 6. Atrial fibrillation. Continue medical management. 7. Diabetes. Continue current insulin regimen. 8. Dyslipidemia. 9. Obesity. Continue dietary modification. Dictated By: IRENE BURRELL/NTS Conf#: [id number] DID#: [id number] CC: CYRUS FANG MD;*EndCC*
[2018-11-24] VITALS (12 sets, daily range): BP systolic 99–125; BP diastolic 53–74; PULSE 57–86; RESP 16–18
[2018-11-24] MEDS: MUPIROCIN 2% 22 GM OINT TOP SCH ×3 (00:56→20:43)
[2018-11-24] MEDS: GABAPENTIN 300 MG CAP PO SCH ×3 (08:34→20:32)
[2018-11-24] MEDS: APIXABAN 5 MG TABLET PO SCH ×2 (08:34→20:32)
[2018-11-24] MEDS: ASPIRIN (EC) 81 MG TAB PO SCH (08:34)
[2018-11-24] MEDS: LINAGLIPTIN 5 MG TABLET PO SCH (08:34)
[2018-11-24] MEDS: INSULIN GLARGINE [LANTus] (100 UNITS/ML) SYG SC SCH ×2 (08:47→20:40)
[2018-11-24] MEDS: INSULIN ASPART [NOVOLOG] 3 ML PEN SC SCH ×7 (08:47→20:36)
[2018-11-24] MEDS: DILTIAZEM (CD) 120 MG CAP PO SCH ×2 (08:54→20:36)
[2018-11-24] MEDS: AMIODARONE 200 MG TAB PO SCH ×2 (08:55→20:35)
[2018-11-24] MEDS ORDERED: LOSARTAN 25 MG TAB PO ONE (12:00)
--- NOTE | 2018-11-24 13:15 | PN ---
Date/Time of Note Date/Time of Note DATE: 11/24/18 TIME: 13:12 Objective Vitals Vital Signs Date Temp Pulse Resp B/P (MAP) Pulse Ox O2 O2 Flow FiO2 Time Delivery Rate 11/24/18 98.4 68 16 115/65 93 Room Air 11:15 (82) Intake and Output 11/23/18 11/23/18 11/24/18 1414:59 22:59 06:59 IntakeIntake Total 1140 ml OutputOutput Total 1680 ml 900 ml BalanceBalance -540 ml -900 ml Results Result Diagram: 11/24/18 0603 11/24/18 0603 Medications Medications Current Medications IV Flush (NS 3 ml) 3 ml PER PROTOCOL IV ; Start 11/20/18 at 15:30 Ondansetron HCl (Zofran Inj) 4 mg Q6H PRN IV NAUSEA/VOMITING Last administered on 11/21/18at 13:23; Admin Dose 4 MG; Start 11/20/18 at 15:30 Aspirin (Halfprin) 81 mg DAILY PO Last administered on 11/24/18 08:34; Admin Dose 81 MG; Start 11/21/18 at 09:00 Atorvastatin Calcium (Lipitor) 20 mg QHS PO Last administered on 11/23/18at 20:17; Admin Dose 20 MG; Start 11/20/18 at 21:00 Diltiazem HCl (Cardizem Cd) 120 mg BID PO Last administered on 11/24/18 08:54; Admin Dose 120 MG; Start 11/20/18 at 21:00 Gabapentin (Neurontin) 300 mg TID PO Last administered on 11/24/18 08:34; Admin Dose 300 MG; Start 11/20/18 at 21:00 Insulin Aspart (Novolog Insulin Pen) NOVOLOG *MILD* ALGORITHM WITH MEALS BEDTIME SC Last administered on 11/24/18 08:47; Admin Dose 1 UNIT; Start 11/20/18 at 18:00 Miscellaneous Information 1 ea NOTE XX ; Start 11/20/18 at 16:00 Glucose (Glutose) 15 gm Q15M PRN PO DECREASED GLUCOSE; Start 11/20/18 at 16:00 Glucose (Glutose) 22.5 gm Q15M PRN PO DECREASED GLUCOSE; Start 11/20/18 at 16:00 Dextrose (D50w Syringe) 25 ml Q15M PRN IV DECREASED GLUCOSE; Start 11/20/18 at 16:00 Dextrose (D50w Syringe) 50 ml Q15M PRN IV DECREASED GLUCOSE; Start 11/20/18 at 16:00 Glucagon (Glucagen) 1 mg Q15M PRN IM DECREASED GLUCOSE; Start 11/20/18 at 16:00 Glucose (Glutose) 15 gm Q15M PRN BUCCAL DECREASED GLUCOSE; Start 11/20/18 at 16:00 Furosemide (Lasix) 40 mg TID IV Last administered on 11/21/18 20:45; Admin Dose 40 MG; Start 11/20/18 at 21:00; Status Hold Nitroglycerin (Nitroglycerin (Sl Tab) 0.4 Mg) 1 tab Q5M PRN SL ANGINA Last administered on 11/20/18 20:18; Admin Dose 1 TAB; Start 11/20/18 at 20:30 Amiodarone HCl (Cordarone) 200 mg BID PO Last administered on 11/24/18 08:55; Admin Dose 200 MG; Start 11/21/18 at 09:00 Apixaban (Eliquis) 5 mg BID PO Last administered on 11/24/18 08:34; Admin Dose 5 MG; Start 11/20/18 at 21:00 Insulin Aspart (Novolog Insulin Pen) 15 unit WITH MEALS SC Last administered on 11/24/18 08:47; Admin Dose 15 UNIT; Start 11/22/18 at 11:50 Insulin Glargine (Lantus) 25 units BID SC Last administered on 11/24/18 08:47; Admin Dose 25 UNITS; Start 11/22/18 at 21:00 Linagliptin (Tradjenta) 5 mg DAILY PO Last administered on 11/24/18 08:34; Admin Dose 5 MG; Start 11/22/18 at 15:30 Carvedilol (Coreg) 6.25 mg BID PO Last administered on 11/24/18 08:54; Admin Dose 6.25 MG; Start 11/22/18 at 21:00 Polyethylene Glycol (Miralax) 17 gm DAILY PRN PO CONSTIPATION; Start 11/23/18 at 12:30 Mupirocin (Bactroban) 1 applic BID TOP Last administered on 11/24/18 08:34; Admin Dose 1 APPLIC; Start 11/23/18 at 23:30 Losartan Potassium (Cozaar) 12.5 mg DAILY PO ; Start 11/25/18 at 09:00 Sodium Chloride 1,000 ml @ 50 mls/hr Q20H IV ; Start 11/24/18 at 12:00 VTE Prophylaxis Risk score (from [facility])>0 risk: 6 SCD applied (from [facility]): Yes Lines/Catheters IV Catheter Type: El in Place: No Assessment/Plan Hospital Course Subjective After laxative, patient now having multiple rounds of diarrhea however is mildly controlled, patient feeling much better than yesterday, BP better Objective Physical exam General: Patient is laying in bed and answers questions appropriately Mentation: Patient is alert and oriented 4, Head: Normocephalic atraumatic Eyes: EOMI, pupils reactive to light Neck: Supple, nontender, midline Respiratory: Clear to auscultation bilaterally Cardiovascular: regular rate, no obvious murmurs Gastrointestinal: Moderately-tender to palpation, bowel sounds heard. Neurological: Moves all extremities spontaneously Skin: No new skin lesions Assessment and plan Dizziness with hypotension, resolved -I suspect patient was over diuresed and had too much volume loss -Holding Lasix -doing well after fluids given -Patient does not have any altered mental status Generalized fatigue, resolving -May be medication mediated however will need to monitor and get physical therapy if does not continue to improve -As blood pressure continues to normalize, fatigue is lessening Abdominal pain, resolving -Nonsevere, CT abdomen pelvis negative for acute issues, patient states that he has not had a bowel movement over 3 days, likely constipation, will give laxat teresa as needed -Monitor- Diarrhea -Laxative induced, monitor closely -We will give some normal saline IV fluid Atrial fibrillation with RVR -Resolving -Appreciate cardiology recommendations -We will speak to case management regarding Eliquis, will check if insurance covers -Resume medications when blood pressure is safe Hypertension -Continue other medications -Restart losartan at lower dose, monitor blood pressure, LILLIAM has resolved Acute kidney injury, resolved -Likely volume depleted, DC Lasix, will reinitiate losartan today -We will give NS for above hypotension as needed -Nephrology consulted Diabetes mellitus -Patient has uncontrolled diabetes -Adjust Lantus and insulin on house, patient will need proper outpatient follow- up -Patient on significantly lower dose of insulin and medications while in house which after speaking with patient is likely due to uncontrolled diet in the outpatient setting. Spoke to patient about dietary restrictions. Dyslipidemia -Continue home meds Obesity -Lifestyle modifications Lower extremity pain and tingling -Likely secondary to volume depletion as well as diabetic neuropathy -Continue gabapentin -Ultrasound venous lower extremity pending Electrolyte derangement -Replete as needed Disposition -Monitor renal function and blood pressure while initiating losartan, anticipate discharge tomorrow. JANI DELACRUZ Nov 24, 2018 13:15
[2018-11-24] MEDS: SOD CHLORIDE 0.9% 1,000 ML IV SCH (13:34)
--- NOTE | 2018-11-24 13:45 | PN ---
DATE: 11/24/2018 SUBJECTIVE: The patient is stable. No events overnight. OBJECTIVE: VITAL SIGNS: Blood pressure is 125/74, respiration 18, pulse 58, temperature 97.8. HEENT: Head is normocephalic. NECK: Supple. HEART: Regular rate. LUNGS: Show diminished breath sounds at the base. ABDOMEN: Soft, nontender to palpation without rebound or guarding. EXTREMITIES: Negative for clubbing, cyanosis, no edema. DERMATOLOGIC: No rashes. MUSCULOSKELETAL: No joint effusion. NEUROLOGIC: No change in exam. MEDICATIONS: Have been reviewed. LABORATORY DATA: Has been reviewed. ASSESSMENT AND PLAN: 1. Nonoliguric acute kidney injury. Etiology is secondary to hemodynamics. Renal function is impro juan m. Continue to monitor. 2. Hyponatremia, improved. 3. Mineral bone disorder. Monitor calcium and phosphorus levels. 4. Hypertension. Blood pressure is currently stable. Continue to monitor. 5. Abdominal pain, improving. 6. Atrial fibrillation. Continue medical management. 7. Morbid obesity. Continue dietary modification. 8. Dizziness, hypotension, improved. I will follow the patient as needed. Dictated By: IRENE BURRELL/ANNA Conf#: [id number] DID#: [id number] CC: CYRUS FANG MD;*EndCC*
--- NOTE | 2018-11-24 13:57 | CONS ---
Assessment/Plan Assessment/Plan Hospital Course (Demo Recall) IMP: 1.PAF/AFL-remains in SR on amiodarone 2.Hypotension-borderline 3.Fatigue 4. DM 5. Renal failure- now improved Recc; -Tele -serial ecg's -Contineu dilt and coreg given bradycardia and the fact that patient has marginal BP -Continue amiodarone loading as tolerated -Contineu eliquis -follow volume status closely with now improved renal function Consultation Date/Type/Reason Admit Date/Time Nov 20, 2018 at 14:54 Initial Consult Date 11/20/18 Type of Consult Cardiology Reason for Consultation PAF Requesting Provider: RUBINA KHAN NP Date/Time of Note DATE: 11/24/18 TIME: 13:55 Exam/Review of Systems Vital Signs Vitals Vital Signs Date Temp Pulse Resp B/P (MAP) Pulse Ox O2 O2 Flow FiO2 Time Delivery Rate 11/24/18 67 12:00 11/24/18 98.4 16 115/65 93 Room Air 11:15 (82) Intake and Output 11/23/18 11/23/18 11/24/18 1515:00 23:00 07:00 IntakeIntake Total 1140 ml OutputOutput Total 1680 ml 900 ml BalanceBalance -540 ml -900 ml Exam Exam Review of Systems: CONSTITUTIONAL: No fevers, chills. PULMONARY: improving sob CARDIOVASCULAR: No chest pain/palpitations GASTROINTESTINAL: No nausea/vomiting. GENITOURINARY: No hematuria/dysuria. MUSCULOSKELETAL: No myagias/arthalgias. PSYCHIATRIC: The patient denies depression. NEUROLOGIC: No weakness Constitutional: alert, oriented Psych: no complaints Head: normocephalic ENMT: mucosa pink and moist Neck: supple, jvd (9 cm water) Respiratory: diminished breath sounds (at bases/B) Cardiovascular: regular rate and rhythm Gastrointestinal: soft, non-tender, other (obses) Musculoskeletal: muscle tone (normal) Neurological: other (no pitting edema) Labs Result Diagram: 11/24/18 0603 11/24/18 0603 Results 24hrs Laboratory Tests Test 11/23/18 17:30 11/23/18 20:20 11/24/18 02:40 11/24/18 06:03 Bedside Glucose 102 152 155 White Blood Count 7.3 # Red Blood Count 5.49 Hemoglobin 16.2 Hematocrit 47.4 Mean Corpuscular 86.3 Volume Mean Corpuscular 29.5 Hemoglobin Mean Corpuscular 34.2 Hemoglobin Concent Red Cell 13.1 Distribution Width Platelet Count 184 Mean Platelet Volume 10.7 H Immature 0.300 Granulocytes % Neutrophils % 60.8 Lymphocytes % 30.5 Monocytes % 6.7 Eosinophils % 1.2 Basophils % 0.5 Nucleated Red Blood 0.0 Cells % Immature 0.020 Granulocytes # Neutrophils # 4.5 Lymphocytes # 2.2 Monocytes # 0.5 Eosinophils # 0.1 Basophils # 0.0 Nucleated Red Blood 0.0 Cells # Sodium Level 142 Potassium Level 4.7 Chloride Level 104 Carbon Dioxide Level 26 Anion Gap 12 Blood Urea Nitrogen 14 Creatinine 0.73 Glucose Level 159 Calcium Level 8.5 Phosphorus Level 4.0 Magnesium Level 2.2 Albumin 3.7 Test 11/24/18 08:29 11/24/18 13:09 Bedside Glucose 146 143 Medications Medications Current Medications IV Flush (NS 3 ml) 3 ml PER PROTOCOL IV ; Start 11/20/18 at 15:30 Ondansetron HCl (Zofran Inj) 4 mg Q6H PRN IV NAUSEA/VOMITING Last administered on 11/21/18 13:23; Admin Dose 4 MG; Start 11/20/18 at 15:30 Aspirin (Halfprin) 81 mg DAILY PO Last administered on 11/24/18 08:34; Admin Dose 81 MG; Start 11/21/18 at 09:00 Atorvastatin Calcium (Lipitor) 20 mg QHS PO Last administered on 11/23/18at 20:17; Admin Dose 20 MG; Start 11/20/18 at 21:00 Diltiazem HCl (Cardizem Cd) 120 mg BID PO Last administered on 11/24/18at 08:54; Admin Dose 120 MG; Start 11/20/18 at 21:00 Gabapentin (Neurontin) 300 mg TID PO Last administered on 11/24/18 13:10; Admin Dose 300 MG; Start 11/20/18 at 21:00 Insulin Aspart (Novolog Insulin Pen) NOVOLOG *MILD* ALGORITHM WITH MEALS BEDTIME SC Last administered on 11/24/18 13:18; Admin Dose 1 UNIT; Start 11/20/18 at 18:00 Miscellaneous Information 1 ea NOTE XX ; Start 11/20/18 at 16:00 Glucose (Glutose) 15 gm Q15M PRN PO DECREASED GLUCOSE; Start 11/20/18 at 16:00 Glucose (Glutose) 22.5 gm Q15M PRN PO DECREASED GLUCOSE; Start 11/20/18 at 16:00 Dextrose (D50w Syringe) 25 ml Q15M PRN IV DECREASED GLUCOSE; Start 11/20/18 at 16:00 Dextrose (D50w Syringe) 50 ml Q15M PRN IV DECREASED GLUCOSE; Start 11/20/18 at 16:00 Glucagon (Glucagen) 1 mg Q15M PRN IM DECREASED GLUCOSE; Start 11/20/18 at 16:00 Glucose (Glutose) 15 gm Q15M PRN BUCCAL DECREASED GLUCOSE; Start 11/20/18 at 16:00 Furosemide (Lasix) 40 mg TID IV Last administered on 11/21/18 20:45; Admin Dose 40 MG; Start 11/20/18 at 21:00; Status Hold Nitroglycerin (Nitroglycerin (Sl Tab) 0.4 Mg) 1 tab Q5M PRN SL ANGINA Last administered on 11/20/18 20:18; Admin Dose 1 TAB; Start 11/20/18 at 20:30 Amiodarone HCl (Cordarone) 200 mg BID PO Last administered on 11/24/18 08:55; Admin Dose 200 MG; Start 11/21/18 at 09:00 Apixaban (Eliquis) 5 mg BID PO Last administered on 11/24/18 08:34; Admin Dose 5 MG; Start 11/20/18 at 21:00 Insulin Aspart (Novolog Insulin Pen) 15 unit WITH MEALS SC Last administered on 11/24/18 13:18; Admin Dose 15 UNIT; Start 11/22/18 at 11:50 Insulin Glargine (Lantus) 25 units BID SC Last administered on 11/24/18 08:47; Admin Dose 25 UNITS; Start 11/22/18 at 21:00 Linagliptin (Tradjenta) 5 mg DAILY PO Last administered on 11/24/18 08:34; Admin Dose 5 MG; Start 11/22/18 at 15:30 Carvedilol (Coreg) 6.25 mg BID PO Last administered on 11/24/18 08:54; Admin Dose 6.25 MG; Start 6/17/19 at 21:00 Polyethylene Glycol (Miralax) 17 gm DAILY PRN PO CONSTIPATION; Start 11/23/18 at 12:30 Mupirocin (Bactroban) 1 applic BID TOP Last administered on 11/24/18at 08:34; Admin Dose 1 APPLIC; Start 11/23/18 at 23:30 Losartan Potassium (Cozaar) 12.5 mg DAILY PO ; Start 11/25/18 at 09:00 Sodium Chloride 1,000 ml @ 50 mls/hr Q20H IV Last administered on 11/24/18at 13:34; Admin Dose 50 MLS/HR; Start 11/24/18 at 12:00 MAC QUEVEDO Nov 24, 2018 13:57
[2018-11-24] MEDS: ATORVASTATIN 20 MG TAB PO SCH (20:32)
[2018-11-25] VITALS (13 sets, daily range): BP systolic 98–133; BP diastolic 56–82; PULSE 42–89; RESP 16–20
[2018-11-25] MEDS: MUPIROCIN 2% 22 GM OINT TOP SCH ×2 (08:25→20:35)
[2018-11-25] MEDS: APIXABAN 5 MG TABLET PO SCH ×2 (08:26→20:34)
[2018-11-25] MEDS: GABAPENTIN 300 MG CAP PO SCH ×3 (08:26→20:32)
[2018-11-25] MEDS: AMIODARONE 200 MG TAB PO SCH ×2 (08:26→20:34)
[2018-11-25] MEDS: LINAGLIPTIN 5 MG TABLET PO SCH (08:26)
[2018-11-25] MEDS: ASPIRIN (EC) 81 MG TAB PO SCH (08:26)
[2018-11-25] MEDS: DILTIAZEM (CD) 120 MG CAP PO SCH ×2 (08:27→20:33)
[2018-11-25] MEDS: INSULIN ASPART [NOVOLOG] 3 ML PEN SC SCH ×7 (08:33→20:37)
[2018-11-25] MEDS: INSULIN GLARGINE [LANTus] (100 UNITS/ML) SYG SC SCH ×2 (08:33→21:02)
[2018-11-25] MEDS: SOD CHLORIDE 0.9% 1,000 ML IV SCH (08:54)
[2018-11-25] MEDS ORDERED: LOSARTAN 25 MG TAB PO SCH (09:00)
--- NOTE | 2018-11-25 13:13 | CONS ---
Assessment/Plan Assessment/Plan Hospital Course (Demo Recall) IMP: 1.PAF/AFL-remains in SR on amiodarone 2.Hypotension-borderline 3.Fatigue 4. DM 5. Renal failure- now improved Recc; -Tele -serial ecg's -Contineu dilt and coreg at current doses given bradycardia and the fact that patient has marginal BP -Continue amiodarone loading as tolerated -Contineu eliquis -follow volume status closely with now improved renal function -not resuming losartan given marginal BP Consultation Date/Type/Reason Admit Date/Time Nov 20, 2018 at 14:54 Initial Consult Date 11/20/18 Type of Consult Cardiology Reason for Consultation PAF Requesting Provider: RUBINA KHAN NP Date/Time of Note DATE: 11/25/18 TIME: 13:10 Exam/Review of Systems Vital Signs Vitals Vital Signs Date Temp Pulse Resp B/P (MAP) Pulse Ox O2 O2 Flow FiO2 Time Delivery Rate 11/25/18 64 12:00 11/25/18 98.0 20 106/56 98 Room Air 11:06 (73) Intake and Output 11/24/18 11/24/18 11/25/18 1515:00 23:00 07:00 IntakeIntake Total 560 ml 1320 ml 400 ml OutputOutput Total 2 ml 2950 ml 1000 ml BalanceBalance 558 ml -1630 ml -600 ml Exam Exam Review of Systems: CONSTITUTIONAL: No fevers, chills. PULMONARY: No sob CARDIOVASCULAR: No chest pain/palpitations GASTROINTESTINAL: No nausea/vomiting. GENITOURINARY: No hematuria/dysuria. MUSCULOSKELETAL: No myagias/arthalgias. PSYCHIATRIC: The patient denies depression. NEUROLOGIC: No weakness Constitutional: alert Psych: no complaints Head: normocephalic ENMT: mucosa pink and moist Neck: supple, jvd (9 cm water) Respiratory: diminished breath sounds (at bases/B) Cardiovascular: regular rate and rhythm Gastrointestinal: soft, non-tender, other (0bese) Musculoskeletal: muscle tone (normal) Extremities: edema (none) Neurological: other (No focal deficts) Labs Result Diagram: 11/25/18 0611/25/18 0606 Results 24hrs Laboratory Tests Test 11/24/18 17:58 11/24/18 20:32 11/25/18 02:44 11/25/18 06:06 Bedside Glucose 125 133 162 White Blood Count 7.0 Red Blood Count 5.29 Hemoglobin 15.9 Hematocrit 47.8 Mean Corpuscular 90.4 Volume Mean Corpuscular 30.1 Hemoglobin Mean Corpuscular 33.3 Hemoglobin Concent Red Cell 13.3 Distribution Width Platelet Count 183 Mean Platelet Volume 10.9 H Immature 0.400 Granulocytes % Neutrophils % 55.0 Lymphocytes % 35.3 Monocytes % 7.0 Eosinophils % 1.6 Basophils % 0.7 Nucleated Red Blood 0.0 Cells % Immature 0.030 Granulocytes # Neutrophils # 3.8 Lymphocytes # 2.5 Monocytes # 0.5 Eosinophils # 0.1 Basophils # 0.1 Nucleated Red Blood 0.0 Cells # Sodium Level 141 Potassium Level 4.7 Chloride Level 106 Carbon Dioxide Level 25 Anion Gap 10 Blood Urea Nitrogen 11 Creatinine 0.72 Est Glomerular > 60 Filtrat Rate mL/min Glucose Level 147 Calcium Level 8.5 Phosphorus Level 4.4 Magnesium Level 2.0 Test 11/25/18 08:24 11/25/18 12:13 Bedside Glucose 153 174 Medications Medications Current Medications IV Flush (NS 3 ml) 3 ml PER PROTOCOL IV ; Start 11/20/18 at 15:30 Ondansetron HCl (Zofran Inj) 4 mg Q6H PRN IV NAUSEA/VOMITING Last administered on 11/21/18at 13:23; Admin Dose 4 MG; Start 11/20/18 at 15:30 Atorvastatin Calcium (Lipitor) 20 mg QHS PO Last administered on 11/24/18at 20:32; Admin Dose 20 MG; Start 11/20/18 at 21:00 Diltiazem HCl (Cardizem Cd) 120 mg BID PO Last administered on 11/25/18at 08:27; Admin Dose 120 MG; Start 11/20/18 at 21:00 Gabapentin (Neurontin) 300 mg TID PO Last administered on 11/25/18at 12:14; Admin Dose 300 MG; Start 11/20/18 at 21:00 Insulin Aspart (Novolog Insulin Pen) NOVOLOG *MILD* ALGORITHM WITH MEALS BEDTIME SC Last administered on 11/25/18at 12:23; Admin Dose 1 UNIT; Start 11/20/18 at 18:00 Miscellaneous Information 1 ea NOTE XX ; Start 11/20/18 at 16:00 Glucose (Glutose) 15 gm Q15M PRN PO DECREASED GLUCOSE; Start 11/20/18 at 16:00 Glucose (Glutose) 22.5 gm Q15M PRN PO DECREASED GLUCOSE; Start 11/20/18 at 16:00 Dextrose (D50w Syringe) 25 ml Q15M PRN IV DECREASED GLUCOSE; Start 11/20/18 at 16:00 Dextrose (D50w Syringe) 50 ml Q15M PRN IV DECREASED GLUCOSE; Start 11/20/18 at 16:00 Glucagon (Glucagen) 1 mg Q15M PRN IM DECREASED GLUCOSE; Start 11/20/18 at 16:00 Glucose (Glutose) 15 gm Q15M PRN BUCCAL DECREASED GLUCOSE; Start 11/20/18 at 16:00 Nitroglycerin (Nitroglycerin (Sl Tab) 0.4 Mg) 1 tab Q5M PRN SL ANGINA Last administered on 11/20/18 20:18; Admin Dose 1 TAB; Start 11/20/18 at 20:30 Amiodarone HCl (Cordarone) 200 mg BID PO Last administered on 11/25/18 08:26; Admin Dose 200 MG; Start 11/21/18 at 09:00 Apixaban (Eliquis) 5 mg BID PO Last administered on 11/25/18 08:26; Admin Dose 5 MG; Start 11/20/18 at 21:00 Insulin Aspart (Novolog Insulin Pen) 15 unit WITH MEALS SC Last administered on 11/25/18 12:24; Admin Dose 15 UNIT; Start 11/22/18 at 11:50 Insulin Glargine (Lantus) 25 units BID SC Last administered on 11/25/18 08:33; Admin Dose 25 UNITS; Start 11/22/18 at 21:00 Linagliptin (Tradjenta) 5 mg DAILY PO Last administered on 11/25/18 08:26; Admin Dose 5 MG; Start 11/22/18 at 15:30 Carvedilol (Coreg) 6.25 mg BID PO Last administered on 11/25/18 08:27; Admin Dose 6.25 MG; Start 11/22/18 at 21:00 Polyethylene Glycol (Miralax) 17 gm DAILY PRN PO CONSTIPATION; Start 11/23/18 at 12:30 Mupirocin (Bactroban) 1 applic BID TOP Last administered on 6/20/19at 08:25; Admin Dose 1 APPLIC; Start 11/23/18 at 23:30 Sodium Chloride 1,000 ml @ 50 mls/hr Q20H IV Last administered on 11/25/18at 08:54; Admin Dose 50 MLS/HR; Start 11/24/18 at 12:00 MAC QUEVEDO Nov 25, 2018 13:13
--- NOTE | 2018-11-25 14:50 | PN ---
Date/Time of Note Date/Time of Note DATE: 11/25/18 TIME: 14:47 Objective Vitals Vital Signs Date Temp Pulse Resp B/P (MAP) Pulse Ox O2 O2 Flow FiO2 Time Delivery Rate 11/25/18 64 12:00 11/25/18 98.0 20 106/56 98 Room Air 11:06 (73) Intake and Output 11/24/18 11/24/18 11/25/18 1515:00 23:00 07:00 IntakeIntake Total 560 ml 1320 ml 400 ml OutputOutput Total 2 ml 2950 ml 1000 ml BalanceBalance 558 ml -1630 ml -600 ml Results Result Diagram: 11/25/18 0606 11/25/18 0606 Medications Medications Current Medications IV Flush (NS 3 ml) 3 ml PER PROTOCOL IV ; Start 11/20/18 at 15:30 Ondansetron HCl (Zofran Inj) 4 mg Q6H PRN IV NAUSEA/VOMITING Last administered on 11/21/18at 13:23; Admin Dose 4 MG; Start 11/20/18 at 15:30 Atorvastatin Calcium (Lipitor) 20 mg QHS PO Last administered on 11/24/18at 20:3 2; Admin Dose 20 MG; Start 11/20/18 at 21:00 Diltiazem HCl (Cardizem Cd) 120 mg BID PO Last administered on 11/25/18at 08:27; Admin Dose 120 MG; Start 11/20/18 at 21:00 Gabapentin (Neurontin) 300 mg TID PO Last administered on 11/25/18at 12:14; Admin Dose 300 MG; Start 11/20/18 at 21:00 Insulin Aspart (Novolog Insulin Pen) NOVOLOG *MILD* ALGORITHM WITH MEALS BEDTIME SC Last administered on 11/25/18at 12:23; Admin Dose 1 UNIT; Start 11/20/18 at 18:00 Miscellaneous Information 1 ea NOTE XX ; Start 11/20/18 at 16:00 Glucose (Glutose) 15 gm Q15M PRN PO DECREASED GLUCOSE; Start 11/20/18 at 16:00 Glucose (Glutose) 22.5 gm Q15M PRN PO DECREASED GLUCOSE; Start 11/20/18 at 16:00 Dextrose (D50w Syringe) 25 ml Q15M PRN IV DECREASED GLUCOSE; Start 11/20/18 at 16:00 Dextrose (D50w Syringe) 50 ml Q15M PRN IV DECREASED GLUCOSE; Start 11/20/18 at 16:00 Glucagon (Glucagen) 1 mg Q15M PRN IM DECREASED GLUCOSE; Start 11/20/18 at 16:00 Glucose (Glutose) 15 gm Q15M PRN BUCCAL DECREASED GLUCOSE; Start 11/20/18 at 16:00 Nitroglycerin (Nitroglycerin (Sl Tab) 0.4 Mg) 1 tab Q5M PRN SL ANGINA Last administered on 11/20/18 20:18; Admin Dose 1 TAB; Start 11/20/18 at 20:30 Amiodarone HCl (Cordarone) 200 mg BID PO Last administered on 11/25/18 08:26; Admin Dose 200 MG; Start 11/21/18 at 09:00 Apixaban (Eliquis) 5 mg BID PO Last administered on 11/25/18 08:26; Admin Dose 5 MG; Start 11/20/18 at 21:00 Insulin Aspart (Novolog Insulin Pen) 15 unit WITH MEALS SC Last administered on 11/25/18 12:24; Admin Dose 15 UNIT; Start 11/22/18 at 11:50 Insulin Glargine (Lantus) 25 units BID SC Last administered on 11/25/18 08:33; Admin Dose 25 UNITS; Start 11/22/18 at 21:00 Linagliptin (Tradjenta) 5 mg DAILY PO Last administered on 11/25/18 08:26; Admin Dose 5 MG; Start 11/22/18 at 15:30 Carvedilol (Coreg) 6.25 mg BID PO Last administered on 11/25/18 08:27; Admin Dose 6.25 MG; Start 11/22/18 at 21:00 Polyethylene Glycol (Miralax) 17 gm DAILY PRN PO CONSTIPATION; Start 11/23/18 at 12:30 Mupirocin (Bactroban) 1 applic BID TOP Last administered on 11/25/18 08:25; Admin Dose 1 APPLIC; Start 11/23/18 at 23:30 Sodium Chloride 1,000 ml @ 50 mls/hr Q20H IV Last administered on 11/25/18 08:54; Admin Dose 50 MLS/HR; Start 11/24/18 at 12:00 VTE Prophylaxis Risk score (from Nsg)>0 risk: 5 SCD applied (from Nsg): Yes SCD contraindication: other Lines/Catheters IV Catheter Type: El in Place: No Assessment/Plan Hospital Course Subjective Patient's blood pressure still marginally low, patient feels slightly more fatigued but otherwise okay Objective Physical exam General: Patient is laying in bed and answers questions appropriately Mentation: Patient is alert and oriented 4, Head: Normocephalic atraumatic Eyes: EOMI, pupils reactive to light Neck: Supple, nontender, midline Respiratory: Clear to auscultation bilaterally Cardiovascular: regular rate, no obvious murmurs Gastrointestinal: Moderately-tender to palpation, bowel sounds heard. Neurological: Moves all extremities spontaneously Skin: No new skin lesions Assessment and plan Dizziness with hypotension, resolved -I suspect patient was over diuresed and had too much volume loss -Holding Lasix, will DC, patient does not seem to give a need for Lasix -doing well after fluids given -Patient does not have any altered mental status Generalized fatigue, resolving -May be medication mediated however will need to monitor and get physical therapy if does not continue to improve -As blood pressure continues to normalize, fatigue is lessening Abdominal pain, resolving -[place], CT abdomen pelvis negative for acute issues, patient states that he has not had a bowel movement over 3 days, likely constipation, will give laxatives as needed -Monitor- Diarrhea, resolving -Laxative induced, monitor closely -IV fluid if needed Atrial fibrillation with RVR -Resolving -Appreciate cardiology recommendations -Eliquis covered by insurance -Resume medications when blood pressure is safe Hypertension -Continue other medications -We will DC losartan for now as patient appears to be quite symptomatic with mildly low blood pressure, patient cannot be titrated off other medications that may affect blood pressure due to his nature to go back into cardiac arrhythmia very easily. Patient should probably restart a low-dose JESSICA inhibitor or ARB in the future for renal protection issues due to his diabetes mellitus however can hold off for now until seen by outpatient physician. Acute kidney injury, resolved -Likely volume depleted, -We will give NS for above as needed -Nephrology consulted Diabetes mellitus -Patient has uncontrolled diabetes -Adjust Lantus and insulin on house, patient will need proper outpatient follow- up -Patient on significantly lower dose of insulin and medications while in house which after speaking with patient is likely due to uncontrolled diet in the outpatient setting. Spoke to patient about dietary restrictions. Dyslipidemia -Continue home meds Obesity -Lifestyle modifications Lower extremity pain and tingling, resolving -Likely secondary to volume depletion as well as diabetic neuropathy -Continue gabapentin -Ultrasound venous lower extremity negative for acute issues Electrolyte derangement -Replete as needed Disposition -DC losartan, monitor patient's blood pressure, anticipate discharge tomorrow if blood pressure safe. JANI DELACRUZ Nov 25, 2018 14:50
[2018-11-25] MEDS: ATORVASTATIN 20 MG TAB PO SCH (20:32)
[2018-11-26] VITALS (8 sets, daily range): BP systolic 95–125; BP diastolic 50–77; PULSE 53–71; RESP 16–20
[2018-11-26] MEDS: SOD CHLORIDE 0.9% 1,000 ML IV SCH (04:09)
[2018-11-26] MEDS: INSULIN ASPART [NOVOLOG] 3 ML PEN SC SCH ×4 (07:55→12:04)
[2018-11-26] MEDS: GABAPENTIN 300 MG CAP PO SCH ×2 (08:19→11:57)
[2018-11-26] MEDS: LINAGLIPTIN 5 MG TABLET PO SCH (08:19)
[2018-11-26] MEDS: APIXABAN 5 MG TABLET PO SCH (08:19)
[2018-11-26] MEDS: DILTIAZEM (CD) 120 MG CAP PO SCH (08:20)
[2018-11-26] MEDS: AMIODARONE 200 MG TAB PO SCH (08:20)
[2018-11-26] MEDS: MUPIROCIN 2% 22 GM OINT TOP SCH (08:20)
[2018-11-26] MEDS: INSULIN GLARGINE [LANTus] (100 UNITS/ML) SYG SC SCH (08:33)
--- NOTE | 2018-11-26 12:46 | CONS ---
Assessment/Plan Assessment/Plan Hospital Course (Demo Recall) IMP: 1.PAF/AFL-remains in SR on amiodarone 2.Hypotension-borderline 3.Fatigue 4. DM 5. Renal failure- now improved 6. Dizziness-resolved with IVF hydration Recc; -Tele -serial ecg's -Contineu dilt and coreg at current doses given bradycardia and the fact that patient has marginal BP -Continue amiodarone loading as tolerated -Contineu eliquis -follow volume status closely with now improved renal function s/p IVF hydration and resolved dizziness -not resuming losartan given marginal BP -follow BS closely Consultation Date/Type/Reason Admit Date/Time Nov 20, 2018 at 14:54 Initial Consult Date 11/20/18 Type of Consult Cardiology Reason for Consultation PAF Requesting Provider: RUBINA KHAN NP Date/Time of Note DATE: 11/26/18 TIME: 12:44 Exam/Review of Systems Vital Signs Vitals Vital Signs Date Temp Pulse Resp B/P (MAP) Pulse Ox O2 O2 Flow FiO2 Time Delivery Rate 11/26/18 58 12:16 11/26/18 98.0 20 114/63 93 Room Air 11:13 (80) Intake and Output 11/25/18 11/25/18 11/26/18 1515:00 23:00 07:00 IntakeIntake Total 1800 ml 2500 ml OutputOutput Total 1000 ml 2150 ml 1400 ml BalanceBalance 800 ml -2150 ml 1100 ml Exam Exam Review of Systems: CONSTITUTIONAL: No fevers, chills. PULMONARY: No sob CARDIOVASCULAR: No chest pain/palpitations GASTROINTESTINAL: No nausea/vomiting. GENITOURINARY: No hematuria/dysuria. MUSCULOSKELETAL: No myagias/arthalgias. PSYCHIATRIC: The patient denies depression. NEUROLOGIC: No weakness Constitutional: alert, oriented Psych: no complaints Head: normocephalic ENMT: mucosa pink and moist Neck: supple, jvd (9 cm water) Respiratory: diminished breath sounds (at bases/B) Cardiovascular: regular rate and rhythm Gastrointestinal: soft, non-tender Musculoskeletal: muscle tone (normal) Extremities: other (none) Neurological: other (No focal deficits) Labs Result Diagram: 11/26/18 0627 11/26/18 0627 Results 24hrs Laboratory Tests Test 11/25/18 17:19 11/25/18 20:36 11/26/18 06:27 11/26/18 08:21 Bedside Glucose 99 159 135 White Blood Count 9.0 # Red Blood Count 5.19 Hemoglobin 15.7 Hematocrit 45.3 Mean Corpuscular 87.3 Volume Mean Corpuscular 30.3 Hemoglobin Mean Corpuscular 34.7 Hemoglobin Concent Red Cell 13.0 Distribution Width Platelet Count 207 Mean Platelet Volume 10.5 H Immature 0.400 Granulocytes % Neutrophils % 62.0 Lymphocytes % 29.1 Monocytes % 6.4 Eosinophils % 1.4 Basophils % 0.7 Nucleated Red Blood 0.0 Cells % Immature 0.040 H Granulocytes # Neutrophils # 5.6 Lymphocytes # 2.6 Monocytes # 0.6 Eosinophils # 0.1 Basophils # 0.1 Nucleated Red Blood 0.0 Cells # Sodium Level 142 Potassium Level 4.0 Chloride Level 107 Carbon Dioxide Level 25 Anion Gap 10 Blood Urea Nitrogen 12 Creatinine 0.79 Est Glomerular > 60 Filtrat Rate mL/min Glucose Level 133 Calcium Level 9.0 Phosphorus Level 5.1 H Magnesium Level 1.9 Test 11/26/18 11:58 Bedside Glucose 132 Medications Medications Current Medications IV Flush (NS 3 ml) 3 ml PER PROTOCOL IV ; Start 11/20/18 at 15:30 Ondansetron HCl (Zofran Inj) 4 mg Q6H PRN IV NAUSEA/VOMITING Last administered on 11/21/18at 13:23; Admin Dose 4 MG; Start 11/20/18 at 15:30 Atorvastatin Calcium (Lipitor) 20 mg QHS PO Last administered on 11/25/18at 20:32; Admin Dose 20 MG; Start 11/20/18 at 21:00 Diltiazem HCl (Cardizem Cd) 120 mg BID PO Last administered on 11/26/18at 08:20; Admin Dose 120 MG; Start 11/20/18 at 21:00 Gabapentin (Neurontin) 300 mg TID PO Last administered on 11/26/18at 11:57; Admin Dose 300 MG; Start 11/20/18 at 21:00 Insulin Aspart (Novolog Insulin Pen) NOVOLOG *MILD* ALGORITHM WITH MEALS BEDTIME SC Last administered on 11/25/18at 12:23; Admin Dose 1 UNIT; Start 11/20/18 at 18:00 Miscellaneous Information 1 ea NOTE XX ; Start 11/20/18 at 16:00 Glucose (Glutose) 15 gm Q15M PRN PO DECREASED GLUCOSE; Start 11/20/18 at 16:00 Glucose (Glutose) 22.5 gm Q15M PRN PO DECREASED GLUCOSE; Start 11/20/18 at 16:00 Dextrose (D50w Syringe) 25 ml Q15M PRN IV DECREASED GLUCOSE; Start 11/20/18 at 16:00 Dextrose (D50w Syringe) 50 ml Q15M PRN IV DECREASED GLUCOSE; Start 11/20/18 at 16:00 Glucagon (Glucagen) 1 mg Q15M PRN IM DECREASED GLUCOSE; Start 11/20/18 at 16:00 Glucose (Glutose) 15 gm Q15M PRN BUCCAL DECREASED GLUCOSE; Start 11/20/18 at 16:00 Nitroglycerin (Nitroglycerin (Sl Tab) 0.4 Mg) 1 tab Q5M PRN SL ANGINA Last administered on 11/20/18at 20:18; Admin Dose 1 TAB; Start 11/20/18 at 20:30 Amiodarone HCl (Cordarone) 200 mg BID PO Last administered on 11/26/18at 08:20; Admin Dose 200 MG; Start 11/21/18 at 09:00 Apixaban (Eliquis) 5 mg BID PO Last administered on 11/26/18 08:19; Admin Dose 5 MG; Start 11/20/18 at 21:00 Insulin Aspart (Novolog Insulin Pen) 15 unit WITH MEALS SC Last administered on 11/26/18at 12:04; Admin Dose 15 UNIT; Start 11/22/18 at 11:50 Insulin Glargine (Lantus) 25 units BID SC Last administered on 11/26/18at 08:33; Admin Dose 25 UNITS; Start 11/22/18 at 21:00 Linagliptin (Tradjenta) 5 mg DAILY PO Last administered on 11/26/18 08:19; Admin Dose 5 MG; Start 11/22/18 at 15:30 Carvedilol (Coreg) 6.25 mg BID PO Last administered on 11/26/18 08:19; Admin Dose 6.25 MG; Start 11/22/18 at 21:00 Polyethylene Glycol (Miralax) 17 gm DAILY PRN PO CONSTIPATION; Start 11/23/18 at 12:30 Mupirocin (Bactroban) 1 applic BID TOP Last administered on 11/26/18at 08:20; Admin Dose 1 APPLIC; Start 11/23/18 at 23:30 Sodium Chloride 1,000 ml @ 50 mls/hr Q20H IV Last administered on 11/26/18at 04:09; Admin Dose 50 MLS/HR; Start 11/24/18 at 12:00 MAC QUEVEDO Nov 26, 2018 12:46
[2018-11-26] MEDS ORDERED: APIX5TAB PO (14:41)
[2018-11-26] MEDS ORDERED: AMIO200T4 PO (14:41)
[2018-11-26] MEDS ORDERED: CARV6.2579 PO (14:41)
--- NOTE | 2018-11-26 14:47 | PDOCDIS ---
Discharge Instructions CONDITION [id number] Patient Condition: [id number] Stable FOLLOW UP/APPOINTMENTS Follow-up Plan 1. Please attempt to follow your diet he did in the hospital, please adjust your insulin as you check your blood sugars 2. 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 Please follow-up with your primary care provider for endocrinology referral. JANI DELACRUZ Nov 26, 2018 14:47
--- NOTE | 2018-11-26 14:53 | DS ---
Date/Time of Note Date/Time of Note DATE: 11/26/18 TIME: 14:52 Discharge Summary Admission/Discharge Info Admit Date/Time Nov 20, 2018 at 14:54 Discharge Date/Time Patient Condition: Stable Hospital Course Patient is a male with a past medical history significant for difficult to control atrial fibrillation with RVR. Patient was admitted and seen by his c ardiologist and medications were adjusted. Patient had multiple adjustments to medications including blood pressure medications and atrial ablation medications due to blood pressure issues. Patient finally had a regimen that was controlling his heart rate as well as his blood pressure will now be discharged to follow-up with his events solutions consultant as soon as possible. Patient will also need to follow-up with his primary care provider to get a referral to public services librarian. I spoke to patient in depth that we are using significantly less insulin while in-house as his diets well controlled here and that he needs to control his diet in the outpatient setting if he wants to ever be off insulin. Patient understands and will follow up with public services librarian as soon as possible. Patient knows that multiple medications have been changed and that he is started on a new anticoagulant called Eliquis. Patient feels well and will follow up with his primary care provider and events solutions consultant as soon as possible. Of note patient will restart losartan in the outpatient setting if safe for blood pressure. Atrial fibrillation with RVR, resolved Dizziness, resolved Hypotension, resolved Fatigue, resolved Abdominal pain, resolved Hypertension Acute kidney injury, resolved Diabetes mellitus This of anemia Obesity Lower extremity neuropathy, chronic Home Meds Active Scripts Carvedilol* (Carvedilol*) 6.25 Mg Tablet, 6.25 MG PO BID for 30 Days, #60 TAB Prov:JANI DELACRUZ 11/26/18 Amiodarone Hcl* (Amiodarone Hcl*) 200 Mg Tablet, 200 MG PO BID for 30 Days, #60 TAB Prov:JANI DELACRUZ 11/26/18 Apixaban* (Eliquis*) 5 Mg Tablet, 5 MG PO BID for 30 Days, #60 TAB 2 Refills Prov:JANI DELACRUZ 11/26/18 Diltiazem Hcl* (Cardizem CD*) 120 Mg Cap.sr.24h, 120 MG PO BID, #60 Prov:LEANN PITTS NP 10/31/18 Reported Medications Gabapentin* (Gabapentin*) 300 Mg Capsule, 300 MG PO TID, #90 CAP 11/20/18 Atorvastatin Calcium* (Atorvastatin Calcium*) 20 Mg Tablet, 20 MG PO QHS, #30 TAB 11/20/18 Insulin Lispro (Humalog Kwikpen U-100) 100 Unit/1 Ml Insuln.pen, 25 UNIT SQ WITH MEALS, EA 11/20/18 Insulin Glargine,Hum.rec.anlog (Basaglar Kwikpen U-100) 100 Unit/1 Ml Insuln.pen, 90 UNIT SC DAILY, EA 11/20/18 Discontinued Reported Medications Amiodarone Hcl* (Amiodarone Hcl*) 200 Mg Tablet, 200 MG PO DAILY, #30 TAB 11/20/18 Aspirin* (Aspirin* EC) 81 Mg Tablet.dr, 81 MG PO DAILY, TAB 11/20/18 Carvedilol* (Carvedilol*) 25 Mg Tablet, 25 MG PO BID, #60 TAB 11/20/18 Losartan Potassium* (Losartan Potassium*) 50 Mg Tablet, 50 MG PO DAILY, TAB 11/20/18 Insulin Glargine,Hum.rec.anlog (Basaglar Kwikpen U-100) 100 Unit/1 Ml Insuln.pen, 90 UNIT SC QHS, EA 07/10/18 Atorvastatin Calcium* (Atorvastatin Calcium*) 20 Mg Tablet, 20 MG PO QHS, #30 TAB 02/10/18 Losartan Potassium* (Losartan Potassium*) 50 Mg Tablet, 50 MG PO DAILY, TAB 02/10/18 Dabigatran Etexilate Mesylate* (Pradaxa*) 150 Mg Capsule, 150 MG PO BID, CAP 10/21/17 Amiodarone Hcl* (Amiodarone Hcl*) 200 Mg Tablet, 200 MG PO DAILY, #30 TAB 10/21/17 Sitagliptin* (Januvia*) 100 Mg Tablet, 100 MG PO DAILY, #30 TAB 09/03/17 Insulin Lispro (Humalog Kwikpen U-100) 100 Unit/1 Ml Insuln.pen, 20 UNIT SQ TID, EA 07/22/17 Aspirin* (Aspirin* EC) 81 Mg Tablet.dr, 81 MG PO DAILY, TAB 07/01/17 Digoxin* (Digitek*) 125 Mcg Tablet, 0.125 MG PO DAILY, TAB 07/01/17 Discontinued Scripts Atenolol* (Atenolol*) 50 Mg Tablet, 50 MG PO BID, #60 TAB Prov:LEANN PITTS NP 10/31/18 Pantoprazole* (Protonix*) 40 Mg Tablet., 40 MG PO DAILY, #20 TAB Prov:VAUGHN COMBS MD 08/10/18 Follow-up Plan 1. Please attempt to follow your diet he did in the hospital, please adjust your insulin as you check your blood sugars 2. Please note that many medications have changed, -your Coreg dose has decreased to 6.25 twice a day -Your amiodarone has increased to 200 mg twice a day, please follow-up with your events solutions consultant within 1 week to figure out if he would like to keep you on this dose or to decrease it back to once a day -Digoxin was stopped -Baby aspirin was stopped -Eliquis was started -Please pay close attention to medication reconciliation form given to you at discharge 3. Please follow-up with your primary care provider for endocrinology referral. Primary Care Provider [facility] Pending Labs Laboratory Tests Test 11/25/18 17:19 11/25/18 20:36 11/26/18 06:27 11/26/18 08:21 Bedside 99 159 135 Glucose mg/dL (70-220) mg/dL (70-220) mg/dL (70-220) White Blood 9.0 Count 10^3/ul (4.8-1 0.8) Red Blood 5.19 Count 10^6/ul (4.70- 6.10) Hemoglobin 15.7 g/dl (14.0-18. 0) Hematocrit 45.3 % (42.0-52.0) Mean 87.3 Corpuscular fl (82.0-101.0 Volume ) Mean 30.3 Corpuscular pg (29.0-33.0) Hemoglobin Mean 34.7 Corpuscular g/dl (32.0-37. Hemoglobin Conc 0) ent Red Cell 13.0 Distribution % (11.5-14.5) Width Platelet Count 207 10^3/UL (140-4 15) Mean Platelet 10.5 Volume fl (7.4-10.4) Immature 0.400 Granulocytes % % (0.001-0.429 ) Neutrophils % 62.0 % (39.0-77.0) Lymphocytes % 29.1 % (15.0-51.0) Monocytes % 6.4 % (0.0-11.0) Eosinophils % 1.4 % (0.0-7.0) Basophils % 0.7 % (0.0-2.0) Nucleated Red 0.0 Blood Cells % /100WBC (0.0-0 .0) Immature 0.040 Granulocytes # 10^3/ul (0.0-0 .031) Neutrophils # 5.6 10^3/ul (1.6-7 .5) Lymphocytes # 2.6 10^3/ul (0.8-2 .9) Monocytes # 0.6 10^3/ul (0.3-0 .9) Eosinophils # 0.1 10^3/ul (0.0-0 .5) Basophils # 0.1 10^3/ul (0.0-0 .1) Nucleated Red 0.0 Blood Cells # 10^3/ul (0.0-0 .0) Sodium Level 142 mmol/L (135-14 4) Potassium 4.0 Level mmol/L (3.5-5. 1) Chloride Level 107 mmol/L (97-110 ) Carbon Dioxide 25 Level mmol/L (21-31) Anion Gap 10 (5-13) Blood Urea 12 Nitrogen mg/dl (7-20) Creatinine 0.79 mg/dl (0.61-1. 24) Est Glomerular > 60 Filtrat mL/min (>60) Rate mL/min Glucose Level 133 mg/dl (70-220) Calcium Level 9.0 mg/dl (8.4-10. 2) Phosphorus 5.1 Level mg/dl (2.5-4.9 ) Magnesium 1.9 Level mg/dl (1.7-2.5 ) Test 11/26/18 11:58 Bedside 132 Glucose mg/dL (70-220) JANI DELACRUZ Nov 26, 2018 14:53
== END 2018-11-26 16:55 | disposition home or self-care (01) | DRG 309 ==
LOC: E/R 13:43 → TEL 14:54
PROVIDERS: ADMIT Internal Medicine; ATTEND Internal Medicine
DX: I48.91 Unspecified atrial fibrillation (principal); E66.2 Morbid (severe) obesity with alveolar hypoventilation; Z68.42 Body mass index [BMI] 45.0-49.9, adult; N17.9 Acute kidney failure, unspecified; E87.1 Hypo-osmolality and hyponatremia; I50.9 Heart failure, unspecified; E11.65 Type 2 diabetes mellitus with hyperglycemia; I11.0 Hypertensive heart disease with heart failure; E78.5 Hyperlipidemia, unspecified; I95.89 Other hypotension; R19.7 Diarrhea, unspecified; R42 Dizziness and giddiness; D64.9 Anemia, unspecified; E11.42 Type 2 diabetes mellitus with diabetic polyneuropathy
CPT/HCPCS: 70450; 71045; 74176; 80048; 80053; 80061; 80069; 80162; 80307; 81003; 82043; 82550; 82553; 82962; 83036; 83735; 83880; 84100; 84155; 84300; 84439; 84443; 84484; 85025; 85610; 85730; 87081; 93005; 93970; 96374; J1815; J1940; J2270; J2405; J3475; J7030; J7040

== ENCOUNTER 2019-03-04 17:47 | Emergency (ER) | payer OTHER ==
[~2019-03-04] VITALS: Ht 180.3 cm; Wt 163.6 kg
[~2019-03-04 17:47] MED LIST changes: +APIX5TAB PO; -ASPI-817 PO; -ATEN50TA PO; +CARV25TA79 PO; +CARV6.2579 PO; -DABI150C PO; -DIGO125T PO; +GABA300C16 PO; -LOSA50TA14 PO; -PANT40TA3 PO; -SITA100T11 PO
[2019-03-04 17:51] VITALS: Ht 180.3 cm; Wt 163.6 kg
[2019-03-04] MEDS ORDERED: ONDANSETRON 4 MG INJ IV STA (18:01)
[2019-03-04] MEDS ORDERED: KETOROLAC 15 MG INJ IV STA (18:13)
[2019-03-04] MEDS ORDERED: SOD CHLORIDE 0.9% 1,000 ML IV ONE (18:30)
[2019-03-04] MEDS ORDERED: INSULIN REGULAR, HUMAN 100 UNIT/1 ML 3ML VIAL SC ONE (19:30)
[2019-03-04 21:02] VITALS: BP 155/69; PULSE 73; RESP 18
== END 2019-03-04 21:03 | disposition home or self-care (01) ==
LOC: E/R 17:47
DX: E11.65 Type 2 diabetes mellitus with hyperglycemia (principal); I11.0 Hypertensive heart disease with heart failure; I50.9 Heart failure, unspecified; I48.91 Unspecified atrial fibrillation; Z79.4 Long term (current) use of insulin
CPT/HCPCS: 36415; 71045; 80048; 81003; 82803; 82962; 83735; 84100; 84484; 85025; 96372; 96374; 96375; J1815; J1885; J2405; J7030; Z7502; 93005